=== PATIENT | male | born 1950 | race Caucasian/White ===

== ENCOUNTER 2021-05-30 09:09 | Outpatient (CLI) | payer MEDICARE, SELFPAY ==
--- NOTE | 2021-05-30 13:25 | WPDSIXMINUTE ---
Six Minute Walk Procedure Procedure Performed Pulmonary Stress Test (6 min walk) Six Minute Walk This is a 6 minute walk test. The test was performed and interpreted in accordance with the 2014 ERS/ATS task force guidelines. Findings: The patient's resting room air oxygen saturation measured by pulse oximetry was 96% and heart rate was 79 bpm. Patient ambulated for 396 meters and oxygen saturation remained 92 to 99%. Heart rate at the end of the study was 103 bpm. The patient did not qualify for supplemental oxygen at rest or with ambulation. There are no prior studies for comparison.
--- NOTE | 2021-05-30 13:26 | WPDPFTINT ---
PFT Procedure Performed PFT Procedure Performed Spirometry with Pre/Post Bronchodilator Plethysmography (Lung Vol) Diffusing Cap (DLCO) Flow Vol Loop PFT Interpretation This is a pulmonary function test with pre and post-bronchodilator spirometry, plethysmography and diffusing capacity. The test was performed and results interpreted in accordance with the 2019 and 2005 ATS/ERS Task Force guidelines respectively using the Global Lung Function Initiative-2012 reference equations. Patient demonstrated good effort and cooperation. Reproducibility criteria were met. The quality of the pre bronchodilator spirometry maneuver was Grade A and post bronchodilator spirometry maneuver was Grade A. Findings: Spirometry: There is decreased maximal expiratory airflow at low lung volumes with a concave expiratory flow tracing. The pre bronchodilator FVC is 4.04 L, 86% predicted. The pre bronchodilator FEV1 is 2.68 L, 76% predicted. The FEV1: FVC ratio 66%. The post bronchodilator FVC is 3.98 L, representing a 2% decrease. The post bronchodilator FEV1 is 2.65 L, representing 1% decrease. The post bronchodilator FEV1: FVC ratio 67%. Plethysmography: The total lung capacity is 7.69 L, 101% predicted. The functional residual capacity is 4.10 L, 101% predicted. The residual volume is 3.65 L, 140% predicted. Diffusing capacity: The diffusing capacity unadjusted for hemoglobin is 20.5, 75% predicted. The diffusing capacity adjusted for alveolar volume is 3.42, 91% predicted. Impression: There is a mild obstructive abnormality with a normal FEV1 and without significant improvement after inhaling a single dose of albuterol. The increase in residual volume is consistent with air trapping from an obstructive abnormality. The diffusing capacity is normal. There are no prior studies for comparison
== END 2021-05-30 09:10 | disposition home or self-care (01) ==
PROVIDERS: PCP Internal Medicine; Visit Provider Nurse Practitioner
DX: J44.9 Chronic obstructive pulmonary disease, unspecified (principal)
CPT/HCPCS: 94060; 94618; 94726; 94729

== ENCOUNTER → 2022-01-28 15:45 | Outpatient (CLI) | payer MEDICARE, SELFPAY ==
--- NOTE | ~2022-01-28 | CT_ITS ---
EXAMINATION: CT sinus wo con DATE: 01/28/2022 15:58 INDICATION: Chronic sinusitis TECHNIQUE: Computed tomography (CT) of the paranasal sinuses was performed without intravenous contra st. The dose-length product was 258.77 mGy-cm. Automated exposure control and iterative reconstructio n technique were employed. COMPARISON: None FINDINGS: There is mild mucosal thickening of the maxillary and ethmoid sinuses. No air-fluid levels. No mucoperiosteal reaction. Rightward nasal septal deviation. Ostiomeatal units are patent. Mastoids are pneumatized. IMPRESSION: 1. Mild sinus disease. Reviewed, dictated and finalized at location A. IMPRESSION: 1. Mild sinus disease.
== END ==
PROVIDERS: PCP Internal Medicine; Visit Provider Otolaryngology
DX: J32.9 Chronic sinusitis, unspecified (principal)
CPT/HCPCS: 70486

== ENCOUNTER 2024-06-10 16:23 | Outpatient (CLI) | payer MEDICARE, SELFPAY ==
--- OUTSIDE RECORDS SUMMARY | 2024-06-10 16:34 | XMS_ITS | Referral Summary ---
Author Organization [facility] Address [address] [place] [address] Care Team Providers Care Electronic Equipment Installer Name Role Phone Efraín Burch MD Primary Care Provider Source Comments [facility]ates and Associated Physician Practices is amultiple site organization consisting of ambulatory clinics and hospital sitesin [place], [place], [place] and [place]. This disclosure is being madepursuant to the Care Everywhere program and may not contain all information available regarding this patient. Last updated 18.[facility] Social History Tobacco Use Types Packs/Day Years Used Date Smoking Tobacco: Never Assessed Sex and Gender Information Value Date Recorded Sex Assigned at Not on file Gender Identity Not on file Sexual Orientation Not on file Plan of Treatment Not on file Care Teams Electronic Equipment Installer Relationship Specialty Start Date End Date Efraín Burch MD [address] [facility] [address] [place] [id number] PCP - General Internal Medicine 11/19/19
--- OUTSIDE RECORDS SUMMARY | 2024-06-10 16:34 | XMS_ITS | Patient Health Record ---
Author Organization [facility] Address [address] [place] [address] Care Team Providers Care Ship Rigger Name Role Phone Enoch Mondragon Unavailable [phone] REASON FOR REFERRAL No Information MEDICATIONS Medication SIG (Take, Route, Frequency, Duration) Notes Start Date End Date Status amLODIPine Besylate 10 MG 1 tablet Orall y Once a day for 90 08/08/2023 Active Carvedilol 25 MG 1 tablet with food Orally Twice a day for 90 days 10/29/2023 Active Calcitriol 0.25 MCG 1 capsule Orally Onc e a day for 90 day(s) 08/08/2023 12/19/2024 Active Ergocalciferol 1.25 MG (61709 UT) 1 capsule Orally Once a week for 90 day(s) 08/08/2023 02/01/2025 Active PROBLEMS Problem Type ICD Code Onset Dates Problem Status W/U Status Risk SNOMED Code Notes Problem Type 2 diabetes mellitus without complications (E11.9) Active confirmed Type II diabete s mellitus without complication (073072372) Problem Secondary hyperparathyroid ism, not elsewhere classified (E21.1) Active confirmed Secondary hyperparathyroidism (96028010) Problem Vitamin D deficiency, unspecified (E55.9) Active confirmed Vitamin D defic iency (02556310) Problem Anxiety disorder, unspecified (F41.9) Active confirmed Anxiety disorde r (210375008) Problem Chronic kidney disease, stage 2 (mild) (N18.2) Active confirmed Chronic kidne y disease stage 2 (073366522) Problem Renal osteodystrophy (N25.0) Active confirmed Renal osteodyst rophy (61186150) Problem Chronic fatigue, unspecified (R53.82) Active confirmed Chronic fatigue syndrome (disorder) (53557668) Problem Other proteinuria (R80.8) Active confirmed Proteinuria (67256674) Problem Essential hypertension (I10) Active confirmed Essential hypertension (39682031) Problem Chronic kidney disease, stage 3 unspecified (N18.30) Active confirmed Chronic kidney disease stage 3 (disorder) (894792393) Encounters Encounter Location Date Provider Diagnosis [facility] [address] [address] 07/25/2023 Enoch Mondragon Chronic kidney disea se, stage 3 unspecified N18.30 ; Anxiety disorder, unspecified F41.9 ; Chronic fatigue, unspecified R53.82 ; Other proteinuria R80.8 ; Renal osteodystrophy N25.0 and Secondary hyperparathyroidism, not elsewhere classified E21.1 [facility] [address] [address] 08/08/2023 Enoch Mondragon Chronic kidney disea se, stage 3 unspecified N18.30 ; Anxiety disorder, unspecified F41.9 ; Chronic fatigue, unspecified R53.82 ; Other proteinuria R80.8 ; Renal osteodystrophy N25.0 and Secondary hyperparathyroidism, not elsewhere classified E21.1 [facility] [address] [address] 09/12/2023 Enoch Mondragon Chronic kidney disea se, stage 3 unspecified N18.30 ; Anxiety disorder, unspecified F41.9 ; Chronic fatigue, unspecified R53.82 ; Other proteinuria R80.8 ; Renal osteodystrophy N25.0 and Secondary hyperparathyroidism, not elsewhere classified E21.1 [facility] [address] [address] 12/12/2023 Enoch Mondragon Chronic kidney disea se, stage 3 unspecified N18.30 ; Essential hypertension I10 ; Type 2 diabetes mellitus without complications E11.9 ; Anxiety disorder, unspecified F41.9 ; Chronic fatigue, unspecified R53.82 ; Other proteinuria R80.8 ; Renal osteodystrophy N25.0 and Secondary hyperparathyroidism, not elsewhere classified E21.1 [facility] [address] [address] 02/27/2024 Enoch Mondragon [facility] [address] [address] 03/24/2024 Enoch Mondragon Anxiety disorder, unspecified F41.9 ; Chronic kidney disease, stage 2 (mild) N18.2 ; Chronic fatigue, unspecified R53.82 ; Other proteinuria R80.8 ; Renal osteodystrophy N25.0 ; Secondary hyperparathyroidism, not elsewhere classified E21.1 ; Essential hypertension I10 ; Type 2 diabetes mellitus without complications E11.9 and Chronic kidney disease, stage 3 unspecified N18.30 [facility] [address] [address] 05/26/2024 Enoch Mondragon Chronic kidney disea se, stage 2 (mild) N18.2 ; Essential hypertension I10 ; Renal osteodystrophy N25.0 ; Vitamin D deficiency, unspecified E55.9 ; Abnormal results of thyroid function studies R94.6 and Glycosuria R81 [facility] [address] [place] [address] 03/24/2024 Enoch Mondragon [facility] [address] [address] 08/08/2023 Enoch Mondragon [facility] [address] [address] 09/12/2023 Enoch Mondragon [facility] [address] [address] 10/29/2023 Enoch Mondragon [facility] [address] [address] 05/07/2024 Enoch Mondragon ASSESSMENTS Encounter Date Diagnosis Assessment Notes Treatment Notes Treatment Clinical Notes Section Notes 07/25/2023 Chronic kidney disease, stage 3 unspecified (ICD-10 - N18.30) 08/08/2023 Chronic kidney disease, stage 3 unspecified (ICD-10 - N18.30) 09/12/2023 Chronic kidney disease, stage 3 unspecified (ICD-10 - N18.30) 12/12/2023 Essential hypertension (ICD-10 - I10) 12/12/2023 Chronic kidney disease, stage 3 unspecified (ICD-10 - N18.30) 03/24/2024 Anxiety disorder, unspecified (ICD-10 - F41.9) 03/24/2024 Chronic kidney disease, stage 2 (mild) (ICD-10 - N18.2) 05/26/2024 Chronic kidney disease, stage 2 (mild) (ICD-10 - N18.2) 05/26/2024 Essential hypertension (ICD-10 - I10) 05/26/2024 Renal osteodystrophy (ICD-10 - N25.0) 03/24/2024 Chronic fatigue, unspecified (ICD-10 - R53.82) 12/12/2023 Type 2 diabetes mellitus without complications (ICD-10 - E11.9) 09/12/2023 Anxiety disorder, unspecified (ICD-10 - F41.9) 08/08/2023 Anxiety disorder, unspecified (ICD-10 - F41.9) 07/25/2023 Anxiety disorder, unspecified (ICD-10 - F41.9) 07/25/2023 Chronic fatigue, unspecified (ICD-10 - R53.82) 09/12/2023 Chronic fatigue, unspecified (ICD-10 - R53.82) 08/08/2023 Chronic fatigue, unspecified (ICD-10 - R53.82) 12/12/2023 Anxiety disorder, unspecified (ICD-10 - F41.9) 03/24/2024 Other proteinuria (ICD-10 - R80.8) 05/26/2024 Vitamin D deficiency, unspecified (ICD-10 - E55.9) 05/26/2024 Abnormal results of thyroid function studies (ICD-10 - R94.6) 03/24/2024 Renal osteodystrophy (ICD-10 - N25.0) 12/12/2023 Chronic fatigue, unspecified (ICD-10 - R53.82) 08/08/2023 Other proteinuria (ICD-10 - R80.8) 09/12/2023 Other proteinuria (ICD-10 - R80.8) 07/25/2023 Other proteinuria (ICD-10 - R80.8) 07/25/2023 Renal osteodystrophy (ICD-10 - N25.0) 08/08/2023 Renal osteodystrophy (ICD-10 - N25.0) 09/12/2023 Renal osteodystrophy (ICD-10 - N25.0) 12/12/2023 Other proteinuria (ICD-10 - R80.8) 03/24/2024 Secondary hyperparathyroidism , not elsewhere classified (ICD-10 - E21.1) 05/26/2024 Glycosuria (ICD-10 - R81) 07/25/2023 Secondary hyperparathyroidism , not elsewhere classified (ICD-10 - E21.1) 03/24/2024 Essential hypertension (ICD-10 - I10) 12/12/2023 Renal osteodystrophy (ICD-10 - N25.0) 09/12/2023 Secondary hyperparathyroidism , not elsewhere classified (ICD-10 - E21.1) 08/08/2023 Secondary hyperparathyroidism , not elsewhere classified (ICD-10 - E21.1) 12/12/2023 Secondary hyperparathyroidism , not elsewhere classified (ICD-10 - E21.1) 03/24/2024 Type 2 diabetes mellitus without complications (ICD-10 - E11.9) 03/24/2024 Chronic kidney disease, stage 3 unspecified (ICD-10 - N18.30) PLAN OF TREATMENT Next Appt Details Provider Name:Enoch Mondragon , 07/14/2024 04:00:00 PM, [address] [facility], [facility] [address], [place], [address],
--- OUTSIDE RECORDS SUMMARY | 2024-06-10 16:34 | XMS_ITS | Clinical Summary ---
Author Organization [facility] Address [address] [place] [address] Care Team Providers Care Paper Cutter Operator Name Role Phone Efraín Burch MD Primary Care Provider Source Comments [facility],non-owned Affiliates and Associated Physician Practices is amultiple site organization consisting of ambulatory clinics and hospital sitesin [place], [place]. This disclosure is being madepursuant to the Care Everywhere program and may not contain all information available regarding this patient. Last updated 18.[facility] Social [employer] Social History Tobacco Use Types Packs/Day Years Used Date Smoking Tobacco: Never Assessed Sex and Gender Information Value Date Recorded Sex Assigned at Not on file Gender Identity Not on file Sexual Orientation Not on file Plan of Treatment Health Maintenance Due Date Last Done Comments COLOGUARD (AGES 45-75) - COL ON CA SCREENING 1950 COLON MONITORING 1950 COLONOSCOPY - COLON CA SCREENING 1950 CT COLONOGRAPHY - COLON CA SCREENING 1950 Colorectal Cancer Screening 1950 FIT - COLON CA SCREENING 1950 FLEX SIG - COLON CA SCREENING 1950 LIPID TESTING 1950 HEPATITIS C SCREENING 08/11/1968 DTAP/TDAP/TD VACCINES (1 - Tdap) 1969 PNEUMOCOCCAL VACCINE 50+ (1 of 1 - PCV) 2000 ZOSTER VACCINE (1 of 2) 2000 COVID-19 VACCINE ( - 2023-2 5 season) 2024 INFLUENZA VACCINE (#1) 2024 9, 03/25/2018, 03/17/2017 DEPRESSION SCREENING 05/12/2024 Respiratory Syncytial Virus (RSV) Vaccine Pt: or over 60 yrs (1 - 1-dose 75+ series) 2025 HEPATITIS B VACCINE Aged Out No longe r eligible based on patient's age to complete this topic HIB VACCINE Aged Out No longer eligi ble based on patient's age to complete this topic HPV VACCINE Aged Out No longer eligi ble based on patient's age to complete this topic MENINGOCOCCAL (Group B) VACCINE Aged Out No longer eligible b ased on patient's age to complete this topic MENINGOCOCCAL VACCINE Aged Out No freedom yordy eligible based on patient's age to complete this topic Care Teams Paper Cutter Operator Relationship Specialty Start Date End Date Efraín Burch MD [address] [address] PCP - General Internal Medicine 11/19/19
--- OUTSIDE RECORDS SUMMARY | 2024-06-10 16:35 | XMS_ITS ---
Author Organization [facility] Address [address] [facility] [address] [facility] [address] [place] [address] Care Team Providers Care Conservation Worker Name Role Phone Giancarlo Enoch Unavailable [phone] MEDICATIONS Medication SIG (Take, Route, Frequency, Duration) Notes Start Date End Date Status Ergocalciferol 1.25 MG (31607 UT) 1 capsule Orally Once a week for 90 day(s) 08/08/2023 02/01/2025 Active Encounters Encounter Location Date Provider Diagnosis [facility] [address] [facility] [address] [place] [address] 05/07/2024 Enoch Mondragon PLAN OF TREATMENT Medication Medication Name Sig Start Date Stop Date Notes Ergocalciferol 1.25 MG (5000 0 UT) 1 capsule Orally Once a week for 90 day(s) 08/08/2023 02/01/2025 Next Appt Details Provider Name:Enoch Mondragon , 07/14/2024 04:00:00 PM, [address] [facility], [facility], [place], [address], Progress Notes * OTONIEL HARVEYDOB:1950 (73 yo M)Acc No.[id number]:05/07/2024 Patient:??OTONIEL HARVEY :1950?Age:73 Y?Sex:Shiv lee Address:[address] [place] [address] * Refills?? Refill Ergocalciferol Capsule, 1.25 MG (13557 UT), Orally, 13, 1 capsule, Once a week, 90 day(s), Refills=2 * true * Date:??
--- OUTSIDE RECORDS SUMMARY | 2024-06-10 16:35 | XMS_ITS | Clinical Summary ---
Author Organization [facility] Address [address] [place] [address] Care Team Providers Care Personal Trainer Name Role Phone Martin Brooks MD Unavailable Gonzalez Alvarado Primary Care Provider [phone] Allergies No known active allergies Medications Eliquis 5 mg tablet Take 5 mg by mouth 2 (two) times a day 1 Active atorvastatin (LIPITOR) 20 mg tablet Take 20 mg by mouth nightly 1 Active hydrALAZINE (APRESOLINE) 50 mg tablet Take 50 mg by mouth 2 (two) times a day 1 Active isosorbide mononitrate ER (IMDUR) 30 mg 24 hr tablet Take 30 mg by mouth daily 1 Active losartan (COZAAR) 100 mg tablet Take 100 mg by mouth nightly 1 Active Myrbetriq 50 mg tablet extended release 24 hr Take 50 mg by mouth daily 1 Active rOPINIRole (REQUIP) 1 mg tablet Take 1 mg by mouth nightly 1 Active sotaloL (BETAPACE) 120 mg tablet Take 180 mg by mouth 2 (two) times a day 1 Active terazosin (HYTRIN) 5 mg capsule Take 5 mg by mouth nightly 1 Active testosterone 20.25 mg/1.25 gram (1.62 %) gel in metered-dose pump Apply 3 Pump topically nightly 1 Active budesonide-formo teroL (SYMBICORT) 80-4.5 mcg/actuation inhaler Inhale 2 puffs 2 (two) times a day Rinse mouth with water after use. Do not swallow. Active umeclidinium (INCRUSE ELLIPTA) 62.5 mcg/actuation blister with device Inhale 1 puff nightly Active coenzyme Q10 200 mg capsule Take 200 mg by mouth nightly Active magnesium oxide (MAG-OX) 250 mg (150.8 mg elemental) tabletIndication s:hypomagnesemia Take 250 mg by mouth nightly Active albuterol HFA (PROVENTIL HFA,VENTOLIN HFA,PROAIR HFA) 90 mcg/actuation inhaler Inhale 2 puffs every 6 (six) hours as needed 6 Active a lipoic hqhz-hxxwzb-fbjl erine 125 mg-95 mcg- 250 mg capsule Take 1 capsule by mouth daily Just the Berberine Active aspirin 81 mg enteric coated tabletIndication s:cardiovascular disease Take 1 tablet (81 mg total) by mouth daily 30 tablet 11 1 Active carvediloL (COREG) 12.5 mg tabletIndication s:cardiovascular disease Take 1 tablet (12.5 mg total) by mouth 2 (two) times a day 60 tablet 11 1 Active ticagrelor (BRILINTA) 90 mg tabletIndication s:cardiovascular disease Take 1 tablet (90 mg total) by mouth 2 (two) times a day 60 tablet 11 1 Active Active Problems Problem Noted Date Diagnosed Date Chest pain at rest 03/05/2021 CAD (coronary artery disease) 02/28/2021 Overview (02/28/2021): Added automatically from request for surgery [id number] SOB (shortness of breath) 02/28/2021 Overview (02/28/2021): Added automatically from request for surgery [id number] Surgical History Surgery Date Site/Laterality Comments CARDIAC PACEMAKER PLACEMENT Dual Chamber [employer] CARDIAC CATHETERIZATION CARDIAC ELECTROPHYSIOLOGY STUDY AND ABLATION CARDIOVERSION UMBILICAL HERNIA REPAIR TOTAL KNEE ARTHROPLASTY 05/12/2020 - 05/11/2021 Left TONSILLECTOMY BRONCHOSCOPY histoplasmosis Medical History Medical History Date Comments Arrhythmia A Fib post ablat ion SSS (sick sinus syndrome) (CMS/HCC) (HCC) post Dual Chamber Pacemaker Hypertension Sleep apnea CPAP HLD (hyperlipidemia) CAD (coronary artery disease) Asthma allergies Lung disease borderline COPD BPH (benign prostatic hyperplasia) Restless leg Depression history 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 FREQUENCY CHECKER Gender Identity Not on file Sexual Orientation Not on file Obstetrics History Last Filed Vital Signs Vital Sign Reading Time Taken Comments Blood Pressure 138/89 03/06/2021 12:13 PM CDT Pulse 79 03/06/2021 12:13 PM CDT Temperature 36.9 ??C (98.5 ??F) 03/06/2021 12:13 PM C DT Respiratory Rate 18 03/06/2021 12:13 PM CDT Oxygen Saturation 96% 03/06/2021 12:13 PM CDT Inhaled Oxygen Concentration - - Weight 131.5 kg (290 lb) 03/05/2021 10:10 AM CDT Height 185.4 cm (6' 1 ) 03/05/2021 10:10 AM CDT Body Mass Index 38.26 03/05/2021 10:10 AM CDT Plan of Treatment Not on file Medical Devices Implanted Type Area Gauge Machine Operator Device Identifier Shelf Expiration Date Model / Serial / Lot [employer] X [id number] Resolute Josr 3mm 2.1-2.7fr 8mm 140cm Rapid Exchange Radiopaque 1 - [id number] Implanted:Qty: 1 on 03/05/2021 by Shine Zuñiga MD at [facility] [employer] 04/12/2022 [id number] / / Insurance AETNA MEDICARE AETNA MEDICARE Advance Directives For more information, please contact: [phone] * Full Code (Latest Code Status on File) Date Activated Date Inactivated Comments 03/05/2021 6:31 PM 03/06/2021 5:58 PM * Full Code Date Activated Date Inactivated Comments 03/05/2021 2:41 PM 03/05/2021 6:31 PM Care Teams Personal Trainer Relationship Specialty Start Date End Date Gonzalez Alvarado [address] [address] PCP - General 03/19/21 Martin Brooks MD Consulting Physician Cardiology 03/06/21
--- OUTSIDE RECORDS SUMMARY | 2024-06-10 16:35 | XMS_ITS | Continuity of Care Document ---
Author Organization [facility] Address [address] [place] [address] Phone Care Team Providers Care Mechanical Systems Control Engineer Name Role Phone Galvan OD, Francisco Unavailable Unavailable Procedures Procedure Date Office/outpatient Visit, Est Refraction Advance Directives Directive Yes / No Effective Date File Name No Information Encounters Encounter Description Practice Location Reason(s) For Visit Diagnoses Date Provider Providers Copied on Encounter [facility] [address], [place], [place], [id number], [place] tel:[phone] [facility] No Information [phone] Galvan OD Francisco. [address] , [address], [place], [address], [place]. tel:[phone] Family History Family Member Type Diagnosis Age At Onset No Information Payers Payer name Insurance type Covered constitution party ID Authoriza tion(s) No Information Social History Type Description Quantity Date Captured Comments Sex Male Smoking Status No Information Chief Complaint And Reason For Visit No Information Reason For Referral Reason For Referral No Information History Of Present Illness Encounter Date Complaint History Of Prese nt Illness No Information Functional Status Date Functional Assessmen t No Information Instructions Date Instruction Additional Infor mation No Information Assessments Type Assessment Date No Information Patient Care Teams Name Effective Dates (start - stop) Status Members No Information
--- OUTSIDE RECORDS SUMMARY | 2024-06-10 16:35 | XMS_ITS | Data Portability ---
Author Organization [place] - [facility], Main Office Address [address] [place] [address] Care Team Providers [employer] Underwriter Name Role Phone JOSE BURCH Primary Care Provider JOSE BURCH Referring Provider MARTIN BROOKS Skin Specialist ABEL BAEZA Commercial Leasing Agent NAYAN AGUILAR Administration Internship JERALD HEBERT Cost Estimating Clerk Assessment Encounter Date Assessment Date Assessment LastModified by Organization Details LastModified Time 11/10/2023 11/10/2023 08/21/2022: A1C 5.9 Gluc 103, AST 47 LDL 88 01/01/2023: A1C 5.8 Hep panel: Neg GGT: Neg Bili T 1.40 Urine micro alb 76.5 PLT 147 07/01/2023: PSA 1.18 A1C 5.8 TSH 4.930H, FT4 0.80 Urine micro alb 32.1 BUN 22, Gluc 104, glob 2.4L, TP WNL 11/06/2023: A1C 5.7 Urine micro alb 39.2H BUN 22, Gluc 106, Bili T 1.40H, Alb 4.5H, Glob 2.1 Not available 11/09/2023 20:09:50 12/16/2023 12/16/2023 Assessment: Nicotine smoke: 1 ppd [id number] = 46 pack years Mild COPD 3 mm LLL nodule Very severe OSAHS, AHI = 73 Iron deficiency PLMD Plan: The following were reviewed and explained to the patient: [facility] sleep study 02/13/05 AHI = 73, ResMed large Ultra Mirage full face mask with no optimal pressure, PLMI = 15 Lab data 05/16/21 allergic to cat dander PFT 03/14/05 FEV1 3.62 L (97%) PFT 05/30/21 FEV1 2.68 L (76%) PFT 09/08/23 FEV1 2.54 L (72%) 6MW 05/16/21 96% -> 92% Chest CT 05/16/[address] 05/16/[address] 07/03/23 3 mm LLL nodule Ferritin 07/31/23 36 ng/mL Ferritin 11/06/23 83 ng/mL Differential diagnoses for pulmonary nodule: 1. malignant tumor 2. benign tumor 3. inflammatory processes 4. infectious process (viral, atypical bacterial, fungal, atypical mycobacterial) The Fleischner Society pulmonary nodule recommendations below pertain to the follow-up and management of indeterminate pulmonary nodules detected incidentally on CT and are published by the Fleischner Society. The guideline does not apply to lung cancer screening, patients younger than 35 years, or patients with a history of primary cancer or immunosuppression. These recommendations reflect the 2017 revision 4, which supersedes prior versions published in 2005 and 2013. Single solid nodule <6 mm (<100 mm3) *low-risk patients: no routine follow-up required *high-risk patients: optional CT at 12 months (particularly with suspicious nodule morphology and/or upper lobe location) Single solid nodule 6-8 mm (100-250 mm3) *low-risk patients: CT at 6-12 months, then consider CT at 18-24 months *high-risk patients: CT at 6-12 months, then CT at 18-24 months Single solid nodule >8 mm (>250 mm3) *low-risk and high-risk patients: consider CT at 3 months, PET/CT, or tissue sampling Advised to continue not to smoke. Continue Albuterol HFA as needed. Continue Breyna 160/4.5 mcg 2 puffs BID. Gargle after use Continue Incruse Ellipta 1 inhalation daily. The patient does not know how to accurately administer the inhalers. Today, the patient was shown how to take these medications. The proper technique for delivering these medications was instructed. The patient expressed a clear understanding and demonstrated back how to use these medications. Without the proper technique, the patient will not reap the benefits of these medications as the contents will not reach the lower airways as intended to be. Adherence to therapy is advocated. Nonadherence may lead to treatment failure, further progression of the condition, and other complications. Hospitals admissions are often the result of individuals not taking prescription medications accurately. Alternatively, greater adherence to medication regimens have shown to lower rates of hospitalization and decrease total medical costs in patients with chronic medical conditions. Elevation in periodic limb movement index may be contributed by sertraline. Non-pharmacologic therapy options for periodic limb movement disorder include avoidance of aggravating drugs and substances, mental alerting activities, short daily hemodialysis for patients in renal failure, exercise, leg massage, stretching calf muscles, use of a weighted blanket and applied heat. Patient will cut down on alcohol consumption and caffeine intake. Continue ropinirole but decrease from 1 mg to 0.5 mg nightly after supper as long as the patient is not driving thereafter. BUN, Creatinine, Vitamin E, Vitamin B12, RBC folate, Iron, TIBC, Ferritin, ESR, Magnesium, Hgb and Hct levels are within normal limits. Patient will continue FeSO4 325 mg + Vit C 500 mg daily to keep the ferritin > 75 ng/ml. Check ferritin one week before return. PAP compliance downloaded and interpreted x 20 minutes. Data reviewed and explained to the patient. Average apnea/hypopnea index (AHI) is 7.0 due to leakage. Patient used PAP > 4 hours 100% of the time. PAP is set at 19 cmH2O. PAP will be reset at 15-20 cmH2O. Keep EPR +3 director multimedia. Ramp start at 10 cmH2O. Ramp duration at 15 minutes Keep humidifier at automatic mode. Keep tube temperature at 80 F. Oxygen supplementation: none Patient is benefiting from PAP therapy. Encouraged patient to maintain PAP use more than 70% of the time. Statement of PAP use and benefits will be sent to the home care store. Patient is going to [facility] for resizing. He will also shave the barrera to minimize leakage. Educated the patient on problems and solutions associated with positive airway pressure (PAP) use. Difficulty tolerating pressure, mask leaks, intolerance of interface, nasal congestion, claustrophobic response, dry mouth, and unintentional mask removal during sleep were covered. Patient's mask leaks air. We will ensure the mask is situated properly. Patient can wear protective eye covering during sleep, and the mask can be resized. Patient has intolerance to interface. Patient will loosen mask slightly, ensure mask is situated properly, inspect and replace interface if worn out, use barrier such as moleskin or bandage for irritation at bridge of nose, have a temporary holiday from PAP, resize mask or obtain an oral interface. Dry mouth is a normal occurrence for people who just start out on PA therapy because they are not used to air blowing in to the throat to hold open. Dry mouth is exacerbated for people who wear nasal PAP mask and whose jaw drops open during sleep. Not only does this create a much less efficient therapy because of leakage, it also causes dry mouth. There are a couple solutions to help prevent this type of problem. A simple solution would be to wear a chinstrap which essentially holds the jaw in place. A second solution would be a switch to a full face mask which covers both the nose and mouth. Although this is another easy solution, using a full face mask for some could seem claustrophobic or confining. There is no silver bullet solution as no single mask is right for everybody. Sometimes it takes a bit of experimentation to find a PAP mask which best meets the patient's needs as well as fits comfortably. Another tactic is to use a humidifier on your PAP machine. Most new PAP machines have integrated humidifiers. Humidification is borges when dealing with symptoms of dry mouth because the humidifier can supply both warm and room temperate air. Even a small amount of humidity in the airflow will help nasal passages to stay hydrated. If a person is using both a full face mask and a PAP machine with a heated humidifier and is still experiencing dry mouth, an ill-fitted PAP mask might be causing the problem. Leakage can be caused by a mask that is to large or small, the wrong style mask, the cushion is degraded or simply because the mask's straps aren't adjusted correctly. If leakage occurs, dry air from the room can leak in while humidification escapes. The result is reduced humidification within the circuit and resulting in dry throat and mouth. Finally, beyond factors involving the PAP machine and mask, dry mouth can also be caused or worsened by dehydration. The general recommendation to during eight 8 oz. glasses of water a day might be too little for many people. When people drink large amounts of coffee or other caffeine beverages, or sweat a lot during the day, making sure to rehydrate is an important part of PAP therapy. Provided the patient with a list of local home care stores where positive airway pressure (PAP) units, accoutrement, and services are available. Home care store selection is based on patient's insurance carrier. Patient will setup an appointment with [facility] for supplies and pressure adjustments. A major predictor of success with use of PAP is follow-up with both the respiratory supplier and the treating physician. The download results can show the treating physician information about adherence to treatment, residual AHI while on treatment and presence of large mask leakage. This information is especially helpful if the patient has residual sleepiness despite treatment. General information on sleep disordered breathing, evaluation of sleep disordered breathing, treatment with PAP therapy, and living with PAP therapy were covered. We discussed with the patient the impact of weight on: Sleep disordered breathing Hyperlipidemia Hypertension CHF DM LISA Fatty liver Urge urinary incontinence Thoracic DDD/spondylosis Right knee OA We discussed with the patient the benefit of PAP therapy on: Sleep disordered breathing Depression/Anxiety Rhinosinusitis Atrial fibrillation Hypertension CHF DM LISA Urge urinary incontinence Educated the patient on sleep hygiene measures. Relaxing rituals to rest easy, understanding foods with positive and negative impact on sleep, creating a peaceful sleep environment, timing of exercise, using herbal sleep aids, and practicing sleep-friendly meditation were covered. To determine how much sleep is needed, the patient will assess where he falls on the spectrum, examine what lifestyle factor such as stress is affecting the quality and quantity of sleep. In general, adults need 7-9 hours of sleep. Educated the patient regarding foods that promote sleep. These include but are not limited to cherries, bananas, toast, oatmeal, and warm milk. Educated the patient regarding foods and drinks to avoid before bedtime. These include but are not limited to aged cheese, chocolate, spicy foods, tomato-based sauces, soy, ginseng tea and processed meat. Advocated influenza vaccination annually and pneumonia vaccination KOMAL. Advocated weight loss through diet and exercise. Patient's ideal body weight according to height and gender is up to 200 lbs. Encouraged patient to adjust caloric intake to maintain/achieve ideal body weight, emphasizing on fruits, vegetables, whole grains, and fat-free or low-fat products. These include lean meats, poultry, fish, beans, eggs, and nuts and foods that are low in saturated fats, trans-fats, cholesterol, salt (sodium), and glycemic index. Stressed the importance of regular exercise up to the patient's capacity limits. In this case, we recommend 20 min daily walking, 2 days a week of resistance training. Patient to monitor BP daily and bring records to PCP for further management. Follow-up: 3 months, March 2024 Not available 12/16/2023 11:26:55 02/02/2024 02/02/2024 08/21/2022: A1C 5.9 Gluc 103, AST 47 LDL 88 01/01/2023: A1C 5.8 Hep panel: Neg GGT: Neg Bili T 1.40 Urine micro alb 76.5 PLT 147 07/01/2023: PSA 1.18 A1C 5.8 TSH 4.930H, FT4 0.80 Urine micro alb 32.1 BUN 22, Gluc 104, glob 2.4L, TP WNL 11/06/2023: A1C 5.7 Urine micro alb 39.2H BUN 22, Gluc 106, Bili T 1.40H, Alb 4.5H, Glob 2.1 Not available 02/02/2024 11:08:03 03/18/2024 03/18/2024 Assessment: Nicotine smoke: 1 ppd [id number] = 46 pack years Mild COPD 3 mm LLL nodule Very severe OSAHS, AHI = 73 Iron deficiency PLMD Plan: The following were reviewed and explained to the patient: [facility] sleep study 02/13/05 AHI = 73, ResMed large Ultra [place] full face mask with no optimal pressure, PLMI = 15 Lab data 05/16/21 allergic to cat dander PFT 03/14/05 FEV1 3.62 L (97%) PFT 05/30/21 FEV1 2.68 L (76%) PFT 09/08/23 FEV1 2.54 L (72%) 6MW 05/16/21 96% -> 92% Chest CT 05/16/[address] 05/16/[address] 07/03/23 3 mm LLL nodule Ferritin 07/31/23 36 ng/mL Ferritin 11/06/23 83 ng/mL Ferritin 03/11/24 67 ng/mL Differential diagnoses for pulmonary nodule: 1. malignant tumor 2. benign tumor 3. inflammatory processes 4. infectious process (viral, atypical bacterial, fungal, atypical mycobacterial) The Fleischner Society pulmonary nodule recommendations below pertain to the follow-up and management of indeterminate pulmonary nodules detected incidentally on CT and are published by the Fleischner Society. The guideline does not apply to lung cancer screening, patients younger than 35 years, or patients with a history of primary cancer or immunosuppression. These recommendations reflect the 2017 revision 4, which supersedes prior versions published in 2005 and 2013. Single solid nodule <6 mm (<100 mm3) *low-risk patients: no routine follow-up required *high-risk patients: optional CT at 12 months (particularly with suspicious nodule morphology and/or upper lobe location) Single solid nodule 6-8 mm (100-250 mm3) *low-risk patients: CT at 6-12 months, then consider CT at 18-24 months *high-risk patients: CT at 6-12 months, then CT at 18-24 months Single solid nodule >8 mm (>250 mm3) *low-risk and high-risk patients: consider CT at 3 months, PET/CT, or tissue sampling Advised to continue not to smoke. Continue Albuterol HFA as needed. Continue Breyna 160/4.5 mcg 2 puffs BID. Gargle after use Continue Incruse Ellipta 1 inhalation daily. The patient does not know how to accurately administer the inhalers. Today, the patient was shown how to take these medications. The proper technique for delivering these medications was instructed. The patient expressed a clear understanding and demonstrated back how to use these medications. Without the proper technique, the patient will not reap the benefits of these medications as the contents will not reach the lower airways as intended to be. Adherence to therapy is advocated. Nonadherence may lead to treatment failure, further progression of the condition, and other complications. Hospitals admissions are often the result of individuals not taking prescription medications accurately. Alternatively, greater adherence to medication regimens have shown to lower rates of hospitalization and decrease total medical costs in patients with chronic medical conditions. Elevation in periodic limb movement index may be contributed by sertraline. Non-pharmacologic therapy options for periodic limb movement disorder include avoidance of aggravating drugs and substances, mental alerting activities, short daily hemodialysis for patients in renal failure, exercise, leg massage, stretching calf muscles, use of a weighted blanket and applied heat. Patient will cut down on alcohol consumption and caffeine intake. Continue ropinirole but decrease from 0.5 mg to 0.25 mg nightly after supper as long as the patient is not driving thereafter. BUN, Creatinine, Vitamin E, Vitamin B12, RBC folate, Iron, TIBC, Ferritin, ESR, Magnesium, Hgb and Hct levels are within normal limits. Patient will continue FeSO4 325 mg + Vit C 500 mg but increase from daily to twice daily to keep the ferritin > 75 ng/ml. Check ferritin one week before return. PAP compliance downloaded and interpreted x 20 minutes. Data reviewed and explained to the patient. Average apnea/hypopnea index (AHI) is 3.3. Patient used PAP > 4 hours 100% of the time. PAP is set at 15-20 cmH2O. PAP will be reset at 15-18 cmH2O. Keep EPR +3 director multimedia. Keep ramp start at 4 cmH2O. Keep ramp duration at 15 minutes Keep humidifier at automatic mode. Keep tube temperature at 80 F. Oxygen supplementation: none Patient is benefiting from PAP therapy. Encouraged patient to maintain PAP use more than 70% of the time. Statement of PAP use and benefits will be sent to the home care store. Educated the patient on problems and solutions associated with positive airway pressure (PAP) use. Difficulty tolerating pressure, mask leaks, intolerance of interface, nasal congestion, claustrophobic response, dry mouth, and unintentional mask removal during sleep were covered. Patient's mask leaks air. We will ensure the mask is situated properly. Patient can wear protective eye covering during sleep, and the mask can be resized. Patient has intolerance to interface. Patient will loosen mask slightly, ensure mask is situated properly, inspect and replace interface if worn out, use barrier such as moleskin or bandage for irritation at bridge of nose, have a temporary holiday from PAP, resize mask or obtain an oral interface. Dry mouth is a normal occurrence for people who just start out on PA therapy because they are not used to air blowing in to the throat to hold open. Dry mouth is exacerbated for people who wear nasal PAP mask and whose jaw drops open during sleep. Not only does this create a much less efficient therapy because of leakage, it also causes dry mouth. There are a couple solutions to help prevent this type of problem. A simple solution would be to wear a chinstrap which essentially holds the jaw in place. A second solution would be a switch to a full face mask which covers both the nose and mouth. Although this is another easy solution, using a full face mask for some could seem claustrophobic or confining. There is no silver bullet solution as no single mask is right for everybody. Sometimes it takes a bit of experimentation to find a PAP mask which best meets the patient's needs as well as fits comfortably. Another tactic is to use a humidifier on your PAP machine. Most new PAP machines have integrated humidifiers. Humidification is borges when dealing with symptoms of dry mouth because the humidifier can supply both warm and room temperate air. Even a small amount of humidity in the airflow will help nasal passages to stay hydrated. If a person is using both a full face mask and a PAP machine with a heated humidifier and is still experiencing dry mouth, an ill-fitted PAP mask might be causing the problem. Leakage can be caused by a mask that is to large or small, the wrong style mask, the cushion is degraded or simply because the mask's straps aren't adjusted correctly. If leakage occurs, dry air from the room can leak in while humidification escapes. The result is reduced humidification within the circuit and resulting in dry throat and mouth. Finally, beyond factors involving the PAP machine and mask, dry mouth can also be caused or worsened by dehydration. The general recommendation to during eight 8 oz. glasses of water a day might be too little for many people. When people drink large amounts of coffee or other caffeine beverages, or sweat a lot during the day, making sure to rehydrate is an important part of PAP therapy. Provided the patient with a list of local home care stores where positive airway pressure (PAP) units, accoutrement, and services are available. Home care store selection is based on patient's insurance carrier. Patient will setup an appointment with [facility] for supplies and pressure adjustments. A major predictor of success with use of PAP is follow-up with both the respiratory supplier and the treating physician. The download results can show the treating physician information about adherence to treatment, residual AHI while on treatment and presence of large mask leakage. This information is especially helpful if the patient has residual sleepiness despite treatment. General information on sleep disordered breathing, evaluation of sleep disordered breathing, treatment with PAP therapy, and living with PAP therapy were covered. We discussed with the patient the impact of weight on: Sleep disordered breathing Hyperlipidemia Hypertension CHF DM LISA Fatty liver Urge urinary incontinence Thoracic DDD/spondylosis Right knee OA We discussed with the patient the benefit of PAP therapy on: Sleep disordered breathing Depression/Anxiety Rhinosinusitis Atrial fibrillation Hypertension CHF DM LISA Urge urinary incontinence Educated the patient on sleep hygiene measures. Relaxing rituals to rest easy, understanding foods with positive and negative impact on sleep, creating a peaceful sleep environment, timing of exercise, using herbal sleep aids, and practicing sleep-friendly meditation were covered. To determine how much sleep is needed, the patient will assess where he falls on the spectrum, examine what lifestyle factor such as stress is affecting the quality and quantity of sleep. In general, adults need 7-9 hours of sleep. Educated the patient regarding foods that promote sleep. These include but are not limited to cherries, bananas, toast, oatmeal, and warm milk. Educated the patient regarding foods and drinks to avoid before bedtime. These include but are not limited to aged cheese, chocolate, spicy foods, tomato-based sauces, soy, ginseng tea and processed meat. Advocated influenza vaccination annually and pneumonia vaccination KOMAL. Advocated weight loss through diet and exercise. Patient's ideal body weight according to height and gender is up to 200 lbs. Encouraged patient to adjust caloric intake to maintain/achieve ideal body weight, emphasizing on fruits, vegetables, whole grains, and fat-free or low-fat products. These include lean meats, poultry, fish, beans, eggs, and nuts and foods that are low in saturated fats, trans-fats, cholesterol, salt (sodium), and glycemic index. Stressed the importance of regular exercise up to the patient's capacity limits. In this case, we recommend 20 min daily walking, 2 days a week of resistance training. Patient to monitor BP daily and bring records to PCP for further management. Follow-up: 3 months, Fdebruary 2024 Not available 03/18/2024 10:52:43 03/22/2024 03/22/2024 08/21/2022: A1C 5.9 Gluc 103, AST 47 LDL 88 01/01/2023: A1C 5.8 Hep panel: Neg GGT: Neg Bili T 1.40 Urine micro alb 76.5 PLT 147 07/01/2023: PSA 1.18 A1C 5.8 TSH 4.930H, FT4 0.80 Urine micro alb 32.1 BUN 22, Gluc 104, glob 2.4L, TP WNL 11/06/2023: A1C 5.7 Urine micro alb 39.2H BUN 22, Gluc 106, Bili T 1.40H, Alb 4.5H, Glob 2.1 03/11/2024: A1C 6.1 TSH 5.110H, FT4 0.89 BUN 21, gluc 109, TP 6.2, Glob 2.2 LDL 112 PLT 148 45 minutes spent with patient, labs reviewed, exam for ENT done, referrals provided, chart updated [email or web address] Not available 03/22/2024 10:39:35 Plan of Treatment Reminders Order Date Submit Date Provider Last Modified By Organization Details Last Modified Time Details Appointments Any 15 2024 09:45A Dinah Hebert MD Not available Not available Not available Any 15 2024 10:30A Dinah smith MD Not available Not available Not available Lab glycohemo globin, total, blood 2023 024 [email or web address] Not available 05/13/2024 09:02:41 microalbu min, urine 2023 024 [email or web address] Not available 05/13/2024 09:02:41 TSH, serum or plasma 2023 024 [email or web address] Not available 11/27/2023 10:17:46 T4, free, serum 2023 024 [email or web address] Not available 06/07/2024 10:00:25 lipid panel, serum 2023 024 [email or web address] Not available 05/13/2024 09:02:40 CMP, serum or plasma 2023 024 [email or web address] Not available 05/13/2024 09:02:40 CBC w/ auto diff 2023 024 [email or web address] Not available 05/13/2024 09:02:40 TSH + free T4, serum 2023 024 [email or web address] Not available 05/13/2024 09:02:41 ferritin, serum or plasma 2023 024 MARTIN Not available 03/11/2024 19:35:29 lipid panel, serum 2023 024 MARTIN Not available 03/11/2024 18:41:42 CMP, serum or plasma 2023 024 MARTIN Not available 03/11/2024 18:41:48 CBC w/ auto diff 2023 024 MARTIN Not available 03/11/2024 13:32:07 TSH + free T4, serum 2023 024 [email or web address] Not available 02/02/2024 12:20:59 glycohemo globin, total, blood 2023 024 MARTIN Not available 03/11/2024 13:56:51 microalbu min, urine 2023 024 [email or web address] Not available 02/02/2024 12:21:00 TSH, serum or plasma 2023 024 MARTIN Not available 03/11/2024 19:02:43 T4, free, serum 2023 024 MARTIN Not available 03/11/2024 18:43:58 ferritin, serum or plasma 2023 025 MARTIN Not available 05/18/2024 03:02:08 lipid panel, serum 2023 024 Not available 03/22/2024 10:48:50 CMP, serum or plasma 2023 024 [email or web address] Not available 03/22/2024 10:48:50 CBC w/ auto diff 2023 024 [email or web address] Not available 03/22/2024 10:48:51 TSH + free T4, serum 2023 024 [email or web address] Not available 03/22/2024 10:48:51 glycohemo globin, total, blood 2023 024 Not available 03/22/2024 10:48:51 microalbu min, urine 2023 024 [email or web address] Not available 03/22/2024 10:48:51 TSH, serum or plasma 2023 024 [email or web address] Not available 03/22/2024 10:48:52 T4, free, serum 2023 024 [email or web address] Not available 03/22/2024 10:48:52 Referral podiatris t referral 2023 024 [email or web address] Israel Mckenzie DPM, [address], [address], [place], [address], 05/13/2024 09:02:51 urologist referral 2023 024 [email or web address] Jean Mir MD, [address], [address], [place], [address], 05/13/2024 09:02:52 cardiolog ist referral 2023 024 [email or web address] Martin Brooks, [address], [place], [address], 05/13/2024 09:02:51 urologist referral 2023 024 Jean Mir MD, [address], [address], [place], [address], 02/05/2024 15:38:22 podiatris t referral 2023 024 MARTIN Mckenzie DPM, [address], [address], [place], [address], 02/11/2024 11:44:20 cardiolog ist referral 2023 024 [email or web address] Martin Brooks, [address], [place], [address], 02/02/2024 12:21:02 urologist referral 2023 024 [email or web address] Jean Mir MD, [address], [address], [place], [address], 03/22/2024 14:08:18 podiatris t referral 2023 024 [email or web address] Israel Mckenzie DPM, [address] [facility], [address], [place], [address], 03/22/2024 14:07:18 hematolog ist referral 2023 024 CATOLOR Mg, [address], [place], [address], 03/22/2024 14:56:30 cardiolog ist referral 2023 024 [email or web address] Martin Brooks, [address], [place], [address], 03/22/2024 14:06:20 Procedures None recorded. Surgeries None recorded. Imaging US, thyroid 2023 024 [email or web address] 2 Not available 05/13/2024 12:32:22 Medication Orders ferrous sulfate 325 mg (65 mg iron) tablet 2023 024 [facility] #3259, [address] [place], [address], 12/16/2023 11:18:09 Vitamin C 500 mg tablet 2023 024 [facility] #3259, [address] [place], [address], 12/16/2023 11:18:09 ropinirol e 0.5 mg tablet [email or web address] [facility], [facility], [place], [address], 03/18/2024 10:51:31 albuterol sulfate HFA 90 mcg/actua tion aerosol inhaler 2023 [facility], [address] [place], [address], 12/16/2023 11:18:10 Incruse Ellipta 62.5 mcg/actua tion powder for inhalatio n 2023 [facility], [facility], [place], [address], 12/16/2023 11:18:06 Breyna 160 mcg-4.5 mcg/actua tion HFA aerosol inhaler 2023 [facility], [facility], [place], [address], 12/16/2023 11:18:08 ferrous sulfate 325 mg (65 mg iron) tablet 2023 [facility], [address] [place] [address], [address], 03/18/2024 10:51:23 Vitamin C 500 mg tablet 2023 [facility], [address] [place], [address], 03/18/2024 10:51:24 ropinirol e 0.25 mg tablet 2023 [facility], [place], [address], 03/18/2024 10:51:18 albuterol sulfate HFA 90 mcg/actua tion aerosol inhaler 2023 024 [facility], [address] [place], [address], 03/18/2024 10:51:23 Incruse Ellipta 62.5 mcg/actua tion powder for inhalatio n 2023 [facility], [place], [address], 03/18/2024 10:51:22 Breyna 160 mcg-4.5 mcg/actua tion HFA aerosol inhaler 2023 [facility], [place], [address], 03/18/2024 10:51:21 amoxicill in 875 mg-potass ium clavulana te 125 mg tablet 2023 [email or web address] [address] [place] [address], [address], 05/23/2024 14:19:39 Unithroid 25 mcg tablet 2023 [facility], [facility], [place], [address], 03/22/2024 10:38:58 Patient TargetsNo targets recorded. Patient Instructions Encounter Date Encounter Id Patient Instructions Last Modified By Organization Details Last Modified Time 02/02/2024 [id number] dementia rating scale-2* taia 2 Not available 02/02/2024 11:58:02 alcohol misuse* [email or web address] 2 Not available 02/02/2024 11:58:02 depression screening* taia 2 Not available 02/02/2024 11:58:02 Timed Up and Go test (TUG)* taia 2 Not available 02/02/2024 11:58:02 multi-dimensiona l health assessment questionnaire* taia 2 Not available 02/02/2024 11:58:02 Personalized Hea lth Plan and Screening Recommendations Advance Directives - Do you have one? You have indicated that you are capable of preparing your advance care directive Advance Directives - Do we have your advance directive on file in your health record? Primary Prevention/Interven tion (prevents or decreases the chance of common diseases from occurring) Smoking Risk: Non Smoker Alcohol Misuse Screening: Negative Weight: Appropriate Overwei ght continue your current weight loss efforts try to lose 5% of your body weight try to lose 10% of your body weight Physical activity: minimum of 10-20 minutes of activity that causes mild breathlessness/day minimum of 20-30 minutes activity that causes mild breathlessness/day Nutrition: Good Average Refer to attached handout Heart-Healthy Diet: After Your Visit Fall Risk (screened today): Low Intermediate Refer to attached handout Preventing Falls: After your Visit Vaccines Pneumococcal: Ordered Recommended today Recommended today, but you have declined No further needed Influenza: Chronic Disease Risks Stroke: Low Risk Intermediate Risk Heart Attack: Low risk Intermediate Risk Clogging of the Arteries: Low risk Intermediate Risk Diabetes: Low Risk I have no recommendations Secondary Prevention/Interven tion (detects treatable diseases before they may cause symptoms, disability, or ) Prostate Cancer Screening: Colon Cancer Screening: Colonoscopy Date Screening Last Performed: 2019 Eye Disease Screening: Ordered Recommended today Dementia Risk: Low I have no recommendations Depression Screening: Negative [email or web address] Not available 02/02/2024 11:38:56 03/22/2024 [id number] diabetic eye exam* [email or web address] Not avail able 03/22/2024 10:48:52 Reason for Referral Skin Specialist Referral for At rial fibrillation Referring Physician: Jose Burch Internal [facility], Encounter Date: 11/10/2023 Prototype Model Maker Referral for Hype rglycemia Referring Physician: Jose Burch [facility], Encounter Date: 11/10/2023 Urologist Referral for Benig n prostatic 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 Referring Physician: Jose Burch [facility], Encounter Date: 11/10/2023 Skin Specialist Referral for At rial fibrillation Referring Physician: Jose Burch [facility], Encounter Date: 02/02/2024 Prototype Model Maker Referral for Hype rglycemia Referring Physician: Jose Burch [facility], Encounter Date: 02/02/2024 Urologist Referral for Benig n prostatic 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 Referring Physician: Jose Burch Internal [facility], Encounter Date: 02/02/2024 Skin Specialist Referral for At rial fibrillation Referring Physician: Jose Burch [facility], Encounter Date: 03/22/2024 Prototype Model Maker Referral for Hype rglycemia Referring Physician: Jose Burch, Internal Medicine, Encounter Date: 03/22/2024 Urologist Referral for Benig n prostatic 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 Referring Physician: Jose Burch [facility], Encounter Date: 03/22/2024 Referring Physician: Jose Burch [facility], Encounter Date: 03/22/2024 Results Created Date Observation Date Name Description Value Unit Range Abnormal Flag Note LastModifiedBy Organization Detail LastModifiedTime 11/06/19 24 11/06/2023 CBC/C OMPLE TE BLD COUNT W/DIF F white blood cells 5.0 x10'3 /uL 4.2-10 .8 Not Available [facility] (Lab) [address] [place], [address], 11/06/2023 13:52:41 11/06/19 24 11/06/2023 CBC/C OMPLE TE BLD COUNT W/DIF F red blood cells 4.57 x10'6 /uL 4.10-5 .80 Not Available [facility] (Lab) [address] [place], [address], 11/06/2023 13:52:41 11/06/19 24 11/06/2023 CBC/C OMPLE TE BLD COUNT W/DIF F hemoglobin 13.9 g/dL 13.2-1 7.0 Not Available [facility] (Lab) [address] [place], [address], 11/06/2023 13:52:41 11/06/19 24 11/06/2023 CBC/C OMPLE TE BLD COUNT W/DIF F hematocrit 41.6 % 39.3-5 0.0 Not Available [facility] (Lab) [address] [place], [address], 11/06/2023 13:52:41 11/06/19 24 11/06/2023 CBC/C OMPLE TE BLD COUNT W/DIF F mean red cell volume 91.0 fL 80.0-9 7.0 Not Available [facility] (Lab) [address] [place], [address], 11/06/2023 13:52:41 11/06/19 24 11/06/2023 CBC/C OMPLE TE BLD COUNT W/DIF F mean red cell hemoglobin 30.4 pg 27.0-3 3.0 Not Available [facility] (Lab) [address] [place], [address], 11/06/2023 13:52:41 11/06/19 24 11/06/2023 CBC/C OMPLE TE BLD COUNT W/DIF F mean RBC HGB concentratio n 33.4 g/dL 31.0-3 6.0 Not Available [facility] (Lab) [address] [place], [address], 11/06/2023 13:52:41 11/06/19 24 11/06/2023 CBC/C OMPLE TE BLD COUNT W/DIF F red cell distribution width 14.5 % 11.8-1 5.5 Not Available [facility] (Lab) [address] [place], [address], 11/06/2023 13:52:41 11/06/19 24 11/06/2023 CBC/C OMPLE TE BLD COUNT W/DIF F platelets 157 x10'3 /uL 150-40 0 Not Available [facility] (Lab) [address] [place], [address], 11/06/2023 13:52:41 11/06/19 24 11/06/2023 CBC/C OMPLE TE BLD COUNT W/DIF F mean platelet volume 10.8 fL 9.0-12 .4 Not Available [facility] (Lab) [address] [place], [address], 11/06/2023 13:52:41 11/06/19 24 11/06/2023 CBC/C OMPLE TE BLD COUNT W/DIF F neutrophils 62.7 % 39.0-7 2.0 Not Available [facility] (Lab) [address] [place], [address], 11/06/2023 13:52:41 11/06/19 24 11/06/2023 CBC/C OMPLE TE BLD COUNT W/DIF F lymphocytes 23.5 % 16.0-4 7.0 Not Available [facility] (Lab) [address] [place], [address], 11/06/2023 13:52:41 11/06/19 24 11/06/2023 CBC/C OMPLE TE BLD COUNT W/DIF F monocytes 10.6 % 5.0-12 .0 Not Available [facility] (Lab) [address] [place], [address], 11/06/2023 13:52:41 11/06/19 24 11/06/2023 CBC/C OMPLE TE BLD COUNT W/DIF F eosinophils 2.0 % 1.0-7. 0 Not Available [facility] (Lab) [address] [place], [address], 11/06/2023 13:52:41 11/06/19 24 11/06/2023 CBC/C OMPLE TE BLD COUNT W/DIF F basophils 0.6 % 0.0-2. 0 Not Available [facility] (Lab) [address] [place], [address], 11/06/2023 13:52:41 11/06/19 24 11/06/2023 CBC/C OMPLE TE BLD COUNT W/DIF F immature granulocytes 0.6 % 0.00-0 .50 high Not Available [facility] (Lab) [address] [place], [address], 11/06/2023 13:52:41 11/06/19 24 11/06/2023 CBC/C OMPLE TE BLD COUNT W/DIF F neutrophils, absolute count 3.15 x10'3 /uL 1.5-8. 0 Not Available [facility] (Lab) [address] [place], [address], 11/06/2023 13:52:41 11/06/19 24 11/06/2023 CBC/C OMPLE TE BLD COUNT W/DIF F lymphocytes, absolute count 1.18 x10'3 /uL 1.07-3 .43 Not Available [facility] (Lab) [address] [place], [address], 11/06/2023 13:52:41 11/06/19 24 11/06/2023 CBC/C OMPLE TE BLD COUNT W/DIF F monocytes, absolute count 0.53 x10'3 /uL 0.29-0 .99 Not Available [facility] (Lab) [address] [place], [address], 11/06/2023 13:52:41 11/06/19 24 11/06/2023 CBC/C OMPLE TE BLD COUNT W/DIF F eosinophils, absolute count 0.10 x10'3 /uL 0.02-0 .53 Not Available [facility] (Lab) [address] [place], [address], 11/06/2023 13:52:41 11/06/19 24 11/06/2023 CBC/C OMPLE TE BLD COUNT W/DIF F basophils, absolute count 0.03 x10'3 /uL 0.01-0 .08 Not Available [facility] (Lab) [address] [place], [address], 11/06/2023 13:52:41 11/06/19 24 11/06/2023 CBC/C OMPLE TE BLD COUNT W/DIF F immature granulocytes ,absolute 0.03 x10'3 /uL 0.00-0 .05 Not Available [facility] (Lab) [address] [place], [address], 11/06/2023 13:52:41 11/06/19 24 11/06/2023 CBC/C OMPLE TE BLD COUNT W/DIF F nucleated red blood cells 0.0 % -0 Not Available [facility] (Lab) [address] [place], [address], 11/06/2023 13:52:41 11/06/19 24 11/06/2023 CBC/C OMPLE TE BLD COUNT W/DIF F NRBC# 0.00 x10'3 /uL Not Available [facility] (Lab) [address] [place], [address], 11/06/2023 13:52:41 11/06/19 24 11/06/2023 LIPID PANEL cholesterol 161 mg/dL 140-19 9 [facility] JOSE RAMON NSUS RECOM MENDA TION FOR CLAUDIA STERO L: ADULT CHILD LOW RISK: <200 <170 BORDE RLINE : <200- 239 ----- HIGH RISK: >240 >200 Not Available [facility] (Lab) [address] [place], [address], 11/06/2023 14:04:51 11/06/1911/06/2023 LIPID PANEL triglyceride s 76 mg/dL 0-150 NIH JOSE RAMON NSUS REPOR T RECOM MENDA TION FOR TRIGL YCERI MADHAV: ADULT CHILD LOW RISK: <150 ----- BODER LINE: 150-1 99 ----- HIGH RISK: >200 ----- Not Available [facility] (Lab) [address] [place], [address], 11/06/2023 14:04:51 11/06/19 24 11/06/2023 LIPID PANEL HDL cholesterol 53 mg/dL 40- Not Available [facility] (Lab) [address] [facility] [place], [address], 11/06/2023 14:04:51 11/06/19 24 11/06/2023 LIPID PANEL LDL cholesterol, calculated 93 mg/dL 0-130 NIH JOSE RAMON NSUS REPOR T RECOM MENDA TIONS FOR LDL: ADULT CHILD LOW RISK <130 <110 (OPTI MAL LDL) <100 ----- BORDE RLINE : 130-1 59 ----- HIGH RISK: >160 >130 A TRIGL YCERI DE RESUL T >400 INVAL IDATE S THE CALCU LATIO N FOR LDL FRACT IONAT ION - THE LDL RESUL T WILL NOT BE REPOR SOCORRO. Not Available [facility] (Lab) [address] [place], [address], 11/06/2023 14:04:51 11/06/19 24 11/06/2023 COMPR EHENS SHERLEY METAB OLIC PANEL sodium 139 mmol/ L 137-14 5 Not Available [facility] (Lab) [address] [place], [address], 11/06/2023 14:07:49 11/06/19 24 11/06/2023 COMPR EHENS SHERLEY METAB OLIC PANEL potassium 4.1 mmol/ L 3.5-5. 1 Not Available [facility] (Lab) [address] [place], [address], 11/06/2023 14:07:49 11/06/19 24 11/06/2023 COMPR EHENS SHERLEY METAB OLIC PANEL chloride 103 mmol/ L 98-107 Not Available [facility] (Lab) [address] [place], [address], 11/06/2023 14:07:49 11/06/19 24 11/06/2023 COMPR EHENS SHERLEY METAB OLIC PANEL carbon dioxide 30 mmol/ L 22-30 Not Available [facility] (Lab) [address] [place], [address], 11/06/2023 14:07:49 11/06/19 24 11/06/2023 COMPR EHENS SHERLEY METAB OLIC PANEL anion gap 10.1 mmol/ L 14-22 low Not Available [facility] (Lab) [address] [place], [address], 11/06/2023 14:07:49 11/06/19 24 11/06/2023 COMPR EHENS SHERLEY METAB OLIC PANEL glucose 106 mg/dL 70-99 high Not Available [facility] (Lab) [address] [place], [address], 11/06/2023 14:07:49 11/06/19 24 11/06/2023 COMPR EHENS SHERLEY METAB OLIC PANEL BUN 22 mg/dL 8-19 high Not Available [facility] (Lab) [address] [place], [address], 11/06/2023 14:07:49 11/06/19 24 11/06/2023 COMPR EHENS SHERLEY METAB OLIC PANEL creatinine 0.90 mg/dL 0.66-1 .25 Not Available [facility] (Lab) [address] [place], [address], 11/06/2023 14:07:49 11/06/19 24 11/06/2023 COMPR EHENS SHERLEY METAB OLIC PANEL GFR >60 Refer ence Range : [place] ge GFR Healt hy Adult : >60 mL/mi n/1.7 3 m2 Chron ic Kidne y Disea se: 15-60 mL/mi n/1.7 3 m2 Kidne y Failu re: <15/m L/min /1.73 m2 www.n iddk. nih.g ov The MDRD study equat ion has not been valid ated in child kerri <18 years of age; pregn ant women ; the elder ly >85 years of age; or in some racia l or ethni c subgr oups, such as Hispa nics. Outsi de the valid ated mel eters , estim ated GFR is less accur ate, requi ring clini michaela judgm ent on a case- by-ca se basis . Clini michaela inter preta tion for other races and ages must be made by the clini yinka. The MDRD study equat ion has not been valid ated for the evalu ation of serum creat inine relat ed to nutri jose l statu s or medic ation usage . For perso ns <18 years of age, a pedia tric GFR calcu lator is avail able on the [facility] websi te: https ://diandra pierce.chelsea mckoy.o sundeep/pr ofess ional s/kdo qi/gf r_cal culat or Not Available [facility] (Lab) [address] [place], [address], 11/06/2023 14:07:49 11/06/19 24 11/06/2023 COMPR EHENS SHERLEY METAB OLIC PANEL alkaline phosphatase 65 U/L 38-126 Not Available [facility] (Lab) [address] [place], [address], 11/06/2023 14:07:49 11/06/19 24 11/06/2023 COMPR EHENS SHERLEY METAB OLIC PANEL alanine aminotransfe rase 35 U/L 0-50 Not Available [facility] (Lab) [address] [place], [address], 11/06/2023 14:07:49 11/06/19 24 11/06/2023 COMPR EHENS SHERLEY METAB OLIC PANEL aspartate aminotransfe rase 35 U/L 15-46 Not Available [facility] (Lab) [address] [place], [address], 11/06/2023 14:07:49 11/06/19 24 11/06/2023 COMPR EHENS SHERLEY METAB OLIC PANEL bilirubin, total 1.40 mg/dL 0.20-1 .30 high Not Available [facility] (Lab) [address] [place], [address], 11/06/2023 14:07:49 11/06/19 24 11/06/2023 COMPR EHENS SHERLEY METAB OLIC PANEL calcium 9.1 mg/dL 8.4-10 .2 Not Available [facility] (Lab) [address] [place], [address], 11/06/2023 14:07:49 11/06/19 24 11/06/2023 COMPR EHENS SHERLEY METAB OLIC PANEL total protein 6.6 g/dL 6.3-8. 2 Not Available [facility] (Lab) [address] [place], [address], 11/06/2023 14:07:49 11/06/19 24 11/06/2023 COMPR EHENS SHERLEY METAB OLIC PANEL albumin 4.5 g/dL 3.0-4. 4 high Not Available [facility] (Lab) [address] [place], [address], 11/06/2023 14:07:49 11/06/19 24 11/06/2023 COMPR EHENS SHERLEY METAB OLIC PANEL globulin 2.1 g/dL 2.6-4. 2 low Not Available [facility] (Lab) [address] [place], [address], 11/06/2023 14:07:49 11/06/19 24 11/06/2023 COMPR EHENS SHERLEY METAB OLIC PANEL A/G ratio 2.1 ratio 1.0-2. 0 high Not Available [facility] (Lab) [address] [place], [address], 11/06/2023 14:07:49 11/06/19 24 11/06/2023 T4 FREE free T4 0.99 NG/dL 0.78-2 .19 Not Available [facility] (Lab) [address] [place], [address], 11/06/2023 14:29:29 11/06/19 24 11/06/2023 TSH thyroid-stim ulating hormone 3.960 uIU/m L 0.465- 4.680 Not Available [facility] (Lab) [address] [place], [address], 11/06/2023 14:34:33 11/06/19 24 11/06/2023 HEMOG LOBIN A1C HA1C 5.7 % 4.0-6. 0 Diabe derik Scree sindy Crite geovanni: <5.7% Consi stent with absen ce of diabe derik 5.7-6 .4% Consi stent with incre ased risk for diabe derik (pred iabet es) >OR=6 .5% Consi stent with diabe derik REFER ENCE: Diabe derik Care 2016, 39(Connell ppl.1 ):s13 -s22 Not Available [facility] (Lab) [address] [place], [address], 11/06/2023 14:57:11 11/06/19 24 11/07/2023 MICRO ALBUM IN RANDO M URINE microalbumin , urine 39.2 mg/L 0.0-16 .6 high Not Available [facility] (Lab) [address] [place], [address], 11/07/2023 02:35:28 04/12/20 24 04/07/2024 imagi ng/di agnos tic resul t No observ ation record ed. [facility] [address] [facility], [place], [address], 04/12/2024 17:05:42 04/12/20 24 04/07/2024 imagi ng/di agnos tic resul t No observ ation record ed. [facility] [address], [place], [address], 04/12/2024 17:12:38 05/14/19 25 05/14/2024 US, head + neck, soft tissu e [facility] [address] [facility] [address], [place] [address] [phone] Patimary t Name: SWETHA PARDO Access ion #: [id number] Sex: M : 1950 2 Locati on: RAD Attend ing Physic gavin: EL CAO Orderi ng Physic gavin: EL CAO Exam Date: 05/14/19 12:17 PM Exam Name: US NECK HEAD SOFT TISSUE Admitt ing Diagno sis(es ): RADIOL OGY REPORT - FINAL EXAM: US NECK HEAD SOFT TISSUE HISTOR Y: hypoth yroid 73-yea r-old male with hypoth yroidi sm. COMPAR JELANI: Thyroi d ultras ound examin ation dated 2023. TECHNI QUE: Ultras ound examin ation of the thyroi d was perfor med. FINDIN GS: The right lobe of the thyroi d measur es 5.1 x 1.6 x 1.5 cm. The left lobe of the thyroi d measur es 3.9 x 1.4 x 1.5 cm. The thyroi d isthmu s measur es 2.4 mm AP. The thyroi d parenc hyma is homoge neous bilate rally withou t solid nodule s or cystic lesion s. No suspic ious calcif icatio ns or abnorm al color Dopple r blood flow. Page 1 of 2 [facility] Patimary t Name: SWETHA PARDO Access ion #: [id number] Sex: M : 1950 2 Exam Date: 05/14/19 12:17 PM Exam Name: US NECK HEAD SOFT TISSUE Admitt ing Diagno sis(es ): IMPRES LANRE: The size of the right lobe of the thyroi d is slight ly larger than that seen in the left lobe. No solid or cystic nodule s are identi fied in either lobe of the thyroi d. Create d and electr onical ly signed by: Bhupinder muhammad MD Signed Date: 05/14/19 2:53 PM (CT) Dictat ed by: Bhupinder muhammad MD (CT) (CT) Page 2 of 2 [facility] (Imaging) [address] [place], [address], 05/14/2024 15:55:15 05/14/1905/14/2024 US, head + neck No observ ation record ed. [email or web address] [place] [address] [address] [place], [address], 05/19/2024 09:17:03 05/14/1905/14/2024 US, thyro id No observ ation record ed. [facility] [address] [place], [address], 05/14/2024 16:33:56 Result Notes None recorded. Problems Name Problem SNOMED Code Status Onset Date Resolution Date Notes Provider Name and Address Organization Details Recorded Time Anxiety disorder 618182262 Active 2017 Not Available [facility] 01:16:03 Closed fracture proximal phalanx, toe 630444060 Active 2017 Not Available [facility] 3 01:16:03 Hypertensi ve disorder 05062972 Active 2017 Not Available [facility] 3 01:16:04 Hypothyroi dism 16086903 Active Not Available [facility] 3 01:16:04 Hypogonadi sm 80894965 Active Not Available [facility] 3 01:16:04 Atrial fibrillati on 37569712 Active Not Available [facility] 3 01:16:04 Hyperlipid emia 62646808 Active Not Available [facility] 3 01:16:05 Rhinitis 56298979 Active Not Available [facility] 3 01:16:05 Benign prostatic hyperplasi a without outflow obstructio n 433597269 Active 2022 Jose booth MD [address], [place], [address] , [facility] [employer] [facility] 3 17:35:28 Obesity 430494119 Active 2022 Jose booth MD [address], [place], [address] , [facility] [employer] [facility] [employer] [facility] 3 17:35:37 Moderate recurrent major depression 39009480 Active 2023 Jose booth MD [address], [place], [address] , [facility] [employer] [facility] 4 11:52:09 Osteoarthr itis of right knee joint 1430537089471 00 Active 2023 [place] Russell [facility], [facility] [employer] [facility] 4 09:54:19 Periodic limb movement disorder 805534141 Active 2023 Jerald Hebert MD [address], [place], [address] , [facility] [employer] [facility] 4 12:49:05 Obstructiv e sleep apnea syndrome 98071047 Active 2023 Jerald Hebert MD [address], [place], [address] , [facility] [employer] [facility] 4 12:56:18 Mild chronic obstructiv e pulmonary disease 783385640 Active 2023 Jerald Hebert MD [address], [place], [address] , [facility] [employer] [facility] 4 13:18:35 Iron deficiency 37094402 Active 2023 Jerald Hebert MD [address], [place], [address] , [facility] [employer] [facility] 4 10:15:10 Chronic obstructiv e pulmonary disease 89881822 Active 2023 Jose booth MD [address] [facility], [place] [address], [place], [address] , [employer] [facility] 4 20:05:17 Hyperbilir ubinemia 48110887 Active 2023 Jose booth MD [address] [facility], [place] [address], [place], [address] , [employer] [facility] 4 20:05:17 Thrombocyt openic disorder 411259174 Active 2023 Jose botoh MD [address] [facility], [place] [address], [place], [address] , [employer] 4 20:05:17 Notes:Ferritin 05/14/24 47 n g/mL CPAP compliance 03/18/24 CPAP set up 07/01/[address] and PFT in 08/2024 Medical History: Depression/Anxiety Right nasoseptal deviation Rhinitis to cat dander Maxillary/Ethmoid sinusitis IgE 13 IU/mL Eosinophils 120/uL AAT PiMM 113 mg% Mild COPD Histoplasmosis Granulomatous disease (chest, liver, spleen) 4.4 cm ascending thoracic aortic ectasia Atrial fibrillation on Eliquis Obesity with very severe OSAHS, AHI = 73, 02/13/05, on CPAP c/o AHP Hypothyroidism Hyperlipidemia Hypertension CAD CHF T2DM with microalbuminuria LISA Fatty liver Right renal cyst BPH Urge urinary incontinence Hypogonadism Iron deficiency PLMD Thoracic DDD/spondylosis Right knee OA Procedure History: Pacemaker placement 2013, 2019 Left knee replacement 2015 Coronary artery stent placement 2018 Right leg/Lower abdomen neurofibroma excision 2022 Bilateral cataract extraction with IOL 2023 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 Procedures Surgical History Date Name Laterality Status Provider Name and Address Organization Details Recorded Time 02/05/20 24 extraction of cataract completed Willy Barlow LPN [employer] [facility] [employer] [facility] 03/22/2024 10:05:09 02/02/20 24 Medicare Wellness CPT Code, subsequent completed Willy Barlow LPN [facility] 02/02/2024 08:35:16 02/02/20 24 Advanced Care Planning completed Willy Barlow LPN [facility] 02/02/2024 11:34:49 01/22/20 24 extraction of cataract completed Willy Barlow LPN [facility] 03/22/2024 10:04:51 02/12/20 23 Excision Cyst Multilayer completed Sal Ramos MD [address] [facility], [facility] [address], [place], [address], [place] [facility] 02/11/2023 12:10:00 01/07/20 23 Medicare Wellness CPT Code, subsequent completed Gretchen Plascencia RN [facility] 01/06/2023 11:11:04 05/24/19 21 Knee Replacement completed Not Available [facility] 07/10/2022 01:01:31 destruction of lesion of heart completed Not Available [facility] 07/10/2022 01:01:31 Pacemaker completed Not Available [facility] 0 07/10/2022 01:01:31 excision of skin tag completed ABIODUN Vinson [facility] 05/26/2023 11:57:11 Imaging Results Imaging Date Name Status LastModified by Organiz [facility] Details LastModified Time 04/07/2024 imaging/diagn ostic result active [facility] [address] [facility] [address], [place], [address], 04/12/2024 17:05:42 04/07/2024 imaging/diagn ostic result active [facility] [address], [place], [address], 04/12/2024 17:12:38 05/14/2024 US, head + neck, soft tissue active [facility] (Imaging) [address] [place], [address], 05/14/2024 15:55:15 05/14/2024 US, head + neck active [email or web address] [place] [address] [address] [place], [address], 05/19/2024 09:17:03 05/14/2024 US, thyroid active [facility] [address] [place], [address], 05/14/2024 16:33:56 Procedure Notes None recorded. Medical Equipment None Reported. Allergies No known drug allergies Medications Name Sig Start Date Stop Date Status Note LastModified by Organization Details LastModified Time celecoxib 200 mg capsule TAKE 1 CAPSULE BY MOUTH EVERY DAY active Not Available Not Available No t Available amoxicill in 500 mg capsule TAKE 4 CAPSULES BY MOUTH 1 HOUR PRIOR TO APPOINTM ENT 09/07 completed Not Available Not Available Not Available furosemid e 40 mg tablet active Not Available Not Available Not Available terazosin 5 mg capsule TAKE 1 CAPSULE BY MOUTH EVERYDAY AT BEDTIME active Not Available Not Available No t Available carvedilo l 25 mg tablet Take 1 tablet twice a day by oral route. active Not Available Not Available No t Available nystatin 100,000 unit/mL oral suspensio n TAKE 5 ML 4 TIMES A DAY BY ORAL ROUTE DIRECTED FOR 10 DAYS. 01/06 completed Not Available Not Available Not Available prednison e 10 mg tablet take [id number], [id number], [id number] active Not Available Not Available No t Available atorvasta tin 20 mg tablet qd active Not Available Not Available Not Available carvedilo l 12.5 mg tablet TAKE 1 TABLET BY MOUTH 2 TIMES A DAY. 09/14 completed Not Available Not Available Not Available ropinirol e 1 mg tablet TAKE 1 TABLET DAILY 2 HOURS BEFORE BEDTIME active Not Available Not Available No t Available Vitamin C 500 mg tablet Take 1 tablet twice a day by oral route. 2023 active Not Available Not Available Not Avai lable azithromy gayle 250 mg tablet TAKE 2 TABLETS BY MOUTH TODAY, THEN TAKE 1 TABLET DAILY FOR 4 DAYS DIRECTED 03/18 completed Not Available Not Available Not Available ofloxacin 0.3 % eye drops USE 1 DROP 3 TIMES PER DAY STARTING 2 DAYS PRIOR TO SURGERY, CONTINUI NG FOR 1 WEEK AFTER SURGERY. 03/18 completed Not Available Not Available Not Available metoprolo l tartrate 100 mg tablet TAKE ONE TAB BY MOUTH AT 8AM THE MORNING OF THE CTA active Not Available Not Available No t Available amiodaron e 200 mg tablet active Not Available Not Available Not Available sulfameth oxazole 400 mg-trimet hoprim 80 mg tablet TAKE 1 TABLET BY MOUTH TWICE A DAY FOR 5 DAYS 08/15 completed Not Available Not Available Not Available Claritin 10 mg tablet Take 1 tablet every day by oral route as needed for 30 days. active Not Available Not Available No t Available meloxicam 15 mg tablet 03/25 completed Not Available Not Available Not Available prednison e 20 mg tablet TAKE 2 TABLETS ORAL ROUTE ONCE DAILY FOR 5 DAYS 03/18 completed Not Available Not Available Not Available isosorbid e mononitra te ER 30 mg tablet,ex tended release 24 hr TAKE 1 TABLET BY MOUTH TWICE A DAY active Not Available Not Available No t Available hydralazi ne 25 mg tablet TAKE 2 TABLET BY MOUTH EVERY MORNING , 1 TAB IN THE AFTERNOO N, AND 2 TABS IN THE EVENING 09/14 completed Not Available Not Available Not Available Klor-Con 20 mEq oral packet active Not Available Not Available Not Available clopidogr el 75 mg tablet TAKE 1 TABLET ONCE DAILY active Not Available Not Available No t Available levofloxa gayle 250 mg tablet active Not Available Not Available No t Available amlodipin e 5 mg tablet active Not Available Not Available Not Available aspirin 81 mg tablet,de layed release 03/19 completed Not Available Not Available Not Available sotalol 120 mg tablet TAKE 1 AND 1/2 TABLETS TWICE DAILY active Not Available Not Available No t Available sildenafi l 100 mg tablet 09/18 completed Not Available Not Available Not Available ketorolac 0.5 % eye drops USE 1 DROP 4 TIMES PER DAY STARTING 2 DAYS PRIOR TO SURGERY, CONTINUI NG FOR 2 WEEKS AFTER SURGERY. 03/18 completed Not Available Not Available Not Available oxycodone -acetamin ophen 5 mg-325 mg tablet 08/15 completed Not Available Not Available Not Available amoxicill in 875 mg tablet TAKE 1 TABLET BY MOUTH TWICE A DAY UNTIL GONE 02/01 completed Not Available Not Available Not Available prednisol one acetate 1 % eye drops,margaret pension INSTILL 1 DROP 3 TIMES A DAY X 3 WEEKS -START AFTER SURGERY 03/18 completed Not Available Not Available Not Available magnesium oxide 400 mg (241.3 mg magnesium ) tablet TAKE 1 TABLET BY MOUTH DAILY 02/16 completed Not Available Not Available Not Available lorazepam 0.5 mg tablet qd active Not Available Not Available Not Available hydrocort isone-christophe tic acid 1 %-2 % ear drops INSTILL 3 DROPS INTO AFFECTED EAR(S) BY OTIC ROUTE 2 TIMES PER DAY active Not Available Not Available No t Available ropinirol e 0.25 mg tablet TAKE 1 TABLET DAILY active Not Available Not Available No t Available Kenalog 10 mg/mL suspensio n for injection in office 07/24 completed [facility]: [phone] 08-29 Not Available Not Available Not Available amlodipin e 10 mg tablet TAKE 1 TABLET ONCE DAILY active Not Available Not Available No t Available benzonata te 100 mg capsule TAKE 1 CAPSULE BY MOUTH THREE TIMES A DAY FOR 7 DAYS 02/27 completed Not Available Not Available Not Available cephalexi n 500 mg capsule TAKE 1 CAPSULE BY MOUTH EVERY 6 HOURS active Not Available Not Available No t Available hydralazi ne 100 mg tablet Take 1 tablet twice a day by oral route. 12/09 completed Not Available Not Available Not Available simvastat in 20 mg tablet qod 09/15 completed Not Available Not Available Not Available ferrous sulfate 325 mg (65 mg iron) tablet TAKE 1 TABLET BY MOUTH TWICE A DAY active Not Available Not Available No t Available ropinirol e 0.5 mg tablet TAKE 1 TABLET BY MOUTH AT DINNER 03/18 completed Not Available Not Available Not Available Gentle Laxative (bisacody l) 5 mg tablet,de layed release TAKE ALL 6 TABLETS BY MOUTH AT 8 AM ON 03-26 completed Not Available Not Available Not Available warfarin 5 mg tablet active Not Available Not Available Not Available valsartan 320 mg tablet qd 03/25 completed Not Available Not Available Not Available Advair Diskus 250 mcg-50 mcg/dose powder for inhalatio n Inhale 1 puff every 12 hours by inhalati on route as directed for 30 days. 03/02 completed Not Available Not Available Not Available sertralin e 25 mg tablet TAKE 1 TABLET BY MOUTH EVERY DAY FOR 30 DAYS 07/19 completed Not Available Not Available Not Available doxazosin 4 mg tablet 1 po qd 12/10 completed Not Available Not Available Not Available cephalexi n 500 mg tablet 08/15 completed Not Available Not Available Not Available monteluka st 10 mg tablet TAKE 1 TABLET BY MOUTH EVERY DAY 07/30 completed Not Available Not Available Not Available Unithroid 25 mcg tablet TAKE 1 TABLET DAILY active Not Available Not Available No t Available ergocalci ferol (vitamin D2) 1,250 mcg (50,000 unit) capsule TAKE 1 CAPSULE BY MOUTH ONE TIME PER WEEK FOR 90 DAYS active Not Available Not Available No t Available lorazepam 1 mg tablet TAKE 1 TABLET BY MOUTH 2 TIMES A DAY NEEDED 09/15 completed Not Available Not Available Not Available levofloxa gayle 500 mg tablet active Not Available Not Available No t Available methylpre dnisolone 4 mg tablets in a dose pack Take 1 dose pk by oral route. 04/25 completed Not Available Not Available Not Available albuterol sulfate HFA 90 mcg/actua tion aerosol inhaler Inhale 1 puff every 4 hours by inhalati on route as needed for 90 days. active Not Available Not Available No t Available losartan 100 mg tablet TAKE 1 TABLET DAILY active Not Available Not Available No t Available fluticaso ne propionat e 50 mcg/actua tion nasal spray,margaret pension SPRAY 1 SPRAY INTO EACH NOSTRIL EVERY DAY active Not Available Not Available No t Available sertralin e 50 mg tablet TAKE 1 TABLET BY MOUTH EVERY DAY active Not Available Not Available No t Available calcitrio l 0.25 mcg capsule TAKE 1 CAPSULE ONCE DAILY active Not Available Not Available No t Available ipratropi um bromide 21 mcg (0.03 %) nasal spray USE 2 SPRAYS IN EACH NOSTRIL IN THE MORNING FOR 90 DAYS active Not Available Not Available No t Available spironola ctone 50 mg tablet 03/19 completed Not Available Not Available Not Available amoxicill in 875 mg-potass ium clavulana te 125 mg tablet TAKE 1 TABLET BY MOUTH TWICE A DAY DIRECTED FOR 7 DAYS 05/23 completed Not Available Not Available Not Available oxycodone 5 mg tablet Take 1 tablet every 4 hours by oral route. active Not Available Not Available No t Available escitalop nilam 10 mg tablet TAKE 1.5 TABLETS ONCE A DAY FOR 30 DAY(S) 06/10 completed Not Available Not Available Not Available escitalop nilam 20 mg tablet TAKE 1 TABLET BY MOUTH EVERY DAY 03/25 completed Stopped by Jose Feliciano Not Available Not Available Not Available Senna Plus 8.6 mg-50 mg tablet TAKE 2 TABLET BY MOUTH TWICE A DAY TO PREVENT CONSTIPA TION HOLD FOR LOOSE STOOLS active Not Available Not Available No t Available Ciprodex 0.3 %-0.1 % ear drops,margaret pension INSTILL 4 DROPS INTO BOTH EARS 2 TIMES A DAY active Not Available Not Available No t Available Klor-Con M20 mEq tablet,ex tended release active Not Available Not Available Not Available Sotalol AF 80 mg tablet active Not Available Not Available Not Available magnesium 1 TABLET DAILY 07/19 completed Not Available Not Available Not Available albuterol 07/31 completed Not Available Not Available Not Available Decongest ant 1 TABLET 2 TIMES DAILY 03/02 completed Not Available Not Available Not Available lorazepam 0.25mg 12/09 completed Not Available Not Available Not Available Aspir-81 03/22 completed Not Available Not Available Not Available hydralazi ne 03/22 completed Not Available Not Available Not Available Aldactone 03/19 completed 50mg daily [facility] Velasquez 02/06/20 21 Not Available Not Available Not Available sotalol 120 mg one and half tablet twice a day 02/23 completed Not Available Not Available Not Available multivita min DAILY 07/19 completed Not Available Not Available Not Available berberine -herbal comb no.18 1 CAP DAILY 09/18 completed Not Available Not Available Not Available lidocaine (PF) 10 mg/mL (1 %) injection solution In office injectio n administ ered by the provider 11/22 completed [facility]: [phone] Not Available Not Available Not Available budesonid e-formote rol HFA 80 mcg-4.5 mcg/actua tion aerosol inhaler 05/26 completed Not Available Not Available Not Available CoQ-10 1 CAP DAILY 03/02 completed Not Available Not Available Not Available Bystolic 5 mg tablet active Not Available Not Available Not Available GaviLyte- N 420 gram oral solution USE DIRECTED , TAKE 1/2 AT 5 PM ON 03-26 THEN 1/2 AT 5 AM ON 03-27 completed Not Available Not Available Not Available Louann Allergy 180 mg tablet Take 1 tablet every day by oral route. 03/02 completed Not Available Not Available Not Available testoster one 20.25 mg/1.25 gram per pump act.(1.62 %) transderm al gel 3 (THREE) PUMP PUMP ON SKIN DAILY active Not Available Not Available No t Available Brilinta 90 mg tablet Take 1 tablet twice a day by oral route for 90 days. 10/09 completed Not Available Not Available Not Available ropivacai ne (PF) 5 mg/mL (0.5 %) injection solution in office 07/24 completed [facility] [id number]- Not Available Not Available Not Available Myrbetriq 50 mg tablet,ex tended release TK 1T PO QD 09/14 completed Not Available Not Available Not Available AndroGel 1.62 % (20.25 mg/1.25 gram) transderm al gel packet Apply 1 packet every day by transder mal route. 11/22 completed Not Available Not Available Not Available Eliquis 5 mg tablet TAKE 1 TABLET TWICE A DAY active Not Available Not Available No t Available Eliquis 2.5 mg tablet Take 1 tablet twice a day by oral route. 07/03 completed Not Available Not Available Not Available Jardiance 10 mg tablet TAKE 1 TABLET DAILY active Not Available Not Available No t Available [employer] Ellipta 62.5 mcg/actua tion powder for inhalatio n USE 1 INHALATI ON ORALLY DAILY DIRECTED active Not Available Not Available No t Available Spiriva Respimat 1.25 mcg/actua tion solution for inhalatio n 2 puffs by mouth QD active Not Available Not Available No t Available Fluzone High-Dose (PF) 180 mcg/0.5 mL intramusc ular syringe TO BE ADMINIST ERED BY PHARMACI ST FOR IMMUNIZA TION 01/03 completed Not Available Not Available Not Available Shingrix (PF) 50 mcg/0.5 mL intramusc ular suspensio n, kit PHARMACY ADMINIST ERED 07/17 completed Not Available Not Available Not Available Fluzone High-Dose 2019-20 (PF) 180 mcg/0.5 mL intramusc ular syringe TO BE ADMINIST ERED BY ParsoI ST FOR IMMUNIZA TION 06/02 completed Not Available Not Available Not Available Fluzone High-Dose Quad 2019- (PF) 240 mcg/0.7 mL IM syringe PHARMACY ADMINIST ERED 07/17 completed Not Available Not Available Not Available Flowflex COVID-19 Antigen Home Test kit USE DIRECTED 08/26 completed Not Available Not Available Not Available Breyna 160 mcg-4.5 mcg/actua tion HFA aerosol inhaler Inhale 2 puffs twice a day by inhalati on route. active Not Available Not Available No t Available Vitals Date Recorded Body height Body mass index (BMI) Body weight Body temperature Heart rate Systolic blood pressure Diastolic blood pressure Provider Name and Address Organization Details Last Updated DateTime 4 185.42 cm 36.5 kg/m2 330524. 09 g 97.4 [degF] 78 /min 128 mm[Hg] 76 mm[Hg] ABIODUN Vinson [employer] 10:54:16 Date Recorded Body height Body mass index (BMI) Body weight Body temperature Heart rate Oxygen saturation Oxygen saturation in Arterial blood by Pulse oximetry Systolic blood pressure Diastolic blood pressure Provider Name and Address Organization Details Last Updated DateTime 4 185.42 cm 37 kg/m2 188222. 74 g 98 [degF] 78 /min 95 % 95 % 128 mm[Hg] 64 mm[Hg] Aliyah Palacios MA [employer] 4 11:00:11 Date Recorded Heart rate Respiratory rate Provider N denae and Address Organization Details Last Updated DateTime 12/16/2023 78 /min 15 /min Jerald Hebert MD [address] [place] [address], [address], [address], [employer] 12/16/2023 11:25:16 Date Recorded Body height Body mass index (BMI) Body weight Body temperature Heart rate Respiratory rate Oxygen saturation Oxygen saturation in Arterial blood by Pulse oximetry Systolic blood pressure Diastolic blood pressure Provider Name and Address Organization Details Last Updated DateTime 4 185.42 cm 37.2 kg/m2 591027. 05 g 98 [degF] 76 /min 18 /min 96 % 96 % 134 mm[Hg] 76 mm[Hg] Willy Barlow LPN [facility] [employer] [facility] 4 10:43:39 Date Recorded Body height Body mass index (BMI) Body weight Body temperature Heart rate Oxygen saturation Oxygen saturation in Arterial blood by Pulse oximetry Systolic blood pressure Diastolic blood pressure Provider Name and Address Organization Details Last Updated DateTime 4 185.42 cm 37.5 kg/m2 909923. 23 g 98.1 [degF] 70 /min 95 % 95 % 112 mm[Hg] 74 mm[Hg] Erin Smart MA [facility] [employer] [facility] 4 10:27:56 Date Recorded Heart rate Respiratory rate Provider N denae and Address Organization Details Last Updated DateTime 03/18/2024 70 /min 17 /min Jerald Hebert MD [address] [facility], [address] [place] [address], [place], [address], [facility] [employer] [facility] 03/18/2024 10:58:22 Date Recorded Body height Body mass index (BMI) Body weight Body temperature Heart rate Respiratory rate Oxygen saturation Oxygen saturation in Arterial blood by Pulse oximetry Systolic blood pressure Diastolic blood pressure Provider Name and Address Organization Details Last Updated DateTime 4 185.42 cm 37.7 kg/m2 642694. 42 g 97.7 [degF] 78 /min 18 /min 96 % 96 % 126 mm[Hg] 70 mm[Hg] Willy Barlow LPN [facility] [employer] [facility] 4 10:00:44 Social History Question Answer Notes LastModified by Organization Details LastModified Time Tobacco Smoking Status Former Smoker quit 1-5yrs ago Antony cowan [facility] [employer] [facility] 05/26/2023 11:49:36 Do You Have An Advance Directive? No Given Today Information not available 02/02/2024 What Is Your Level Of Alcohol Consumption? Occasional Couple Times A Year [id number] Information not available 07/10/2022 How Many Years Have You Consumed Alcohol? 50 [email or web address] Information not available 02/02/2024 Do You Wear A Helmet When Biking? No Does Not Bike. Information not available 02/02/2024 Are You Blind Or Do You Have Difficulty Seeing? No [email or web address] Information not available 05/26/2023 What Is Your Level Of Caffeine Consumption? Occasional [id number] Information not available 07/10/2022 How Much Tobacco Do You Chew? None [id number] Information not available 07/10/2022 In The 14 Days Before Symptom Onset, Have You Had Close Contact With A Laboratory-conf irmed COVID-19 While That Case Was Ill? No [email or web address] Information not available 05/26/2023 In The 14 Days Before Symptom Onset, Have You Had Close Contact With A Person Who Is Under Investigation For COVID-19 While That Person Was Ill? No [email or web address] Information not available 05/26/2023 Are You Currently Employed? No [email or web address] Information not available 12/16/2023 Are You Deaf Or Do You Have Serious Difficulty Hearing? No [email or web address] Information not available 05/26/2023 What Type Of Diet Are You Following? REGULAR [id number] Information not available 07/10/2022 Which Illicit Or Recreational Drugs Have You Used? Recreational Marijuana [email or web address] Information not available 05/26/2023 Do You Or Have You Ever Used E-cigarettes Or Vape? Former User Of Electronic Cigarettes [email or web address] Information not available 05/26/2023 What Is The Highest Grade Or Level Of School You Have Completed Or The Highest Degree You Have Received? [id number] [email or web address] Information not available 02/02/2024 Do You Have An Electrostatic Air Filter? No [email or web address] Information not available 05/26/2023 What Is Your Occupation? Retired [email or web address] Information not available 05/26/2023 How Many Days Of Moderate To Strenuous Exercise, Like A Brisk Walk, Did You Do In The Last 7 Days? 0 [email or web address] Information not available 02/02/2024 Have There Been Any Changes To Your Family Or Social Situation? Yes Patient's In 2023 [email or web address] Information not available 02/02/2024 What Is The Fluoride Status Of Your Home? Unknown [email or web address] Information not available 05/26/2023 When Did You Quit Smoking? 1-5yearssincelastc igarette [email or web address] Information not available 05/26/2023 Are There Any Guns Present In Your Home? No [email or web address] Information not available 05/26/2023 Do You Have A Humidifier? No [email or web address] Information not available 05/26/2023 How Many Years Have You Used Illicit Or Recreational Drugs? 5 [email or web address] Information not available 02/02/2024 Do You Use Insect Repellent Routinely? No [email or web address] Information not available 05/26/2023 Where Do You Live? SingleLevelHouse W/ Basement [email or web address] Information not available 05/26/2023 Presence Of Domestic Violence No Information not available 01/06/2023 Guns Present In The Home? No Information not available 01/06/2023 Are You Able To Care For Yourself? Yes Information not available 01/06/2023 Are You Blind Or Do Yo Have Difficulty Seeing? Yes Cataracts [email or web address] Information not available 02/02/2024 Are You Deaf Or Do You Have Serious Difficulty Hearing? No Information not available 01/06/2023 General Stress Level? Moderate Information not available 01/06/2023 Live Alone Of With Others? Alone [email or web address] Information not available 02/02/2024 Do You Have A Medical Power Of Group Sales Representative? No Information not available 05/26/2023 Do You Have Moisture Problems In Your Home? No [email or web address] Information not available 05/26/2023 What Was The Date Of Your Most Recent Tobacco Screening? 03/18/2024 [email or web address] Information not available 03/18/2024 How Many Children Do You Have? 0 Information not available 02/02/2024 Have You Ever Been Counseled For Unhealthy Alcohol Use? No [email or web address] Information not available 02/02/2024 Do You Have Any Pets? Yes Dog [email or web address] Information not available 02/02/2024 What Is Your Relationship Status? [email or web address] Information not available 02/02/2024 Do You Use Your Seat Belt Or Car Seat Routinely? Yes [email or web address] Information not available 05/26/2023 Are You Sexually Active? No [email or web address] Information not available 02/02/2024 Do You Have Smoke And Carbon Monoxide Detectors In Your Home? Yes Information not available 05/26/2023 At What Age Did You Start Smoking Tobacco? 16 [email or web address] Information not available 05/26/2023 Are You Passively Exposed To Smoke? No [email or web address] Information not available 05/26/2023 Do You Or Have You Ever Used Smokeless Tobacco? Never Used Smokeless Tobacco [id number] Information not available 07/10/2022 Are There Any Smokers In Your House? No [email or web address] Information not available 05/26/2023 What Types Of Sporting Activities Do You Participate In? None [email or web address] Information not available 02/02/2024 Do You Feel Stressed (tense, Restless, Nervous, Or Anxious, Or Unable To Sleep At Night)? [id number] [email or web address] Information not available 05/26/2023 Do You Use Any Illicit Or Recreational Drugs? Yes [email or web address] Information not available 05/26/2023 Do You Use Sunscreen Routinely? No [email or web address] Information not available 05/26/2023 Has Tobacco Cessation Counseling Been Provided? No [email or web address] Information not available 05/26/2023 Have You Recently Traveled Abroad? No [email or web address] Information not available 05/26/2023 Have You Used IV Drugs? No [email or web address] Information not available 05/26/2023 Do You Have Any Dietary Restrictions? No [email or web address] Information not available 05/26/2023 Do You Or Have You Ever Used Any Other Forms Of Tobacco Or Nicotine? Yes Information not available 05/26/2023 How Many Days In The Past Year Have You Consumed 5 Or More Drinks? 0 [email or web address] Information not available 02/02/2024 How Many Years Have You Used E-cigarettes Or Vape? 5 [email or web address] Information not available 05/26/2023 Sex: Male Functional Status Question Answer Note LastModified by Organizat ion Details LastModified Time Do you have difficulty walking or climbing stairs? No [email or web address] Information not available 05/26/2023 Do you have transportation difficulties? No [email or web address] Information not available 05/26/2023 Are you able to walk? YESASSIST uses cane as needed [email or web address] Information not available 02/02/2024 Do you have difficulty doing errands alone? No Information not available 05/26/2023 Are you able to care for yourself? Yes [email or web address] Information n ot available 05/26/2023 Do you have difficulty dressing or bathing? No [email or web address] Information not available 05/26/2023 What is your exercise level? None [id number] Information not available 07/10/2022 Mental Status Question Answer Note LastModified by Organization D etails LastModified Time Do you have difficulty concentrating, remembering or making decisions? No [email or web address] Information no t available 05/26/2023 Family History Relationship Description Onset Age of this Age Resolved Age Notes LastModified by Organization Details LastModified Time Father Heart disease [id number] [id number] Not available 07/10/2022 01:01:42 Mother Heart disease [id number] Not available 07/10/2022 01:01:42 Mother Hypertensive disorder [id number] Not available 07/10/2022 01:01:42 Brother Diabetes mellitus [id number] Not available 07/10/2022 01:01:42 Medical History Condition Response ARTHRITIS Y CARDIAC ARRHYTHMIA Y USE OF BLOOD THINNERS Y COPD Y HYPERTENSION Y Immunizations Vaccine Type Date Status Note Provider Nam e and Address Organization Details Recorded Time RSV, recombinant, protein subunit RSVpreF, adjuvant reconstituted, 0.5 mL, PF 3 completed ABIODUN Vinson, [facility] 07/07/2023 10:26:29 COVID-19, mRNA, LNP-S, PF, padmini-sucrose, 30 mcg/0.3 mL 3 completed Amrita Aquino RMSal cowan, [facility] 07/07/2023 10:26:44 Influenza, adjuvanted, quadrivalent, PF 3 completed Amrita Aquino RMSal cowan, [facility] 07/07/2023 10:27:12 COVID-19, mRNA, LNP-S, bivalent, PF, 50 mcg/0.5 mL or 25mcg/0.25 mL dose 2 completed Not Available [facility] 07/10/2022 01:33:38 Influenza, high-dose, quadrivalent, PF 2 completed Not Available [facility] 07/10/2022 01:33:38 COVID-19, mRNA, LNP-S, PF, 100 mcg/0.5mL dose or 50 mcg/0.25mL dose 2 completed Not Available [facility] 07/10/2022 01:33:39 SARS-COV-2 (COVID-19) vaccine, UNSPECIFIED 1 completed Not Available [facility] 07/10/2022 01:33:39 Influenza, high-dose, trivalent, PF 9 completed Not Available [facility] 07/10/2022 01:33:39 COVID-19, mRNA, LNP-S, PF, 100 mcg/0.5mL dose or 50 mcg/0.25mL dose 2 completed Not Available [facility] 07/10/2022 01:33:39 Influenza, high-dose, trivalent, PF 0 completed Not Available [facility] 07/10/2022 01:33:39 pneumococcal polysaccharide PPV23 5 completed Not Available [facility] 07/10/2022 01:33:39 Influenza, high-dose, quadrivalent, PF 1 completed Not Available [facility] 07/10/2022 01:33:40 Pneumococcal conjugate PCV 13 0 completed Not Available [facility] 07/10/2022 01:33:40 Influenza, high-dose, trivalent, PF 8 completed Not Available [facility] 07/10/2022 01:33:40 Influenza, high-dose, trivalent, PF 7 completed Not Available [facility] 07/10/2022 01:33:40 Tdap 7 completed Not Available [facility] 07/10/2022 01:33:40 Influenza, high-dose, trivalent, PF 4 completed Jose Burch MD [address] [place] [address], [facility] [address], [place], [address], [facility] 03/22/2024 14:03:02 Past Encounters Encounter ID Performer Location Encounter Start Date Encounter Closed Date Diagnosis/Indication Diagnosis SNOMED-CT Code Diagnosis ICD10 Code Diagnosis Note [id number] [facility] [place] [address] [place] [address] 07/17/2020 00:00:00 07/18/2020 18:28:11 [id number] [facility] [place] [address] [place] [address] 07/26/2020 00:00:00 07/26/2020 13:58:52 [id number] [facility] [place] [address] [facility] [address] [place] [address] 07/31/2020 00:00:00 07/31/2020 16:33:20 [id number] [facility] [place] [address] [place] [address] 09/18/2020 00:00:00 09/18/2020 15:49:30 [id number] [facility] [place] [address] [place] [address] 11/15/2020 00:00:00 11/15/2020 15:10:34 [id number] [facility] [place] [address] [place] [address] 11/22/2020 00:00:00 11/22/2020 15:05:52 [id number] [facility] [place] [address] [place] [address] 01/16/2021 00:00:00 01/16/2021 12:55:51 [id number] [facility] [place] [address] [place] [address] 03/19/2021 00:00:00 03/19/2021 17:32:37 [id number] [facility] [place] [address] [place] [address] 05/08/2021 00:00:00 05/08/2021 11:57:22 [id number] [facility] [place] [address] [place] [address] 07/09/2021 00:00:00 07/09/2021 13:04:37 [id number] [facility] [place] [address] [facility] [address] 08/15/2021 00:00:00 08/15/2021 12:00:30 [id number] [facility] [place] [address] [place] [address] 10/09/2021 00:00:00 10/09/2021 10:51:13 [id number] [facility] [place] [address] [place] [address] [place] [address] 12/24/2021 00:00:00 12/24/2021 12:15:54 [id number] [facility] [place] [address] [place] [address] 04/10/2022 00:00:00 04/10/2022 13:54:20 [id number] [facility] [place] [address] [place] [address] 04/29/2022 00:00:00 04/29/2022 12:03:37 [id number] Jose booth MD [facility] [place] [address] [place] [address] [place] [address] 08/26/2022 10:25:27 08/26/2022 11:04:49 Screening - NAD 160569920 Z13.9 C-scope: Dr Bray 03/27/18, follow up in 7 years Get yearly flu shotUTD tdap 03/17/17Ca n do Pneumovax #13 02/28/2020 Can do shingles vaccineS/p COVID 19 JJ vaccine as per his history RTC in 4 monthswith labsER if any symptoms worsen,he did verbalize his understand ing of the above Hyperlipidemia 77287609 E78.5 On atorvastat in 20mg daily, get labs Hyperglycemia 26851218 R 73.9 Get A1C level On jardiance 10mg daily, discussed also with Dr Mendoza diet and exercise is needed Atrial fibrillation 4943 6004 I48.91 S/p d/c from hospitalS/ p stent by Dr Zuñiga On ASAOff brilintaOn plavixOn coreg 12.5mg bidOn eliquisOn hydralazin e 25mg 5 times per dayOn isosorbide ER 30mg bidOn losartan 100mg dailyOn sotalolOn mag Keep apt with HV Dr Brooks Chronic ob structive pulmonary disease 93684281 J44.9 On incruseOff symbicortO n singulairO n requipOn proventil PRNOn CPAP Christina Durham [employer] 04/10/2022 next 09/02/2022 LDCT 05/16/2022 Obstructiv e sleep apnea syndrome 26268248 G47.33 Sees Christina Durham [employer] 09/02/2022 Benign pro static 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 894385866 N40.[address] Mir last OV 04/02/2022 On myrbetriqO n testostero ne given by Dr Mir On terazosin 5mg daily Obesity 187715907 E66.9 Diet and exercise Thrombocyt openic disorder 251325247 D69.6 PLT WNL 08/21/2022 Hyperbilirubinemia 21719 006 E80.6 US liver 12/28/2021 : Neg Liver enzy mes level above reference range 187185607 R74.01 Get hepatitis panel/GGT [id number] Christina Durham, CONTRACT ADMINISTRATOR-BC [facility] [place] [address] [place] [address] 09/02/2022 10:57:36 09/02/2022 11:30:32 Candidiasis of mouth 47554517 B37.0 New aerochambe r providedRi ne and spit after useNystati n Asthma-chr onic obstructive pulmonary disease overlap syndrome 4009600134 0821824 J44.9 CAT 16PFT 05/30/2021 Ratio 66%FEV1 76%TLC 101%, RV 140%DLCO 91% adjusted for alveolar volume.Aph a 1 MM normalIGGs normalCont inue ICS/LABA/L AMA - stable on Incruse and symbicort 160New aerochambe r provided todayAware of reportable signs and symptoms.R TC in 6 months, PRN for concerns Obstructiv e sleep apnea syndrome 77975776 G47.33 New PAP set up 07/01/22Do wnload today on PAP 19 cmH2O with 100% total useAHI 0.8ESS 4Good use and clinical benefitOSA is well correctedE ncouraged 100% compliance with all sleepFollo w with PCM for labsAdvise d good sleep habits and patterns:- Set a goal for at least 7 to 8 hours of sleep time per day.-Use the bed mainly for sleep and to go to bed only when tired. If unable to fall asleep after 30 minutes, patient should get out of bed but should not engage in any activity that requires sustained mental alertness. -Maintain a regular bedtime and wake-up time even on weekends or days off of work.-Avoi d excessive naps during the daytime. If a nap is necessary, limit it to no more than 30 minutes.-M inimize environmen norberto noise, bright lights, and extremes in bedroom temperatur e.-Avoid alcohol, caffeinate d beverages, and nicotine products for at least 6 hours prior to bedtime.-A void strenuous exercise and large meals for at least 4 hours prior to bedtime.Do wnload at next OV Dyspnea on exertion 6084 5006 R06.09 Multifacto ralWeight lossIncrea se exerciseQu antiferon GOLD normal.Oth er labs as detailed above.Six minute walk completed 05/30/21, he did not require oxygen at rest or with activity.S aturations 96% today on RA at rest Periodic l imb movement disorder 095266220 G47.61 Remains on Ropinirole 1 mg po 2-3 hours prior to bedGood clinical benefitDen ies restless sleep Ex-smoker 5823945 Z87.89 1 Quit 2017CT chest 05/2022 with no nodule or massRepeat due 05/2023 [id number] Jose booth MD [facility] [place] [address] [facility] [place] [address] 01/06/2023 10:52:22 01/06/2023 11:31:23 Screening - NAD 018137769 Z13.9 C-scope: Dr Bray 03/27/18, follow up in 7 years Get yearly flu shotUTD tdap 03/17/17Ca n do Pneumovax #13 02/28/2020 , #23 05/12/2019 Can do shingles vaccineS/p COVID 19 JJ vaccine as per his history RTC in 4 monthswith labsER if any symptoms worsen,he did verbalize his understand ing of the above Hyperlipidemia 44472476 E78.5 On atorvastat in 20mg daily, get labs Hyperglycemia 12163864 R 73.9 Get A1C level On jardiance 10mg daily, discussed also with Dr Mendoza diet and exercise is needed Atrial fibrillation 4943 6004 I48.91 S/p d/c from hospitalS/ p stent by Dr Zuñiga On ASAOff brilintaOn plavixOn coreg 12.5mg bidOn eliquisOn hydralazin e 25mg 5 times per dayOn isosorbide ER 30mg bidOn losartan 100mg dailyOn sotalolOn mag Keep apt with HV Dr Brooks, last 09/18/2022 Chronic ob structive pulmonary disease 66793946 J44.9 On incruseOff symbicortO n singulairO n requipOn proventil PRNOn CPAP Christina Durham [employer] next 03/03/2023 LDCT 05/16/2022 Obstructiv e sleep apnea syndrome 97164859 G47.33 Sees Christina Durham [employer] 09/02/2022 , next apt 03/03/2023 Benign pro static 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 362297103 N40.[address] Mir last OV 04/02/2022 On myrbetriqO n testostero ne given by Dr Mir On terazosin 5mg daily Obesity 566433804 E66.9 Diet and exercise Thrombocyt openic disorder 895468421 D69.6 Repeat the CBC, mildly lowMay need to see hematology Hyperbilirubinemia 88553 006 E80.6 US liver 12/28/2021 : Neg Liver enzy mes level above reference range 465548966 R74.01 Hepatitis panel/GGT: Neg Proteinuria 59507577 R80 .[address] Giancarlo SANCHEZ Screening for malignant neoplasm of prostate 568927825 Z12.5 Adult heal th examination 021555870 Z00.00 Screening for disorder 675018185 Z13.9 Multiple skin tags 87601 7009 L91.8 Small located on the R cheek and another on the mid pubic area, refer to Dr Barker [id number] Sal toro MD [facility] General Surgery [address] [place] [address] 01/30/2023 11:19:38 01/30/2023 11:49:57 Skin lesion 68240752 L98.9 Face, abdominal, knee [id number] Sal toro MD [facility] General Surgery [address] [address] 02/11/2023 11:42:03 02/11/2023 14:29:33 Skin lesion 75610623 L98.9 Face, abdominal, knee [id number] Sal toro MD [facility] General Surgery [address] [place] [address] 02/18/2023 11:42:49 02/18/2023 17:01:22 Skin lesion 90527610 L98.9 Face, abdominal, knee Removal of sutures done 6843948784 19999 Z48.02 [id number] Christina Durham, CONTRACT ADMINISTRATOR-BC [facility] [place] [address] [place] [address] 03/03/2023 09:25:02 03/03/2023 12:20:43 Asthma-chronic obstructive pulmonary disease overlap syndrome 5191609217 7102410 J44.9 PFT 05/30/2021 Ratio 66%FEV1 76%TLC 101%, RV 140%DLCO 91% adjusted for alveolar volume.Rep eat suggested next yearApha 1 MM normalIGGs normalCont inue ICS/LABA/L AMA - stable on Incruse and symbicort 160Aware of reportable signs and symptoms.A dvised vaccines Asthma 405953053 J45.90 9 Montelukas t Obstructiv e sleep apnea syndrome 22339505 G47.33 New PAP set up 07/01/22Go od use and clinical benefitOSA is well correctedE ncouraged 100% compliance with all sleepFollo w with PCM for labsAdvise d good sleep habits and patterns:- Set a goal for at least 7 to 8 hours of sleep time per day.-Use the bed mainly for sleep and to go to bed only when tired. If unable to fall asleep after 30 minutes, patient should get out of bed but should not engage in any activity that requires sustained mental alertness. -Maintain a regular bedtime and wake-up time even on weekends or days off of work.-Avoi d excessive naps during the daytime. If a nap is necessary, limit it to no more than 30 minutes.-M inimize environmen norberto noise, bright lights, and extremes in bedroom temperatur e.-Avoid alcohol, caffeinate d beverages, and nicotine products for at least 6 hours prior to bedtime.-A void strenuous exercise and large meals for at least 4 hours prior to bedtime.Do wnload at next OV Ex-smoker 8940029 Z87.89 1 Quit 2017CT chest 05/2022 with no nodule or massRepeat due 05/2023 - ordered by PCM [id number] ERICA Dillard [facility] [place] [address] [place] [address] 04/25/2023 11:06:06 04/25/2023 12:20:12 History of left total knee replacement 5966479410 688231 Z96.194 [id number] Jose booth MD [facility] [place] [address] [facility] [place] [address] 05/26/2023 11:47:44 05/26/2023 12:15:20 Screening - NAD 017132503 Z13.9 C-scope: Dr Bray 03/27/18, follow up in 7 years Get yearly flu shotUTD tdap 03/17/17Ca n do Pneumovax #13 02/28/2020 , #23 05/12/2019 Can do shingles vaccineS/p COVID 19 JJ vaccine as per his historyCan do RSV vaccine RTC in 4 monthswith labsER if any symptoms worsen,he did verbalize his understand ing of the above Hyperlipidemia 67342419 E78.5 On atorvastat in 20mg daily, get labs Hyperglycemia 34507754 R 73.9 Get A1C level On jardiance 10mg daily, discussed also with Dr Mendoza diet and exercise is needed Atrial fibrillation 4943 6004 I48.91 S/p d/c from hospitalS/ p stent by Dr Zuñiga On ASAOff brilintaOn plavixOn coreg 12.5mg bidOn eliquisOn hydralazin e 25mg 5 times per dayOn isosorbide ER 30mg bidOn losartan 100mg dailyOn sotalolOn mag Keep apt with [facility] Dr Brooks, last 09/18/2022 Chronic ob structive pulmonary disease 53583820 J44.9 On incruseOff symbicortO n singulairO n requipOn proventil PRNOn CPAP Christina Durham [employer] next 03/03/2023 LDCT 05/16/[address] Hebert 05/26/2023 Obstructiv e sleep apnea syndrome 22718449 G47.33 Seen Christina Durham [employer] 09/02/2022 Benign pro static 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 299852774 N40.[address] Mir last OV 04/02/2022 On myrbetriqO n testostero ne given by Dr Mir On terazosin 5mg daily Obesity 037216704 E66.9 Diet and exercise Thrombocyt openic disorder 888965743 D69.6 Repeat the CBC, mildly lowMay need to see hematology Hyperbilirubinemia 04731 006 E80.6 US liver 12/28/2021 : Neg Liver enzy mes level above reference range 661107080 R74.01 Hepatitis panel/GGT: Neg Proteinuria 05680336 R80 .[address] Aguilar IJ Screening for malignant neoplasm of prostate 884712990 Z12.5 Multiple skin tags 34491 7009 L91.8 Small located on the R cheek and another on the mid pubic area, refer to Dr Mj Barker 02/18/2023 History of left total knee replacement 6976586341 913302 Z96.652 Sumit MALDONADO 04/25/2023 , next Dr Casas 07/25/2023 Moderate r ecurrent major depression 82223667 F33.1 is on hospice and he is feeling more depressed, not suicidal or homicidal, would like to try zoloft, all side effects explained to himDecline s psychiatry referralSt art on zoloft 25mg daily [id number] Jose booth MD [facility] [place] [address] [facility] [place] [address] 07/07/2023 10:19:25 07/07/2023 10:55:39 Screening - NAD 001487390 Z13.9 C-scope: Dr Bray 03/27/18, follow up in 7 years Get yearly flu shotUTD tdap 03/17/17Ca n do Pneumovax #13 02/28/2020 , #23 05/12/2019 Can do shingles vaccineS/p COVID 19 JJ vaccine as per his historyCan do RSV vaccine RTC in 4 monthswith labsER if any symptoms worsen,he did verbalize his understand ing of the above Hyperlipidemia 67764272 E78.5 On atorvastat in 20mg daily, get labs Hyperglycemia 96667256 R 73.9 Get A1C level On jardiance 10mg daily, discussed also with Dr Mendoza diet and exercise is needed Atrial fibrillation 4943 6004 I48.91 S/p d/c from hospitalS/ p stent by Dr Zuñiga On ASAOff brilintaOn plavixOn coreg 12.5mg bidOn eliquisOn hydralazin e 25mg 5 tabs (2,1,2) per dayOn isosorbide ER 30mg bidOn losartan 100mg dailyOn sotalolOn mag Keep apt with HV Dr Brooks, last 09/18/2022 Chronic ob structive pulmonary disease 30837715 J44.9 On incruseOff symbicortO n singulairO n requipOn proventil PRNOn CPAP Christina Durham [employer] next 03/03/2023 LDCT 05/16/2022 LDCT 07/03/2023 : 3mm noduleDr Hebert next apt 07/31/2023 Obstructiv e sleep apnea syndrome 02893500 G47.33 Seen Christina Durham [employer] 09/02/2022 Dr Hebert 07/31/2023 Benign pro static 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 344730778 N40.[address] Mir last OV 04/02/2022 On myrbetriqO n testostero ne given by Dr Mir On terazosin 5mg daily Obesity 847311987 E66.9 Diet and exercise Thrombocyt openic disorder 651381466 D69.6 Repeat the CBC, mildly lowMay need to see hematology Hyperbilirubinemia 29952 006 E80.6 US liver 12/28/2021 : Neg Liver enzy mes level above reference range 435172524 R74.01 Hepatitis panel/GGT: Neg Proteinuria 80381192 R80 .[address] Aguilar IJ Multiple skin tags 79900 7009 L91.8 Small located on the R cheek and another on the mid pubic area, refer to Dr Mj Barker 02/18/2023 History of left total knee replacement 4016677345 207985 Z96.652 Sumit MALDONADO 04/25/2023 , next Dr Casas 07/25/2023 Moderate r ecurrent major depression 81271301 F33.1 was on hospice and has since and he is feeling more depressed, not suicidal or homicidal all side effects explained to himDecline s psychiatry referralOn zoloft 25mg daily, will increase to 50mg daily Hypothyroidism 60672594 E03.9 Get repeat TSH/FT4 and US thyroid done [id number] ERICA Dillard [facility] [place] [address] [place] [address] 07/25/2023 09:50:25 07/25/2023 10:49:31 Osteoarthritis of right knee joint 5712631781 57428 M17.11 [id number] Jerald Hebert MD [facility] [address] [place] [address] 07/31/2023 11:24:46 08/01/2023 08:58:08 Periodic limb movement disorder 070957717 G47.61 D50.8 E83.42 Obstructiv e sleep apnea syndrome 97427508 G47.33 Mild chron ic obstructive pulmonary disease 897899147 J44.9 [id number] Jerald Hebert MD [facility] [address] [address] 09/15/2023 09:45:14 09/16/2023 08:24:15 Periodic limb movement disorder 340387311 G47.61 D50.8 E83.42 Obstructiv e sleep apnea syndrome 15360761 G47.33 Mild chron ic obstructive pulmonary disease 900111001 J44.9 Iron deficiency 30352611 E61.1 [id number] Jose booth MD [facility] [place] [address] [place] [address] [place] [address] 11/10/2023 10:44:00 11/10/2023 11:24:47 Screening - NAD 811064663 Z13.9 C-scope: Dr Bray 03/27/18, follow up in 7 years Get yearly flu shotUTD tdap 03/17/17Ca n do Pneumovax #13 02/28/2020 , #23 05/12/2019 Can do shingles vaccineS/p COVID 19 JJ vaccine as per his historyCan do RSV vaccine RTC in 4 monthswith labsER if any symptoms worsen,he did verbalize his understand ing of the above Hyperlipidemia 29524874 E78.5 On atorvastat in 20mg daily, get labs Hyperglycemia 83426231 R 73.9 Get A1C level On jardiance 10mg daily, discussed also with Dr Mendoza diet and exercise is needed Atrial fibrillation 4943 6004 I48.91 S/p d/c from hospitalS/ p stent by Dr Zuñiga On ASAOff brilintaOn plavixOn coreg 25mg bidOn eliquisOn hydralazin e 25mg 5 tabs (2,1,2) per day, told to stop Dr Giancarlo SANCHEZ 08/12/2023 as per noteOn isosorbide ER 30mg bidOn losartan 100mg dailyOn sotalolOn mag Keep apt with [facility] Dr Brooks, last 10/09/2023 Chronic ob structive pulmonary disease 78020980 J44.9 On incruseOff symbicortO n singulairO n requipOn proventil PRNOn CPAP Christina Durham [employer] next 03/03/2023 LDCT 05/16/2022 LDCT 07/03/2023 : 3mm noduleDr Hebert next apt 12/16/2023 Obstructiv e sleep apnea syndrome 08971943 G47.33 Seen Christina Durham [employer] 09/02/2022 Dr Hebert Benign pro static 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 861175419 N40.[address] Mir last OV 04/02/2022 On myrbetriqO n testostero ne given by Dr Mir On terazosin 5mg daily Obesity 091870350 E66.9 Diet and exercise Thrombocyt openic disorder 947083811 D69.6 Repeat the CBC, mildly lowMay need to see hematology Hyperbilirubinemia 75128 006 E80.6 US liver 12/28/2021 : Neg Liver enzy mes level above reference range 598170155 R74.01 Hepatitis panel/GGT: Neg Proteinuria [id number] R80 .9 Dr Aguilar IJ 08/12/2023 Multiple skin tags 82318 7009 L91.8 Small located on the R cheek and another on the mid pubic area, refer to Dr Mj Barker 02/18/2023 History of left total knee replacement [id number] 786299 Z96.652 Sumit Loya PA 04/25/2023 , Dr Casas/René MALDONADO 07/25/2023 Moderate r ecurrent major depression 74377588 F33.1 was on hospice and has since passed awayNot suicidal or homicidal all side effects explained to himDecline s psychiatry referralOn zoloft 50mg daily Hypothyroidism 01834692 E03.9 Get repeat TSH/FT4 and US thyroid done Pain of ear 698989553 H9 2.09 Dr Hamilton Ryan ENT 03/20/2023 [id number] Jerald Hebert MD [facility] Pulmon[facility] [place] [address] 0 12/16/2023 10:49:20 12/17/2023 08:26:27 Periodic limb movement disorder 512138140 G47.61 Obstructiv e sleep apnea syndrome 32734658 G47.33 Mild chron ic obstructive pulmonary disease 713968613 J44.9 Iron deficiency 28969755 E61.1 [id number] Jose booth MD [facility] Internal Med Nguyen martinez [address] [facility] [place] [address] 02/02/2024 10:29:27 02/02/2024 11:54:27 Screening - NAD [id number] Z13.9 C-scope: Dr Bray 03/27/18, follow up in 7 years Get yearly flu shotUTD tdap 03/17/17Ca n do Pneumovax #13 02/28/2020 , #23 05/12/2019 Can do shingles vaccineS/p COVID 19 JJ vaccine as per his historyCan do RSV vaccine RTC in 4 monthswith labsER if any symptoms worsenhe did verbalize his understand ing of the above Hyperlipidemia 26173556 E78.5 On atorvastat in 20mg daily, get labs Hyperglycemia 99650309 R 73.9 Get A1C level On jardiance 10mg daily, discussed also with Dr Mendoza diet and exercise is needed Atrial fibrillation 4943 6004 I48.91 S/p d/c from hospitalS/ p stent by Dr Zuñiga On ASAOn amlodipine 10mg dailyOff brilintaOn plavixOn coreg 25mg bidOn eliquisOn hydralazin e 25mg 5 tabs (2,1,2) per day, told to stop Dr Giancarlo SANCHEZ 08/12/2023 as per noteOn isosorbide ER 30mg bidNot on losartan 100mg dailyOn sotalolOn mag Keep apt with HV Dr Brooks Chronic ob structive pulmonary disease 35944802 J44.9 On incruseOff symbicortO n singulairO n requipOn proventil PRNOn CPAP Christina Durham [employer] [facility] next 03/03/2023 LDCT 05/16/2022 LDCT 07/03/2023 : 3mm noduleDr Hebert next apt 03/17/2024 Obstructiv e sleep apnea syndrome 85176743 G47.33 Seen Christina Durham [facility] 09/02/2022 Dr Hebert 03/17/2024 next apt Benign pro static 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 273513633 N40.[address] Mir last OV 04/02/2022 On myrbetriqO n testostero ne given by Dr Mir On terazosin 5mg daily Obesity 611624913 E66.9 Diet and exercise Thrombocyt openic disorder 801665007 D69.6 Repeat the CBC, mildly lowMay need to see hematology Hyperbilirubinemia 87445 006 E80.6 US liver 12/28/2021 : Neg Liver enzy mes level above reference range 343782050 R74.01 Hepatitis panel/GGT: Neg Proteinuria 11595950 R80 .9 Dr Aguilar IJ 08/12/2023 Multiple skin tags 04618 7009 L91.8 Small located on the R cheek and another on the mid pubic area, refer to Dr Mj Barker 02/18/2023 History of left total knee replacement [id number] 498966 Z96.652 Sumit Loya PA 04/25/2023 , Dr Casas/René MALDONADO 07/25/2023 Moderate r ecurrent major depression 49850647 F33.1 was on hospice and has since passed awayNot suicidal or homicidal all side effects explained to himDecline s psychiatry referralOn zoloft 50mg daily Hypothyroidism 74972490 E03.9 Get repeat TSH/FT4US thyroid 07/09/2023 Pain of ear 344816208 H9 2.09 Dr Hamilton Ryan ENT 03/20/2023 Adult heal th examination 205035850 Z00.00 Screening for disorder 476867054 Z13.9 Acute otitis media 05517 03 H66.92 OV 02/02/2024 :On steroid and z-pack, given by the , getting better, will finish the antibiotic , notify if not better [id number] Jerald Hebert MD [facility] Pulmonolo gy [address] [address] 03/18/2024 10:09:15 05/10/2024 09:28:36 Periodic limb movement disorder 427772052 G47.61 Obstructiv e sleep apnea syndrome 93079565 G47.33 Mild chron ic obstructive pulmonary disease 450032564 J44.9 Iron deficiency 13333503 E61.1 [id number] Jose booth MD [facility] Mindy martinez [address] [facility] [address] [place] [address] 03/22/2024 09:52:37 03/22/2024 10:49:12 Screening - NAD 470719670 Z13.9 C-scope: Dr Bray 03/27/18, follow up in 7 years Get yearly flu shotUTD tdap 03/17/17Ca n do Pneumovax #13 02/28/2020 , #23 05/12/2019 Can do shingles vaccineS/p COVID 19 JJ vaccine as per his historyCan do RSV vaccine RTC in 3 monthswith labsER if any symptoms worsenhe did verbalize his understand ing of the above Hyperlipidemia 55653044 E78.5 On atorvastat in 20mg daily, get labs Hyperglycemia 21539866 R 73.9 Get A1C level On jardiance 10mg dailyMore diet and exercise is needed Atrial fibrillation 4943 6004 I48.91 S/p d/c from hospitalS/ p stent by Dr Zuñiga On ASAOn amlodipine 10mg dailyOff brilintaOn plavixOn coreg 25mg bidOn eliquisNot on hydralazin Tiana isosorbide ER 30mg bidOn losartan 100mg dailyOn sotalolOn mag Keep apt with [facility] Dr Brooks Chronic ob structive pulmonary disease 38031829 J44.9 On incruseOff symbicortO n singulairO n requipOn proventil PRNOn CPAP Christina Durham [employer] [facility] next 03/03/2023 LDCT 05/16/2022 LDCT 07/03/2023 : 3mm noduleDr Hebert next apt 06/17/2023 Obstructiv e sleep apnea syndrome 84372970 G47.33 Seen Christina Durham [employer] 09/02/2022 Dr Hebert Benign pro static 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 027151213 N40.[address] Mir last OV 04/02/2022 On myrbetriqO n testostero ne given by Dr Mir On terazosin 5mg daily Obesity 432994269 E66.9 Diet and exercise Thrombocyt openic disorder 367389654 D69.6 Repeat the CBC, mildly lowMay need to see hematology Hyperbilirubinemia 91552 006 E80.6 US liver 12/28/2021 : Neg Liver enzy mes level above reference range 809543780 R74.01 Hepatitis panel/GGT: Neg Proteinuria 24326254 R80 .9 Dr Giancarlo SANCHEZ 08/12/2023 Multiple skin tags 25404 7009 L91.8 Small located on the R cheek and another on the mid pubic area, refer to Dr Mj Barker 02/18/2023 History of left total knee replacement [id number] 410311 Z96.652 Sumit MALDONADO 04/25/2023 , Dr Casas/René MALDONADO 07/25/2023 Moderate r ecurrent major depression 70371481 F33.1 was on hospice and has since passed awayNot suicidal or homicidal all side effects explained to himDecline s psychiatry referralOn zoloft 50mg daily Hypothyroidism 55403622 E03.9 Get repeat TSH/FT4US thyroid 07/09/2023 Can start on unithroid low dose, does have a.fib, will also discuss with cardiology Acute sinusitis 09775216 J01.90 Right sided facial tenderness Also has R upper gum tenderness Is seeing ENT and dentistWil l start on augmentinN otify if not better, ER if worse Administra tion of influenza vaccine 81853874 Z23 Health Concerns Section Related Observation LastModified by Organization Detai ls LastModified Time None Recorded Concern Status LastModified by Organization Details LastModified Time None Recorded Advance Directives Directive N: Given today Payers Encounter Date Sequence Insurance Name Policy Number Policy Adler Covered Member ID Adler Member ID Guarantor Name 11/10/2023 1 [employer] (MEDICARE REPLACEMENT PPO) [id number] 1 Julian Booth Celina [id number] Julian Booth Celina 12/16/2023 1 [employer] (MEDICARE REPLACEMENT PPO) [id number] Julian Booth Celina [id number] Julian Booth Celina 02/02/2024 1 [employer] (MEDICARE REPLACEMENT PPO) [id number] Julian Booth Celina [id number] Julian Booth Celina 03/18/2024 1 [employer] (MEDICARE REPLACEMENT PPO) [id number] Julian Booth Celina [id number] Julian Booth Celina 03/22/2024 1 [employer] (MEDICARE REPLACEMENT PPO) [id number] Julian Booth Celina [id number] Julian Patrick Notes Date Note Type Note Provider Name and Address Organization Details Recorded Time 11/10/2023 text/html Here to fritz arredondo Last PMD Dr Armendariz Hx:COPDHTNHLDOSABPHHyp ogonadism Reviewed social family and surgical history Here to establish care, discuss above and get some labsHe has an apt with the urologist and is to get his testosterone level and PSAHe also to see his server systems administrator Dr Brooks OV 09/15/17:Here for his 6 month appointment He is also here for his MWVHe states that he is doing very wellLast labs were in 06/19/17 though he does state that he did do the labs last week with Dr Brooks OV 03/25/18:Here for his 6 month apt He is doing very wellHe did do the labs on 03/23/18He does want his flu shot today OV 09/2018:Here for his 6 months He does well, and he did do the labsHe has ish but R>L knee pain, and R toe pain, since 'months'He has seen Dr Mckenzie OV 03/22/19:Here for his routine apt He did do the labsHe does have a sore throat and 'stuffed up head'C/o cough and a 'rough throat'Phlegm is now greenish, no bloodFeels that he does have a low grade fever with chills No n/V or diarrheaNo chest pain, no SOBSome wheezing OV 06/02/2019:ACV: URI sx for about a week to 10 days Sore throat, with some fevers and chills, no fever nowFeels a little fatigueNo N/V or diarrheaNo chest painNo wheezingNo diarrhea OV 02/28/2020;Here for his routine apt He feels wellHis last labs were on 11/08/2019 and his A1C was on 11/17/2019 He does feel that his knee pain especially on the L now is more, he states that he is unable to climb down his basement d/t pain, now is ready to get the knee replaced, he has seen Dr Casas for this in the past OV 07/17/2020:Here for his routine aptHe feels wellHe did do the labs on 07/11/2020 OV 03/19/2021:Here for his routine aptHe feels wellS/p d/c from hospital for CAD s/p stent insertionHe did do the labs on 02/12/2021 OV 08/15/2021:Here for his routine aptHe is doing wellDoes c/o some runny nose and congestion, unable to take the flonase d/t nasal bleedsHe did do the labs OV 12/24/2021:Here for his routine apt and MWVHe is doing well todayHe did do the labs on 12/12/2021 OV 04/29/2022:Here for his f/u apt, he feels well today, labs done on 04/24/2022 OV 08/26/2022:Here for his f/u apt, he is doing well, he did do the labs OV 01/06/2023: Here for his f/u apt, he is doing well today, he did do the labs, here also for his MWV OV 05/26/2023: Here for visit to discuss depression, c/o depression d/t his now being on hospice, would like to try zoloft, not suicidal or homicidal OV 07/07/2023: Here for his f/u apt, he is doing well today OV 11/10/2023: Here for his routine apt, he is doing well today, states that his depression is well controlled now, he did do the labs Jose Burch MD [address] [facility], [place], [address], [place] - [facility] [employer] 11/16/2023 16:15:08 12/16/2023 text/html Primary care/Ref erring provider: Jose Burch MD Patient is here to go over his COPD management. Initial development of shortness of breath: 2016Duration of shortness of breath: 8 yearsCondition of shortness of breath: stableTiming of shortness of breath: noneFrequency: up to 3 times a dayLimits activities: yesAggravating factors: walking, climbing stairsAlleviating factors: rest Modified Medical Research [place] (mMRC) Dyspnea Scale - Grade 2Grade 0 ? I only get breathless with strenuous exercise? .Grade 1 ? I get short of breath when hurrying on the level or walking up a slight hill? .Grade 2 ? I walk slower than people of the same age on the level because of breathlessness or have to stop for breath when walking at my own pace on the level? .Grade 3 ? I stop for breath after walking about 100 yards or after a few minutes on the level? .Grade 4 ? I am too breathless to leave the house? or ? I am breathless when dressing? . Treatment history: Albuterol HFA as needed since 2015. uses up to 3 x a weekSymbicort 80/4.5 mcg 2 puffs BID reyna 160/4.5 mcg 2 puffs BID since 2020Incruse Ellipta 1 inhalation daily since 2020 Montelukast 10 mg daily Other symptoms:Drooling: noDysarthria: noNeck pain: noOdynophagia: noDysphagia: noWeak mastication: noFacial weakness: noNasal speech: noProtruding tongue: noProductive cough: grayishWheezing: noChest tightness: yesOrthopnea: noFrequent throat clearing or swallowing: noPalpitations: noHeartburn: noEdema: no Environmental exposures:Nicotine smoke: 1 ppd 9771-1786 = 46 pack yearsPaint: noDye: noDust mites: yesMold: noDamp basement: noWood burning stove: noAnimal dander: dogCockroaches: noPollen: yesArsenic: noAsbestos: noBeryllium: noCadmium: noChromium: noCoal smoke: noDiesel fumes: noNickel: noSilica: noSoot: no During the [facility] sleep study on 02/13/05 AHI = 73, PLMI = 15. At home since 09/15/23, the patient uses a ResMed AirSense 11 autoset unit with heated humidification. The patient does not need the ramp to start low and go up slowly on the pressure anymore. There is some xerostomia in a.m. There is no hose/mask condensation with water.The patient switched from a ResMed AirFit F20 full face mask to a [employer] large Vitera full face mask without chin strap. There is no claustrophobia, no nostril/nose bridge irritation, no facial rash, no facial numbness, no nosebleeding. The patient feels more refreshed upon waking and daytime alertness is improved. Energy levels are sustained until early afternoon, around 2 pm. At home, the patient sleeps from 12 am to 7 am and wakes up without an alarm. Snoring: heavy, since .Snorting: yesChoking: noCoughing: noGasping: noGagging: noSighing: noWitnessed apnea: yesTwitching or jerking of leg(s), arm(s), body, head: yesTeeth grinding: noTeeth clenching: noSleeptalking: noSleepwalking: noSleep crying: noBedwetting: noTongue/lip/gum/cheek biting: noSleeping with open mouth: yesSleep paralysis: yesHypnagogic hallucinations: noHypnopompic hallucinations: noVivid dreams: noDifficulty with sleep onset: noDifficulty with sleep maintenance: yesSleep interruptions: for no known reasonsPatient wakes up with: fatigue, xerostomiaDaytime cataplexy: noMorning hypersomnolence: noAfternoon hypersomnolence: yesCaffeine sources in diet: coffee 2.5 cups per day, tea 1 cup per day, chocolate 1 candy bar per week Associated medical and psychiatric conditions:Congestive heart failure: noCoronary artery disease: yesMyocardial infarction: noHypertension: yesArrhythmias: yesStroke: noBronchial asthma: noChronic obstructive pulmonary disease: noDepression: yesBipolar disorder: noAnxiety: yesPanic disorder: noPosttraumatic stress disorder: noAttention deficit and hyperactivity disorder: noObsessive Compulsive disorder: noSchizophrenia: noSchizoaffective disorder: noPersonality disorder: noChronic analgesic use: noChronic sedative/hypnotic use: no EPWORTH SLEEPINESS SCALE (ESS) CHANCE OF DOZING SCORE0 = would never doze1 = slight chance of dozing2 = moderate chance of dozing3 = high chance of dozing SITUATION AND CHANCE OF DOZINGSitting and reading - 0Watching television - 0Sitting inactive in a public place (e.g. a theater or meeting) - 0As a passenger in a car for an hour without a break - 0Lying down to rest in the afternoon when circumstances permit - 0Sitting and talking to someone - 0Sitting quietly after lunch without alcohol - 0In a car, while stopped for a few minutes in the traffic - 0TOTAL SCORE 0Subjectively, patient has no chance of dozing. Jerald Hebert MD [address] [place] [address], [facility] [address], [place], [address], [place] - [facility] 12/16/2023 11:27:52 02/02/2024 text/html Here to fritz Smith PMD Dr Armendariz Hx:COPDHTNHLDOSABPHHyp ogonadismReviewed social family and surgical historyHere to establish care, discuss above and get some labsHe has an apt with the urologist and is to get his testosterone level and PSAHe also to see his server systems administrator Dr Brooks OV 09/15/17:Here for his 6 month appointmentHe is also here for his MWVHe states that he is doing very wellLast labs were in 06/19/17 though he does state that he did do the labs last week with Dr Brooks OV 03/25/18:Here for his 6 month aptHe is doing very wellHe did do the labs on 03/23/18He does want his flu shot today OV 09/2018:Here for his 6 monthsHe does well, and he did do the labsHe has ish but R>L knee pain, and R toe pain, since 'months'He has seen Dr Mckenzie OV 03/22/19:Here for his routine aptHe did do the labsHe does have a sore throat and 'stuffed up head'C/o cough and a 'rough throat'Phlegm is now greenish, no bloodFeels that he does have a low grade fever with chillsNo n/V or diarrheaNo chest pain, no SOBSome wheezing OV 06/02/2019:ACV:URI sx for about a week to 10 daysSore throat, with some fevers and chills, no fever nowFeels a little fatigueNo N/V or diarrheaNo chest painNo wheezingNo diarrhea OV 02/28/2020;Here for his routine aptHe feels wellHis last labs were on 11/08/2019 and his A1C was on 11/17/2019He does feel that his knee pain especially on the L now is more, he states that he is unable to climb down his basement d/t pain, now is ready to get the knee replaced, he has seen Dr Casas for this in the past OV 07/17/2020:Here for his routine aptHe feels wellHe did do the labs on 07/11/2020 OV 03/19/2021:Here for his routine aptHe feels wellS/p d/c from hospital for CAD s/p stent insertionHe did do the labs on 02/12/2021 OV 08/15/2021:Here for his routine aptHe is doing wellDoes c/o some runny nose and congestion, unable to take the flonase d/t nasal bleedsHe did do the labs OV 12/24/2021:Here for his routine apt and MWVHe is doing well todayHe did do the labs on 12/12/2021 OV 04/29/2022:Here for his f/u apt, he feels well today, labs done on 04/24/2022 OV 08/26/2022:Here for his f/u apt, he is doing well, he did do the labs OV 01/06/2023: Here for his f/u apt, he is doing well today, he did do the labs, here also for his MWV OV 05/26/2023: Here for visit to discuss depression, c/o depression d/t his now being on hospice, would like to try zoloft, not suicidal or homicidal OV 07/07/2023: Here for his f/u apt, he is doing well today OV 11/10/2023: Here for his routine apt, he is doing well today, states that his depression is well controlled now, he did do the labs OV 02/02/2024: Here for his routine apt, he does well Jose Burch MD [address], [facility] [address], [place], [address], [place] - [facility] 02/02/2024 18:37:57 03/18/2024 text/html Primary care/Ref erring provider: Jose Burch MD Patient is here to go over his COPD management. Initial development of shortness of breath: 2016Duration of shortness of breath: 8 yearsCondition of shortness of breath: stableTiming of shortness of breath: noneFrequency: up to 3 times a dayLimits activities: yesAggravating factors: walking, climbing stairsAlleviating factors: rest Modified Medical Research [place] (mMRC) Dyspnea Scale - Grade 2Grade 0 ? I only get breathless with strenuous exercise? .Grade 1 ? I get short of breath when hurrying on the level or walking up a slight hill? .Grade 2 ? I walk slower than people of the same age on the level because of breathlessness or have to stop for breath when walking at my own pace on the level? .Grade 3 ? I stop for breath after walking about 100 yards or after a few minutes on the level? .Grade 4 ? I am too breathless to leave the house? or ? I am breathless when dressing? . Treatment history: Albuterol HFA as needed since 2015. uses up to 3 x a weekSymbicort 80/4.5 mcg 2 puffs BID reyna 160/4.5 mcg 2 puffs BID since 2020Incruse Ellipta 1 inhalation daily since 2020 Montelukast 10 mg daily Other symptoms:Drooling: noDysarthria: noNeck pain: noOdynophagia: noDysphagia: noWeak mastication: noFacial weakness: noNasal speech: noProtruding tongue: noProductive cough: grayishWheezing: noChest tightness: yesOrthopnea: noFrequent throat clearing or swallowing: noPalpitations: noHeartburn: noEdema: no Environmental exposures:Nicotine smoke: 1 ppd 6349-4431 = 46 pack yearsPaint: noDye: noDust mites: yesMold: noDamp basement: noWood burning stove: noAnimal dander: dogCockroaches: noPollen: yesArsenic: noAsbestos: noBeryllium: noCadmium: noChromium: noCoal smoke: noDiesel fumes: noNickel: noSilica: noSoot: no During the [facility] sleep study on 02/13/05 AHI = 73, PLMI = 15. At home since 09/15/23, the patient uses a ResMed AirSense 11 autoset unit with heated humidification. The patient does not need the ramp to start low and go up slowly on the pressure anymore. There is some xerostomia in a.m. There is no hose/mask condensation with water.The patient switched back to a [employer] large AirFit F20 full face mask [facility] large Vitera full face mask, without chin strap. There is no claustrophobia, no nostril/nose bridge irritation, no facial rash, no facial numbness, no nosebleeding. The patient feels more refreshed upon waking and daytime alertness is improved. Energy levels are sustained until early afternoon, around 2 pm. At home, the patient sleeps from 12 am to 7 am and wakes up without an alarm. Snoring: heavy, since .Snorting: yesChoking: noCoughing: noGasping: noGagging: noSighing: noWitnessed apnea: yesTwitching or jerking of leg(s), arm(s), body, head: yesTeeth grinding: noTeeth clenching: noSleeptalking: noSleepwalking: noSleep crying: noBedwetting: noTongue/lip/gum/cheek biting: noSleeping with open mouth: yesSleep paralysis: yesHypnagogic hallucinations: noHypnopompic hallucinations: noVivid dreams: noDifficulty with sleep onset: noDifficulty with sleep maintenance: yesSleep interruptions: for no known reasonsPatient wakes up with: fatigue, xerostomiaDaytime cataplexy: noMorning hypersomnolence: noAfternoon hypersomnolence: yesCaffeine sources in diet: coffee 2.5 cups per day, tea 1 cup per day, chocolate 1 candy bar per week Associated medical and psychiatric conditions:Congestive heart failure: noCoronary artery disease: yesMyocardial infarction: noHypertension: yesArrhythmias: yesStroke: noBronchial asthma: noChronic obstructive pulmonary disease: noDepression: yesBipolar disorder: noAnxiety: yesPanic disorder: noPosttraumatic stress disorder: noAttention deficit and hyperactivity disorder: noObsessive Compulsive disorder: noSchizophrenia: noSchizoaffective disorder: noPersonality disorder: noChronic analgesic use: noChronic sedative/hypnotic use: no EPWORTH SLEEPINESS SCALE (ESS) CHANCE OF DOZING SCORE0 = would never doze1 = slight chance of dozing2 = moderate chance of dozing3 = high chance of dozing SITUATION AND CHANCE OF DOZINGSitting and reading - 0Watching television - 0Sitting inactive in a public place (e.g. a theater or meeting) - 0As a passenger in a car for an hour without a break - 0Lying down to rest in the afternoon when circumstances permit - 0Sitting and talking to someone - 0Sitting quietly after lunch without alcohol - 0In a car, while stopped for a few minutes in the traffic - 0TOTAL SCORE 0Subjectively, patient has no chance of dozing. Jerald Hebert MD [address] [place] [address], [facility] [address], [place], [address], [facility] [employer] 03/18/2024 10:59:04 03/22/2024 text/html Here to fritz Smith PMSimon Armendariz Hx:COPDHTNHLDOSABPHHyp ogonadismReviewed social family and surgical historyHere to establish care, discuss above and get some labsHe has an apt with the urologist and is to get his testosterone level and PSAHe also to see his server systems administrator Dr Todd SARABIA 05/07/18:Here for his 6 month appointmentHe is also here for his MWVHe states that he is doing very wellLast labs were in 06/19/17 though he does state that he did do the labs last week with Dr Brooks OV 03/25/18:Here for his 6 month aptHe is doing very wellHe did do the labs on 03/23/18He does want his flu shot today OV 09/2018:Here for his 6 monthsHe does well, and he did do the labsHe has ish but R>L knee pain, and R toe pain, since 'months'He has seen Dr Mckenzie OV 03/22/19:Here for his routine aptHe did do the labsHe does have a sore throat and 'stuffed up head'C/o cough and a 'rough throat'Phlegm is now greenish, no bloodFeels that he does have a low grade fever with chillsNo n/V or diarrheaNo chest pain, no SOBSome wheezing OV 06/02/2019:ACV:URI sx for about a week to 10 daysSore throat, with some fevers and chills, no fever nowFeels a little fatigueNo N/V or diarrheaNo chest painNo wheezingNo diarrhea OV 02/28/2020;Here for his routine aptHe feels wellHis last labs were on 11/08/2019 and his A1C was on 11/17/2019He does feel that his knee pain especially on the L now is more, he states that he is unable to climb down his basement d/t pain, now is ready to get the knee replaced, he has seen Dr Casas for this in the past OV 07/17/2020:Here for his routine aptHe feels wellHe did do the labs on 07/11/2020 OV 03/19/2021:Here for his routine aptHe feels wellS/p d/c from hospital for CAD s/p stent insertionHe did do the labs on 02/12/2021 OV 08/15/2021:Here for his routine aptHe is doing wellDoes c/o some runny nose and congestion, unable to take the flonase d/t nasal bleedsHe did do the labs OV 12/24/2021:Here for his routine apt and MWVHe is doing well todayHe did do the labs on 12/12/2021 OV 04/29/2022:Here for his f/u apt, he feels well today, labs done on 04/24/2022 OV 08/26/2022:Here for his f/u apt, he is doing well, he did do the labs OV 01/06/2023: Here for his f/u apt, he is doing well today, he did do the labs, here also for his MWV OV 05/26/2023: Here for visit to discuss depression, c/o depression d/t his now being on hospice, would like to try zoloft, not suicidal or homicidal OV 07/07/2023: Here for his f/u apt, he is doing well today OV 11/10/2023: Here for his routine apt, he is doing well today, states that his depression is well controlled now, he did do the labs OV 02/02/2024: Here for his routine apt, he does well OV 03/22/2024: Here for his f/u apt, he is doing well, does have R ear ache that radiates to the R jaw area, he does see ENT Jose Burch MD [address], [place] [address], [place], [address], [place] - [facility] 03/22/2024 14:03:45
--- OUTSIDE RECORDS SUMMARY | 2024-06-10 16:35 | XMS_ITS | Patient Health Summary ---
Author Organization [facility] Address [address] [place] [address] Care Team Providers Care Registered Nurse Cardiac Name Role Phone Efraín Burch MD Primary Care Provider Note from [facility],non-owned Affiliates and Associated Physician Practices is amultiple site organization consisting of ambulatory clinics and hospital sitesin [place], [place], [place] and [place]. This disclosure is being madepursuant to the Care Everywhere program and may not contain all information available regarding this patient. Last updated 18.[facility] Social History Tobacco Use Types Packs/Day Years Used Date Smoking Tobacco: Never Assessed Sex and Gender Information Value Date Recorded Sex Assigned at Not on file Gender Identity Not on file Sexual Orientation Not on file Care Teams Registered Nurse Cardiac Relationship Specialty Start Date End Date Efraín Burch MD [address] [id number] PCP - General Internal Medicine 11/19/19
--- OUTSIDE RECORDS SUMMARY | 2024-06-10 16:35 | XMS_ITS | Referral Summary ---
Author Organization [facility] Address [address] [place] [id number] Care Team Providers Care Commercial Intelligence Manager Name Role Phone Martin Brooks MD Unavailable [phone] Gonzalez Alvarado Primary Care Provider [phone] Allergies No known active allergies Medications Eliquis [...] hours as needed 6 Active a lipoic ojyf-oehgyi-rykj erine 125 mg-95 mcg- 250 mg capsule [...] (02/28/2021): Added automatically from request for surgery [id number] SOB (shortness of breath) 02/28/2021 Overview (02/28/2021): Added automatically from request for surgery [id number] Social History Tobacco Use Types Packs/Day Years [...] on file 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 Gender Identity Not on file Sexual Orientation Not on file Last Filed Vital Signs Vital Sign Reading [...] on file Medical Devices Implanted Type Area Dry Dip Worker Device Identifier Shelf Expiration Date Model / Serial / Lot [employer] X [id number] Resolute Josr 3mm 2.1-2.7fr 8mm 140cm Rapid Exchange Radiopaque 1 - [id number] Implanted:Qty: 1 on 03/05/2021 by Shine Zuñiga MD at [facility] [employer] 04/12/2022 [id number] / / Insurance AETNA MEDICARE AETNA MEDICARE Advance Directives For more information, please contact: [phone] * Full Code (Latest Code Status on File) Date Activated Date Inactivated Comments 03/05/2021 6:31 PM 03/06/2021 5:58 PM * Full Code Date Activated Date Inactivated Comments 03/05/2021 2:41 PM 03/05/2021 6:31 PM Care Teams Commercial Intelligence Manager Relationship Specialty Start Date End Date Gonzalez Alvarado [address] [id number] PCP - General 03/19/21 Martin Brooks MD Consulting Physician Cardiology 03/06/21
--- OUTSIDE RECORDS SUMMARY | 2024-06-10 16:35 | XMS_ITS | CONTINUITY OF CARE DOCUMENT ---
Author Name estela, estela Address Unknown Organization [facility] Address [address] [place] [address] Phone [phone] Care Team Providers Care Veterinary Receptionist Name Role Phone Todd WILLIS, Martin Unavailable AVILA WILLIS, JOSE Unavailable AVILA WILLIS, JOSE Unavailable PROBLEMS Condition Status Date Provider Notes Dyspnea on exertion active Isiah Cedeno CARDIOMYOPATHY - EF improved 60% 12/2019 active Jose Simms Hypercholesterolemia active Jordana maxer CAD- 05/16 CATH NEG EF 45% completed - Martin Brooks MD Atrial fib S/P ablation 12/11 014 - in sinus rhythm active Martin Brooks MD Elevated TSH completed - Martin Brooks MD Restless Leg Syndrome (RLS) active Martin Brooks MD Chest pain active Jose Simms Swelling of left leg active Martin Brooks MD Preoperative cardiovascular examination active Martin Brooks MD Conjunctival bleed, right active Martin jeffers MD CAD - stent Mid Circ; RCA stenosis 60-70% active Martin Brooks MD Hyperglycemia active Martin Brooks MD Swelling of right leg active Jose Simms Swelling of right leg completed - Jose Simms DUAL CHAMB PCM - [employer] active - Martin Brooks MD S/P DUAL CHAMB PCM [place]/ G en Change DC PM [place] 07/26/21 ( NOT MRI SAFE/[place] Leads) active Aure Crouch PALPITATIONS completed - Martin Brooks MD Tobacco abuse active Adi Martinez MD HTN essential active Jose Simms CAD-06/16 STRESS NEG EF 40 completed - Martin Brooks MD Erectile dysfunction active Jose Simms BPH active Jose Simms STEPHANIE - On CPAP active Jose Simms SICK SINUS SYNDROME- 06/19 HO LTER NEG active - Martin Brooks MD HTN ESSENTIAL completed - Martin Brooks MD DIZZINESS-04/21 HOLTER SR-SB HR 42-116 completed - Martin Brooks MD ENCOUNTERS Date Type Provider Location Encounter Diag nosis - In-person encounter Office Visit Martin Brooks MD [facility] - In-person encounter Office Visit Martin Brooks MD [facility] - In-person encounter Office Visit Martin Brooks MD [facility] Swelling of left leg - In-person encounter Office Visit Martin Brooks MD [facility] Preoperative cardiovascular examination - In-person encounter Office Visit Martin Brooks MD [facility] - In-person encounter Office Visit Martin Brooks MD [facility] CAD - stent Mid Circ; RCA stenosis 60-70%Conjunctival bleed, right - In-person encounter Office Visit Martin Brooks MD [facility] - In-person encounter Office Visit Martin Brooks MD [facility] CAD - stent Mid Circ; RCA stenosis 60-70% - In-person encounter Office Visit Martin Brooks MD [facility] Hyperglycemia - In-person encounter Office Visit Justin Velasquez MD [facility] - In-person encounter Office Visit Martin Brooks MD [facility] - In-person encounter Office Visit Martin Brooks MD [facility] CARDIOMYOPATHY - EF improved 60% 12/2019Swelling of right legSwelling of right leg - In-person encounter Office Visit Martin Brooks MD [facility] - In-person encounter Office Visit Martin Brooks MD [facility] STEPHANIE - On CPAPBPHErectile dysfunctionHTN essentialChest pain - In-person encounter Office Visit Martin Brooks MD [facility] - In-person encounter Office Visit Martin Brooks MD [facility] S/P DUAL CHAMB PCM [place]/ Gen Change DC PM [place] 07/26/21 ( NOT MRI SAFE/[place] Leads) - In-person encounter Office Visit Martin Brooks MD [facility] - In-person encounter Office Visit Martin Brooks MD [facility] Chest pain - In-person encounter Office Visit Martin Brooks MD [facility] - In-person encounter Office Visit Martin Brooks MD [facility] Elevated TSH - In-person encounter Office Visit Martin Brooks MD [facility] CARDIOMYOPATHY - EF improved 60% 12/2019 - In-person encounter Office Visit Martin Brooks MD [facility] - In-person encounter Office Visit Martin Brooks MD [facility] Restless Leg Syndrome (RLS) - In-person encounter Office Visit Adi Martinez MD [facility] Tobacco abuse - In-person encounter Office Visit Martin Brooks MD [facility] CARDIOMYOPATHY - EF improved 60% 12/2019Atrial fib S/P ablation 12/2013 - in sinus rhythm - In-person encounter Office Visit Martin Brooks MD [facility] - In-person encounter Office Visit Adi Martinez MD [facility] - In-person encounter Office Visit Adi Martinez MD [facility] - In-person encounter Office Visit Adi Martinez MD [facility] Atrial fib S/P ablation 12/2013 - in sinus rhythm - In-person encounter Office Visit Adi Martinez MD [facility] - In-person encounter Office Visit Martin Brooks MD [facility] - In-person encounter Office Visit Martin Brooks MD [facility] DIZZINESS-04/21 HOLTER SR-SB HR 42-116HTN ESSENTIAL - In-person encounter Office Visit Martin Brooks MD [facility] - In-person encounter Office Visit Martin Brooks MD [facility] HypercholesterolemiaS/P DUAL CHAMB PCM [place]/ Gen Change DC PM [place] 07/26/21 ( NOT MRI SAFE/[place] Leads)DUAL CHAMB PCM - [employer] - In-person encounter Office Visit Martin Brooks MD [facility] Hypercholesterolemia - In-person encounter Office Visit Martin Brooks MD [facility] SICK SINUS SYNDROME- 06/19 HOLTER NEG - In-person encounter Office Visit Martin Brooks MD [facility] S/P DUAL CHAMB PCM [place]/ Gen Change DC PM [place] 07/26/21 ( NOT MRI SAFE/[place] Leads) - In-person encounter Office Visit Martin Brooks MD [facility] STEPHANIE - On CPAPCAD- 05/16 CATH NEG EF 45%PALPITATIONSS/P DUAL CHAMB PCM [place]/ Gen Change DC PM [place] 07/26/21 ( NOT MRI SAFE/[place] Leads) - In-person encounter Office Visit Jose Stewart MD [facility] - In-person encounter Office Visit Martin Brooks MD [facility] S/P DUAL CHAMB PCM [place]/ Gen Change DC PM [place] 07/26/21 ( NOT MRI SAFE/[place] Leads) - In-person encounter Office Visit Martin Brooks MD [facility] - In-person encounter Office Visit Martin Brooks MD [facility] - In-person encounter Office Visit Martin Brooks MD [facility] - In-person encounter Office Visit Martin Brooks MD [facility] - In-person encounter Office Visit Martin Brooks MD [facility] - In-person encounter Office Visit Martin Brooks MD [facility] - In-person encounter Office Visit Martin Brooks MD [facility] Tobacco abuse - In-person encounter Office Visit Martin Brooks MD [facility] CAD-06/16 STRESS NEG EF 40 - In-person encounter Office Visit Martin Brooks MD [facility] VITAL SIGNS Date Observation Value Provider Body Mass Index (Ratio) 37.04 kg/m2 Adelaide Brooks MD blood pressure, diastolic 75 mm[Hg] Carlos tee Montanez blood pressure, systolic 115 mm[Hg] Yolanda bernabe Montanez oxygen saturation, oximetry 94 % Ryanne Montanez pulse rate 90 /min [facility] blood pressure, cuff size regular Carlos randal Montanez weight E&M 280.8 [lb_av] Carloshelen [facility] height E&M 73 [in_i] [facility] Montanez Body Mass Index (Ratio) 36.94 kg/m2 Adelaide Brooks MD blood pressure, diastolic 74 mm[Hg] Li nkLogic blood pressure, systolic 121 mm[Hg] Maria Esther kLogic blood pressure, cuff size regular Ja rret blood pressure, diastolic 74 mm[Hg] Ja rret blood pressure, systolic 121 mm[Hg] Jar [facility] pulse rate 70 /min Horacio y oxygen saturation, oximetry 97 % respiratory rate E&M 14 /min Horacio weight E&M 280 [lb_av] Horacio er y height E&M 73 [in_i] Horacio erda y Body Mass Index (Ratio) 36.94 kg/m2 Adelaide Brooks MD weight E&M 280 [lb_av] Stacey Ruiz height E&M 73 [in_i] Stacey Ruiz Body Mass Index (Ratio) 37.86 kg/m2 Toshia Ortiz blood pressure, cuff size large Ke ximena Thibodeaux blood pressure, diastolic 70 mm[Hg] Christopher maldonadoi Joeuenesandoreld blood pressure, systolic 150 mm[Hg] Lisa Thibodeaux oxygen saturation, oximetry 95 % Jordana [facility] respiratory rate E&M 12 /min Jordana del toroeld pulse rate 97 /min Jordana Montemayor er weight E&M 287 [lb_av] Jordana Montemayor er height E&M 73 [in_i] Jordana Montemayor [facility] Body Mass Index (Ratio) 38.63 kg/m2 Adelaide Brooks MD blood pressure, diastolic 93 mm[Hg] Faina valenciaLogmaine blood pressure, systolic 169 mm[Hg] Maria Esther Henriquez blood pressure, diastolic 93 mm[Hg] St camilo Zacarias blood pressure, systolic 169 mm[Hg] Lu Zacarias pulse rate 72 /min Yesenia Zacarias oxygen saturation, oximetry 99 % Yesenia Zacarias respiratory rate E&M 16 /min Yesenia toledo weight E&M 292.8 [lb_av] Yesenia Zacarias height E&M 73 [in_i] Yesenia Zacarias Body Mass Index (Ratio) 39.05 kg/m2 Toshia Ortiz blood pressure, diastolic 90 mm[Hg] Ch astity Jose Maria blood pressure, systolic 156 mm[Hg] Jaky stity Jose Maria oxygen saturation, oximetry 98 % Chastity Jose Maria pulse rate 70 /min Chastity Jose Maria weight E&M 296 [lb_av] Chastity Jose Maria respiratory rate E&M 16 /min Chastit y Jose Maria height E&M 73 [in_i] Chastity Jose Maria Body Mass Index (Ratio) 38.78 kg/m2 Toshia Plummersydni blood pressure, cuff size large Gypsy yoo [place] blood pressure, diastolic 90 mm[Hg] Gypsy yoo [place] blood pressure, systolic 150 mm[Hg] Kyaw cai [place] oxygen saturation, oximetry 98 % Yuridia Gambino respiratory rate E&M 16 /min Rabia muhammad [place] pulse rate 86 /min Yuridia montes weight E&M 294 [lb_av] Yuridia montes height E&M 73 [in_i] Yuridia montes Body Mass Index (Ratio) 36.81 kg/m2 Adelaide Brooks MD blood pressure, diastolic 102 mm[Hg] Ch astity Jose Maria blood pressure, systolic 177 mm[Hg] Jaky stity Jose Maria oxygen saturation, oximetry 98 % Chastity Jose Maria pulse rate 80 /min Chastity Jose Maria respiratory rate E&M 16 /min Chastit y Jose Maria weight E&M 279 [lb_av] Chastity Jose Maria height E&M 73 [in_i] Chastity Jose Maria Body Mass Index (Ratio) 38.92 kg/m2 Toshia rodriguez Diana blood pressure, diastolic 80 mm[Hg] Li nkLogic blood pressure, systolic 160 mm[Hg] Maria Esther kLogic blood pressure, cuff size regular Cy erick Cleary blood pressure, diastolic 80 mm[Hg] Cy ntcynthia Cleary blood pressure, systolic 160 mm[Hg] Soraida mishel Cleary oxygen saturation, oximetry 96 % Meghan Cleary respiratory rate E&M 16 /min Meghanmishel Cleary pulse rate 80 /min Meghan Hensley l weight E&M 295 [lb_av] Meghan Hensley l height E&M 73 [in_i] Meghan Hensley l Body Mass Index (Ratio) 39.18 kg/m2 Adelaide Brooks MD blood pressure, cuff size large Ke rri Gruenenfelder blood pressure, diastolic 100 mm[Hg] Ke rri Gruenenfelder blood pressure, systolic 158 mm[Hg] Ker ri Gruenenfelder oxygen saturation, oximetry 97 % Jordana Gruenenfelder respiratory rate E&M 16 /min Jordana G ruenenfelder pulse rate 80 /min Jordana Gruenenfe lder weight E&M 297 [lb_av] Jordana Gruenenfe lder height E&M 73 [in_i] Jordana Gruenenfe lder Body Mass Index (Ratio) 38.65 kg/m2 Simeon n Kyte blood pressure, diastolic 92 mm[Hg] Fe yesica Carmichael blood pressure, systolic 158 mm[Hg] Fel icia Carmichael oxygen saturation, oximetry 97 % Jayleen Carmichael respiratory rate E&M 18 /min Jayleen Carmichael pulse rate 80 /min Jayleen Carmichael weight E&M 293 [lb_av] Jayleen Carmichael height E&M 73 [in_i] Jayleen Carmichael Body Mass Index (Ratio) 39.58 kg/m2 Adelaide Brooks MD pulse rate 80 /min Jessica Block blood pressure, diastolic 82 mm[Hg] Br ittany Block blood pressure, systolic 148 mm[Hg] Delia ttany Block oxygen saturation, oximetry 96 % Jessica Block weight E&M 300 [lb_av] Jessica Block respiratory rate E&M 16 /min Chuyita Wallace height E&M 73 [in_i] [facility] Body Mass Index (Ratio) 38.78 kg/m2 Simeon Simms blood pressure, resting Yes LaWa nda Olivier height E&M 73 [in_i] Onesimo Olivier blood pressure, cuff size large La Tran Olivier blood pressure, diastolic 98 mm[Hg] La Tran Olivier blood pressure, systolic 160 mm[Hg] LaW joaquim Olivier oxygen saturation, oximetry 97 % Onesimo Olivier respiratory rate E&M 20 /min Onesimo Olivier pulse rate 60 /min Onesimo Olivier weight E&M 294 [lb_av] Onesimo Olivier Body Mass Index (Ratio) 37.89 kg/m2 Adelaide Brooks MD blood pressure, diastolic 76 mm[Hg] Shiv García blood pressure, systolic 119 mm[Hg] Quyen García oxygen saturation, oximetry 96 % Bay García respiratory rate E&M 18 /min Margarita García pulse rate 81 /min Bay little weight E&M 287.2 [lb_av] Bay Dennis on height E&M 73 [in_i] Bay Octavio nson Body Mass Index (Ratio) 37.33 kg/m2 Marlon Pennington blood pressure, diastolic 86 mm[Hg] Da eduin Meghann blood pressure, systolic 136 mm[Hg] Dac ia Meghann oxygen saturation, oximetry 96 % Connie Meghann respiratory rate E&M 18 /min Connie V oss pulse rate 79 /min Connie Meghann weight E&M 283 [lb_av] Connie Meghann height E&M 73 [in_i] Connie Meghann Body Mass Index (Ratio) 35.75 kg/m2 Rebecca Pereze blood pressure, diastolic 86 mm[Hg] Da eduin Meghann blood pressure, systolic 142 mm[Hg] Dac ia Meghann oxygen saturation, oximetry 96 % Connie Meghann respiratory rate E&M 16 /min Connie V oss pulse rate 79 /min Connie Meghann weight E&M 271 [lb_av] Connie Meghann height E&M 73 [in_i] Connie Meghann Body Mass Index (Ratio) 37.60 kg/m2 Adelaide Brooks MD blood pressure, diastolic 95 mm[Hg] Shiv contrerasShailamil García blood pressure, systolic 156 mm[Hg] Quyen Olya García oxygen saturation, oximetry 96 % Bay García respiratory rate E&M 20 /min Margarita mary García pulse rate 79 /min Bay Cunningham usmandesiree weight E&M 285 [lb_av] Bay little height E&M 73 [in_i] Bay Cunningham usmandesiree Body Mass Index (Ratio) 37.07 kg/m2 Adelaide Brooks MD blood pressure, cuff size regular Ke rri Morelia blood pressure, diastolic 96 mm[Hg] Christopher rri Morelia blood pressure, systolic 162 mm[Hg] Lisa Thibodeaux oxygen saturation, oximetry 98 % Jordana Thibodeaux respiratory rate E&M 18 /min Jordana krueger pulse rate 80 /min Jordana clark weight E&M 281 [lb_av] Jordana Gruenenfe lder height E&M 73 [in_i] Jordana Gruenenfe lder Body Mass Index (Ratio) 36.28 kg/m2 Adelaide Brooks MD blood pressure, cuff size large Ke rri Gruenenfelder blood pressure, diastolic 100 mm[Hg] Ke rri Gruenenfelder blood pressure, systolic 168 mm[Hg] Ker ri Gruenenfelder oxygen saturation, oximetry 96 % Jordana Gruenenfelder respiratory rate E&M 18 /min Jordana G ruenenfelder pulse rate 105 /min Jordana Gruenenfe lder weight E&M 275 [lb_av] Jordana Gruenenfe lder height E&M 73 [in_i] Jordana Gruenenfe lder Body Mass Index (Ratio) 36.15 kg/m2 Adelaide Brooks MD blood pressure, cuff size large Ke rri Gruenenfelder blood pressure, diastolic 100 mm[Hg] Ke rri Gruenenfelder blood pressure, systolic 170 mm[Hg] Ker ri Gruenenfelder oxygen saturation, oximetry 96 % Jordana Gruenenfelder respiratory rate E&M 16 /min Jordana G ruenenfelder pulse rate 78 /min Jordana Gruenenfe lder weight E&M 274 [lb_av] Jordana Gruenenfe lder height E&M 73 [in_i] Jordana Gruenenfe lder Body Mass Index (Ratio) 34.77 kg/m2 Adelaide Brooks MD blood pressure, diastolic 97 mm[Hg] Shiv García blood pressure, systolic 147 mm[Hg] Quyen García oxygen saturation, oximetry 96 % Bay García respiratory rate E&M 18 /min Margarita García pulse rate 79 /min Bay little weight E&M 263.6 [lb_av] Bay bailey height E&M 73 [in_i] Bay little blood pressure, diastolic 100 mm[Hg] Shiv García blood pressure, systolic 156 mm[Hg] Quyen García pulse rate 87 /min Bay little oxygen saturation, oximetry 97 % Bay García respiratory rate E&M 18 /min Margarita García Body Mass Index (Ratio) 37.10 kg/m2 Mikayla García weight E&M 281.2 [lb_av] Bay bailey blood pressure, diastolic 96 mm[Hg] Me bill Samuel blood pressure, systolic 145 mm[Hg] Daiana Samuel pulse rate 80 /min Tatiana Samuel oxygen saturation, oximetry 97 % Tatiana Samuel respiratory rate E&M 18 /min Tatiana Samuel Body Mass Index (Ratio) 36.59 kg/m2 [facility] weight E&M 277.4 [lb_av] Tatiana Jimmie blood pressure, diastolic 101 mm[Hg] Nh bill Dc blood pressure, systolic 168 mm[Hg] Daiana boboa Dc pulse rate 80 /min Tatiana Dc oxygen saturation, oximetry 97 % Tatiana Dc respiratory rate E&M 15 /min Tatiana Dc Body Mass Index (Ratio) 38.39 kg/m2 [facility] weight E&M 291 [lb_av] Tatiana Dc Body Mass Index (Ratio) 38.12 kg/m2 [facility] blood pressure, diastolic 83 mm[Hg] Me khan Dc blood pressure, systolic 127 mm[Hg] Daiana aadme Dc pulse rate 80 /min Tatiana Dc oxygen saturation, oximetry 95 % Tatiana Dc respiratory rate E&M 15 /min Tatiana Dc weight E&M 289 [lb_av] Tatiana Dc Body Mass Index (Ratio) 37.60 kg/m2 Anea padmini Vishnu blood pressure, diastolic 89 mm[Hg] An eatris Vishnu blood pressure, systolic 141 mm[Hg] Ane atris Brown pulse rate 80 /min Aneatris Brown oxygen saturation, oximetry 96 % Aneatris Brown respiratory rate E&M 17 /min Aneatri s [facility] weight E&M 285 [lb_av] Aneatris [facility] Body Mass Index (Ratio) 36.67 kg/m2 Luiza watson Rach blood pressure, jewell tolic, second observation 80 mm[Hg] Charline Loyd blood pressure, syst olic, second observation 118 mm[Hg] Charline Loyd blood pressure, diastolic 80 mm[Hg] Na norbertovictoriano Loyd blood pressure, systolic 118 mm[Hg] Lilian flores Rach pulse rate 90 /min Charline Loyd oxygen saturation, oximetry 96 % Charline Loyd respiratory rate E&M 18 /min Charline Rangeloney weight E&M 278 [lb_av] Charline Loyd blood pressure, diastolic 87 mm[Hg] Me khan Dc blood pressure, systolic 127 mm[Hg] Daiana adame Dc Body Mass Index (Ratio) 37.33 kg/m2 Rebecca urrutia Dc pulse rate 70 /min Tatiana Dc oxygen saturation, oximetry 96 % Tatiana Dc respiratory rate E&M 14 /min Tatiana Dc weight E&M 283 [lb_av] Tatiana Dc Body Mass Index (Ratio) 37.08 kg/m2 David dumont O'Seun blood pressure, diastolic 82 mm[Hg] Shiv christianson [facility] blood pressure, systolic 130 mm[Hg] Quyen beckwith [facility] pulse rate 87 /min Vesna O'Seun oxygen saturation, oximetry 97 % Vesna O'Seun respiratory rate E&M 16 /min Vesna O'Seun weight E&M 280 [lb_av] Vesna O'Seun Body Mass Index (Ratio) 37.60 kg/m2 Anea padmini [facility] blood pressure, diastolic, left arm 80 mm [Hg] Aneatris Brown blood pressure, systolic, left arm 100 mm [Hg] Aneatris Brown blood pressure, diastolic, right arm 60 m m[Hg] Aneatris Brown blood pressure, systolic, right arm 104 m m[Hg] Aneatris Brown blood pressure, diastolic 80 mm[Hg] An eatris Brown blood pressure, systolic 100 mm[Hg] Ane atris Brown pulse rate 69 /min Aneatris Brown oxygen saturation, oximetry 97 % Aneatris Brown respiratory rate E&M 16 /min Aneatri s Brown weight E&M 284 [lb_av] Aneatris Brown Body Mass Index (Ratio) 36.81 kg/m2 Jose Juan Walker RN blood pressure, diastolic, left arm 92 mm [Hg] Tatiana Dc blood pressure, systolic, left arm 136 mm [Hg] Tatiana Dc blood pressure, diastolic, right arm 92 m m[Hg] Tatiana Dc blood pressure, systolic, right arm 136 m m[Hg] Tatiana Dc blood pressure, diastolic 92 mm[Hg] Me bill Dc blood pressure, systolic 136 mm[Hg] Daiana Dc pulse rate 70 /min Tatiana Dc oxygen saturation, oximetry 98 % Tatiana Dc respiratory rate E&M 12 /min Tatiana Dc weight E&M 278 [lb_av] Tatiana Dc Body Mass Index (Ratio) 37.08 kg/m2 Luiza watson Loyd blood pressure, diastolic 92 mm[Hg] Na lila Rach blood pressure, systolic 144 mm[Hg] Lilian flores Rach pulse rate 80 /min Charline Rach oxygen saturation, oximetry 97 % Charline Rach respiratory rate E&M 18 /min Charline Rach weight E&M 280 [lb_av] Charline Loyd blood pressure, diastolic 81 mm[Hg] Jeet Walker RN blood pressure, systolic 128 mm[Hg] Jose Juan Walker RN pulse rate 61 /min Jose Juan Walker RN oxygen saturation, oximetry 98 % Jose Juan Walker RN respiratory rate E&M 20 /min Jose Juan espinosa RN Body Mass Index (Ratio) 36.41 kg/m2 Jose Juan Walker RN weight E&M 275 [lb_av] Jose Juan Walker RN Body Mass Index (Ratio) 36.15 kg/m2 Rodriguez i Morelia blood pressure, diastolic 85 mm[Hg] Christopher maldonadoi Morelia blood pressure, systolic 173 mm[Hg] Lisa Thibodeaux pulse rate 60 /min Jordana clark oxygen saturation, oximetry 98 % Jordana Thibodeaux respiratory rate E&M 17 /min Jordana krueger weight E&M 273 [lb_av] Jordana Montemayor lder blood pressure, diastolic, left arm 90 mm [Hg] Carly Stueber blood pressure, systolic, left arm 134 mm [Hg] Carly Stueber blood pressure, diastolic, right arm 88 m m[Hg] Carly Stueber blood pressure, systolic, right arm 132 m m[Hg] Carly Stueber Body Mass Index (Ratio) 35.54 kg/m2 Ami a Stueber blood pressure, diastolic 90 mm[Hg] Ta kimberly Stueber blood pressure, systolic 134 mm[Hg] Miranda ana rosa Stueber pulse rate 59 /min Carly Stueber oxygen saturation, oximetry 96 % ber respiratory rate E&M 16 /min Carly robertseber weight E&M 268.4 [lb_av] Carly Stueber blood pressure, diastolic 81 mm[Hg] erese Mahoney blood pressure, systolic 142 mm[Hg] Colleen rese Mahoney pulse rate 62 /min Flora Mahoney oxygen saturation, oximetry 95 % Flora Mahoney respiratory rate E&M 16 /min Flora Mahoney weight E&M 270 [lb_av] Flora Mahoney blood pressure, diastolic, left arm 74 mm [Hg] Carly Stueber blood pressure, systolic, left arm 146 mm [Hg] Carly Stueber blood pressure, diastolic, right arm 74 m m[Hg] Carly Stueber blood pressure, systolic, right arm 152 m m[Hg] Carly Stueber Body Mass Index (Ratio) 36.44 kg/m2 Ami a Stueber blood pressure, diastolic 74 mm[Hg] Ta kimberly Stueber blood pressure, systolic 152 mm[Hg] Ruben oseguera Stueber pulse rate 42 /min Carly Stueber oxygen saturation, oximetry 97 % Carly Stue respiratory rate E&M 16 /min Carly schmitt weight E&M 275.2 [lb_av] Caryl Mora Body Mass Index (Ratio) 37.08 kg/m2 An[facility] blood pressure, diastolic 88 mm[Hg] De [facility], systolic 150 mm[Hg] Den teresa Morris pulse rate 47 /min [facility] oxygen saturation, oximetry 98 % [facility] respiratory rate E&M 16 /min [facility] weight E&M 280 [lb_av] [facility] Body Mass Index (Ratio) 36.28 kg/m2 [facility], diastolic, left arm 94 mm [Hg] [facility] blood pressure, systolic, left arm 143 mm [Hg] [facility] blood pressure, diastolic, right arm 93 m m[Hg] [facility] blood pressure, systolic, right arm 148 m m[Hg] [facility] blood pressure, diastolic 94 mm[Hg] De [facility] blood pressure, systolic 143 mm[Hg] Den [facility] pulse rate 74 /min [facility] oxygen saturation, oximetry 98 % [facility] respiratory rate E&M 16 /min [facility] weight E&M 274 [lb_av] [facility] Body Mass Index (Ratio) 36.28 kg/m2 Rodriguez i Morelia blood pressure, diastolic 96 mm[Hg] Ke rri Morelia blood pressure, systolic 175 mm[Hg] Ker ri Morelia pulse rate 58 /min Jordana Albina clark oxygen saturation, oximetry 98 % Jordana Thibodeaux respiratory rate E&M 17 /min Jordana krueger weight E&M 274 [lb_av] Jordana Montemayor lder height E&M 73 [in_i] Jordana Albina lder blood pressure, diastolic, left arm 98 mm [Hg] Tez Manacop blood pressure, systolic, left arm 152 mm [Hg] Tez Manacop blood pressure, diastolic, right arm 90 m m[Hg] Tez Manacop blood pressure, systolic, right arm 146 m m[Hg] Tez Man[place]op blood pressure, diastolic 90 mm[Hg] Mayelin seph [place] blood pressure, systolic 146 mm[Hg] Sathya eph [place] pulse rate 64 /min Tez [place] oxygen saturation, oximetry 95 % Tez Man[place] respiratory rate E&M 16 /min Tez [place] weight E&M 267 [lb_av] Tez Manacop blood pressure, diastolic, left arm 100 m m[Hg] Tez Manacop blood pressure, systolic, left arm 148 mm [Hg] Tez Manacop blood pressure, diastolic, right arm 90 m m[Hg] [facility] [place] blood pressure, systolic, right arm 136 m m[Hg] [facility] [place] blood pressure, diastolic 90 mm[Hg] Mayelin seph [place] blood pressure, systolic 138 mm[Hg] Sathya eph [place] pulse rate 60 /min [facility] [place] oxygen saturation, oximetry 96 % [facility] [place] respiratory rate E&M 20 /min [facility] [place] weight E&M 264 [lb_av] [place] blood pressure, diastolic, left arm 84 mm [Hg] [facility] [place] blood pressure, systolic, left arm 145 mm [Hg] [facility] [place] blood pressure, diastolic, right arm 89 m m[Hg] [facility] blood pressure, systolic, right arm 152 m m[Hg] [facility] blood pressure, diastolic 89 mm[Hg] Mayelin dayo [facility] blood pressure, systolic 152 mm[Hg] Sathya ciara [facility] pulse rate 67 /min [facility] oxygen saturation, oximetry 97 % [facility] respiratory rate E&M 20 /min [facility] weight E&M 259 [lb_av] [facility] blood pressure, diastolic, left arm 90 mm [Hg] Vi Pérez blood pressure, systolic, left arm 149 mm [Hg] Vi Pérez blood pressure, diastolic, right arm 85 m m[Hg] Vi Pérez blood pressure, systolic, right arm 139 m m[Hg] Vi Pérez blood pressure, diastolic 90 mm[Hg] Jarrod Pérez blood pressure, systolic 149 mm[Hg] Parvez Pérez pulse rate 96 /min Viclyde Pérez oxygen saturation, oximetry 96 % Vi Pérez respiratory rate E&M 16 /min Vi Pérez weight E&M 255 [lb_av] Vi Pérez blood pressure, diastolic 87 mm[Hg] Lizandro Horan blood pressure, systolic 139 mm[Hg] Rhys Horan pulse rate 51 /min Beckie Horan oxygen saturation, oximetry 96 % Beckie Horan respiratory rate E&M 16 /min Nnamdi Horan weight E&M 253 [lb_av] Beckie Horan blood pressure, diastolic, left arm 86 mm [Hg] [facility], [facility] arm 152 mm [Hg] [facility] blood pressure, diastolic, right arm 102 mm[Hg] [facility] blood pressure, systolic, right arm 164 m m[Hg] [facility] [place] blood pressure, diastolic 102 mm[Hg] Mayelin seph [place] blood pressure, systolic 164 mm[Hg] Sathya eph [place] pulse rate 56 /min [facility], [facility] 98 % [facility] rate E&M 16 /min [facility] weight E&M 254 [lb_av] [facility] [place] blood pressure, diastolic, left arm 92 mm [Hg] Jose Juan Walker RN blood pressure, systolic, left arm 161 mm [Hg] Jose Juan Walker RN blood pressure, diastolic, right arm 90 m m[Hg] Jose Juan Walker RN blood pressure, systolic, right arm 152 m m[Hg] Jose Juan Walker RN pulse rate 57 /min Jose Juan Walker RN oxygen saturation, oximetry 98 % Jose Juan Walker RN respiratory rate E&M 16 /min Jose Juan espinosa RN weight E&M 254 [lb_av] Jose Juan Walker RN blood pressure, diastolic 86 mm[Hg] Aly Valencia blood pressure, systolic 136 mm[Hg] Hernández pulse rate 60 /min Laura Valencia oxygen saturation, oximetry 99 % Laura Valencia respiratory rate E&M 20 /min Laura hernandez weight E&M 246 [lb_av] Laura Valencia ALLERGIES Allergy Name Onset Date Reaction Criticality Status DUST Low Criticality active CATS Low Criticality active POLLEN Low Criticality active MOLD Low Criticality active RESULTS Date Observation Value Provider Reference Range Interpretation Location Estimated Glomerular Filtration Rate (calc) 82 mL/min/{ 1.73_m2} [place] [address] aspartate aminotransferase (SGOT), serum 31 1/L [facility] Normal C, [place] [address] alanine aminotransferase (SGPT), serum 28 1/L [facility] 7-55 Normal C, [place] [address] Alkaline phosphatase 72 [facility] 40-130 Normal C, [place] [address] albumin, serum 4.3 g/dL [facility] 3.5-5.0 Normal C, [place] [address] protein, total, serum 6.5 g/dL [facility] 6.5-8.5 Normal C, [place] [address] bilirubin, serum, total 0.9 mg/dL [facility] 0.1-1.2 Normal C, [place] [address] calcium, serum 9.0 mg/dL [facility] 8.5-10.3 Normal C, [place] [address] blood glucose, random 114 mg/dL [facility] 70-199 Normal C, [place] [address] creatine, serum 0.99 mg/dL [facility] 0.80-1.30 Normal C, [place] [address] urea nitrogen, blood 16 mg/dL [facility] 8-25 Normal C, [place] [address] anion gap, serum 10 mmol/L [facility] 2-15 Normal C, [place] [address] carbon dioxide, venous blood 25 mmol/L [facility] 22-32 Normal C, [place] [address] chloride, serum 105 mmol/L [facility] 97-110 Normal C, [place] [address] potassium, serum 3.9 MMOL/L [facility] 3.3-4.9 Normal C, [place] [address] sodium, serum 140 mmol/L [facility] 135-145 Normal C, [place] [address] international normalized ratio (INR) 1.2 [facility] 0.9-1.2 Normal C, [place] [address] prothrombin time (patient) 12.8 s [facility] 9.5-13.6 Normal C, [place] [address] Absolute Basophils 0.0 K/CUMM [facility] 0.0-0.1 Normal C, [place] [address] Absolute Monocytes 0.4 K/CUMM [facility] 0.2-0.8 Normal , [place] [address] Absolute Lymphocytes 1.0 K/CUMM [facility] 0.8-3.3 Normal C, [place] [address] Absolute Neutrophils 3.4 K/CUMM [facility] 1.7-6.5 Normal C, [place] [address] nucleated red blood cells as percent of blood leukocytes 0.00 K/CUMM [facility] 0.00-0.01 Normal red blood cell distribution width, size density 45.7 fL [facility] 35.7-48.1 Normal mean corpuscular hemoglobin concentration, RBC 32.4 G/DL [facility] 32.3-35.7 Normal mean corpuscular hemoglobin, RBC 29.1 pg [facility] 27.1-33.3 Normal mean corpuscular volume, RBC 90.0 fL [facility] 81.3-96.4 Normal erythrocyte count, whole blood 4.70 M/CUMM [facility] 4.30-5.80 Normal mean platelet volume 12.1 fL [facility] 9.1-12.3 Normal platelet count 144 10*3/uL [facility] 150-400 Low hematocrit, blood 42.3 % [facility] 38.9-50.3 Normal hemoglobin, blood 13.7 g/dL [facility] 13.0-17.5 Normal LDL cholesterol, serum 75 mg/dL [facility] lipoprotein, beta, serum, point, quantitative, calculated 75 mg/dL [facility] 0-99 very low density lipoproteins 15 mg/dL [facility] 5-40 HDL cholesterol, serum 40 mg/dL [facility] >39 triglyceride, serum, random 76 mg/dL [facility] 0-149 cholesterol, serum 130 mg/dL [facility] 742-883 1408/07 /07 lipoprotein, beta, serum, point, quantitative, calculated 122 mg/dL [facility] 0-99 High very low density lipoproteins 35 mg/dL [facility] 5-40 HDL cholesterol, serum 46 mg/dL [facility] >39 triglyceride, serum, random 174 mg/dL [facility] 0-149 High cholesterol, serum 203 mg/dL [facility] 100-199 High urea nitrogen/creatinin e ratio, serum 17.0 [facility] - Estimated Glomerular Filtration Rate (calc) 79.5 (?) [facility] 59.0 - chloride, serum 101.5 mmol/L [facility] 98.0 - 107.0 potassium, serum 5.4 mmol/L [facility] 3.5 - 5.1 High sodium, serum 142.0 mmol/L [facility] 136.0 - 145.0 creatinine, serum 1.0 mg/dL [facility] 0.7 - 1.2 carbon dioxide, venous blood 30.0 mmol/L [facility] 23.0 - 31.0 calcium, serum 9.7 mg/dL [facility] 8.6 - 10.2 urea nitrogen, blood 17.0 mg/dL [facility] 8.0 - 23.0 blood glucose, random 109.0 mg/dL [facility] 74.0 - 99.0 High free thyroxine index 7.6 ??g/dL [facility] 4.4 - 11.4 triiodothyronine uptake 1.1 TBI [facility] 0.8 - 1.3 thyroxine, serum, total 8.4 ??G/DL [facility] 4.5 - 11.7 thyroid stimulating hormone, serum 2.460 ??IU/ML [facility] 0.270 - 4.200 prostate specific antigen 1.3 ng/mL [facility] 0.0 - 5.4 anion gap, serum 11.9 [facility] - albumin/globulin ratio, serum 3.2 g/dL [facility] 1.1 - 2.5 High globulin, serum 2.4 [facility] 2.3 - 3.8 urea nitrogen/creatinin e ratio, serum 23.6 [facility] - Estimated Glomerular Filtration Rate (calc) 71.4 (?) [facility] 59.0 - chloride, serum 104.1 mmol/L [facility] 98.0 - 107.0 potassium, serum 4.9 mmol/L [facility] 3.5 - 5.1 sodium, serum 142.0 mmol/L [facility] 136.0 - 145.0 creatinine, serum 1.1 mg/dL [facility] 0.7 - 1.2 carbon dioxide, venous blood 26.0 mmol/L [facility] 23.0 - 31.0 albumin, serum 4.8 g/dL [facility] 3.5 - 5.2 calcium, serum 9.5 mg/dL [facility] 8.6 - 10.2 aspartate aminotransferase (SGOT), serum 22.0 1/L [facility] 0.0 - 40.0 alkaline phosphatase, serum 77.0 1/L [facility] 40.0 - 130.0 alanine aminotransferase (SGPT), serum 23.0 1/L [facility] 0.0 - 41.0 protein, total, serum 7.2 g/dL [facility] 6.6 - 8.7 bilirubin, serum, total 0.8 mg/dL [facility] 0.0 - 1.2 urea nitrogen, blood 26.0 mg/dL [facility] 8.0 - 23.0 High blood glucose, random 90.0 mg/dL [facility] 74.0 - 99.0 very low density lipoproteins 23.6 mg/dL [facility] 5.0 - 40.0 LDL/HDL (low-density lipoprotein/high-d ensity lipoprotein) ratio 3.4 RATIO [facility] - lipoprotein, beta, serum, point, quantitative, calculated 144.4 (?) [facility] cholesterol, serum 43.0 mg/dL [facility] 35.0 - 55.0 cholesterol, serum 211.0 mg/dL [facility] 0.0 - 200.0 High triglyceride, serum, fasting 118.0 mg/dL [facility] 0.0 - 150.0 B-type natriuretic peptide 68.4 pg/mL [facility] creatinine, serum 1.02 mg/dL [facility] Wally potassium, serum 4.2 mmol/L [facility]ally sodium, serum 146 mmol/L [facility] international normalized ratio (INR) 1.8 Charline Loyd Normal prothrombin time (patient) 17.6 s Charline Loyd platelet count 170 10*3/mm3 [facility] hematocrit, blood 40.8 % [facility], serum 0.87 mg/dL [facility] W[facility] potassium, serum 3.9 mmol/L [facility] sodium, serum 139 mmol/L [facility] managed by Jose Juan Walker RN international normalized ratio (INR) 1.8 Jordana Thibodeaux Normal prothrombin time (patient) 17.6 s Jordana Montalvoer coagulation managed by Jose Juan Walker RN international normalized ratio (INR) 1.1 Jose Juan Walker RN Normal prothrombin time (patient) 11.3 s Jose Juan Walker RN creatinine, serum 0.87 mg/dL [facility] potassium, serum 4.2 mmol/L [facility] sodium, serum 142 mmol/L [facility] platelet count 192 10*3/mm3 [facility] Wally hematocrit, blood 40.6 % [facility] W[facility] creatinine, serum 1.44 mg/dL [facility] potassium, serum 4.2 mmol/L [facility] sodium, serum 141 mmol/L [facility] creatinine, serum 0.96 mg/dL [facility] potassium, serum 4.0 mmol/L [facility] sodium, serum 143 mmol/L [facility] W[facility] coagulation managed by Jose Juan Walker RN prothrombin time (patient) 9.5 s Jordana Montalvoer international normalized ratio (INR) 1.0 Jordana Blackmonchuy Normal platelet count 195 10*3/mm3 [facility] hematocrit, blood 42.1 % [facility] international normalized ratio (INR) 1.0 [facility] alanine aminotransferase (SGPT), serum 40 1/L [facility] aspartate aminotransferase (SGOT), serum 32 1/L [facility] creatinine, serum 0.82 mg/dL [facility] potassium, serum 4.2 mmol/L [facility] sodium, serum 141 mmol/L [facility] creatinine, serum 0.89 mg/dL [facility] potassium, serum 4.3 mmol/L [facility] sodium, serum 143 mmol/L [facility] platelet count 190 10*3/mm3 [facility] hematocrit, blood 42.0 % [facility] triglyceride, serum, fasting 65 mg/dL [facility] HDL cholesterol, serum 48 mg/dL [facility] lipoprotein, beta, serum, point, quantitative, calculated 122 mg/dL [facility] cholesterol, serum 183 mg/dL [facility] thyroid stimulating hormone, serum 4.030 u[IU]/mL [facility] alanine aminotransferase (SGPT), serum 47 1/L [facility] aspartate aminotransferase (SGOT), serum 33 1/L [facility] creatinine, serum 0.84 mg/dL [facility] potassium, serum 3.9 mmol/L [facility] sodium, serum 142 mmol/L [facility] globulins, serum, total 2.0 g/dL [facility] estimated glomerular filtration rate 65.9 mL/min [facility] albumin/globulin ratio, serum 2.3 [facility] protein, total, serum 6.6 g/dL [facility] albumin, serum 4.6 g/dL [facility] bilirubin, serum, total 0.9 mg/dL [facility] alkaline phosphatase, serum 62 1/L [facility] alanine aminotransferase (SGPT), serum 28 1/L [facility] aspartate aminotransferase (SGOT), serum 24 1/L [facility] calcium, serum 9.3 mg/dL [facility] blood glucose, fasting 100 mg/dL [facility] creatinine, serum 1.2 mg/dL [facility] urea nitrogen, blood 18 mg/dL [facility] carbon dioxide, serum, total 29 mmol/L [facility] Wally chloride, serum 108 mmol/L [facility] potassium, serum 4.2 mmol/L [facility] sodium, serum 142 mmol/L [facility] cholesterol/HDL ratio, serum 4.1 [facility] triglyceride, serum, fasting 140 mg/dL [facility] HDL cholesterol, serum 44 mg/dL [facility] LDL cholesterol, serum 107 mg/dL [facility] cholesterol, serum 179 mg/dL [facility] thyroid stimulating hormone, serum 3.458 u[IU]/mL [facility] prostate specific antigen 0.91 ng/mL [facility] platelet count 177 10*3/uL [facility] red blood cell distribution width 14.5 % [facility] mean corpuscular hemoglobin concentration, RBC 31.1 g/dL [facility] mean corpuscular hemoglobin, RBC 29.3 pg [facility] mean corpuscular volume, RBC 89 fL [facility] Wally hematocrit, blood 44.4 % [facility] hemoglobin, blood 14.7 g/dL [facility] erythrocyte (RBC) count 5.01 10*6/mm3 [facility] monocyte count, blood 0.5 10*3/mm3 [facility] lymphocyte count, blood 1.8 10*3/mm3 [facility] monocytes as percent of blood leukocytes 8 % [facility] lymphocytes as percent of blood leukocytes 29 % [facility] leukocyte count, blood 6.2 10*3/mm3 [facility] thyroid stimulating hormone, serum 3.681 u[IU]/mL [facility] prostate specific antigen 0.87 ng/mL [facility] cholesterol/HDL ratio, serum 3.7 [facility] triglyceride, serum, fasting 82 mg/dL [facility] HDL cholesterol, serum 49 mg/dL [facility] LDL cholesterol, serum 114 mg/dL [facility] cholesterol, serum 179 mg/dL [facility] globulins, serum, total 2.6 g/dL [facility] estimated glomerular filtration rate 105.5 mL/min [facility] albumin/globulin ratio, serum 1.6 [facility] protein, total, serum 7.8 g/dL [facility] albumin, serum 4.2 g/dL [facility] bilirubin, serum, total 0.9 mg/dL [facility] alkaline phosphatase, serum 61 1/L [facility] alanine aminotransferase (SGPT), serum 32 1/L [facility] aspartate aminotransferase (SGOT), serum 28 1/L [facility] calcium, serum 9.7 mg/dL [facility] blood glucose, fasting 91 mg/dL [facility] creatinine, serum 0.8 mg/dL [facility] urea nitrogen, blood 16 mg/dL [facility] carbon dioxide, serum, total 28 mmol/L [facility] chloride, serum 108 mmol/L [facility] potassium, serum 3.7 mmol/L [facility] sodium, serum 141 mmol/L [facility] platelet count 197 10*3/uL [facility] red blood cell distribution width 15.6 % [facility] mean corpuscular hemoglobin concentration, RBC 32.7 g/dL [facility] mean corpuscular hemoglobin, RBC 27.3 pg [facility] mean corpuscular volume, RBC 83.4 fL [facility] Wally hematocrit, blood 42.8 % [facility] hemoglobin, blood 14.0 g/dL [facility] erythrocyte (RBC) count 5.1 10*6/mm3 [facility] neutrophils, segmented as percent of blood leukocytes 2.9 % [facility] monocyte count, blood 0.3 10*3/mm3 [facility] lymphocyte count, blood 2.3 10*3/mm3 [facility] neutrophils as percent of blood leukocytes 52.5 % [facility] monocytes as percent of blood leukocytes 5.3 % [facility] lymphocytes as percent of blood leukocytes 42.2 % [facility] leukocyte count, blood 5.5 10*3/mm3 [facility] cholesterol/HDL ratio, serum 3.3 Mayelin Kapoor triglyceride, serum, fasting 135 mg/dL Mayelin Kapoor HDL cholesterol, serum 52 mg/dL Mayelin Kapoor LDL cholesterol, serum 95 mg/dL Mayelin Kapoor cholesterol, serum 174 mg/dL Mayelin Kapoor HISTORY OF MEDICATION USE Medication Status Instructions Dates Provider Indications Com ments atorvastatin 20 mg tablet active TAKE 1 TABLET DAILY [facility] Specialist Unithroid 25 mcg tablet active TAKE ONE TABLET BY MOUTH ONCE A DAY Ryanne Montanez ferrous sulfate 325 mg (65 mg iron) tablet active TAKE 1 TABLET BY MOUTH TWICE EVERY DAY Ryanne Montanez ergocalciferol (vitamin D2) 1,250 mcg (50,000 unit) capsule active TAKE 1 CAPSULE BY MOUTH ONE TIME PER WEEK FOR 90 DAYS Horacio amlodipine 10 mg tablet active TAKE 1 TABLET BY MOUTH ONCE EVERY DAY sertraline 50 mg tablet active Take 1 tablet by mouth once a day Horacio clopidogrel 75 mg tablet completed Take 1 tablet by mouth once a day - Martin Brooks MD losartan 100 mg tablet active Take 1 tablet by mouth once a day TAKE 1 TABLET DAILY Jen Alvarenga atorvastatin 20 mg tablet completed Take 1 tablet by mouth once a day - Christina Ledezma PA Specialist carvedilol 25 mg tablet active TAKE 1 TABLET TWICE A DAY [facility] clopidogrel 75 mg tablet completed TAKE 1 TABLET ONCE DAILY - Elaine Garcia RN amoxicillin 500 mg capsule completed Take 4 capsule by mouth single dose 6 hours prior to procedure and then two tablets for 3 days after - Bennett Ferrer NP Jardiance 10 mg tablet active TAKE 1 TABLET BY MOUTH ONCE DAILY Horacio carvedilol 12.5 mg tablet completed TAKE 1 TABLET BY MOUTH 2 TIMES A DAY. - [facility] isosorbide mononitrate 30 mg tablet extended release 24 hr active TAKE 1 TABLET BY MOUTH TWICE A DAY Martin Brooks MD hydralazine 25 mg tablet completed Take 2 tablet by mouth every morning , 1 tab in the afternoon, and 2 tabs in the evening - [facility] Plavix 75 mg tablet completed Take 1 tablet by mouth once a day - Jodie Neves Bactrim 400-80 mg tablet completed 1 tablet by mouth twice a day for 5 days - Bennett Ferrer NP Bactrim 400-80 mg tablet completed one tab twice daily for 5 days - Jose Juan Walker RN cephalexin 500 mg tablet completed Take 1 tablet by mouth three times a day - Martin Brooks MD Percocet 5-325 mg tablet completed 1 tablet by mouth every eight hours as needed for pain - Martin Brooks MD hydralazine 25 mg tablet completed Take 2 tablet by mouth every morning , 1 tab in the afternoon, and 1 tab in the evening - Martin Brooks MD budesonide-formo terol 160-4.5 mcg/actuation HFA aerosol inhaler active INHALE 2 PUFFS INTO THE LUNGS TWICE A DAY DIRECTED FOR 30 DAYS Martin Brooks MD Brilinta 90 mg tablet completed Take 1 tablet by mouth twice a day - Martin Brooks MD carvedilol 12.5 mg tablet completed Take 1 tablet by mouth twice a day - Alda Bocanegra Brilinta 90 mg tablet completed - Martin Brooks MD isosorbide mononitrate 30 mg tablet extended release 24 hr completed 1 tablet twice a day - Alda Bocanegra Eliquis 5 mg tablet active TAKE 1 TABLET TWICE A DAY Miladis Acosta sotalol 120 mg tablet active TAKE 1 AND 1/2 TABLETS TWICE DAILY [facility] atorvastatin 20 mg tablet completed TAKE 1 TABLET DAILY - Jordana Thibodeaux losartan 100 mg tablet completed TAKE 1 TABLET DAILY - Elaine Garcia RN Aldactone 50 mg tablet completed Take 1 by mouth once a day - Martin Brooks MD Spiriva Respimat 1.25 mcg/actuation mist completed - Jordana Thibodeaux Incruse Ellipta 62.5 mcg/actuation blister with device active Jordana Thibodeaux Myrbetriq 50 mg tablet extended release 24 hr completed - Horacio Watson budesonide-formo terol 80-4.5 mcg/actuation HFA aerosol inhaler active Jordana Thibodeaux METOPROLOL TARTRATE 100 MG ORAL TABLET completed Take one tab at 0800 the morning of the CTA - Mikayla Giordano RN Eliquis 5 mg tablet completed Take 1 tablet twice a day - Shun Myers atorvastatin 20 mg tablet completed Take 1 tablet once a day - Sumit Salter BERBERINE COMPLEX CAPSULE active once a day [place] [facility] coenzyme Q10-vit E-vit E mixed 100-20-15 mg capsule active capsule by mouth once a day [facility] MULTIVITAMINS CAPS active 1 tablet once a day [facility] LEXAPRO 10 MG ORAL TABLET completed 1.5 tablet once daily - Connie Meghann hydralazine 25 mg tablet completed Take 4 tablet by mouth once a day as directed TAKE 2 TABLETS EVERY MORNING, 1 TABLET EVERY AFTERNOON, AND 1 TABLET EVERY EVENING - Jose Juan Walker RN ASPIRIN ADULT LOW DOSE 81 MG ORAL TABLET DELAYED RELEASE completed One Tab By Mouth Daily - Conniealan Zavaleta ropinirole 1 mg tablet active once a day [place] [facility] Proventil HFA 90 mcg/actuation HFA aerosol inhaler active 1 puff every six hours as needed Adi Martinez MD FLONASE ALLERGY RELIEF 50 MCG/ACT NASAL SUSPENSION completed ud - Jordana Thibodeaux REQUIP 1 MG ORAL TABLET completed one at bedtime - Jordana Thibodeaux magnesium oxide 400 mg (241.3 mg magnesium) tablet active Take 1 once a day [place] García KLOR-CON 20 MEQ ORAL PACKET completed Take 1 packet po daily - Martin Brooks MD SOTALOL HCL 120 MG ORAL TABLET completed ONE TAB. TWICE DAILY - Tatiana haynes amiodarone sotalol 120 mg tablet completed Take 1.5 tablet twice a day - Shun Myers AMIODARONE HCL 200 MG ORAL TABLET completed ONE TAB. DAILY - Adi Martinez MD ELIQUIS 5 MG ORAL TABLET completed one tablet twice daily - Tatiana haynes coumadin KLOR-CON 20 MEQ ORAL PACKET completed 1 daily - Mikayla Menjivar RN MAG-200 200 MG ORAL TABLET completed 2 tab daily - Mikayla Menjivar RN FUROSEMIDE 40 MG ORAL TABLET completed 1 daily - Martin Brooks MD WARFARIN SODIUM 5 MG ORAL TABLET completed 1 1/2 tab next 3 days - Jose Juan Walker RN LEVOFLOXACIN 250 MG ORAL TABLET completed 500mg PO STAT, 250mg PO daily for 4 days - Tatiana Vanda SOTALOL HCL (AF) 80 MG ORAL TABLET completed 1 1/2 tab twice daily - Charline Loyd ELIQUIS 5 MG ORAL TABLET completed ONE TABLET TWICE DAILY - Charline Loyd BYSTOLIC 2.5 MG ORAL TABLET completed one tab per day - Charline Loyd FLONASE 50 MCG/ACT NASAL SUSPENSION completed 2 sprays each nostril daily - Jordana Thibodeaux AMLODIPINE BESYLATE 5 MG ORAL TABLET completed 1 tab po daily. - Brittani Brown ELIQUIS 5 MG ORAL TABLET completed 1 tab twice daily - Carly Banda losartan 100 mg tablet completed Take 1 tablet once a day - Sumit Salter NUVIGIL 150 MG ORAL TABLET completed 1/2 table by mouth daily - Jordana Thibodeaux EDARBI 80 MG ORAL TABLET completed One tab once daily - Jose Juan Walker RN OXYCODONE-ASPIRI N TABS completed as needed - Vi Pérez LORAZEPAM 0.5 MG ORAL TABLET completed 1/2 pill twice a day - [place] Garc[facility] DICLOFENAC SODIUM 75 MG ORAL TABLET DELAYED RELEASE completed as needed - Vi Pérez ANDROGEL PUMP 12.5 MG/ACT active 2 twice a day [place] [facility] VESICARE 5 MG ORAL TABLET completed - Vi Pérez VIAGRA 50 MG ORAL TABLET completed PRN - [place] ENALAPRIL MALEATE 20 MG TABS (ENALAPRIL MALEATE) completed ONE TAB. TWICE DAILY - Martin Brooks MD Advair Diskus 250-50 mcg/dose blister with device completed 1 puff twice a day - Adi Martinez MD terazosin 5 mg capsule active Take 1 once a day Jordana Thibodeaux COREG 3.125 MG ORAL TABLET completed ONE TAB. TWICE DAILY - Martin Brooks MD SIMVASTATIN 20 MG ORAL TABLET completed every other day - Martin Brooks MD SOCIAL HISTORY Date Observation Value Provider drug use no Martin Brooks MD alcohol use no Martin Brooks MD passive cigarette sm hollie exposure no Martin Brooks MD smoking/tobacco cess ation, patient education and counseling yes Martin Brooks MD chewing tobacco use Current Martin Brooks MD smoking, year quit 2016 Martin Brooks MD number of years as a smoker 48 a Martin Brooks MD smoking, date started 1968 Franchesca Brooks MD smoking history, tot al pack/year 53 Martin Brooks MD smoking history, tot al pack/day 0.5 Martin Brooks MD cigarette use yes Martin Brooks MD smoking status Former smoker Martin martinez MD drug use no Martin Brooks MD alcohol use no Martin Brooks MD passive cigarette sm hollie exposure no Martin Brooks MD smoking/tobacco cess ation, patient education and counseling yes Martin Brooks MD chewing tobacco use Current Martin Brooks MD smoking, year quit 2016 Martin Brooks MD number of years as a smoker 48 a Martin Brooks MD smoking, date started 1968 Franchesca Brooks MD smoking history, tot al pack/year 53 Martin Brooks MD smoking history, tot al pack/day 0.5 Martin Brooks MD cigarette use yes Martin Brooks MD smoking status Former smoker Martin martinez MD drug use no Bennett Bonareri 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 Bennett Bonareri 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 passive cigarette sm hollie exposure no Bennett Bonareri 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 smoking/tobacco cess ation, patient education and counseling yes Bennett Bonareri 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 chewing tobacco use Current Bennett duttaeri 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 smoking, year quit 2016 Bennett Gomez areri 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 number of years as a smoker 48 a Bennett Solisreri 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 smoking, date started 1968 Bennett Solisreri 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 smoking history, tot al pack/year 53 Bennett Solisreri 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 Martin Brooks MD social history reviewed E&M revi ewed - no changes required Martin Brooks MD physical exercise, frequency, days per week no Yesenia Zacarias caffeine use, averag e drinks per day 1+ Yesenia Zacarias passive cigarette sm hollie exposure no Yesenia Zacarias chewing tobacco use Current Yesenia Da vis smoking, year quit 2017 Yesenia Arden is number of years as a smoker 48 a Yesenia Zacarias smoking, date started 1969 Yesenia Zacarias smoking history, tot al pack/year 53 Yesenia Zacarias smoking history, tot al pack/day 0.5 Yesenia Zacarias cigarette use yes Yesenia Zacarias smoking status Former smoker Yesenia Zacarias physical exercise, frequency, days per week no Missy Moise caffeine use, averag e drinks per day 1+ Jakystchuck Moise passive cigarette sm hollie exposure no Jakystchuck Moise chewing tobacco use Current Missy Moise smoking, year quit 2016 Jakystchuck Moise number of years as a smoker 48 a Missy Moise smoking, date started 1969 Ebony piotr Jose Maria smoking history, tot al pack/year 53 Missy Moise smoking history, tot al pack/day 0.5 Missy Moise cigarette use yes Jakystity Jose Maria smoking status Former smoker Missy brantley smoking history, tot al pack/year 53 Aure Crouch social history reviewed E&M revi ewed - no changes required Martin Brooks MD social history E&M Marital Statu s: L katerina with family/friends E thnicity: Smoking History: Ricky ryder is a former smoker. Martin Brooks MD social history reviewed E&M revi ewed - no changes required Martin Brooks MD physical exercise, frequency, days per week no Yuridia Gambino caffeine use, averag e drinks per day 1+ Yuridia Gambino passive cigarette sm hollie exposure no Yuridia Gambino chewing tobacco use Current Yuridia Gambino smoking, year quit 2016 Yuridia Gambino number of years as a smoker 48 a Yuridia Gambino smoking, date started 1968 Salbador Miller smoking history, tot al pack/year 51 Yuriida Gambino smoking history, tot al pack/day 0.5 Yuridia Gambino cigarette use yes Yuridia Blake nd smoking status Former smoker Yuridia bustillos social history E&M Marital Statu s: L katerina with family/friends E thnicity: Smoking History: P atient is a former smoker. Martin Brooks MD social history reviewed E&M revi ewed - no changes required Martin Brooks MD physical exercise, frequency, days per week no Missy Moise caffeine use, averag e drinks per day 1+ Missy Moise passive cigarette sm hollie exposure no Missy Moise chewing tobacco use [facility] 2017 Missy Moise number of years as a smoker 48 a Missy Moise smoking, date started 1968 Ebony Moise smoking history, tot al pack/year 51 Missy Moise smoking history, tot al pack/day 0.5 Jakychuck Moise cigarette use yes Jakychuck Moise smoking status Former smoker Missy brantley social history E&M Marital Statu s: L katerina with family/friends E thnicity: Smoking History: P atporfirio is a former smoker. Justin Velasquez MD social history reviewed E&M i ewed - no changes required Justin Velasquez MD physical exercise, frequency, days per week no Meghan Cleary caffeine use, averag e drinks per day 1+ Meghan Cleary passive cigarette sm hollie exposure no Meghan Cleary chewing tobacco use Current Meghan Cleary smoking, year quit 2017 Meghan roy number of years as a smoker 48 a Meghan Cleary smoking, date started 1968 Ajit Cleary smoking history, tot al pack/year 51 Meghan Cleary smoking history, tot al pack/day 0.5 Meghan Cleary cigarette use yes Meghan Cannon elis smoking status Former smoker Meghan fraser smoking/tobacco cess ation, patient education and counseling yes Martin Brooks MD smoking status Former smoker Martin martinez MD social history reviewed E&M revi ewed - no changes required Martin Brooks MD physical exercise, frequency, days per week no Jordana Thibodeaux caffeine use, averag e drinks per day 1+ Jordana Thibodeaux passive cigarette sm hollie exposure no Jordana Thibodeaux chewing tobacco use Current Jordana Diaz antolin smoking, year quit 2017 Jordana Carter jaquez number of years as a smoker 48 a Jordana Thibodeaux smoking, date started 1968 Jordana Thibodeaux smoking history, tot al pack/year 51 Jordana Morelia smoking history, tot al pack/day 0.5 Jordana Thibodeaux cigarette use yes Jordana vera social history E&M Marital Statu s: L katerina with family/friends E thnicity: Smoking History: Ricky ryder is a former smoker. Martin Brooks MD social history reviewed E&M revi ewed - no changes required Martin Brooks MD physical exercise, frequency, days per week no Jayleen Carmichael caffeine use, averag e drinks per day 1+ Jayleen Carmichael passive cigarette sm hollie exposure no Jayleen Carmichael chewing tobacco use Current Jayleen Carmichael smoking, year quit 2017 Jayleen F ox number of years as a smoker 48 a Jayleen Carmichael smoking, date started 1968 Felici a Carmichael smoking history, tot al pack/year 51 Jayleen Carmichael smoking history, tot al pack/day 0.5 Jayleen Carmichael cigarette use yes Jayleen Carmichael smoking status Former smoker Jayleen Carmichael smoking history, tot al pack/year 51 Mikayla Giordano RN social history E&M Marital Statu s: L katerina with family/friends E thnicity: Smoking History: P atient is a former smoker. Martin Brooks MD social history reviewed E&M revi ewed - no changes required Martin Brooks MD physical exercise, frequency, days per week no Jessica Block caffeine use, averag e drinks per day 1+ Jessica Block passive cigarette sm hollie exposure no Jessica Block chewing tobacco use Current Jessica Block smoking, year quit 2017 Jessica Block number of years as a smoker 48 a Jessica Block smoking, date started 1968 [facility] Block smoking history, tot al pack/year 47 Jessica Block smoking history, tot al pack/day 0.5 Jessica Block cigarette use yes Jessica Block smoking status [facility] E&[facility] Marital Statu s: L katerina with family/friends E thnicity: Smoking History: P atient is a former smoker. Martin Brooks MD social history reviewed E&M revi ewed - no changes required Martin Brooks MD physical exercise, frequency, days per week no Onesimo Olivier caffeine use, averag e drinks per day 1+ Onesimo Olivier passive cigarette sm hollie exposure no Onesimo Olivier chewing tobacco use Current Onesimo Olivier smoking, year quit 2017 Onesimo T ella number of years as a smoker 48 a Onesimo Olivier smoking, date started 1968 LaWdesi a Olivier smoking history, tot al pack/year 47 Onesimo Olivier smoking history, tot al pack/day 0.5 Onesimo Olivier cigarette use yes Onesimo Tolive r smoking status Former smoker Onesimo Toli sal social history E&M Marital Statu s: L katerina with family/friends E thnicity: Smoking History: Ricky ryder is a former smoker. Martin Brooks MD social history reviewed E&M revi ewed - no changes required Martin Brooks MD physical exercise, frequency, days per week no Bay García caffeine use, averag e drinks per day 1+ Bay García passive cigarette sm hollie exposure no Bay García chewing tobacco use Current Joaquin García smoking, year quit 2016 Bay García number of years as a smoker 48 a Bay García smoking, date started 1968 Shauna García smoking history, tot al pack/year 47 Bay García smoking history, tot al pack/day 0.5 Bay García cigarette use yes Bay bailey smoking status Former smoker Bay Schmidt number of years as a smoker 48 a Hi [place] social history reviewed E&M revi ewed - no changes required Martin Brooks MD social history E&M Marital Statu s: L katerina with family/friends E thnicity: Smoking History: Ricky ryder is a former smoker. Martin Brooks MD physical exercise, frequency, days per week no Connie Meghann alcohol use, average drinks per day social basis only Connie Meghann alcohol use no Connie Meghann caffeine use, averag e drinks per day 1+ Hi [place] drug use no Connie Meghann passive cigarette sm hollie exposure no Connie Meghann chewing tobacco use Current Connie Vo smoking, year quit 2016 Connie Shelley s smoking, date started 1968 Connie Meghann smoking history, tot al pack/day 0.5 Connie Meghann cigarette use yes Connie Meghann smoking status Former smoker [facility] social history E&M Marital Statu s: L katerina with family/friends E thnicity: Smoking History: Ricky ryder is a former smoker. Martin Brooks MD social history reviewed E&M lorenzo hernandez - no changes required Martin Brooks MD physical exercise, frequency, days per week no Connie [place] alcohol use, average drinks per day social basis only [facility] alcohol use no [facility] caffeine use, averag e drinks per day yes [facility] drug use no [facility] passive cigarette sm hollie exposure no [facility] chewing tobacco use Current [facility] smoking, year quit 2016 Connie Shelley s smoking, date started 1968 [facility] smoking history, tot al pack/year 47 Connie [place] smoking history, tot al pack/day 0.5 Connie [place] cigarette use yes [facility] smoking status Former smoker [facility] social history reviewed E&M revi ewed - no changes required Martin Brooks MD physical exercise, frequency, days per week no Bay García alcohol use, average drinks per day social basis only Bay García alcohol use no Bay maryon caffeine use, averag e drinks per day yes Bay García drug use no Bay Cunningham nson passive cigarette sm hollie exposure no Bay García chewing tobacco use Current Joaquin García smoking, year quit 2016 Bay García smoking, date started 1968 Shauna García smoking history, tot al pack/year 47 Bay García smoking history, tot al pack/day 0.5 Bay García cigarette use yes Bay bailey smoking status Former smoker Bay Schmidt social history reviewed E&M revi ewed - no changes required Martin Brooks MD physical exercise, frequency, days per week no Jordana Thibodeaux alcohol use, average drinks per day social basis only Jordana Thibodeaux alcohol use no Jordana maxer caffeine use, averag e drinks per day yes Jordana Thibodeaux drug use no Jordana maxer passive cigarette sm hollie exposure no Jordana Thibodeaux chewing tobacco use Current Jordana dangelo smoking, year quit 2016 Jordana jaquez smoking, date started 1968 Jordana Thibodeaux smoking history, tot al pack/year 47 Jordana Thibodeaux smoking history, tot al pack/day 0.5 Jordana Thibodeaux cigarette use yes Jordana vera smoking status Former smoker Jordana pattenchuy social history reviewed E&M revi ewed - no changes required Martin Brooks MD physical exercise, frequency, days per week no Jordana Thibodeaux alcohol use, average drinks per day social basis only Jordana Blackmonantonellajoanne alcohol use no Jordana Montemayor eduardo caffeine use, averag e drinks per day yes Jordana Thibodeaux drug use no Jordana Montemayor eduardo passive cigarette sm hollie exposure no Jordana Blackmonchuy chewing tobacco use Current Jordana caballerochuy smoking, year quit 2016 Jordana Diazebony jaquez smoking, date started 1968 Jordana Morelia smoking history, tot al pack/year 47 Jordana Blackmonchuy smoking history, tot al pack/day 0.5 Jordana Blackmonchuy cigarette use yes Jordana Molinaburt vera smoking status Former smoker Jordana Snell chao social history reviewed E&M revi ewed - no changes required Martin Brooks MD physical exercise, frequency, days per week no Jordana Diazantolin alcohol use, average drinks per day social basis only Jordana Blackmonchuy alcohol use no Jordana Montemayor eduardo caffeine use, averag e drinks per day yes Jordana Blackmonchuy drug use no Jordana Montemayor eduardo passive cigarette sm hollie exposure no Jordana Montalvojoanne chewing tobacco use Current Jordana caballerochuy smoking, year quit 2016 Jordana Carter jaquez smoking, date started 1968 Jordana Gruearlin smoking history, tot al pack/year 47 Jordana Blackmonantonellajoanne smoking history, tot al pack/day 0.5 Jordana Diazcapojoanne cigarette use yes Jordana Blackmon chuy smoking status Former smoker Jordana pattenchuy social history E&M Marital Statu s: L katerina with family/friends E thnicity: Smoking History: P aleksey currently smokes every day. P aleksey has been counseled to quit. Martin Brooks MD social history reviewed E&M revi ewed - no changes required Martin Brooks MD physical exercise, frequency, days per week no Bay García alcohol use, average drinks per day social basis only Bay García alcohol use no Bay little caffeine use, averag e drinks per day yes Bay García drug use no Bay Cunningham usmanon smoking/tobacco cess ation, patient education and counseling yes Bay Collinsenson passive cigarette sm hollie exposure no BayValerie Collinsenson chewing tobacco use Current MikaylaShaila Collinsenson smoking, year quit 2013 Bay García smoking, date started 1968 Shauna aroldo García smoking history, tot al pack/year 47 Bay Collinsenson smoking history, tot al pack/day 0.5 Bay Collinsenson cigarette use yes Bay Dennis lynn smoking status Current every da y smoker Bay García smoking history, tot al pack/year 47 Jordana Thibodeaux social history reviewed E&M revi ewed - no changes required Martin Brooks MD number of grandchildren Martin Brooks MD physical exercise, frequency, days per week no Bay García alcohol use, average drinks per day social basis only Bay García alcohol use no Bay little caffeine use, averag e drinks per day yes Bay García drug use no Bay little smoking/tobacco cess ation, patient education and counseling yes Bay García passive cigarette sm hollie exposure no Bay García chewing tobacco use Current Joaquin García smoking, year quit 2013 Bay García smoking, date started 1968 Shauna García smoking history, tot al pack/year 45 Bay García smoking history, tot al pack/day 0.5 Bay García cigarette use yes Bay bailey smoking status Current every da y smoker Bay García social history E&M Marital Statu s: Alicia borges with family/friends E thnicity: Smoking History: P atporfirio currently smokes every day. P atporfirio has been counseled to quit. Adi Martienz MD smoking/tobacco cess ation, patient education and counseling yes Adi Martinez MD social history reviewed E&M revi jessicaed - no changes required Adi Martinez MD physical exercise, frequency, days per week no Tatiana aSmuel alcohol use, average drinks per day social basis only Tatiana Samuel alcohol use no Tatiana Jimmie caffeine use, averag e drinks per day yes Tatiana Jimmie drug use no Tatiana Jimmie passive cigarette sm hollie exposure no Tatiana Jimmie chewing tobacco use Current Tatiana Jimmie smoking, year quit 2013 Tatiana tyler smoking, date started 1968 Carson Samuel smoking history, tot al pack/year 45 Tatiana Samuel smoking history, tot al pack/day 0.5 Tatiana Jimmie cigarette use yes Tatiana Samuel smoking status Current every da y smoker Adi Martinez MD smoking history, tot al pack/year 45 Martin Brooks MD social history E&M Marital Statu s: L katerina with family/friends E thnicity: Smoking History: P aleksey is a former smoker. Martin Brooks MD social history reviewed E&M revi ewed - no changes required Martin Brooks MD physical exercise, frequency, days per week no Tatiana Dc alcohol use, average drinks per day social basis only Tatiana Dc alcohol use no Tatiana Dc caffeine use, averag e drinks per day yes Tatiana Dc drug use no Tatiana Dc passive cigarette sm hollie exposure no Tatiana Dc chewing tobacco use Current Tatiana Dc smoking, year quit 2013 Tatiana Nix Aida smoking, date started 1968 Meljeramie booth Dc smoking history, tot al pack/year 45 Tatiana Dc smoking history, tot al pack/day 0.5 Tatiana Dc cigarette use yes Tatiana Dc smoking status Former smoker Tatiana Barger janel social history E&M Marital Statu s: L katerina with family/friends E thnicity: Smoking History: P aleksey is a former smoker. Martin Brooks MD social history reviewed E&M revi ewed - no changes required Martin Brooks MD physical exercise, frequency, days per week no Tatiana Dc alcohol use, average drinks per day social basis only Tatiana Dc caffeine use, averag e drinks per day yes Tatiana Dc drug use no Tatiana Dc passive cigarette sm hollie exposure no Tatiana Dc smoking/tobacco cess ation, patient education and counseling No Martin Brooks MD chewing tobacco use Current Tatiana Valverdeann smoking, year quit 2013 Tatiana Nix Aida smoking, date started 1968 Carson booth Dc smoking history, tot al pack/year 45 Tatiana Dc smoking history, tot al pack/day 0.5 Tatiana Dc cigarette use yes Tatiana Valverdeann smoking status Former smoker Tatiana Barger janel social history reviewed E&M i ewed - no changes required Adi Martinez MD social history reviewed E&M lorenzo ewed - no changes required Adi Martinez MD physical exercise, frequency, days per week no Charline Rach alcohol use, average drinks per day social basis only Charline Rach caffeine use, averag e drinks per day yes Charline Rach drug use no Charline Rach passive cigarette sm hollie exposure no Charline Loyd smoking/tobacco cess ation, patient education and counseling yes Charline Rach chewing tobacco use Current Charline Rach smoking, year quit 2013 Charline Nix daksha smoking, date started 1968 Julianna muhammad Rach smoking history, tot al pack/year 45 Charline Lyod smoking history, tot al pack/day 0.5 Charline Rach cigarette use yes Charline Rach smoking status Former smoker Charline Sheth mari chewing tobacco use Current Luz V entimiglia [employer] smoking, year quit 2013 Tatiana Nix Aida physical exercise, frequency, days per week no Tatiana Vanda alcohol use, average drinks per day social basis only Tatiana Dc caffeine use, averag e drinks per day yes Tatiana Vanda drug use no Tatiana Dc passive cigarette sm hollie exposure no Tatiana Dc smoking/tobacco cess ation, patient education and counseling yes Tatiana Dc smoking, date started 1969 Carson Dc smoking history, tot al pack/year 45 Tatiana Dc smoking history, tot al pack/day 0.5 Tatiana Dc cigarette use yes Tatiana Dc smoking status Former smoker Tatiana Barger nn drug use none Adi clemons MD social history reviewed E&M reviewed Adi Martinez MD smoking history, tot al pack/year 45 Vesna Fay social history reviewed E&M reviewed Martin Brooks MD smoking history, tot al pack/year 45 Brittani Mares social history reviewed E&M reviewed Jose Juan Walker RN smoking history, tot al pack/year 45 Tatiana Dc social history reviewed E&M reviewed Martin Brooks MD smoking history, tot al pack/year 45 Charline Rach smoking/tobacco cess ation, patient education and counseling yes Martin Brooks MD social history reviewed E&M reviewed Jose Juan Walker RN smoking history, tot al pack/year 44 Jose Juan Walker RN social history reviewed E&M reviewed Jose Juan Walker RN smoking history, tot al pack/day 0.5 Jordana Thibodeaux smoking history, tot al pack/year 44 Jordana Thibodeaux smoking history, tot al pack/day 1/8 Jose Juan Walker RN social history reviewed E&M reviewed Jose Juan Walker RN smoking history, tot al pack/year 44 Carly Banda social history reviewed E&M reviewed Martin Brooks MD smoking history, tot al pack/year 44 Flora Mahoney smoking history, tot al pack/day 1 Jose Juan Walker RN cigarette use yes Jose Juan Walker RN smoking history, tot al pack/year 44 Jose Juan Walker RN smoking, date started 1969 Jose Juan lee RN social history reviewed E&M reviewed Jose Juan Walker RN cigarette use 20 Jose Montes smoking status current every da y smoker Jose Stewart MD social history reviewed E&M reviewed Jose Stewart MD social history reviewed E&M reviewed Martin Brooks MD drug use no Denyean Arturo passive cigarette sm hollie exposure no Jaysonyeteresa Arturo smoking status never smoker Yamini moore social history reviewed E&M reviewed Martin rBooks MD smoking status smoker - current status unknown Martin Brooks MD social history reviewed E&M reviewed Jose Juan Walker RN social history reviewed E&M reviewed Jose Juan Walker RN social history reviewed E&M reviewed Jose Juan Walker RN smoking/tobacco cess ation, patient education and counseling yes Martin Brooks MD social history reviewed E&M reviewed Martin Brooks MD drug use none Martin Brooks MD social history reviewed E&M reviewed Martin Brooks MD smoking/tobacco cess ation, patient education and counseling yes Jose Juan Walker RN social history reviewed E&M reviewed Jose Juan Walker RN social history reviewed E&M reviewed Jose Juan Walker RN social history E&M Marital Statu s: L katerina with family/friends E thnicity: Jose Juan Walker RN social history reviewed E&M reviewed Jose Juan Walker RN physical exercise, frequency, days per week no [employer] caffeine use, averag e drinks per day yes [employer] alcohol use, average drinks per day social basis only [employer] smoking status Smoker [employer] FUNCTIONAL STATUS Date Observation Value Provider HRA, CV Assess/Plan, Angina (inactive) Management Plan continue current therapy Martin Brooks MD HRA, CV Assess/Plan, Angina (inactive) Management Plan continue current therapy Martin Brooks MD HRA, CV Assess/Plan, Angina (inactive) Management Plan continue current therapy Bennett Ferrer NP HRA, CV Assess/Plan, Angina (inactive) Management Plan continue current therapy Martin Brooks MD HRA, CV Assess/Plan, Angina (inactive) Management Plan continue current therapy Martin Brooks MD HRA, CV Assess/Plan, Angina (inactive) Management Plan continue current therapy Jessica Ortiz HRA, CV Assess/Plan, Angina (inactive) Management Plan continue current therapy Martin Brooks MD MENTAL STATUS Date Observation Value Provider assessment of judgme nt and insight E&M Alert and oriented to time, place and person. Mood and affect are normal. Adi Martinez MD assessment of judgme nt and insight E&M Alert and oriented to time, place and person. Mood and affect are normal. Martin Brooks MD assessment of judgme nt and insight E&M Alert and oriented to time, place and person. Mood and affect are normal. Jose Juan Walker RN assessment of judgme nt and insight E&M Alert and oriented to time, place and person. Mood and affect are normal. Martin Brooks MD assessment of judgme nt and insight E&M Alert and oriented to time, place and person. Mood and affect are normal. Jose Juan Walker RN assessment of judgme nt and insight E&M Alert and oriented to time, place and person. Mood and affect are normal. Jose Juan Walker RN assessment of judgme nt and insight E&M Alert and oriented to time, place and person. Mood and affect are normal. Jose Juan Walker RN assessment of judgme nt and insight E&M Alert and oriented to time, place and person. Mood and affect are normal. Martin Brooks MD assessment of judgme nt and insight E&M Alert and oriented to time, place and person. Mood and affect are normal. Jose Juan Walker RN assessment of judgme nt and insight E&M Alert and oriented to time, place and person. Mood and affect are normal. Jose Stewart MD assessment of judgme nt and insight E&M Alert and oriented to time, place and person. Mood and affect are normal. Martin Brooks MD assessment of judgme nt and insight E&M Alert and oriented to time, place and person. Mood and affect are normal. Martin Brooks MD assessment of judgme nt and insight E&M Alert and oriented to time, place and person. Mood and affect are normal. Jose Juan Walker RN assessment of judgme nt and insight E&M Alert and oriented to time, place and person. Mood and affect are normal. Jose Juan Walker RN assessment of judgme nt and insight E&M Alert and oriented to time, place and person. Mood and affect are normal. Jose Juan Walker RN assessment of judgme nt and insight E&M Alert and oriented to time, place and person. Mood and affect are normal. Martin Brooks MD assessment of judgme nt and insight E&M Alert and oriented to time, place and person. Mood and affect are normal. Martin Brooks MD assessment of judgme nt and insight E&M Alert and oriented to time, place and person. Mood and affect are normal. Jose Juan Walker RN assessment of judgme nt and insight E&M Alert and oriented to time, place and person. Mood and affect are normal. Jose Juan Walker RN assessment of judgme nt and insight E&M Alert and oriented to time, place and person. Mood and affect are normal. Jose Juan Walker RN FAMILY HISTORY Family Member Condition Mother Family History of Hy pertension: Mother Family History of Co ronary Artery Disease: Father Family History of Co ronary Artery Disease: INSURANCE PROVIDERS Payer name Policy type / Coverage type [place] [employer] MEDICARE ESA PPO Medicare [id number] ADVANCE DIRECTIVES Name Date DISCUSSED - NO DECISION MADE TREATMENT PLAN Date Name Performer [id number],C, P t is planned for periodontal cleaning. Will prescribed him amoxicillin 2 grams 6 hours prior to his procedure, and then 500 mg BID for three days after the procedure.HOLD Eliquis 3 days prior to your dental procedure. Resume when it is safe to do so. CONTINUE Plavix unless the dentist wants the Plavix to be held. Martin Brooks MD [id number],C, S nuhaly advised to stop smoking. Martin Brooks MD [id number],C, T he patient is using CPAP on a regular basis. The patient has been benefiting from therapy and should continue use. Martin Brooks MD [id number],C,B P elevated today at 150/70. Advised reduced sodium intake and routine monitoring of the blood pressure. We aim for less than 130/80. Martin Brooks MD [id number],S, C ontinues on atorvastatin. We aim for an LDL <70. Martin Brooks MD [id number],C, H as some SOB with stairs, recovers quickly. Martin Brooks MD [id number],C, C hest pain free. Martin Brooks MD [id number],S, C linically stable. Martin Brooks MD [id number],S, Q TC 425 msecs R emains in sinus rhythm. Continues on sotalol. On Eliquis for OAC. Martin Brooks MD [id number],C, R emains in sinus rhythm. Continues on sotalol. On Eliquis for OAC. Martin Brooks MD [id number],C, B P elevated today at 169/93. Advised reduced sodium intake and routine monitoring of the blood pressure. We aim for less than 130/80. Martin Brooks MD [id number],S, Martin martinez MD [id number],C, C linically stable. Martin Brooks MD [id number],C, C ontinues on atorvastatin. We aim for an LDL <70. Martin Brooks MD [id number],C, T he patient is using CPAP on a regular basis. The patient has been benefiting from therapy and should continue use. Martin Brooks MD [id number],S, T he patient is using CPAP on a regular basis. The patient has been benefiting from therapy and should continue use. Jessica Ortiz [id number],S, C ontinues on atorvastatin. We aim for an LDL <70. Jessica Ortiz [id number],C, B P 150/90, continues to be labile. Will continue to monitor Martin Brooks MD [id number],S, S shahnaz advised to stop smoking. Martin Brooks MD [id number],S, C linically stable. Mratin Brooks MD [id number],C, R emains in sinus rhythm. Continues on sotalol. On Eliquis for OAC. Martin Brooks MD [id number],S, N o chest pain. Martin Brooks MD [id number],C, S ignificant eye bleed, was told it was a conjunctival bleed. Most likely due to combination of Brilinta and Eliquis Martin Brooks MD [id number],C, N o chest pain. Jessica Ortiz [id number],C, S tates he feels more SOB than before his stent placement. PFTs and low dose CT were unremarkable. Had his medications adjusted by supervisor capacitor processing, felt slightly better. Likely multifactorial. Will increase his isosorbide ER to 30 mg twice a day Jessica Diana [id number],S, S trongly advised to stop smoking. Martin Brooks MD [id number],C, T he patient is using CPAP on a regular basis. The patient has been benefiting from therapy and should continue use. Martin Brooks MD [id number],S, C ontinues on atorvastatin. We aim for an LDL <70. Martin Brooks MD [id number],C, B P 150/90, continues to be labile. Will continue to monitor Martin Brooks MD [id number],S, C linically stable. Martin Brooks MD [id number],S, R emains in sinus rhythm. Continues on sotalol. On Eliquis for OAC. Martin Brooks MD [id number],C,S tates he feels more SOB than before his stent placement. PFTs and low dose CT were unremarkable. Had his medications adjusted by supervisor capacitor processing, felt slightly better. Will increase his isosorbide ER to 30 mg twice a day Martin Brooks MD [id number],S, S trongly advised to stop smoking. Jessica Ortiz [id number],S, C ontinues on atorvastatin. We aim for an LDL <70. Jessica Ortiz [id number],S, T he patient is using CPAP on a regular basis. The patient has been benefiting from therapy and should continue use. Jessica Ortiz [id number],S, C linically stable. Jessica Ortiz [id number],S, Jessica junior [id number],S, R emains in sinus rhythm. Continues on sotalol. On Eliquis for OAC. Jessica Ortiz [id number],C,B P 150/90, continues to be labile. Pt reportedly anxious about his bp. Will continue to monitor Jessica Ortiz [id number],B, B P elevated in the office today, but his home readings show satisfactory BP control. He continues on imdur. Martin Brooks MD [id number],S, R ecent coronary CTA with a calcium score of 194 with no significant coronary artery stenosis. Sanjay muhammad continues to have chest discomfort, SOB, fatigue, and unsteady gait at time. He did have a stress test that was normal. As he remains sypmtomatic, we will arrange for him to have a left and right heart cardiac cath as his BP has been labile. We will also do a renal angiogram. The risks and benefits of the procedure, including but not limited the risk of heart attack, , stroke, bleeding, kidney failure, and loss of limb as well as the alternative of continued medical therapy, stress testing or bypass surgery were discussed with the patient and any present family members and the patient wishes to proceed with cardiac cath and stenting. The patient and family had opportunity to discuss this with us. Written material including informed consent was given out. Martin Brooks MD [id number],S, T he patient is using CPAP on a regular basis. The patient has been benefiting from therapy and should continue use. Martin Brooks MD [id number],S, C ontinues on atorvastatin. We aim for an LDL <70. Martin Brooks MD [id number],S, S trongly advised to stop smoking. Martin Brooks MD [id number],S, C linically stable. Martin Brooks MD [id number],S, R emains in sinus rhythm. Continues on sotalol. On Eliquis for OAC. Martin Brooks MD [id number],S, T he patient is using CPAP on a regular basis. The patient has been benefiting from therapy and should continue use. Jessica Ortiz [id number],SFantasma advised to stop smoking. Jessica Ortiz [id number],SEnues on atorvastatin. We aim for an LDL <70. Jessica Ortiz [id number],Jessica Fortune [id number],S, R emains in sinus rhythm. Continues on sotalol. On Eliquis for OAC. His updated medication list for this problem includes: Sotalol 120 Mg Tablet (Sotalol) ..... Take 1.5 tablet twice a day Jessica Ortiz [id number],S C gurpreet stable. Jessica Ortiz [id number],C, B P today: 160/80 P rior BP: 158/100 (12/20/2020) Labs Reviewed: C reat: 1.0 (09/25/2016) C hol: 130 (09/06/2017) HDL: 40 (09/06/2017) His updated medication list for this problem includes: Aldactone 50 Mg Tablet (Spironolactone) ..... Take 1 by mouth once a day Hydralazine 25 Mg Tablet (Hydralazine) ..... Take 4 tablet by mouth once a day as directed take 2 tablets every morning, 1 tablet every afternoon, and 1 tablet every evening Losartan 100 Mg Tablet (Losartan) ..... Take 1 tablet once a day Sotalol 120 Mg Tablet (Sotalol) ..... Take 1.5 tablet twice a day Terazosin 5 Mg Capsule (Terazosin) ..... Take 1 once a day Jessica Ortiz [id number],C,Clinically st able. Martin Brooks MD [id number],C,S atisfactory device function on interrogation today. 4 months from explant. Patient has been notified of this. Martin Brooks MD [id number],C,B P elevated today: 158/100. Patient is to routinely monitor the BP at home and reduce his dietary sodium intake. If the BP is consistently above 130/70, will make changes to his antihypertensives. Martin Brooks MD Cardiology:well controlled. cont inue goodrx. Martin Brooks MD Cardiology: C ontinue statin for primary prevention of cardiovascular disease. H is updated medication list for this problem includes: Atorvastatin 20 Mg Tablet (Atorvastatin) ..... Take 1 tablet by mouth once a day Martin Brooks MD Cardiology: C AC score 194 n o chest pain Martin Brooks MD Cardiology: O n sotalol and coreg for rhythm and rate control. No atrial burden observed on device checks. will stop plavix remains on eliquis The following medications were removed from the medication list: Clopidogrel 75 Mg Tablet (Clopidogrel) ..... Take 1 tablet by mouth once a day His updated medication list for this problem includes: Sotalol 120 Mg Tablet (Sotalol) ..... Take 1 and 1/2 tablets twice daily Carvedilol 25 Mg Tablet (Carvedilol) ..... Take 1 tablet twice a day Martin Brooks MD Cardiology: N o angina. Will continue current medications. Martin Brooks MD Cardiology:Clinicall y stable H is updated medication list for this problem includes: Carvedilol 25 Mg Tablet (Carvedilol) ..... Take 1 tablet twice a day Amlodipine 10 Mg Tablet (Amlodipine) ..... Take 1 tablet by mouth once every day Losartan 100 Mg Tablet (Losartan) ..... Take 1 tablet by mouth once a day take 1 tablet daily Sotalol 120 Mg Tablet (Sotalol) ..... Take 1 and 1/2 tablets twice daily Clopidogrel 75 Mg Tablet (Clopidogrel) ..... Take 1 tablet by mouth once a day Isosorbide Mononitrate 30 Mg Tablet Extended Release 24 Hr (Isosorbide mononitrate) ..... Take 1 tablet by mouth twice a day Martin Brooks MD Cardiology:Continue statin for primary prevention of cardiovascular disease. H is updated medication list for this problem includes: Atorvastatin 20 Mg Tablet (Atorvastatin) ..... Take 1 tablet by mouth once a day Martin Brooks MD Cardiology:CAC score 194 n o chest pain Martin Brooks MD Cardiology:On sotalo l and coreg for rhythm and rate control. No atrial burden observed on device checks His updated medication list for this problem includes: Sotalol 120 Mg Tablet (Sotalol) ..... Take 1 and 1/2 tablets twice daily Carvedilol 12.5 Mg Tablet (Carvedilol) ..... Take 1 tablet twice a day Clopidogrel 75 Mg Tablet (Clopidogrel) ..... Take 1 tablet once daily Martin Brooks MD Cardiology: N o angina. Will continue current medications. Martin Brooks MD Cardiology: S welling started after he took a fall. The left leg is worse than the right. Will obtain venous dopplers. Bennett Ferrer NP Cardiology: T he patient is using CPAP on a regular basis. The patient has been benefiting from therapy and should continue use. Bennett Ferrer NP Cardiology: H is updated medication list for this problem includes: Atorvastatin 20 Mg Tablet (Atorvastatin) ..... Take 1 tablet daily Bennett Ferrer NP Cardiology: C linically stable H is updated medication list for this problem includes: Sotalol 120 Mg Tablet (Sotalol) ..... Take 1 and 1/2 tablets twice daily Carvedilol 12.5 Mg Tablet (Carvedilol) ..... Take 1 tablet twice a day Losartan 100 Mg Tablet (Losartan) ..... Take 1 tablet daily Clopidogrel 75 Mg Tablet (Clopidogrel) ..... Take 1 tablet once daily Isosorbide Mononitrate 30 Mg Tablet Extended Release 24 Hr (Isosorbide mononitrate) ..... Take 1 tablet by mouth twice a day Salevan Solissesar [place] Cardiology: Ricky rior BP: 150/70 (09/18/2022) His updated medication list for this problem includes: Sotalol 120 Mg Tablet (Sotalol) ..... Take 1 and 1/2 tablets twice daily Carvedilol 12.5 Mg Tablet (Carvedilol) ..... Take 1 tablet twice a day Losartan 100 Mg Tablet (Losartan) ..... Take 1 tablet daily Hydralazine 25 Mg Tablet (Hydralazine) ..... Take 2 tablet by mouth every morning , 1 tab in the afternoon, and 2 tabs in the evening Terazosin 5 Mg Capsule (Terazosin) ..... Take 1 once a day Bennett Ferrer NP Cardiology: S R on EKG today. O n OAC with Eliquis. He developed a hematoma after a fall a few weeks ago and now has bruising on the mend. H is updated medication list for this problem includes: Sotalol 120 Mg Tablet (Sotalol) ..... Take 1 and 1/2 tablets twice daily Carvedilol 12.5 Mg Tablet (Carvedilol) ..... Take 1 tablet twice a day Clopidogrel 75 Mg Tablet (Clopidogrel) ..... Take 1 tablet once daily Bennett Ferrer NP Cardiology: N o angina. Will continue current medications. Bennett Ferrer NP Cardiology: Ricky fuentes is planned for periodontal cleaning. Will prescribed him amoxicillin 2 grams 6 hours prior to his procedure, and then 500 mg BID for three days after the procedure.HOLD Eliquis 3 days prior to your dental procedure. Resume when it is safe to do so. CONTINUE Plavix unless the dentist wants the Plavix to be held. Martin Brooks MD Cardiology: S shahnaz advised to stop smoking. Martin Brooks MD Cardiology: T he patient is using CPAP on a regular basis. The patient has been benefiting from therapy and should continue use. Martin Brooks MD Cardiology:BP elevat ed today at 150/70. Advised reduced sodium intake and routine monitoring of the blood pressure. We aim for less than 130/80. Martin Brooks MD Cardiology: C ontinues on atorvastatin. We aim for an LDL <70. Martin Brooks MD Cardiology: H as some SOB with stairs, recovers quickly. Martin Brooks MD Cardiology: C hest pain free. Martin Brooks MD Cardiology: C linically stable. Martin Brooks MD Cardiology: Q TC 425 msecs R emains in sinus rhythm. Continues on sotalol. On Eliquis for OAC. Martin Brooks MD Cardiology: R emains in sinus rhythm. Continues on sotalol. On Eliquis for OAC. Martin Brooks MD Cardiology: B P elevated today at 169/93. Advised reduced sodium intake and routine monitoring of the blood pressure. We aim for less than 130/80. Martin Brooks MD Cardiology Martin Montes Cardiology: C linically stable. Martin Brooks MD Cardiology: C ontinues on atorvastatin. We aim for an LDL <70. Martin Brooks MD Cardiology: T he patient is using CPAP on a regular basis. The patient has been benefiting from therapy and should continue use. Martin Brooks MD Cardiology: T he patient is using CPAP on a regular basis. The patient has been benefiting from therapy and should continue use. Jessica Ortiz Cardiology: C ontinues on atorvastatin. We aim for an LDL <70. Jessica Ortiz Cardiology: B P 150/90, continues to be labile. Will continue to monitor Martin Brooks MD Cardiology: Fantasma christie advised to stop smoking. Martin Brooks MD Cardiology: C linically stable. Martin Brooks MD Cardiology: R emains in sinus rhythm. Continues on sotalol. On Eliquis for OAC. Martin Brooks MD Cardiology: N o chest pain. Martin Brooks MD Cardiology: S ignificant eye bleed, was told it was a conjunctival bleed. Most likely due to combination of Brilinta and Eliquis Martin Brooks MD Cardiology: N o chest pain. Jessica Ortiz Cardiology: S renettaes he feels more SOB than before his stent placement. PFTs and low dose CT were unremarkable. Had his medications adjusted by supervisor capacitor processing, felt slightly better. Likely multifactorial. Will increase his isosorbide ER to 30 mg twice a day Jessica Ortiz Cardiology: Fantasma christie advised to stop smoking. Martin Brooks MD Cardiology: T he patient is using CPAP on a regular basis. The patient has been benefiting from therapy and should continue use. Martin Brooks MD Cardiology: C ontinues on atorvastatin. We aim for an LDL <70. Martin Brooks MD Cardiology: B P 150/90, continues to be labile. Will continue to monitor Martin Brooks MD Cardiology: C linically stable. Martin Brooks MD Cardiology: R emains in sinus rhythm. Continues on sotalol. On Eliquis for OAC. Martin Brooks MD Cardiology:States he feels more SOB than before his stent placement. PFTs and low dose CT were unremarkable. Had his medications adjusted by supervisor capacitor processing, felt slightly better. Will increase his isosorbide ER to 30 mg twice a day Martin Brooks MD Cardiology: S shahnaz advised to stop smoking. Jessica Ortiz Cardiology: C ontinues on atorvastatin. We aim for an LDL <70. Jessica Martinezsarthak Cardiology: T he patient is using CPAP on a regular basis. The patient has been benefiting from therapy and should continue use. Jessica Plummersydni Cardiology: C linically stable. Jessica Plummerinsarthak Cardiology Jessica Swain eyeheidi Cardiology: R emains in sinus rhythm. Continues on sotalol. On Eliquis for OAC. Jesisca Martinezsarthak Cardiology:BP 150/90 , continues to be labile. Pt reportedly anxious about his bp. Will continue to monitor Jessica Martinezsarthak Cardiology: B P elevated in the office today, but his home readings show satisfactory BP control. He continues on imdur. Martin Brooks MD Cardiology: R ecent coronary CTA with a calcium score of 194 with no significant coronary artery stenosis. Sanjay muhammad continues to have chest discomfort, SOB, fatigue, and unsteady gait at time. He did have a stress test that was normal. As he remains sypmtomatic, we will arrange for him to have a left and right heart cardiac cath as his BP has been labile. We will also do a renal angiogram. & #13;The risks and benefits of the procedure, including but not limited the risk of heart attack, , stroke, bleeding, kidney failure, and loss of limb as well as the alternative of continued medical therapy, stress testing or bypass surgery were discussed with the patient and any present family members and the patient wishes to proceed with cardiac cath and stenting. The patient and family had opportunity to discuss this with us. Written material including informed consent was given out. Martin Brooks MD Cardiology: T he patient is using CPAP on a regular basis. The patient has been benefiting from therapy and should continue use. Martin Brooks MD Cardiology: C ontinues on atorvastatin. We aim for an LDL <70. Martin Brooks MD Cardiology: Fantasma christie advised to stop smoking. Martin Brooks MD Cardiology: C linically stable. Martin Brooks MD Cardiology: R emains in sinus rhythm. Continues on sotalol. On Eliquis for OAC. Martin Brooks MD Cardiology followup : T he patient is using CPAP on a regular basis. The patient has been benefiting from therapy and should continue use. Jessica Ortiz Cardiology followup : Fantasma christie advised to stop smoking. Jessica Ortiz Cardiology followup : En craig on atorvastatin. We aim for an LDL <70. Jessica Ortiz Cardiology followup Jessica junior Cardiology followup : R emains in sinus rhythm. Continues on sotalol. On Eliquis for OAC. His updated medication list for this problem includes: Sotalol 120 Mg Tablet (Sotalol) ..... Take 1.5 tablet twice a day Jessica Ortiz Cardiology followup : C linically stable. Jessica Ortiz Cardiology followup : B P today: 160/80 P rior BP: 158/100 (12/20/2020) Labs Reviewed: C reat: 1.0 (09/25/2016) C hol: 130 (09/06/2017) HDL: 40 (09/06/2017) His updated medication list for this problem includes: Aldactone 50 Mg Tablet (Spironolactone) ..... Take 1 by mouth once a day Hydralazine 25 Mg Tablet (Hydralazine) ..... Take 4 tablet by mouth once a day as directed take 2 tablets every morning, 1 tablet every afternoon, and 1 tablet every evening Losartan 100 Mg Tablet (Losartan) ..... Take 1 tablet once a day Sotalol 120 Mg Tablet (Sotalol) ..... Take 1.5 tablet twice a day Terazosin 5 Mg Capsule (Terazosin) ..... Take 1 once a day Jessica Ortiz Cardiology Follow up :Clinically stable. Martin Brooks MD Cardiology Follow up :Satisfactory device function on interrogation today. 4 months from explant. Patient has been notified of this. Martin Brooks MD Cardiology Follow up :BP elevated today: 158/100. Patient is to routinely monitor the BP at home and reduce his dietary sodium intake. If the BP is consistently above 130/70, will make changes to his antihypertensives. Martin Brooks MD Cardiology:Continues on atorvastatin. We aim for an LDL <70. Cardiology:Blood pre ssure elevated today. Advised reduced sodium intake and routine monitoring of the blood pressure. We aim for blood pressure less than 130/80. Jose Cardiology:The patie nt is using CPAP on a regular basis. The patient has been benefiting from therapy and should continue use. Cardiology:Clinicall y stable. Echo today showed mild LV enlargement, moderate concentric LVH, and diastolic dyfunction with EF of 60%. Cardiology:Swelling and tenderness of the right leg with concern for DVT. He underwent a venous doppler today which showed no evidence of DVT, significant venous insufficiency bilaterally, and a small pocket of fluid in the area of the patient's pain. The patient has been reassured. Cardiology:Recent co ronary CTA with a calcium score of 194 with no significant coronary artery stenosis. The patient has been reassured. Not on aspirin due to anticoagulation with Eliquis. Cardiology:Remains i n sinus rhythm. Continues on sotalol. On Eliquis for OAC. Jose Cardiology:Satisfact ory device function on interrogation today. Jose Cardiology:Continues on sotalol. On Eliquis for OAC. Martin Brooks MD Cardiology:Continues on atorvast atin Martin Brooks MD Cardiology:BP control is satisfa ctory. Martin Brooks MD Cardiology:Likely re lated to deconditioning. Normal stress test 06/25/19. Martin Brooks MD Cardiology:Atypical chest pain persists. Nuclear stress test done on 06/25/19 was negative for ischemia. If he continues to remain symptomatic, with recurrent chest pain, he may benefit from a cardiac cath. Martin Brooks MD Cardiology:Clinicall y stable. Will check echocardiogram. Cardiology:Continues on Atorvastatin. Will request labs from your office. Jose Cardiology:Blood pre ssure elevated today. Adviseed to monitor his blood pressure daily. We aim for blood pressure < 130/80. Cardiology:Normal de vice function. Cardiology:A paced r hythm on EKG. No recurrence on recent device checks. Continues on Sotalol QTC 426. On Eliquis for alf anticoagulation. Cardiology:Chest lesly n, shortness of breath, and decreased effort tolerance in a patient with risk factors for CAD. Will arrange stress test and echocardiogram. Cardiology:Clinicall y stable. Will repeat echo at next appt. Martin Brooks MD Cardiology:The patie nt is using CPAP on a regular basis. The patient has been benefiting from therapy and should continue use. Martin Brooks MD Cardiology:Continues on Atorvast atin. Martin Brooks MD Cardiology:Likely du e to deconditioning secondary to severe arthritis of the knee. Mild COPD on previous PFTs. Continues on inhalers. Martin Brooks MD Cardiology:Blood pressure contro l is satisfactory. Martin Brooks MD Cardiology:Normal device functio n. Martin Brooks MD Cardiology:No recurr ence on recent device checks. Continues on Sotalol QTC 436. 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 Martin Brooks MD Cardiology follow up :Strongly advised to stop smoking. Martin Brooks MD Cardiology follow up:Blood press ure stable. Martin Brooks MD Cardiology follow up :The patient is using CPAP on a regular basis. The patient has been benefiting from therapy and should continue use. Martin Brooks MD Cardiology follow up :Recurrence of Afib. Started on anticoagulation. Today he is in regular rhythm. Martin Brooks MD Cardiology follow up :STRONGLY ENCOURAGED TO STOP SMOKING; SMOKING CESSATION TECHNIQUES DISCUSSED. Martin Brooks MD Cardiology follow up :The patient is using CPAP on a regular basis. The patient has been benefiting from therapy and should continue use. Martin Brooks MD Cardiology follow up :Most recent lipid panel 08/2017 showed an LDL of 75. Will await blood results from your office. Martin Brooks MD Cardiology follow up :Blood pressure stable. Continues on Losartan and Hydralazine. Martin Brooks MD Cardiology follow up :Has remained in sinus rhythm. On Sotalol. The QTC is 432msec. He is off anticoagulation. Martin Brooks MD Cardiology:Continues on ropinirole. Martin Brooks MD Cardiology:STRONGLY ENCOURAGED TO STOP SMOKING; SMOKING CESSATION TECHNIQUES DISCUSSED. Martin Brooks MD Cardiology:Clinicall y compensated. Continues on losartan and hydralazine. Hydralazine will be increased to two tablets in the morning, one tablet in the afternoon, and one tablet in the evening. Martin Brooks MD Cardiology:Blood pre ssure control has improved with increased dose of hydralazine. Continues on Diovan. Martin Brooks MD Cardiology:Episode o f chest discomfort which was severe enough to prompt a visit to [facility]. He was evaluated and sent home. He continues to have shortness of breath with diaphoresis when climbing a flight of stairs. If his symptoms persist, he will benefit from cardiac catheterization. I have discussed this with him and he will let us know his decision. Martin Brooks MD Cardiology:Sinus rhy thm. On sotalol. Martin Brooks MD Cardiology:Pacemaker function is satisfactory. 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 We have added CoQ10 200mg BID and berberine 500mg BID. Will check lipid panel in 8 weeks. Martin Brooks MD Cardiology Follow up :SInus rhyt hm. On sotalol. Martin Brooks MD Cardiology Follow up :BP control has improved. He continues to experience withdrawal symptoms, which has caused blood pressure to be elevated. Increased hydralazine to 50mg in the morning, and 25mg in the afternoon and in the evening for better control, and continues on terazosin. Encouraged home monitoring. Martin Brooks MD Cardiology Follow up :Clinically compensated. Continues on losartan and hydralazine. Hydralazine will be increased to two tablets in the morning, one tablet in the afternoon, and one tablet in the evening. Martin Brooks MD Cardiology Follow up :Pacemaker function is satisfactory. Martin Brooks MD Cardiology Follow up :Continues on terazosin. Martin Brooks MD Cardiology Follow up :The patient is using CPAP on a regular basis. The patient has been benefiting from therapy and should continue use. Martin Brooks MD Cardiology Follow up :Smoking ce ssation advised. Martin Brooks MD Cardiology Follow up :On simvast atin. Martin Brooks MD Cardiology Follow up :Clinically compensated. Continues on losartan and hydralazine. Martin Brooks MD Cardiology Follow up :Ablated and s/p PPM. Sinus rhythm today, continues on high-dose sotalol (QTc 438). Continues on ASA. Martin Brooks MD Cardiology Follow up :BP markedly elevated since lorazepam was discontinued. It seems that he is experiencing withdrawal symptoms, which has caused blood pressure to be elevated. Increased hydralazine to 25mg TID for better control, and continues on terazosin. Encouraged home monitoring. Martin Brooks MD Cardiology Follow up Martin angelo MD Cardiology Follow up:Continues o n ropinirole. Martin Brooks MD Cardiology Follow up:On Proair P RN and Advair BID. Martin Brooks MD Cardiology Follow up :Blood pressure is elevated today at 170/100. He will continue monitoring blood pressure at home. Continues on Diovan 320mg a day. Martin Brooks MD Cardiology Follow up :Continues on simvastatin 20mg every other day because of muscle pain. Lipid panel ordered. Martin Brooks MD Cardiology Follow up :One brief episode of 13 seconds of afib in July with no recurrence. He continues on sotalol 120mg, 1.5tabs twice daily. 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 Will continue to monitor the EF with echocardiogram. Martin Brooks MD Cardiology:Tobacco a buse - smoking cessation strongly advised Martin Brooks MD Cardiology:Compliant. Martin jeffers MD Cardiology:Clinically compensate d. Martin Brooks MD Cardiology:On Simvastatin. Teressa Brooks MD Cardiology:Blood pre ssure control is satisfactory. Martin Brooks MD Cardiology:Recent pa cemaker interrogation showed one NSVT episode. Continues on Sotalol. His QTc was 420 ms. Martin Brooks MD Cardiology:On Ventolin inhaler a s needed. Martin Brooks MD Cardiology:Compliant with CPAP. Follows pulmonary. Martin Brooks MD Cardiology:On simvastatin 20 mg daily. Martin Brooks MD Cardiology:Blood pre ssure is elevated today. No change has been made in his antihypertensive medications. He will continue to monitor his blood pressure. Martin Brooks MD Cardiology:Clinicall y compensated. Echo will be done at his next visit. Martin Brooks MD Cardiology:Remains i n A paced rhythm. There has been no recurrence of a fib. Continues on sotalol. Martin Brooks MD Cardiology faxed 09/18/15 Adi Martinez MD Cardiology faxed 09/18/15 Adi Martinez MD Cardiology faxed 09/17: H is updated medication list for this problem includes: Simvastatin 20 Mg Tabs (Simvastatin) ..... One tab. daily Adi Martinez MD Cardiology faxed 09/17: B P today: 145/96 P rior BP: 168/101 (02/08/2015) Adi Martinez MD Cardiology:The TSH i s marginally elevated. The free T4 is normal. It is unlikely that he has any thyroid problems but I will leave further management of this to you. Martin Brooks MD Cardiology:In sinus rhythm. Has been on sotalol since the ablation. The QTc is 440 ms. He has expressed the desire to come off anticoagulation. I will discuss it with EP and if he agrees, will discontinue it. Martin Brooks MD Cardiology:Recent charles fajardo interrogation in 12/2014 shows satisfactory function. Martin Brooks MD Cardiology:Blood pre ssure today is elevated. Repeat blood pressure was 145/99. He continues on Diovan 320 mg as before. Martin Brooks MD Cardiology:On Simvas tatin. Because of his leg pains, I have asked him to hold the simvastatin for a week and see whether his muscle pain improves. He is going to come and see me next week. Martin Brooks MD Cardiology:As he is in sinus rhythm, it is likely that his EF has improved. Will repeat an echo at his next visit. Martin Brooks MD Cardiology:Compliant with CPAP. Martin Brooks MD follow up Martin Montes follow up Martin Montes follow up: T he following medications were removed from the medication list: Sotalol Hcl 120 Mg Tabs (Sotalol hcl) ..... One tab. twice daily Furosemide 40 Mg Tabs (Furosemide) ..... 1 daily His updated medication list for this problem includes: Sotalol Hcl 120 Mg Tabs (Sotalol hcl) ..... One and one half tab. twice daily Doxazosin Mesylate 4 Mg Tabs (Doxazosin mesylate) ..... One tab. at bedtime Diovan 320 Mg Tabs (Valsartan) ..... One tablet daily Martin Brooks MD follow up: T he following medications were removed from the medication list: Sotalol Hcl 120 Mg Tabs (Sotalol hcl) ..... One tab. twice daily Furosemide 40 Mg Tabs (Furosemide) ..... 1 daily His updated medication list for this problem includes: Sotalol Hcl 120 Mg Tabs (Sotalol hcl) ..... One and one half tab. twice daily Martin Brooks MD follow up: T he following medications were removed from the medication list: Sotalol Hcl 120 Mg Tabs (Sotalol hcl) ..... One tab. twice daily Furosemide 40 Mg Tabs (Furosemide) ..... 1 daily His updated medication list for this problem includes: Sotalol Hcl 120 Mg Tabs (Sotalol hcl) ..... One and one half tab. twice daily Orders: Magdalena KG (CPT-[id number]) Martin Brooks MD EP FOLLOW UP faxed 1 1040: T he following medications were removed from the medication list: Amlodipine Besylate 5 Mg Tabs (Amlodipine besylate) ..... 1 tab po daily. Amiodarone Hcl 200 Mg Tabs (Amiodarone hcl) ..... One tab. daily His updated medication list for this problem includes: Sotalol Hcl 120 Mg Tabs (Sotalol hcl) ..... One tab. twice daily Sotalol Hcl 120 Mg Tabs (Sotalol hcl) ..... One tab. twice daily Furosemide 40 Mg Tabs (Furosemide) ..... 1 daily Diovan 320 Mg Tabs (Valsartan) ..... One tablet daily Adi Martinez MD EP FOLLOW UP faxed 1 1040:stop s tart T he following medications were removed from the medication list: Amiodarone Hcl 200 Mg Tabs (Amiodarone hcl) ..... One tab. daily His updated medication list for this problem includes: Sotalol Hcl 120 Mg Tabs (Sotalol hcl) ..... One tab. twice daily Sotalol Hcl 120 Mg Tabs (Sotalol hcl) ..... One tab. twice daily Furosemide 40 Mg Tabs (Furosemide) ..... 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 2 4 hour monitor in 4 weeks at [place] and fu 2 days later in [facility] Plan to go back to sotalol aftert visit. The following medications were removed from the medication list: Bystolic 2.5 Mg Tabs (Nebivolol hcl) ..... One tab per day Sotalol Hcl (af) 80 Mg Tabs (Sotalol hcl af) ..... 1 1/2 tab twice daily His updated medication list for this problem includes: Amiodarone Hcl 200 Mg Tabs (Amiodarone hcl) ..... One tab. daily Furosemide 40 Mg Tabs (Furosemide) ..... 1 daily Diovan 320 Mg Tabs (Valsartan) ..... One tablet daily Amlodipine Besylate 5 Mg Tabs (Amlodipine besylate) ..... 1 tab po daily. Adi Martinez MD EP follow up faxed [phone]: T he following medications were removed from the medication list: Bystolic 2.5 Mg Tabs (Nebivolol hcl) ..... One tab per day Sotalol Hcl (af) 80 Mg Tabs (Sotalol hcl af) ..... 1 1/2 tab twice daily His updated medication list for this problem includes: Furosemide 40 Mg Tabs (Furosemide) ..... 1 daily Doxazosin Mesylate 4 Mg Tabs (Doxazosin mesylate) ..... One tab. at bedtime Diovan 320 Mg Tabs (Valsartan) ..... One tablet daily Amlodipine Besylate 5 Mg Tabs (Amlodipine besylate) ..... 1 tab po daily. 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 2 4 hour monitor in 4 weeks at [place] and fu 2 days later in [facility] Plan to go back to [facility] aftert visit. The following medications were removed from the medication list: Bystolic 2.5 Mg Tabs (Nebivolol hcl) ..... One tab per day Sotalol Hcl (af) 80 Mg Tabs (Sotalol hcl af) ..... 1 1/2 tab twice daily His updated medication list for this problem includes: Amiodarone Hcl 200 Mg Tabs (Amiodarone hcl) ..... One tab. daily Furosemide 40 Mg Tabs (Furosemide) ..... 1 daily Orders: E KG ([id number]) S chedule Followup (*) H olter Monitor 24 Hr (CPT-[id number]) Adi Martinez MD follow up Jose Stewart MD follow up: H is updated medication list for this problem includes: Simvastatin 20 Mg Tabs (Simvastatin) ..... One tab. daily Bystolic 5 Mg Tabs (Nebivolol hcl) ..... One tab. daily Sotalol Hcl (af) 80 Mg Tabs (Sotalol hcl af) ..... 1 tab twice daily Amlodipine Besylate 5 Mg Tabs (Amlodipine besylate) ..... 1 tab po daily. Jose Stewart MD follow up: H is updated medication list for this problem includes: Lorazepam 1 Mg Tabs (Lorazepam) ..... 1 tablet by mouth three times daily Bystolic 5 Mg Tabs (Nebivolol hcl) ..... One tab. daily Sotalol Hcl (af) 80 Mg Tabs (Sotalol hcl af) ..... 1 tab twice daily Amlodipine Besylate 5 Mg Tabs (Amlodipine besylate) ..... 1 tab po daily. Jose Stewart MD follow up: H is updated medication list for this problem includes: Bystolic 5 Mg Tabs (Nebivolol hcl) ..... One tab. daily Sotalol Hcl (af) 80 Mg Tabs (Sotalol hcl af) ..... 1 tab twice daily s /p dccv Jose Stewart MD follow up: H is updated medication list for this problem includes: Coreg 3.125 Mg Tabs (Carvedilol) ..... One tab. twice daily Lorazepam 1 Mg Tabs (Lorazepam) ..... 1 tablet by mouth three times daily Martin Brooks MD f/u: H is updated medication list for this problem includes: Coreg 3.125 Mg Tabs (Carvedilol) ..... One tab. twice daily Lorazepam 1 Mg Tabs (Lorazepam) ..... 1 tablet by mouth three times daily Martin Brooks MD /u Martin Montes /u: H is updated medication list for this problem includes: Simvastatin 20 Mg Tabs (Simvastatin) ..... One tab. daily BP today: 139/87 Prior BP: 164/102 (04/05/2009) C HOL: 179 (06/22/2009) LDL: 114 (06/22/2009) HDL: 49 (06/22/2009) T (06/22/2009) Martin Brooks MD /u Martin Montes /u Martin Montes /u: H is updated medication list for this problem includes: Coreg 3.125 Mg Tabs (Carvedilol) ..... One tab. twice daily Doxazosin Mesylate 4 Mg Tabs (Doxazosin mesylate) ..... One tab. at bedtime BP today: 139/87 P rior BP: 164/102 (04/05/2009) Labs Reviewed: C reat: 0.8 (06/22/2009) C hol: 179 (06/22/2009) HDL: 49 (06/22/2009) LDL: 114 (06/22/2009) T (06/22/2009) Martin Brooks MD f/u: H is updated medication list for this problem includes: Simvastatin 20 Mg Tabs (Simvastatin) ..... One tab. daily Coreg 3.125 Mg Tabs (Carvedilol) ..... One tab. twice daily & #13;BP today: 139/87 Prior BP: 164/102 (04/05/2009) N uclear Stress Findings: 1. Regadenoson mediated myocardial perfusion study 2 . Normal left ventricular systolic function with a calculated ejection fraction of 63%. 3 . No obvious significant scintigraphic evidence of myocardial ischemia or scar. (09/27/2009) C ardiac Cath: EF - 40-45%. A ngiographically normal coronary arteries. M ildly reduced LV systolic function with global hypokinesis. A ngiographically normal right femoral artery. (05/31/2004) C HOL: 179 (06/22/2009) LDL: 114 (06/22/2009) HDL: 49 (06/22/2009) T (06/22/2009) H gb: 14.0 (06/22/2009) HCT: 42.8 (06/22/2009) RBC: 5.1 (06/22/2009) WBC: 5.5 (06/22/2009) B UN: 16 (06/22/2009) Creat: 0.8 (06/22/2009) Glucose: 91 (06/22/2009) N a+: 141 (06/22/2009) K+: 3.7 (06/22/2009) Cl: 108 (06/22/2009) TSH: 3.681 (06/22/2009) Martin Brooks MD fu tests: H is updated medication list for this problem includes: Coreg 3.125 Mg Tabs (Carvedilol) ..... One tab. twice daily Doxazosin Mesylate 4 Mg Tabs (Doxazosin mesylate) ..... One tab. at bedtime Enalapril Maleate 10 Mg Tabs (Enalapril maleate) ..... One tab. twice daily BP today: 136/86 Martin Brooks MD fu tests: H is updated medication list for this problem includes: Simvastatin 20 Mg Tabs (Simvastatin) ..... One tab. daily Coreg 3.125 Mg Tabs (Carvedilol) ..... One tab. twice daily Enalapril Maleate 10 Mg Tabs (Enalapril maleate) ..... One tab. twice daily BP today: 136/86 Prior BP: / () N uclear Stress Findings: EF - 40%. N o EKG changes diagnostic for ischemia. N Ormal myocardial perfusion scan. (06/16/2006) C ardiac Cath: EF - 40-45%. A ngiographically normal coronary arteries. M ildly reduced LV systolic function with global hypokinesis. A ngiographically normal right femoral artery. (05/31/2004) Martin Brooks MD Date Name Complete Echo Venous Doppler Bilat eral LE - Reflux EKG PARTIAL THROMBOPLAST IN TIME, ACTIVATED URINALYSIS, COMPLETE W/REFLEX TO CULTURE PROTHROMBIN TIME WIT H INR COMPREHENSIVE METABO LIC PANEL W/EGFR CBC (INCLUDES DIFF/P LT) Renal Angio - [facility] Cardiac Cath - L/R- [facility] HEMOGLOBIN A1c PROTHROMBIN TIME WIT H INR LIPID PANEL CBC (INCLUDES DIFF/P LT) BASIC METABOLIC PANE L W/EGFR Renal Artery Duplex Venous Doppler Bilat eral LE - Reflux Complete Echo CT Angio Coronaries Stress Regadenoson Complete Echo LIPID PANEL LIPID PANEL LIPID PANEL LIPID PANEL BASIC METABOLIC PANE L W/EGFR Complete Echo PSA, TOTAL TESTOSTERONE, TOTAL THYROID PANEL WITH T SH, 3RD GENERATION COMPREHENSIVE METABO LIC PANEL W/EGFR DLCO - 59153 FRC - 23435 FVC - [id number] STR - Adenosine LIPID PANEL LIPID PANEL DLCO Order - [id number] FRC Order - [id number] FVC Order - [id number] Holter Monitor 24 Hr Spirometry ABLATION w/ Anesthes ia MAGNESIUM BASIC METABOLIC PANE L W/EGFR ANDRZEJ - CNE Complete Echo Cardiac Cath - Left - CNE Pacemaker Dual Chamb er - CNE Cardiac Cath - L/R - GC Cardioversion - GC STR - Adenosine Complete Echo Mobile Cardiac Tele Holter Monitor 24 Hr Stress Test - Adenos ine HISTORY OF PROCEDURES Procedure Date Procedure Name Provider Procedure Notes S tatus Complex e/m visit ad d on Martin Brooks MD completed EKG Martin Brooks MD complet ed EKG Martin Brooks MD complet ed EKG Martin Brooks MD complet ed EKG Martin Brooks MD complet ed EKG Martin Brooks MD complet ed EKG Martin Brooks MD complet ed EKG Justin Velasquez MD completed EKG Martin Brooks MD complet ed EKG Martin Brooks MD complet ed Stress EKG Kamaljit Payne MD complete d Regadenoson, 4 units Martin Brooks MD completed Cardiolite, 2 units Martin Brooks MD completed SPECT Images Maritn Broosk MD compl eted EKG Martin Brooks MD complet ed EKG Martin Brooks MD complet ed ICM Interrogation, Remote (Prof) Martin Brooks MD INTERROGATION EVAL REMOTE </30 D CV MNTR SYS completed ICM Interrogation, Remote (Tech) Martin Brooks MD INTERROGATION EVAL REMOTE </30 D TECH REVIEW completed ICM Interrogation, Remote (Prof) Martin Brooks MD INTERROGATION EVAL REMOTE </30 D CV MNTR SYS completed ICM Interrogation, Remote (Tech) Martin Brooks MD INTERROGATION EVAL REMOTE </30 D TECH REVIEW completed ICM Interrogation, Remote (Prof) Martin Brooks MD INTERROGATION EVAL REMOTE </30 D CV MNTR SYS completed Pacemaker Interrogation, Remote (Tech) Martin Brooks MD INTERROGATION REMOTE </90 D LEATHER CRAFTSMAN REVIEW completed Pacemaker Interrogation, Remote (Prof) Martin Brooks MD INTERROGATION EVAL REMOTE </90 D 1/2/NOCTURNIST PHYSICIAN LEAD P completed ICM Interrogation, Remote (Prof) Martin Brooks MD INTERROGATION EVAL REMOTE </30 D CV MNTR SYS completed Pacemaker Interrogation, Remote (Tech) Martin Brooks MD INTERROGATION REMOTE </90 D LEATHER CRAFTSMAN REVIEW completed Pacemaker Interrogation, Remote (Prof) Martin Brooks MD INTERROGATION EVAL REMOTE </90 D 1/2/NOCTURNIST PHYSICIAN LEAD P completed EKG Martin Brooks MD complet ed ICM Interrogation, Remote (Prof) Martin Brooks MD INTERROGATION EVAL REMOTE </30 D CV MNTR SYS completed ICM Interrogation, Remote (Tech) Martin Brooks MD INTERROGATION EVAL REMOTE </30 D TECH REVIEW completed ICM Interrogation, Remote (Prof) Martin Brooks MD INTERROGATION EVAL REMOTE </30 D CV MNTR SYS completed ICM Interrogation, Remote (Tech) Martin Brooks MD INTERROGATION EVAL REMOTE </30 D TECH REVIEW completed ICM Interrogation, Remote (Prof) Martin Brooks MD INTERROGATION EVAL REMOTE </30 D CV MNTR SYS completed Pacemaker Interrogation, Remote (Tech) Martin Brooks MD INTERROGATION REMOTE </90 D LEATHER CRAFTSMAN REVIEW completed Pacemaker Interrogation, Remote (Prof) Martin Brooks MD INTERROGATION EVAL REMOTE </90 D 1/2/NOCTURNIST PHYSICIAN LEAD P completed ICM Interrogation, Remote (Prof) Martin Brooks MD INTERROGATION EVAL REMOTE </30 D CV MNTR SYS completed ICM Interrogation, Remote (Tech) Martin Brooks MD INTERROGATION EVAL REMOTE </30 D TECH REVIEW completed ICM Interrogation, Remote (Prof) Martin Brooks MD INTERROGATION EVAL REMOTE </30 D CV MNTR SYS completed ICM Interrogation, Remote (Tech) Martin Brooks MD INTERROGATION EVAL REMOTE </30 D TECH REVIEW completed ICM Interrogation, Remote (Prof) Martin Brooks MD INTERROGATION EVAL REMOTE </30 D CV MNTR SYS completed Pacemaker Interrogation, Remote (Tech) Martin Brooks MD INTERROGATION REMOTE </90 D LEATHER CRAFTSMAN REVIEW completed Pacemaker Interrogation, Remote (Prof) Martin Brooks MD INTERROGATION EVAL REMOTE </90 D 1/2/NOCTURNIST PHYSICIAN LEAD P completed EKG Martin Brooks MD complet ed ICM Interrogation, Remote (Prof) Martin Brooks MD INTERROGATION EVAL REMOTE </30 D CV MNTR SYS completed ICM Interrogation, Remote (Tech) Martin Brooks MD INTERROGATION EVAL REMOTE </30 D TECH REVIEW completed ICM Interrogation, Remote (Prof) Martin Brooks MD INTERROGATION EVAL REMOTE </30 D CV MNTR SYS completed ICM Interrogation, Remote (Tech) Martin Brooks MD INTERROGATION EVAL REMOTE </30 D TECH REVIEW completed ICM Interrogation, Remote (Prof) Martin Brooks MD INTERROGATION EVAL REMOTE </30 D CV MNTR SYS completed Pacemaker Interrogation, Remote (Tech) Martin Brooks MD INTERROGATION REMOTE </90 D LEATHER CRAFTSMAN REVIEW completed Pacemaker Interrogation, Remote (Prof) Martin Brooks MD INTERROGATION EVAL REMOTE </90 D 1/2/NOCTURNIST PHYSICIAN LEAD P completed ICM Interrogation, Remote (Prof) Martin Brooks MD INTERROGATION EVAL REMOTE </30 D CV MNTR SYS completed ICM Interrogation, Remote (Tech) Martin Brooks MD INTERROGATION EVAL REMOTE </30 D TECH REVIEW completed ICM Interrogation, Remote (Prof) Martin Brooks MD INTERROGATION EVAL REMOTE </30 D CV MNTR SYS completed ICM Interrogation, Remote (Tech) Martin Brooks MD INTERROGATION EVAL REMOTE </30 D TECH REVIEW completed EKG Martin Brooks MD complet ed ICM Interrogation, Remote (Prof) Martin Brooks MD INTERROGATION EVAL REMOTE </30 D CV MNTR SYS completed Pacemaker Interrogation, Remote (Tech) Martin Brooks MD INTERROGATION REMOTE </90 D LEATHER CRAFTSMAN REVIEW completed Pacemaker Interrogation, Remote (Prof) Martin Brooks MD INTERROGATION EVAL REMOTE </90 D 1/2/NOCTURNIST PHYSICIAN LEAD P completed EKG Martin Brooks MD complet ed SNOMED-CT: [id number] Current Medications Documented Martin Brooks MD completed ICM Interrogation, Remote (Prof) Martin Brooks MD INTERROGATION EVAL REMOTE </30 D CV MNTR SYS completed ICM Interrogation, Remote (Tech) Martin Brooks MD INTERROGATION EVAL REMOTE </30 D TECH REVIEW completed ICM Interrogation, Remote (Prof) Martin Brooks MD INTERROGATION EVAL REMOTE </30 D CV MNTR SYS completed ICM Interrogation, Remote (Tech) Martin Brooks MD INTERROGATION EVAL REMOTE </30 D TECH REVIEW completed EKG Martin Brooks MD complet ed SNOMED-CT: [id number] Current Medications Documented Martin Brooks MD completed ICM Interrogation, Remote (Prof) Martin Brooks MD INTERROGATION EVAL REMOTE </30 D CV MNTR SYS completed Pacemaker Interrogation, Remote (Tech) Martin Brooks MD INTERROGATION REMOTE </90 D LEATHER CRAFTSMAN REVIEW completed Pacemaker Interrogation, Remote (Prof) Martin Brooks MD INTERROGATION EVAL REMOTE </90 D 1/2/NOCTURNIST PHYSICIAN LEAD P completed ICM Interrogation, Remote (Prof) Martin Brooks MD INTERROGATION EVAL REMOTE </30 D CV MNTR SYS completed ICM Interrogation, Remote (Tech) Martin Brooks MD INTERROGATION EVAL REMOTE </30 D TECH REVIEW completed ICM Interrogation, Remote (Prof) Martin Brooks MD INTERROGATION EVAL REMOTE </30 D CV MNTR SYS completed ICM Interrogation, Remote (Tech) Martin Brooks MD INTERROGATION EVAL REMOTE </30 D TECH REVIEW completed ICM Interrogation, Remote (Prof) Martin Brooks MD INTERROGATION EVAL REMOTE </30 D CV MNTR SYS completed Pacemaker Interrogation, Remote (Tech) Martin Brooks MD INTERROGATION REMOTE </90 D LEATHER CRAFTSMAN REVIEW completed Pacemaker Interrogation, Remote (Prof) Martin Brooks MD INTERROGATION EVAL REMOTE </90 D 1/2/NOCTURNIST PHYSICIAN LEAD P completed EKG Martin Brooks MD complet ed SNOMED-CT: [id number] Current Medications Documented Martin Brooks MD completed ICM Interrogation, Remote (Prof) Martin Brooks MD INTERROGATION EVAL REMOTE </30 D CV MNTR SYS completed ICM Interrogation, Remote (Tech) Martin Brooks MD INTERROGATION EVAL REMOTE </30 D TECH REVIEW completed ICM Interrogation, Remote (Prof) Martin Brooks MD INTERROGATION EVAL REMOTE </30 D CV MNTR SYS completed ICM Interrogation, Remote (Tech) Martin Brooks MD INTERROGATION EVAL REMOTE </30 D TECH REVIEW completed ICM Interrogation, Remote (Prof) Martin Brooks MD INTERROGATION EVAL REMOTE </30 D CV MNTR SYS completed Pacemaker Interrogation, Remote (Tech) Martin Brooks MD INTERROGATION REMOTE </90 D LEATHER CRAFTSMAN REVIEW completed Pacemaker Interrogation, Remote (Prof) Martin Brooks MD INTERROGATION EVAL REMOTE </90 D 1/2/NOCTURNIST PHYSICIAN LEAD P completed ICM Interrogation, Remote (Prof) Martin Brooks MD INTERROGATION EVAL REMOTE </30 D CV MNTR SYS completed ICM Interrogation, Remote (Tech) Martin Brooks MD INTERROGATION EVAL REMOTE </30 D TECH REVIEW completed ICM Interrogation, Remote (Prof) Martin Brooks MD INTERROGATION EVAL REMOTE </30 D CV MNTR SYS completed ICM Interrogation, Remote (Tech) Martin Brooks MD INTERROGATION EVAL REMOTE </30 D TECH REVIEW completed SNOMED-CT: [id number] Physical Exam, Performed: Pulse Exam of Foot Martin Brooks MD completed EKG Martin Brooks MD complet ed SNOMED-CT: [id number] Current Medications Documented Martin Brooks MD completed ICM Interrogation, Remote (Prof) Martin Brooks MD INTERROGATION EVAL REMOTE </30 D CV MNTR SYS completed Pacemaker Interrogation, Remote (Tech) Martin Brooks MD INTERROGATION REMOTE </90 D LEATHER CRAFTSMAN REVIEW completed Pacemaker Interrogation, Remote (Prof) Martin Brooks MD INTERROGATION EVAL REMOTE </90 D 1/2/NOCTURNIST PHYSICIAN LEAD P completed ICM Interrogation, Remote (Prof) Martin Brooks MD INTERROGATION EVAL REMOTE </30 D CV MNTR SYS completed ICM Interrogation, Remote (Tech) Martin Brooks MD INTERROGATION EVAL REMOTE </30 D TECH REVIEW completed ICM Interrogation, Remote (Prof) Martin Brooks MD INTERROGATION EVAL REMOTE </30 D CV MNTR SYS completed ICM Interrogation, Remote (Tech) Martin Brooks MD INTERROGATION EVAL REMOTE </30 D TECH REVIEW completed ICM Interrogation, Remote (Prof) Martin Brooks MD INTERROGATION EVAL REMOTE </30 D CV MNTR SYS completed Pacemaker Interrogation, Remote (Tech) Martin Brooks MD INTERROGATION REMOTE </90 D LEATHER CRAFTSMAN REVIEW completed Pacemaker Interrogation, Remote (Prof) Martin Brooks MD INTERROGATION EVAL REMOTE </90 D 1/2/NOCTURNIST PHYSICIAN LEAD P completed ICM Interrogation, Remote (Prof) Martin Brooks MD INTERROGATION EVAL REMOTE </30 D CV MNTR SYS completed ICM Interrogation, Remote (Tech) Martin Brooks MD INTERROGATION EVAL REMOTE </30 D TECH REVIEW completed ICM Interrogation, Remote (Prof) Martin Brooks MD INTERROGATION EVAL REMOTE </30 D CV MNTR SYS completed ICM Interrogation, Remote (Tech) Martin Brooks MD INTERROGATION EVAL REMOTE </30 D TECH REVIEW [facility] [id number] Smoking Cessation Counseling Martin Brooks MD completed SNOMED-CT: 94652246 Physical Exam, Performed: Pulse Exam of Foot Martin Brooks MD completed EKG Martin Brooks MD complet ed SNOMED-CT: [id number] Current Medications Documented Martin Brooks MD completed Stress EKG Justin Velasquez MD completed Regadenoson, 4 units Martin Brooks MD completed Cardiolite, 2 units Martin Brooks MD completed SPECT Images Martin Brooks MD compl eted ICM Interrogation, Remote (Prof) Martin Brooks MD INTERROGATION EVAL REMOTE </30 D CV MNTR SYS completed Pacemaker Interrogation, Remote (Tech) Martin Brooks MD INTERROGATION REMOTE </90 D LEATHER CRAFTSMAN REVIEW completed Pacemaker Interrogation, Remote (Prof) Martin Brooks MD INTERROGATION EVAL REMOTE </90 D 1/2/NOCTURNIST PHYSICIAN LEAD P completed SNOMED-CT: [id number] Current Medications Documented Adi Martinez MD completed SNOMED-CT: 106097124 Smoking Cessation Counseling Adi Martinez MD completed SNOMED-CT: 67933366 Physical Exam, Performed: Pulse Exam of Foot Adi Martinez MD completed EKG Adi fortune MD completed SNOMED-CT: [id number] Current Medications Documented Adi Martinez MD completed ICM Interrogation, Remote (Prof) Martin Brooks MD INTERROGATION EVAL REMOTE </30 D CV MNTR SYS completed ICM Interrogation, Remote (Tech) Martin Brooks MD INTERROGATION EVAL REMOTE </30 D TECH REVIEW completed ICM Interrogation, Remote (Prof) Martin Brooks MD INTERROGATION EVAL REMOTE </30 D CV MNTR SYS completed ICM Interrogation, Remote (Tech) Martin Brooks MD INTERROGATION EVAL REMOTE </30 D TECH REVIEW completed ICM Interrogation, Remote (Prof) Martin Brooks MD INTERROGATION EVAL REMOTE </30 D CV MNTR SYS completed Pacemaker Interrogation, Remote (Tech) Martin Brooks MD INTERROGATION REMOTE </90 D LEATHER CRAFTSMAN REVIEW completed Pacemaker Interrogation, Remote (Prof) Martin Brooks MD INTERROGATION EVAL REMOTE </90 D 1/2/NOCTURNIST PHYSICIAN LEAD P completed ICM Interrogation, Remote (Prof) Martin Brooks MD INTERROGATION EVAL REMOTE </30 D CV MNTR SYS completed ICM Interrogation, Remote (Tech) Martin Brooks MD INTERROGATION EVAL REMOTE </30 D TECH REVIEW completed ICM Interrogation, Remote (Prof) Martin Brooks MD INTERROGATION EVAL REMOTE </30 D CV MNTR SYS completed ICM Interrogation, Remote (Tech) Martin Brooks MD INTERROGATION EVAL REMOTE </30 D TECH REVIEW completed ICM Interrogation, Remote (Prof) Martin Brooks MD INTERROGATION EVAL REMOTE </30 D CV MNTR SYS completed Pacemaker Interrogation, Remote (Tech) Martin Brooks MD INTERROGATION REMOTE </90 D LEATHER CRAFTSMAN REVIEW completed Pacemaker Interrogation, Remote (Prof) Martin Brooks MD INTERROGATION EVAL REMOTE </90 D 1/2/NOCTURNIST PHYSICIAN LEAD P completed SNOMED-CT: 860663415 Smoking Cessation Counseling Martin Brooks MD completed SNOMED-CT: 79739600 Physical Exam, Performed: Pulse Exam of Foot Martin Brooks MD completed SNOMED-CT: 940326434758786 Current Medications Documented Martin Brooks MD completed EKG Martin Brooks MD complet ed ICM Interrogation, Remote (Prof) Martin Brooks MD INTERROGATION EVAL REMOTE </30 D CV MNTR SYS completed ICM Interrogation, Remote (Tech) Martin Brooks MD INTERROGATION EVAL REMOTE </30 D TECH REVIEW completed ICM Interrogation, Remote (Prof) Martin Brooks MD INTERROGATION EVAL REMOTE </30 D CV MNTR SYS completed ICM Interrogation, Remote (Tech) Martin Brooks MD INTERROGATION EVAL REMOTE </30 D TECH REVIEW completed ICM Interrogation, Remote (Prof) Martin Brooks MD INTERROGATION EVAL REMOTE </30 D CV MNTR SYS completed Pacemaker Interrogation, Remote (Tech) Martin Brooks MD INTERROGATION REMOTE </90 D LEATHER CRAFTSMAN REVIEW completed Pacemaker Interrogation, Remote (Prof) Martin Brooks MD INTERROGATION EVAL REMOTE </90 D 1/2/NOCTURNIST PHYSICIAN LEAD P completed ICM Interrogation, Remote (Prof) Martin Brooks MD INTERROGATION EVAL REMOTE </30 D CV MNTR SYS completed ICM Interrogation, Remote (Tech) Martin Brooks MD INTERROGATION EVAL REMOTE </30 D TECH REVIEW completed ICM Interrogation, Remote (Prof) Martin Brooks MD INTERROGATION EVAL REMOTE </30 D CV MNTR SYS completed ICM Interrogation, Remote (Tech) Martin Brooks MD INTERROGATION EVAL REMOTE </30 D TECH REVIEW completed EKG Martin Brooks MD complet ed ICM Interrogation, Remote (Prof) Martin Boroks MD INTERROGATION EVAL REMOTE </30 D CV MNTR SYS completed Pacemaker Interrogation, Remote (Tech) Martin Brooks MD INTERROGATION REMOTE </90 D LEATHER CRAFTSMAN REVIEW completed Pacemaker Interrogation, Remote (Prof) Martin Brooks MD INTERROGATION EVAL REMOTE </90 D 1/2/NOCTURNIST PHYSICIAN LEAD P completed ICM Interrogation, Remote (Prof) Martin Brooks MD INTERROGATION EVAL REMOTE </30 D CV MNTR SYS completed Pacemaker Interrogation, Remote (Tech) Martin Brooks MD INTERROGATION REMOTE </90 D LEATHER CRAFTSMAN REVIEW completed Pacemaker Interrogation, Remote (Prof) Martin Brooks MD INTERROGATION EVAL REMOTE </90 D 1/2/NOCTURNIST PHYSICIAN LEAD P completed ICM Interrogation, Remote (Prof) Martin Brooks MD INTERROGATION EVAL REMOTE </30 D CV MNTR SYS completed ICM Interrogation, Remote (Tech) Martin Brooks MD INTERROGATION EVAL REMOTE </30 D TECH REVIEW completed ICM Interrogation, Remote (Prof) Martin Brooks MD INTERROGATION EVAL REMOTE </30 D CV MNTR SYS completed ICM Interrogation, Remote (Tech) Martin Brooks MD INTERROGATION EVAL REMOTE </30 D TECH REVIEW completed ICM Interrogation, Remote (Prof) Martin Brooks MD INTERROGATION EVAL REMOTE </30 D CV MNTR SYS completed Pacemaker Interrogation, Remote (Tech) Martin Brooks MD INTERROGATION REMOTE </90 D LEATHER CRAFTSMAN REVIEW completed Pacemaker Interrogation, Remote (Prof) Martin Brooks MD INTERROGATION EVAL REMOTE </90 D 1/2/NOCTURNIST PHYSICIAN LEAD P completed ICM Interrogation, Remote (Prof) Martin Brooks MD INTERROGATION EVAL REMOTE </30 D CV MNTR SYS completed ICM Interrogation, Remote (Tech) Martin Brooks MD INTERROGATION EVAL REMOTE </30 D TECH REVIEW completed Schedule Followup Adi ferro MD fu with Dr. Brooks only completed EKG Adi fortune MD completed BLOOD COUNT HEMOGLOBIN Adi dao MD completed Schedule Followup Adi ferro MD fu with dr. Martinez in 1 months completed EKG Adi fortune MD completed Pacemaker Interrogation, Remote (Tech) Martin Brooks MD INTERROGATION REMOTE </90 D LEATHER CRAFTSMAN REVIEW completed Pacemaker Interrogation, Remote (Prof) Martin Brooks MD INTERROGATION EVAL REMOTE </90 D 1/2/NOCTURNIST PHYSICIAN LEAD P completed EKG Adi fortune MD completed ICM Interrogation, Remote (Prof) Martin Brooks MD INTERROGATION EVAL REMOTE </30 D CV MNTR SYS completed Pacemaker Interrogation, Remote (Tech) Martin Brooks MD INTERROGATION REMOTE </90 D LEATHER CRAFTSMAN REVIEW completed Pacemaker Interrogation, Remote (Prof) Martin Brooks MD INTERROGATION EVAL REMOTE </90 D 1/2/NOCTURNIST PHYSICIAN LEAD P completed Schedule Followup Adi ferro MD with [facility] for fu completed EKG Adi fortune MD completed EKG Martin Brooks MD complet ed ICM Interrogation, Remote (Prof) Martin Brooks MD INTERROGATION EVAL REMOTE </30 D CV MNTR SYS completed ICM Interrogation, Remote (Tech) Martin Brooks MD INTERROGATION EVAL REMOTE </30 D TECH REVIEW completed EKG Martin Brooks MD complet ed ICM Interrogation, Remote (Prof) Martin Brooks MD INTERROGATION EVAL REMOTE </30 D CV MNTR SYS completed ICM Interrogation, Remote (Tech) Martin Brooks MD INTERROGATION EVAL REMOTE </30 D TECH REVIEW completed ICM Interrogation, Remote (Prof) Martin Brooks MD INTERROGATION EVAL REMOTE </30 D CV MNTR SYS completed ICM Interrogation, Remote (Tech) Martin Brooks MD INTERROGATION EVAL REMOTE </30 D TECH REVIEW completed ICM Interrogation, Remote (Prof) Martin Brooks MD INTERROGATION EVAL REMOTE </30 D CV MNTR SYS completed ICM Interrogation, Remote (Tech) Martin Brooks MD INTERROGATION EVAL REMOTE </30 D TECH REVIEW completed ePrescribe - Check t his box if eRx is used Martin Brooks MD completed ICM Interrogation, Remote (Prof) Martin Brooks MD INTERROGATION EVAL REMOTE </30 D CV MNTR SYS completed ICM Interrogation, Remote (Tech) Martin Brooks MD INTERROGATION EVAL REMOTE </30 D TECH REVIEW completed ICM Interrogation, Remote (Prof) Martin Brooks MD INTERROGATION EVAL REMOTE </30 D CV MNTR SYS completed Pacemaker Interrogation, Remote (Tech) Martin Brooks MD INTERROGATION REMOTE </90 D LEATHER CRAFTSMAN REVIEW completed Pacemaker Interrogation, Remote (Prof) Martin Brooks MD INTERROGATION EVAL REMOTE </90 D 1/2/NOCTURNIST PHYSICIAN LEAD P completed ICM Interrogation, Remote (Prof) Martin Brooks MD INTERROGATION EVAL REMOTE </30 D CV MNTR SYS completed ICM Interrogation, Remote (Tech) Martin Brooks MD INTERROGATION EVAL REMOTE </30 D TECH REVIEW completed ICM Interrogation, Remote (Prof) Martin Brooks MD INTERROGATION EVAL REMOTE </30 D CV MNTR SYS completed ICM Interrogation, Remote (Tech) Martin Brooks MD INTERROGATION EVAL REMOTE </30 D TECH REVIEW completed EKG Martin Brooks MD complet ed ePrescribe - Check t his box if eRx is used Martin Brooks MD completed EKG Martin Brooks MD complet ed EKG Martin Brooks MD complet ed EKG Martin Brooks MD complet ed
--- OUTSIDE RECORDS SUMMARY | 2024-06-10 16:35 | XMS_ITS ---
Author Organization [facility] Address [address] [address] [place] [address] Care Team Providers Care [employer] Assistant Name Role Phone Enoch Mondragon Unavailable [phone] MEDICATIONS Medication SIG (Take, Route, Frequency, Duration) Notes Start Date End Date Status amLODIPine Besylate 10 MG 1 tablet Orall y Once a day for 90 08/08/2023 Active Carvedilol 25 MG 1 tablet with food Orally Twice a day for 90 days 10/29/2023 Active Calcitriol 0.25 MCG 1 capsule Orally Onc e a day for 90 day(s) 08/08/2023 12/19/2024 Active Ergocalciferol 1.25 MG (56729 UT) 1 capsule Orally Once a week for 90 day(s) 08/08/2023 02/01/2025 Active PROBLEMS Problem Type ICD Code Onset Dates Problem Status W/U Status Risk SNOMED Code Notes Problem Vitamin D deficiency, unspecified (E55.9) Active confirmed Vitamin D deficiency (44104392) Encounters Encounter Location Date Provider Diagnosis [place] [facility] [address] [facility] [address] [place] [address] 05/26/2024 Enoch Mondragon Chronic kidney disea se, stage 2 (mild) N18.2 ; Essential hypertension I10 ; Renal osteodystrophy N25.0 ; Vitamin D deficiency, unspecified E55.9 ; Abnormal results of thyroid function studies R94.6 and Glycosuria R81 ASSESSMENTS Encounter Date Diagnosis Assessment Notes Treatment Notes Treatment Clinical Notes Section Notes 05/26/2024 Chronic kidney disease, stage 2 (mild) (ICD-10 - N18.2) 05/26/2024 Essential hypertension (ICD-10 - I10) 05/26/2024 Renal osteodystrophy (ICD-10 - N25.0) 05/26/2024 Vitamin D deficiency, unspecified (ICD-10 - E55.9) 05/26/2024 Abnormal results of thyroid function studies (ICD-10 - R94.6) 05/26/2024 Glycosuria (ICD-10 - R81) PLAN OF TREATMENT Next Appt Details Provider Name:Enoch Mondragon , 07/14/2024 04:00:00 PM, [address], [facility] [address], [place], [address], Progress Notes * OTONIEL HARVEYDOB:1950 (73 yo M)Acc No.[id number]:05/26/2024 Progress Notes Patient:??OTONIEL HARVEY Provider:??MD HARIS, F.A.C.P, F.A.S .N. :1950?Age:73 Y?Sex:Shiv le Date:05/26/2024 Address:[address] [place], [place] [id number] Subjective: * Chief Complaints: * ? * Medical History:?? * Medications:??Taking amLODIP ine Besylate 10 MG Tablet 1 tablet Orally Once a day , Taking Carvedilol 25 MG Tablet 1 tablet with food Orally Twice a day , Taking Calcitriol 0.25 MCG Capsule 1 capsule Orally Once a day , stop date 12/19/2024, Taking Ergocalciferol 1.25 MG (24182 UT) Capsule 1 capsule Orally Once a week , stop date 02/01/2025 Objective: Assessment: * Assessment: 1.??Chronic kidney disease, stage 2 (mild) - N18.2 (Primary)??2.??Essential hypertension - I10??3.??Renal osteodystrophy - N25.0??4.??Vitamin D deficiency, unspecified - E55.9??5.??Abnormal results of thyroid function studies - R94.6??6.??Glycosuria - R81?? Plan: * Treatment: * Billing Information: * Visit Code:?? 73435 Office Visit, Est Pt., Level 4. * Procedure Codes:?? * ING CHECKER Sign off status: Pending * Provider:??MD HARIS, F.A.C.P, F.A.S .N. Date:??05/26/2024
--- OUTSIDE RECORDS SUMMARY | 2024-06-10 16:35 | XMS_ITS | Clinical Summary ---
Author Organization [facility] Anna Morrismiguel Address [address] [place] [address] Care Team Providers Care Php Developer Name Role Phone Unavailable Primary Care Provider Unavailabl e Allergies No known active allergies Medications a lipoic hvcx-boyykb-rfl berine 125 mg-95 mcg- 250 mg Capsule Take 1 Capsule by mouth daily. Active albuterol sulfate HFA 90 mcg/actuation aerosol inhaler Take 2 Puffs by inhalation see administration instructions. 03/28/20 24 Active testosterone (AndroGeL) 20.25 mg/1.25 gram (1.62 %) Gel in Metered-dose Pump Apply 12.5 mg to affected area daily. Active multivitamin-mi v-mmvz-BF-vit K (Bariatric Multivitamins) 45 mg iron- 800 mcg-120 mcg Capsule daily. Active umeclidinium (Incruse Ellipta) 62.5 mcg/actuation Disk with Device 1 Puff by See Admin Instructions route daily. Active Incruse Ellipta 62.5 mcg/actuation Disk with Device USE 1 INHALATION ORALLY DAILY DIRECTED Active coenzyme Q10 100 mg Capsule Take by mouth. Active testosterone (ANDROGEL) 20.25 mg/1.25 gram (1.62 %) Gel in Metered-dose Pump 06/04/19 25 Active terazosin (HYTRIN) 5 mg capsule TAKE 1 CAPSULE AT BEDTIME 04/15/20 24 Active sotaloL (BETAPACE) 120 mg Tablet TAKE 1 AND 1/2 TABLETS TWICE DAILY 05/19/19 25 Active sertraline (ZOLOFT) 50 mg tablet Take 50 mg by mouth daily. Active rOPINIRole (REQUIP) 0.25 mg tablet Take 0.25 mg by mouth daily. Active ondansetron (ZOFRAN) 4 mg Tablet TAKE 1 TABLET BY MOUTH 1 HOUR PRIOR TO PROCEDURE 05/25/19 25 Active magnesium oxide (MAG-OX) 400 mg (241.3 mg magnesium) tablet magnesium oxide 400 mg (241.3 mg magnesium) tablet Active losartan (COZAAR) 100 mg tablet Take 100 mg by mouth daily. Active Unithroid 25 mcg tablet Take 25 mcg by mouth daily. Active isosorbide mononitrate (IMDUR) 30 mg Extended Release 24 hour tablet isosorbide mononitrate 30 mg tablet extended release 24 hr 12/28/19 22 Active HYDROcodone-chirstophe taminophen (NORCO) 7.5-325 mg Tablet TAKE 1 TABLET BY MOUTH 1 HOUR BEFORE PROCEDURE, THEN 1 TABLET EVERY 6 HOURS NEEDED FOR 7 DAYS 05/25/19 25 Active HYDROcodone-christophe taminophen (NORCO) 5-325 mg tablet 06/09/19 25 Active ferrous sulfate 325 mg (65 mg iron) tablet ferrous sulfate 325 mg (65 mg iron) tablet Active ergocalciferol (VITAMIN D2) 50,000 unit capsule 1 Capsule. 08/08/19 24 025 Active Jardiance 10 mg tablet Take 10 mg by mouth daily. Active diazePAM (VALIUM) 5 mg tablet TAKE 5 TABLETS BY MOUTH 1 HOUR BEFORE PROCEDURE, THEN EVERY 6 HOURS NEEDED 05/25/19 25 Active clopidogreL (PLAVIX) 75 mg Tablet take 1 tablet once daily 04/02/20 24 Active carvediloL (COREG) 25 mg tablet 2 times daily. 02/29/20 23 Active calcitRIOL (ROCALTROL) 0.25 mcg capsule 1 Capsule. 08/08/19 24 025 Active budesonide-form oteroL (SYMBICORT) 80-4.5 mcg/actuation HFA Aerosol Inhaler Take 2 Puffs by inhalation 2 times daily. Active Breyna 160-4.5 mcg/actuation HFA Aerosol Inhaler USE 2 INHALATIONS ORALLY TWICE DAILY Active budesonide-form oteroL (SYMBICORT) 80-4.5 mcg/actuation HFA Aerosol Inhaler budesonide-formote rol 80-4.5 mcg/actuation HFA aerosol inhaler Active atorvastatin (LIPITOR) 20 mg tablet atorvastatin 20 mg tablet 04/30/20 24 Active Eliquis 5 mg tablet Take 5 mg by mouth 2 times daily. 06/04/19 25 Active amLODIPine (NORVASC) 10 mg tablet 1 tablet Orally Once a day for 90 08/08/19 24 Active BERBERINE CHLORIDE ORAL BERBERINE COMPLEX CAPSULE Active Active Problems No known active problems Encounters Date Type Department Care Team Description 06/10/2024 3:00 PM SOLE STAINER Office Visit [facility] [address] [place] [address] David Mg MD Other secondary thrombocytopenia (Primary Dx); Chronic anemia from Last 3 Months Family History Medical History Relation Name Comments No Known Problems Brother 1 No Known Problems Brother 2 No Known Problems Brother 3 Diabetes Brother 4 Heart Disease Father Heart Disease Mother No Known Problems Sister 1 No Known Problems Sister 2 Relation Name Status Comments Brother 1 Alive Brother 2 Alive Brother 3 Alive Brother 4 Father Mother Sister 1 Alive Sister 2 Alive Social History Tobacco Use Types Packs/Day Years Used Date Smoking Tobacco: Never Smokeless Tobacco: Never Tobacco Cessation:Counseling Given: Not Answered Alcohol Use Standard Drinks/Week Comments Yes 0 (1 standard drink = 0.6 oz pur e alcohol) Occasionally Sex and Gender Information Value Date Recorded Sex Assigned at Not on file Legal Sex Male 10:28 AM SOLE STAINER Gender Identity Not on file Sexual Orientation Not on file Last Filed Vital Signs Vital Sign Reading Time Taken Comments Blood Pressure 119/76 06/10/2024 3:46 PM SOLE STAINER Pulse 70 06/10/2024 3:42 PM SOLE STAINER Temperature 36.3 ??C (97.4 ??F) 06/10/2024 3:42 PM CS T Respiratory Rate 16 06/10/2024 3:42 PM SOLE STAINER Oxygen Saturation 96% 06/10/2024 3:42 PM SOLE STAINER Inhaled Oxygen Concentration - - Weight 126.6 kg (279 lb) 06/10/2024 3:42 PM SOLE STAINER Height 185.4 cm (6' 1 ) 06/10/2024 3:42 PM SOLE STAINER Body Mass Index 36.81 06/10/2024 3:42 PM SOLE STAINER Plan of Treatment Upcoming Encounters Date Type Department Care Team (Late st Contact Info) Description 07/01/2024 4:30 PM SOLE STAINER Telephone Check Up [facility] [address] [place] [address] David Mg MD [address] [facility] [address] [place] [address] Health Maintenance Due Date Last Done Comments DTAP/TDAP/TD VACCINES (1 - Tdap) 1969 COLORECTAL SCREENING 08/17/1995 Colorectal Cancer Screening 08/17/1995 FIT-DNA Q 3 years 08/17/1995 FIT/FOBT Q 1 year 08/17/1995 Flex Sig/CT Colonography Q 5 years 08/17/1995 PNEUMOCOCCAL VACCINE 65+ YEARS (1 of 1 - PCV) 08/17/19 ZOSTER VACCINE (1 of 2) 2000 RSV VACCINE (60+ or ) (1 - Risk 60-74 years 1-dose series) 2010 INFLUENZA VACCINE (#1) 2023 Medicare [place]) Prev entative Visit/Annual Wellness Visit 05/12/2024 Insurance [employer]ET[employer] PPO [facility]
--- OUTSIDE RECORDS SUMMARY | 2024-06-10 16:35 | XMS_ITS | Encounter Summary ---
Author Organization [facility] [employer] [facility] Address [address] [place] [address] Care Team Providers Care Manager Of Pharmacy Name Role Phone Unavailable Primary Care Provider Unavailabl e Reason for Referral * Radiology Services (Routine) - Closed Specialty Diagnoses / Procedures Referred By Contac t Referred To Contact Diagnoses Other secondary thrombocytopenia Procedures US ABDOMEN COMPLETE David Mg MD [address] [facility] [address] [place] [address] Phone: tel: fax: [place] [phone] Referral ID Status Reason Start Date Expiration Date Visits Re quested Visits Authorized [id number] Closed 06/10/2024 07/11/2025 1 1 L [employer] Encounter Details Date Type Department Care Team (Late st Contact Info) Description 06/10/2024 3:00 PM [employer] Office Visit [facility] Oncology and Hematology [address] [facility] [address] [place] [address] David Mg MD [address] [employer] [address] [place] [phone] Other secondary thrombocytopenia (Primary Dx); Chronic anemia Social History Tobacco Use Types Packs/Day Years Used Date Smoking Tobacco: Never Smokeless Tobacco: Never Tobacco Cessation:Counseling Given: Not Answered Alcohol Use Standard Drinks/Week Comments Yes 0 (1 standard drink = 0.6 oz pur e alcohol) Occasionally Sex and Gender Information Value Date Recorded Sex Assigned at Not on file Legal Sex Male 10:28 AM [employer] Gender Identity Not on file Sexual Orientation Not on file documented as of this encounter Last Filed Vital Signs Vital Sign Reading Time Taken Comments Blood Pressure 119/76 06/10/2024 3:46 PM [employer] Pulse 70 06/10/2024 3:42 PM [employer] Temperature 36.3 ??C (97.4 ??F) 06/10/2024 3:42 PM CS T Respiratory Rate 16 06/10/2024 3:42 PM [employer] Oxygen Saturation 96% 06/10/2024 3:42 PM [employer] Inhaled Oxygen Concentration - - Weight 126.6 kg (279 lb) 06/10/2024 3:42 PM [employer] Height 185.4 cm (6' 1 ) 06/10/2024 3:42 PM [employer] Body Mass Index 36.81 06/10/2024 3:42 PM [employer] documented in this encounter Plan of Treatment Upcoming Encounters Date Type Department Care Team (Late st Contact Info) Description 07/01/2024 4:30 PM [employer] Telephone Check Up [facility] Oncology and Hematology - [place] [address] [facility] [address] [place] [address] David Mg MD [address] [facility] [address] [place] [address] Scheduled Orders Name Type Priority Associated Diagnoses Orde r Schedule CBC WITH DIFFERENTIAL Lab Stat Chronic anemia Expected: 06/10/2024, Expires: 06/10/2025 COMPREHENSIVE METABOLIC PANEL Lab Stat Chronic anemia Expected: 06/10/2024, Expires: 06/10/2025 FERRITIN Lab Routine Chronic anemia Expected: 06/10/2024, Expires: 06/10/2025 IRON, TIBC, AND PERCENT SATURATION Lab Routine Chronic anemia Expected: 06/10/2024, Expires: 06/10/2025 VITAMIN B12 AND FOLATE Lab Routine Chronic anemia Expected: 06/10/2024, Expires: 06/10/2025 METHYLMALONIC ACID Lab Routine Chronic anemia Expected: 06/10/2024, Expires: 06/10/2025 TRANSFERRIN RECEPTOR TFR SOLUBLE Lab Routine Chronic anemia Expected: 06/10/2024, Expires: 06/10/2025 US ABDOMEN COMPLETE Imaging Routine Other secondary thrombocytopenia 1 Occurrences starting 06/10/2024 until 06/10/2025 MISCELLANEOUS LAB TEST Lab Routine Other secondary thrombocytopenia Expected: 06/10/2024, Expires: 06/10/2025 documented as of this encounter Visit Diagnoses Diagnosis Other secondary thrombocytopenia- Primary Chronic anemia Anemia, unspecified documented in this encounter
--- OUTSIDE RECORDS SUMMARY | 2024-06-10 16:35 | XMS_ITS ---
Author Organization [facility] Address [address] [facility] [address] [facility] [address] [place] [address] Care Team Providers Care Flying Instructor Name Role Phone Giancarlo Enoch Unavailable [phone] MEDICATIONS Medication SIG (Take, Route, Fr equency, Duration) Notes Start Date End Date Status Calcitriol 0.25 MCG 1 capsule Orally Onc e a day for 90 day(s) 08/08/2023 12/19/2024 Active Encounters Encounter Location Date Provider Diagnosis [place] [facility] [address] [facility] [address] [place] [address] 03/24/2024 Enoch Mondragon PLAN OF TREATMENT Medication Medication Name Sig Start Date Stop Date Notes Calcitriol 0.25 MCG 1 capsule Orally Onc e a day for 90 day(s) 08/08/2023 12/19/2024 Next Appt Details Provider Name:Enoch Mondragon , 07/14/2024 04:00:00 PM, [address] [facility], [place], [address], Progress Notes * OTONIEL HARVEYDOB:1950 (73 yo M)Acc No.[id number]:03/24/2024 Patient:??OTONIEL HARVEY :1950?Age:73 Y?Sex:Shiv lee Address:[address] [place] [address] * Refills?? Refill Calcitriol Capsule, 0.25 MCG, Orally, 90 Capsule, 1 capsule, Once a day, 90 day(s), Refills=2 * * Date:??
[2024-06-10 17:09] LABS: Basophils Percent Auto 0.2 % (0.2-1.2); Eosinophils Absolute Auto 0.1 K/mm3 (0-0.3); Eosinophils Percent Auto 1.7 % (0-4.4); Hemoglobin 14.6 g/dL (14.0-18.0); Immature Granulocyte Absolute 0.02 K/mm3 (0.00-0.031); Immature Granulocyte Percent A 0.3 % (0-0.5); Lymphocytes Percent Auto 19.2 % (18.3-44.2); Mean Corpuscular HGB Conc 32.4 g/dl (32-36); Mean Corpuscular Hemoglobin 29.9 pg (26-34); Mean Corpuscular Volume 92.2 fl (80-100); Monocytes Absolute Auto 0.5 K/mm3 (0.1-0.6); Monocytes Percent Auto 9.1 % (2.6-8.5); Neutrophils Percent Auto 69.5 % (45.5-73.1); Platelet Count Result 148 k/mm3 (150-375); Red Blood Count 4.88 M/mm3 (4.6-6.20); Red Cell Distribution Width 14.2 % (11.5-14.5); White Blood Count 5.7 K/mm3 (4.5-10.0)
[2024-06-10 17:33] LABS: Alanine Aminotransferase 30 U/L (6-50); Albumin Level 4.3 g/dL (3.5-5.1); Alkaline Phosphatase 66 U/L (38-126); Anion Gap 9 mmol/L (4-12); Aspartate Amino Transferase 31 U/L (17-59); Bilirubin,Total 1.2 mg/dL (0.2-1.3); Blood Urea Nitrogen 23 mg/dL (9-20); Calcium 9.2 mg/dL (8.4-10.2); Carbon Dioxide 28 mmol/L (22-30); Chloride 103 mmol/L (98-107); Estimated Glomerular Filt Rate > 60; Glucose 88 mg/dL (65-110); Sodium 140 mmol/L (137-145)
[2024-06-10 17:47] LABS: Iron 70 ug/dL (49-181)
[2024-06-10 17:59] LABS: Percent Iron Saturation 22 % (20-50)
[2024-06-10 19:22] LABS: Folic Acid > 20.0 ng/mL (2.76->20)
== END 2024-06-10 16:24 | disposition home or self-care (01) ==
LOC: ANHLAB 16:30
PROVIDERS: PCP Internal Medicine; Visit Provider Internal Medicine Hematology & Oncology
DX: D64.9 Anemia, unspecified (principal)
CPT/HCPCS: 36415; 80053; 82607; 82728; 82746; 83540; 83550; 83921; 85025

== ENCOUNTER 2024-06-25 07:36 | Outpatient (CLI) | payer MEDICARE, SELFPAY ==
--- NOTE | ~2024-06-25 | US_ITS ---
EXAMINATION: US abdomen complete DATE: 06/25/2024 09:02 INDICATION: Other thrombocytopenia. TECHNIQUE: Multiple grayscale and Doppler ultrasound images of the abdomen were obtained. COMPARISON: None FINDINGS: Abdominal aorta is normal in caliber. Inferior vena cava is normal. The visualized portions of the head, body, and tail of the pancreas are normal. The liver is normal without focal lesion. Th ere is normal flow in main portal vein. The gallbladder is normal in size. No gallstones or gallbladd er wall thickening. There is no sonographic Salter's sign. The common duct is normal and measures 4 m m. The kidneys are normal in size. There are cysts in the kidneys measuring up to 5.0 cm on the right . The spleen is normal in size. IMPRESSION: 1. No significant abnormality. Reviewed, dictated and finalized at location A. KSMITH HAMMER OPERATOR
--- OUTSIDE RECORDS SUMMARY | 2024-06-25 07:40 | XMS_ITS ---
Author Organization [facility] Address [address] [facility] 61 [facility] [address] [place] [address] Care Team Providers Care Criminal Investigator Name Role Phone Giancarlo Enoch Unavailable [phone] MEDICATIONS Medication SIG (Take, Route, Fr equency, Duration) Notes Start Date End Date Status Calcitriol 0.25 MCG 1 capsule Orally Onc e a day for 90 day(s) 08/08/2023 12/19/2024 Active Encounters Encounter Location Date Provider Diagnosis [place] [facility] [address] [facility] [address] [place] [address] 03/24/2024 Enoch Mondragon PLAN OF TREATMENT Medication Medication Name Sig Start Date Stop Date Notes Calcitriol 0.25 MCG 1 capsule Orally Onc e a day for 90 day(s) 08/08/2023 12/19/2024 Next Appt Details Provider Name:Enoch Mondragon , 07/14/2024 04:00:00 PM, [address] [place] [address], [place], [address], Progress Notes * WES, RICHDOB:1950 (73 yo M)Acc No.[id number]:03/24/2024 Patient: OTONIEL HARVEY :1950 Age:73 Y Sex:Male Address:[address] [place] [address] * Refills Refill Calcitriol Capsule, 0.25 MCG, Orally, 90 Capsule, 1 capsule, Once a day, 90 day(s), Refills=2 * * Date:
--- OUTSIDE RECORDS SUMMARY | 2024-06-25 07:40 | XMS_ITS | Continuity of Care Document ---
Author Organization Located within [facility] Address [address] [place] [address] Phone Care Team Providers Care Diamond Setter Apprentice Name Role Phone Galvan OD, Francisco Unavailable Unavailable Procedures Procedure Date Office/outpatient Visit, Est Refraction Advance Directives Directive Yes / No Effective Date File Name No Information Encounters Encounter Description Practice Location Reason(s) For Visit Diagnoses Date Provider Providers Copied on Encounter [facility]pat [facility] [address], [place], [place], [id number], [place] tel:[phone] [facility] No Information [phone] Galvan OD Francisco. [address] , [address], [place], [address], [place]. tel:[phone] Family History Family Member Type Diagnosis Age At Onset No Information Payers Payer name Insurance type Covered libertarian ID Authoriza tion(s) No Information Social History [...]
--- OUTSIDE RECORDS SUMMARY | 2024-06-25 07:41 | XMS_ITS | Patient Health Record ---
Author Organization [facility] Address [address] [place] [address] Care Team Providers Care Cafe Worker Name Role Phone Enoch Mondragon Unavailable [phone] REASON FOR REFERRAL No Information MEDICATIONS Medication [...] day(s) 08/08/2023 12/19/2024 Active Ergocalciferol 1.25 MG (64208 UT) 1 capsule Orally Once a week for 90 day(s) 08/08/2023 02/01/2025 Active PROBLEMS Problem Type ICD Code Onset Dates Problem Status W/U Status Risk SNOMED Code Notes Problem Type 2 diabetes mellitus without complications (E11.9) Active confirmed Type II diabete s mellitus without complication (577034885) Problem Secondary hyperparathyroid ism, not elsewhere classified (E21.1) Active confirmed Secondary hyperparathyroidism (71161784) Problem Vitamin D deficiency, unspecified (E55.9) Active confirmed Vitamin D defic iency (15709855) Problem Anxiety disorder, unspecified (F41.9) Active confirmed Anxiety disorde r (823464031) Problem Chronic kidney disease, stage 2 (mild) (N18.2) Active confirmed Chronic kidne y disease stage 2 (299403166) Problem Renal osteodystrophy (N25.0) Active confirmed Renal osteodyst rophy (09354800) Problem Chronic fatigue, unspecified (R53.82) Active confirmed Chronic fatigue syndrome (disorder) (38411678) Problem Other proteinuria (R80.8) Active confirmed Proteinuria (84150146) Problem Essential hypertension (I10) Active confirmed Essential hypertension (52947448) Problem Chronic kidney disease, stage 3 unspecified (N18.30) Active confirmed Chronic kidney disease stage 3 (disorder) (712558964) Encounters Encounter Location Date Provider Diagnosis [place] [facility] [address] [address] 07/25/2023 Enoch Mondragon Chronic kidney disea se, stage 3 unspecified N18.30 ; Anxiety disorder, unspecified F41.9 ; Chronic fatigue, unspecified R53.82 ; Other proteinuria R80.8 ; Renal osteodystrophy N25.0 and Secondary hyperparathyroidism, not elsewhere classified E21.1 [facility] [address] [address] 08/08/2023 Enoch Mondragon Chronic kidney disea se, stage 3 unspecified N18.30 ; Anxiety disorder, unspecified F41.9 ; Chronic fatigue, unspecified R53.82 ; Other proteinuria R80.8 ; Renal osteodystrophy N25.0 and Secondary hyperparathyroidism, not elsewhere classified E21.1 [facility] [address] [address] 09/12/2023 Enoch Mondragon Chronic kidney disea se, stage 3 unspecified N18.30 ; Anxiety disorder, unspecified F41.9 ; Chronic fatigue, unspecified R53.82 ; Other proteinuria R80.8 ; Renal osteodystrophy N25.0 and Secondary hyperparathyroidism, not elsewhere classified E21.1 [facility] [address] [address] 12/12/2023 Enoch Mondragon Chronic kidney disea se, stage 3 unspecified N18.30 ; Essential hypertension I10 ; Type 2 diabetes mellitus without complications E11.9 ; Anxiety disorder, unspecified F41.9 ; Chronic fatigue, unspecified R53.82 ; Other proteinuria R80.8 ; Renal osteodystrophy N25.0 and Secondary hyperparathyroidism, not elsewhere classified E21.1 [facility] [address] [address] 02/27/2024 Enoch Mondragon [facility] [address] [address] 03/24/2024 Enoch Mondragon Anxiety disorder, unspecified F41.9 ; Chronic kidney disease, stage 2 (mild) N18.2 ; Chronic fatigue, unspecified R53.82 ; Other proteinuria R80.8 ; Renal osteodystrophy N25.0 ; Secondary hyperparathyroidism, not elsewhere classified E21.1 ; Essential hypertension I10 ; Type 2 diabetes mellitus without complications E11.9 and Chronic kidney disease, stage 3 unspecified N18.30 [facility] [address] [address] 05/26/2024 Enoch Mondragon Chronic kidney disea se, stage 2 (mild) N18.2 ; Essential hypertension I10 ; Renal osteodystrophy N25.0 ; Vitamin D deficiency, unspecified E55.9 ; Abnormal results of thyroid function studies R94.6 and Glycosuria R81 [facility] [address] [place] [address] 03/24/2024 Enoch Mondragon [facility] [address] [address] 08/08/2023 Enoch Mondragon [facility] [address] [address] 09/12/2023 Enoch Mondragon [facility] [address] [address] 10/29/2023 Enoch Mondragon [facility] [address] [address] 05/07/2024 Enoch Mondragon ASSESSMENTS Encounter Date Diagnosis [...] Name:Enoch Mondragon , 07/14/2024 04:00:00 PM, [address] [facility], [facility], [place], [address],
--- OUTSIDE RECORDS SUMMARY | 2024-06-25 07:41 | XMS_ITS ---
Author Organization [facility] Address [address] [place] [address] [place] [address] Care Team Providers Care Natural Sciences Professor Name Role Phone Enoch Mondragon Unavailable [phone] MEDICATIONS Medication SIG (Take, Route, Frequency, Duration) Notes Start Date End Date Status amLODIPine Besylate 10 MG 1 tablet Orall y Once a day for 90 08/08/2023 Active Carvedilol 25 MG 1 tablet with food Orally Twice a day for 90 days 10/29/2023 Active Calcitriol 0.25 MCG 1 capsule Orally Onc e a day for 90 day(s) 08/08/2023 12/19/2024 Active Ergocalciferol 1.25 MG (23110 UT) 1 capsule Orally Once a week for 90 day(s) 08/08/2023 02/01/2025 Active PROBLEMS Problem Type ICD Code Onset Dates Problem Status W/U Status Risk SNOMED Code Notes Problem Vitamin D deficiency, unspecified (E55.9) Active confirmed Vitamin D deficiency (04883570) Encounters Encounter Location Date Provider Diagnosis [place] [facility] [address] [facility] 15 [place] [address] 05/26/2024 Enoch Mondragon Chronic kidney disea se, [...] OF TREATMENT Next Appt Details Provider Name:Enoch Giancarlo , 07/14/2024 04:00:00 PM, [address] [facility], [facility] [address], [address], Progress Notes * OTONIEL HARVEYDOB:1950 (73 yo M)Acc No.[id number]:05/26/2024 Progress Notes Patient: OTONIEL HARVEY Provider: MD HARIS, F.Sal.C.P, F.A.S.N. :1950 Age:73 Y Sex:Male Date:05/26/2024 Address:[address] [place] [address] Subjective: * Chief Complaints: * * Medical History: * Medications: Taking amLODIPine Besylate 10 MG Tablet 1 tablet Orally Once a day , Taking Carvedilol 25 MG Tablet 1 tablet with food Orally Twice a day , Taking Calcitriol 0.25 MCG Capsule 1 capsule Orally Once a day , stop date 12/19/2024, Taking Ergocalciferol 1.25 MG (85150 UT) Capsule 1 capsule Orally Once a week , stop date 02/01/2025 Objective: Assessment: * Assessment: 1. Chronic kidney disease, stage 2 (mild) - N18.2 (Primary) 2. Essential hypertension - I10 3. Renal osteodystrophy - N25.0 4. Vitamin D deficiency, unspecified - E55.9 5. Abnormal results of thyroid function studies - R94.6 6. Glycosuria - R81 Plan: * Treatment: * Billing Information: * Visit Code: 53652 Office Visit, Est Pt., Level 4. * Procedure Codes: * ER PATROL OFFICER Sign off status: Pending * Provider: MD HARIS, Anya.Sal.C.P, F.A.S.N. Date: 05/26/2024
--- OUTSIDE RECORDS SUMMARY | 2024-06-25 07:42 | XMS_ITS | Referral Summary ---
Author Organization [facility] Address [address] [place] [address] Care Team Providers Care Dynamometer Tester Name Role Phone Efraín Burch MD Primary Care Provider Source Comments [facility],non-[facility] Affiliates and Associated Physician Practices is amultiple site organization consisting of ambulatory clinics and hospital sitesin [place], [place], [place] and [place]. This disclosure is being madepursuant to the Care Everywhere program and may not contain all information available regarding this patient. Last updated 18.[facility] Social History Tobacco Use Types Packs/Day Years Used Date Smoking Tobacco: Never Assessed Sex and Gender Information Value Date Recorded Sex Assigned at Not on file Gender Identity Not on file Sexual Orientation Not on file Plan of Treatment Not on file Care Teams Dynamometer Tester Relationship Specialty Start Date End Date Efraín Burch MD [address] [facility] 15 [place] [address] PCP - General Internal Medicine 11/19/19
--- OUTSIDE RECORDS SUMMARY | 2024-06-25 07:42 | XMS_ITS | Data Portability ---
Author Organization [place] [facility] [employer], Main Office Address [address] [place] [address] Care Team Providers Care Datastage Architect Name Role Phone JOSE BURCH Primary Care Provider JOSE BURCH Referring Provider MARTIN BROOKS Hospitality Director ABEL BAEZA Correction Officer Head NAYAN AGUILAR Oil Derrick Operator JERALD HEBERT Parimutuel Ticket Checker Assessment Encounter Date Assessment Date Assessment LastModified by Organization Details LastModified Time 02/02/2024 02/02/2024 08/21/2022: A1C 5.9 Gluc 103, [...] 03/18/2024 03/18/2024 Assessment: Nicotine smoke: 1 ppd 9281-2568 = 46 pack years Mild COPD 3 mm LLL nodule Very severe OSAHS, AHI = 73 Iron deficiency PLMD Plan: The following were reviewed and explained to the patient: [facility] sleep study 02/13/05 AHI = 73, [...] reset at 15-18 cmH2O. 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 Keep ramp start at 4 cmH2O. Keep [...] carrier. Patient will setup an appointment with [facility] for supplies and pressure adjustments. A major [...] PCP for further management. Follow-[facility]: [facility] Not available 03/18/2024 10:52:43 03/22/2024 03/22/2024 [...] for ENT done, referrals provided, chart updated henri Not available 03/22/2024 10:39:35 06/17/2024 06/17/2024 Assessment: Nicotine smoke: 1 ppd 5293-6493 = 46 pack years Mild COPD 3 mm LLL nodule Very severe OSAHS, AHI = 73 Iron deficiency PLMD Plan: The following were reviewed and explained to the patient: [facility] sleep study 02/13/05 AHI = 73, [...] 11/06/23 83 ng/mL Ferritin 03/11/24 67 ng/mL Ferritin 05/14/24 47 ng/mL Differential diagnoses for pulmonary nodule: 1. [...] down on alcohol consumption and caffeine intake. Discontinue ropinirole. BUN, Creatinine, Vitamin E, Vitamin B12, RBC folate, Iron, TIBC, Ferritin, ESR, Magnesium, Hgb and Hct levels are within normal limits. Patient will continue FeSO4 325 mg + Vit C 500 mg twice daily to keep the ferritin > 75 ng/ml. Check ferritin one week before return. PAP compliance downloaded and interpreted x 20 minutes. Data reviewed and explained to the patient. Average apnea/hypopnea index (AHI) is 3.1. Patient used PAP > 4 hours 100% of the time. PAP is set at 15-18 cmH2O. PAP will be reset at 15-17 cmH2O. 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 Keep ramp start at 4 cmH2O. Keep [...] carrier. Patient will setup an appointment with [facility] for supplies and pressure adjustments. A major [...] PCP for further management. Follow-up: 3 months, September 2024 Not available 06/17/2024 11:25:57 06/23/2024 06/23/2024 08/21/2022: A1C 5.9 Gluc 103, AST 47 [...] 6.2, Glob 2.2 LDL 112 PLT 148 06/10/2024: Dr Mg BUN 23 45 minutes spent with patient, labs reviewed, referrals provided, chart updated [email or web address] Not available 06/23/2024 11:47:58 Plan of Treatment Reminders Order Date Submit Date Provider Last Modified By Organization Details Last Modified Time Details Appointments Any 15 2024 11:00A M Jerald Hebert MD Not available Not available Not available Follow Up 15 2024 10:00A M Jose smith MD Not available Not available Not available Lab lipid panel, serum 2024 025 [facility] (Lab), [address] [place], [address], 06/23/2024 12:50:42 CMP, serum or plasma 2024 025 [facility] (Lab), [address] [place], [address], 06/23/2024 12:50:42 CBC w/ auto diff 2024 025 [facility] (Lab), [address] [place], [address], 06/23/2024 12:50:42 TSH + free T4, serum 2024 025 [facility] (Lab), [address] [place], [address], 06/23/2024 12:50:42 glycohemo globin, total, blood 2024 025 [facility] (Lab), [address] [place], [address], 06/23/2024 12:50:42 microalbu min, urine 2024 025 [facility] (Lab), [address] [place], [address], 06/23/2024 12:50:42 TSH, serum or plasma 2024 025 [facility] (Lab), [address] [place], [address], 06/23/2024 12:50:42 T4, free, serum 2024 025 [facility] (Lab), [address] [place], [address], 06/23/2024 12:50:42 ferritin, serum or plasma [address] (Lab), [address] [place], [address], 06/17/2024 11:07:24 lipid panel, serum 2023 024 [email or web address] Not available 03/22/2024 10:48:50 CMP, serum or plasma 2023 024 MARTIN Not available 06/11/2024 03:56:10 CBC w/ auto diff 2023 024 MARTIN Not available 06/11/2024 03:56:11 TSH + free T4, serum 2023 024 [email or web address] Not available 03/22/2024 10:48:51 glycohemo globin, total, blood 2023 024 [email or web address] Not available 03/22/2024 10:48:51 microalbu min, urine 2023 024 [email or web address] Not available 03/22/2024 10:48:51 TSH, serum or plasma 2023 024 [email or web address] Not available 03/22/2024 10:48:52 T4, free, serum 2023 024 [email or web address] Not available 03/22/2024 10:48:52 ferritin, serum or plasma 2023 025 MARTIN Not available 06/17/2024 09:02:27 lipid panel, serum 2023 024 MARTIN Not available 03/11/2024 18:41:42 CMP, serum or plasma 2023 024 MARTIN Not available 03/11/2024 18:41:48 CBC w/ auto diff 2023 024 MARTIN Not available 03/11/2024 13:32:07 TSH + free T4, serum 2023 024 [email or web address] Not available 02/02/2024 12:20:59 glycohemo globin, total, blood 2023 024 MARTIN Not available 03/11/2024 13:56:51 microalbu min, urine 2023 024 [email or web address] Not available 02/02/2024 12:21:00 TSH, serum or plasma 2023 024 MARTIN Not available 03/11/2024 19:02:43 T4, free, serum 2023 024 MARTIN Not available 03/11/2024 18:43:58 Referral urologist referral 2024 025 [email or web address] Jean Mir MD, [address] [facility], [facility], [place], [address], 06/23/2024 17:32:26 podiatris t referral - Please call patient to schedule an appointme nt. Thank you. 2024 025 MARTIN Mckenzie DPM, [address] [facility], [address], [place], [address], 06/23/2024 18:17:55 hematolog ist referral 2024 025 [email or web address] David Mg, [address], [place], [address], 06/23/2024 17:34:26 cardiolog ist referral 2024 025 [email or web address] Martin Brooks, [address], [place], [address], 06/23/2024 17:29:22 urologist referral 2023 024 Jean Mir MD, [address], [facility], [place], [address], 03/22/2024 14:08:18 podiatris t referral 2023 024 [email or web address] Israel Mckenzie DPM, [address] [facility], [address], [place], [address], 03/22/2024 14:07:18 hematolog ist referral 2023 024 [email or web address] David Mg, [address], [place], [address], 06/22/2024 16:33:30 cardiolog ist referral 2023 024 [email or web address] Martin Brooks, [address], [place], [address], 03/22/2024 14:06:20 urologist referral 2023 024 Jean Mir MD, [address], [address], [place], [address], 02/05/2024 15:38:22 podiatris t referral 2023 024 [email or web address] Israel Mckenzie DPM, [address] [facility], [facility], [place], [address], 02/11/2024 11:44:20 cardiolog ist referral 2023 024 [email or web address] Martin Brooks, [address] , [place], [address], 02/02/2024 12:21:02 Procedures None recorded. Surgeries None recorded. Imaging CT, chest, w/o contrast 2024 025 eric Not available 06/17/2024 12:59:50 Medication Orders clobetaso l 0.05 % topical cream 2024 025 [id number], [address] [facility], [place], [place], [id number], 06/23/2024 12:06:48 ferrous sulfate 325 mg (65 mg iron) tablet 2024 025 [facility] [address] [place], [address], 06/17/2024 11:07:31 Vitamin C 500 mg tablet [address]/Pharmacy #3259, [address] [place], [address], 06/17/2024 11:36:04 albuterol sulfate HFA 90 mcg/actua tion aerosol inhaler 2024 025 [facility]acy #3259, [address] [place], [address], 06/17/2024 11:07:32 Incruse Ellipta 62.5 mcg/actua tion powder for inhalatio n 2024 025 [facility], [facility], [place], [address], 06/17/2024 11:07:28 Breyna 160 mcg-4.5 mcg/actua tion HFA aerosol inhaler 2024 025 [facility], [facility], [place], [address], 06/17/2024 11:07:32 amoxicill in 875 mg-potass ium clavulana te 125 mg tablet 2023 [address]24 [address] [place], [address], 05/23/2024 14:19:39 Unithroid 25 mcg tablet 2023 024 [facility], [place], [address], 03/22/2024 10:38:58 ferrous sulfate 325 mg (65 mg iron) tablet 2023 024 [facility] [address] [place], [address], 03/18/2024 10:51:23 Vitamin C 500 mg tablet 2023 024 [facility], [address] [place] [address], [address], 03/18/2024 10:51:24 ropinirol e 0.25 mg tablet [address] [facility], [facility], [place], [address], 06/17/2024 11:28:16 albuterol sulfate HFA 90 mcg/actua tion aerosol inhaler 2023 024 [facility]acy #3259, [address] [place], [address], 03/18/2024 10:51:23 Incruse Ellipta 62.5 mcg/actua tion powder for inhalatio n 2023 [facility], [place], [address], 03/18/2024 10:51:22 Breyna 160 mcg-4.5 mcg/actua tion HFA aerosol inhaler 2023 [facility], [place], [address], 03/18/2024 10:51:21 Patient TargetsNo targets recorded. Patient Instructions Encounter Date Encounter Id Patient Instructions Last Modified By Organization Details Last Modified Time 02/02/2024 [id number] dementia rating scale-2* [email or web address] 2 Not available 02/02/2024 11:58:02 alcohol misuse* [email or web address] 2 Not available 02/02/2024 11:58:02 depression screening* mbahrainwala 2 Not available 02/02/2024 11:58:02 Timed Up and Go test (TUG)* mbahrainwala 2 Not available 02/02/2024 11:58:02 multi-dimensiona l health assessment questionnaire* conywala 2 Not available 02/02/2024 11:58:02 Personalized a lt Plan and Screening Recommendations Advance Directives - Do you have one? No You have indicated that you are capable [...] 10% of your body weight Physical activity: Need more exercise/physical activity minimum of 10-20 minutes of activity that causes mild breathlessness/day minimum of 20-30 minutes activity that causes mild breathlessness/day Nutrition: Good Average Refer to attached handout Heart-Healthy Diet: After Your Visit Fall Risk (screened today): Low Intermediate Refer to attached handout Preventing Falls: After your Visit Vaccines Pneumococcal: Ordered Recommended today Recommended today, but you have declined No further needed Influenza: Your next one in the fall of this year Chronic Disease Risks Stroke: Low Risk Intermediate Risk Heart Attack: Low risk Intermediate Risk Clogging of the Arteries: Low risk Intermediate Risk Diabetes: Low Risk I have no recommendations Secondary Prevention/Interven tion (detects treatable diseases before they may cause symptoms, disability, or ) Prostate Cancer Screening: No PSA screening necessary Colon Cancer Screening: Colonoscopy Date Screening Last Performed: 2019 Eye Disease Screening: Ordered Recommended today Dementia Risk: Low I have no recommendations Depression Screening: Negative Active diagnosis, Continue current treatment plan [email or web address] Not available 02/02/2024 11:38:56 03/22/2024 [id number] diabetic eye exam* [email or web address] Not avail able 03/22/2024 10:48:52 06/17/2024 [id number] complete PFT w/ post bronchodilator spirometry* Not available 06/17/2024 11:07:24 Reason for Referral Hospitality Director Referral for At rial fibrillation Referring Physician: Jose Burch Internal Medicine, Encounter Date: 02/02/2024 Web Press Operator Apprentice Referral for Hype rglycemia Referring Physician: Jose Burch Internal Medicine, Encounter Date: 02/02/2024 Urologist Referral for Benig n prostatic 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 Referring Physician: Jose Burch Internal Medicine, Encounter Date: 02/02/2024 Hospitality Director Referral for At rial fibrillation Referring Physician: Jose Burch Internal Medicine, Encounter Date: 03/22/2024 Web Press Operator Apprentice Referral for Hype rglycemia Referring Physician: Ofelia Loo Medicine, Encounter Date: 03/22/2024 Urologist Referral for Benig n prostatic 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 Referring Physician: Jose Burch Internal Medicine, Encounter Date: 03/22/2024 Referring Physician: Jose Burch Internal Medicine, Encounter Date: 03/22/2024 Hospitality Director Referral for At rial fibrillation Referring Physician: Jose Burch Internal Medicine, Encounter Date: 06/23/2024 Web Press Operator Apprentice Referral for Hype rglycemia Please call patient to schedule an appointment. Thank you. Referring Physician: Jose Burch Internal Medicine, Encounter Date: 06/23/2024 Urologist Referral for Benig n prostatic 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 Referring Physician: Jose Burch Internal Medicine, Encounter Date: 06/23/2024 Referring Physician: Jose Burch Internal Medicine, Encounter Date: 06/23/2024 Results Created Date Observation Date Name Description Value Unit Range Abnormal Flag Note LastModifiedBy Organization Detail LastModifiedTime 04/12/20 24 04/07/2024 imagi ng/di agnos tic resul t No observ ation record ed. [facility] [address] [facility], [place], [address], 04/12/2024 17:05:42 04/12/20 24 04/07/2024 imagi ng/di agnos tic resul t No observ ation record ed. [facility] [address], [place], [address], 04/12/2024 17:12:38 05/14/19 25 05/14/2024 US, head + neck, soft tissu e [facility] [address], [place] [address] [phone] Patien t Name: KOBY ANISHA SWETHA D A Access ion #: [id number] Sex: M : 1950 2 Locati on: RAD Attend ing Physic gavin: TRANG CAORonyVINH Booth Orderi ng Physic gavin: TRANG CAORonyVINH Booth Exam Date: 05/14/19 12:17 PM Exam Name: [...] r blood flow. Page 1 of 2 [facility] Pati t Name: SWETHA PARDO Access ion #: [id number] Sex: M : 1950 2 Exam Date: [...] MD (CT) (CT) Page 2 of [address] [facility] (Imaging) [address] [place] [address], [address], 05/14/2024 15:55:15 05/14/19 25 05/14/2024 US, head + neck No observ ation record ed. [email or web address] [place] [address] [address] [place], [address], 05/19/2024 09:17:03 05/14/19 25 05/14/2024 US, thyro id No observ ation record ed. [facility] [address] [place], [address], 05/14/2024 16:33:56 Result Notes None recorded. Problems Name Problem SNOMED Code Status Onset Date Resolution Date Notes Provider Name and Address Organization Details Recorded Time Anxiety disorder 665701983 Active 2017 Not Available [facility] 3 01:16:03 Closed fracture proximal phalanx, toe 430611433 Active 2017 Not Available [facility] 3 01:16:03 Hypertensi ve disorder 84246690 Active 2017 Not Available [facility] 3 01:16:04 Hypothyroi dism 06082662 Active Not Available [facility] 3 01:16:04 Hypogonadi sm 19586334 Active Not Available [facility] 3 01:16:04 Atrial fibrillati on 91333562 Active Not Available [facility] 3 01:16:04 Hyperlipid emia 91959107 Active Not Available [facility] 3 01:16:05 Rhinitis 14081119 Active Not Available [facility] 3 01:16:05 Benign prostatic hyperplasi a without outflow obstructio n 647442118 Active 2022 Jose booth MD [address] [address], [place], [address] , [place] [facility] [employer] [facility] 3 17:35:28 Obesity 248857610 Active 2022 Jose booth MD [address] [address], [place], [address] , [facility] 3 17:35:37 Moderate recurrent major depression 68951514 Active 2023 Jose booth MD [address], [place], [address] , [facility] 4 11:52:09 Osteoarthr itis of right knee joint 2660823129229 00 Active 2023 ABIODUN Lenz, [facility] 4 09:54:19 Periodic limb movement disorder 942524608 Active 2023 Jerald Hebert MD [address], [place], [address] , [facility] 4 12:49:05 Obstructiv e sleep apnea syndrome 07962060 Active 2023 Jerald Hebert MD [address], [place], [address] , [facility] 4 12:56:18 Mild chronic obstructiv e pulmonary disease 413242274 Active 2023 Jerald Hebert MD [address], [place], [address] , [facility] 4 13:18:35 Iron deficiency 34506284 Active 2023 Jerald Hebert MD [address], [place], [address] , [facility] 4 10:15:10 Chronic obstructiv e pulmonary disease 31918551 Active 2023 Jose booth MD [address], [place], [address] , [facility] 4 20:05:17 Hyperbilir ubinemia 59342428 Active 2023 Jose booth MD [address], [place], [address] , [facility] 4 20:05:17 Thrombocyt openic disorder 173928493 Active 2023 Jose booth MD [address], [place], [address] , [place] [facility] 4 20:05:17 Solitary nodule of lung 500442493 Active 2024 Jerald Hebert MD [address], [place], [address] , [facility] 5 11:06:45 Multiple skin tags 808614856 Active 2024 Jose booth MD [address], [address] , [facility] 5 09:48:36 Proteinuri a 69494814 Active 2024 Jose booth MD [address], [place], [address] , [facility] 5 09:48:36 Acute sinusitis 18917729 Active 2024 Jose booth MD [address], [address] , [facility] 5 09:48:36 Hyperglyce krystal 96190917 Active 2024 Jose booth MD [address], [place], [address] , [facility] 5 09:48:36 Liver enzymes level above reference range 327320073 Active 2024 Jose booth MD [address], [place], [address] , [facility] 5 09:48:36 Eruption 545506529 Active 2024 Jose booth MD [address], [place], [address] , [employer] 12:04:57 Notes:Medical History: Depre ssion/Anxiety Right nasoseptal deviation Rhinitis to cat dander [...] renal cyst BPH Urge urinary incontinence Hypogonadism Thrombocytopenia Iron deficiency PLMD Thoracic DDD/spondylosis Right knee OA Procedure History: Pacemaker placement 2013, 2018 Left knee replacement 2014 Coronary artery stent placement 2018 Right leg/Lower abdomen neurofibroma excision 2022 Bilateral cataract extraction with IOL 2023 Rhinoplasty 2024 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 Procedures Surgical History Date Name Laterality Status Provider Name and Address Organization Details Recorded Time 05/26/19 25 Reconstruction of nose completed ABIODUN Vinson [employer] 06/23/2024 11:33:13 02/05/20 24 extraction of cataract completed Willy Barlow LPN [employer] 03/22/2024 10:05:09 02/02/20 24 Medicare Wellness CPT Code, subsequent completed Willy Barlow LPN [employer] 02/02/2024 08:35:16 02/02/20 24 Advanced Care Planning completed Willy Barlow LPN [employer] 02/02/2024 11:34:49 01/22/20 24 extraction of cataract completed Willy Barlow LPN [employer] 03/22/2024 10:04:51 02/12/20 23 Excision Cyst Multilayer completed Sal jaeger MD [address] [facility], [address], [place], [address], [employer] 02/11/2023 12:10:00 01/07/20 23 Medicare Wellness CPT Code, subsequent completed Gretchen Plascencia RN [facility] [employer] 01/06/2023 11:11:04 05/24/19 21 Knee Replacement completed Not Available [facility] 07/10/2022 01:01:31 destruction of lesion of heart completed Not Available [facility] 07/10/2022 01:01:31 Pacemaker completed Not Available [facility] 07/10/2022 01:01:31 excision of skin tag completed ABIODUN Vinson [facility] [employer] 05/26/2023 11:57:11 Imaging Results Imaging Date Name Status [facility] by [facility] Details LastModified Time 04/07/2024 imaging/diagn ostic result active [facility] [address], [address], 04/12/2024 17:05:42 04/07/2024 imaging/diagn ostic result active [facility] [address], [place], [address], 04/12/2024 17:12:38 05/14/2024 US, head + neck, soft tissue active [facility] (Imaging) [address] [place], [address], 05/14/2024 15:55:15 05/14/2024 US, head + neck active [email or web address] [place], [address], 05/19/2024 09:17:03 05/14/2024 US, thyroid active [facility] [address] [place], [address], 05/14/2024 16:33:56 Procedure Notes None recorded. Medical [...] terazosin 5 mg capsule TAKE 1 CAPSULE AT BEDTIME active Not Available Not Available No t Available carvedilo l 25 mg tablet TAKE 1 TABLET 2 TIMES DAILYWIT H FOOD active Not Available Not Available No t Available nystatin 100,000 unit/mL oral suspensio n TAKE 5 ML 4 TIMES A DAY BY ORAL ROUTE DIRECTED FOR 10 DAYS. 01/06 completed Not Available Not Available Not Available prednison e 10 mg tablet take [id number], [id number], [id number] active Not Available Not Available No t Available atorvasta tin 20 mg tablet TAKE 1 TABLET DAILY active Not Available Not Available No t Available carvedilo l 12.5 mg tablet TAKE 1 TABLET BY MOUTH 2 TIMES A DAY. 09/14 completed Not Available Not Available Not Available ropinirol e 1 mg tablet TAKE 1 TABLET DAILY 2 HOURS BEFORE BEDTIME active Not Available Not Available No t Available Vitamin C 500 mg tablet Take 1 tablet twice a day by oral route. 2024 active Not Available Not Available Not Avai [...] completed Not Available Not Available Not Available hydrocodo ne 5 mg-acetam inophen 325 mg tablet TAKE 1 OR 2 TABLETS EVERY 6 HOURS NEEDED FOR PAIN 06/17 completed Not Available Not Available Not Available Claritin 10 mg tablet Take 1 tablet every day by oral route as needed for 30 days. active Not Available Not Available No t Available meloxicam 15 mg tablet 03/25 completed Not Available Not Available Not Available ondansetr on HCl 4 mg tablet TAKE 1 TABLET BY MOUTH 1 HOUR PRIOR TO PROCEDUR E 06/17 completed Not Available Not Available Not Available prednison e 20 mg tablet TAKE 2 TABLETS ORAL ROUTE ONCE DAILY FOR 5 DAYS 03/18 completed Not Available Not Available Not Available isosorbid e mononitra te ER 30 mg tablet,ex tended release 24 hr TAKE 1 TABLET BY MOUTH TWICE A DAY active Not Available Not Available No t Available clobetaso l 0.05 % topical cream APPLY A THIN LAYER TO THE AFFECTED AREA(S) BY TOPICAL ROUTE 2 TIMES PER DAY 2024 active Not Available Not Available Not Avai lable hydralazi ne 25 mg tablet TAKE 2 TABLET BY MOUTH EVERY MORNING , 1 TAB IN THE AFTERNOO N, AND 2 TABS IN THE EVENING 09/14 completed Not Available Not Available Not Available Klor-Con 20 mEq oral packet active Not Available Not Available Not Available clopidogr el 75 mg tablet TAKE 1 TABLET ONCE DAILY 06/17 completed Not Available Not Available Not Available levofloxa gayle 250 mg tablet active [...] tablet TAKE 1 TABLET BY MOUTH TWICE DAILY UNTIL ALL TABLETS ARE GONE 06/17 completed Not Available Not Available Not Available [...] n for injection in office 07/24 completed [facility]: [phone] Not Available Not Available Not Available amlodipin e 10 mg tablet TAKE 1 TABLET ONCE DAILY active Not Available Not Available No t Available benzonata te 100 mg capsule TAKE 1 CAPSULE BY MOUTH THREE TIMES A DAY FOR 7 DAYS 02/27 completed Not Available Not Available Not Available hydrocodo ne 7.5 mg-acetam inophen 325 mg tablet TAKE 1 TABLET BY MOUTH 1 HOUR BEFORE PROCEDUR E, THEN 1 TABLET EVERY 6 HOURS NEEDED FOR 7 DAYS 06/17 completed Not Available Not Available Not Available [...] sulfate 325 mg (65 mg iron) tablet Take 1 tablet twice a day by oral route. 2024 active Not Available Not Available Not Avai lable ropinirol e 0.5 mg tablet TAKE 1 [...] on route as needed for 90 days. 2024 active Not Available Not Available Not Avai lable losartan 100 mg tablet TAKE 1 TABLET [...] l 0.25 mcg capsule TAKE 1 CAPSULE BY MOUTH EVERY DAY FOR 90 DAYS active Not Available Not Available No t Available ipratropi um bromide 21 mcg (0.03 %) nasal spray USE 2 SPRAYS IN EACH NOSTRIL IN THE MORNING FOR 90 DAYS active Not Available Not Available No t Available spironola ctone 50 mg tablet 03/19 completed Not Available Not Available Not Available diazepam 5 mg tablet TAKE 5 TABLETS BY MOUTH 1 HOUR BEFORE PROCEDUR E, THEN EVERY 6 HOURS NEEDED 06/17 completed Not Available Not Available Not Available [...] administ ered by the provider 11/22 completed [facility]: [phone] Not Available Not Available Not Available budesonid [...] %) injection solution in office 07/24 completed [facility] [address]-89 4- Not Available Not Available Not Available Myrbetriq 50 mg tablet,ex tended release Take 1 tablet every day by oral route for 90 days. 2024 active Not Available Not Available Not Avai lable AndroGel 1.62 % (20.25 mg/1.25 gram) transderm [...] Not Available No t Available Fluzone High-Dose 6857-7494 (PF) 180 mcg/0.5 mL intramusc ular syringe TO BE ADMINIST ERED BY [facility] FOR IMMUNIZA TION 01/03 completed Not Available Not Available Not Available Shingrix (PF) 50 mcg/0.5 mL intramusc ular suspensio n, kit PHARMACY ADMINIST ERED 07/17 completed Not Available Not Available Not Available Fluzone High-Dose 2018- (PF) 180 mcg/0.5 mL intramusc ular syringe TO BE ADMINIST ERED BY [facility] FOR IMMUNIZA TION 06/02 completed Not Available Not Available Not Available Fluzone High-Dose Quad 2019- (PF) 240 mcg/0.7 mL IM syringe PHARMACY ADMINIST ERED 07/17 completed Not Available Not Available Not Available Flowflex COVID-19 Antigen Home Test kit USE DIRECTED 08/26 completed Not Available Not Available Not Available Breyna 160 mcg-4.5 mcg/actua tion HFA aerosol inhaler USE 2 INHALATI ONS ORALLY TWICE DAILY active Not Available Not Available No t Available Vitals Date Recorded Body height Body mass index (BMI) Body weight Body temperature Heart rate Respiratory rate Oxygen saturation Oxygen saturation in Arterial blood by Pulse oximetry Pain severity - 0-10 verbal numeric rating [Score] - Reported Systolic blood pressure Diastolic blood pressure Provider Name and Address Organization Details Last Updated DateTime 4 185.42 cm 37.2 kg/m2 126831. 05 g 98 [degF] 76 /min 18 /min 96 % 96 % 1 134 mm[Hg] 76 mm[Hg] Willy Barlow LPN [facility] [employer] 4 10:43:39 Date Recorded Body height Body mass index (BMI) Body weight Body temperature Heart rate Oxygen saturation Oxygen saturation in Arterial blood by Pulse oximetry Systolic blood pressure Diastolic blood pressure Provider Name and Address Organization Details Last Updated DateTime 4 185.42 cm 37.5 kg/m2 583367. 23 g 98.1 [degF] 70 /min 95 % 95 % 112 mm[Hg] 74 mm[Hg] Erin Smart MA [facility] [employer] [facility] 4 10:27:56 Date Recorded Heart rate Respiratory rate Provider N denae and Address Organization Details Last Updated DateTime 03/18/2024 70 /min 17 /min Jerald Hebert MD [address] [facility], [facility] [address], [address], [facility] [employer] [facility] 03/18/2024 10:58:22 Date Recorded Body height Body mass index (BMI) Body weight Body temperature Heart rate Respiratory rate Oxygen saturation Oxygen saturation in Arterial blood by Pulse oximetry Pain severity - 0-10 verbal numeric rating [Score] - Reported Systolic blood pressure Diastolic blood pressure Provider Name and Address Organization Details Last Updated DateTime 4 185.42 cm 37.7 kg/m2 814466. 42 g 97.7 [degF] 78 /min 18 /min 96 % 96 % 0 126 mm[Hg] 70 mm[Hg] Willy Barlow LPN [facility] [employer] 4 10:00:44 Date Recorded Body height Body mass index (BMI) Body weight Body temperature Heart rate Oxygen saturation Oxygen saturation in Arterial blood by Pulse oximetry Systolic blood pressure Diastolic blood pressure Provider Name and Address Organization Details Last Updated DateTime 5 185.42 cm 37.2 kg/m2 764575. 05 g 97.6 [degF] 78 /min 98 % 98 % 116 mm[Hg] 66 mm[Hg] Erin Smart MA [employer] [employer] [facility] [employer] 5 11:11:15 Date Recorded Heart rate Respiratory rate Provider Tamiko denae and Address Organization Details Last Updated DateTime 06/17/2024 78 /min 15 /min Jerald Hebert MD [address] [facility], [facility] [address], [address], [facility] [employer] [facility] 06/17/2024 11:41:41 Date Recorded Body height Body mass index (BMI) Body weight Body temperature Heart rate Systolic blood pressure Diastolic blood pressure Provider Name and Address Organization Details Last Updated DateTime 5 185.42 cm 36.9 kg/m2 532968. 86 g 97.6 [degF] 78 /min 120 mm[Hg] 80 mm[Hg] ABIODUN Vinson [place] [facility] [employer] [facility] 11:35:01 Social History Question Answer Notes LastModified by Organization Details LastModified Time Tobacco Smoking Status Former Smoker quit 1-5yrs ago Antony cowan [facility] [employer] [facility] 05/26/2023 11:49:36 Do You Have An Advance Directive? No Given Today [email or web address] Information not available 02/02/2024 What Is Your Level Of Alcohol Consumption? Occasional Couple Times A Year [id number] [id number] Information not available 07/10/2022 How Many Years Have You Consumed Alcohol? 50 [email or web address] Information not available 02/02/2024 Do You Wear A Helmet When Biking? No Does Not Bike. [email or web address] Information not available 02/02/2024 Are You Blind Or Do You Have Difficulty Seeing? No [email or web address] Information not available 05/26/2023 What Is Your Level Of Caffeine Consumption? Occasional [id number] [id number] Information not available 07/10/2022 How Much Tobacco Do You Chew? None MIGRATION.0301 [id number] Information not available 07/10/2022 In The 14 Days Before Symptom Onset, Have You Had Close Contact With A Laboratory-conf irmed COVID-19 While That Case Was Ill? No Information not available 05/26/2023 In The 14 Days Before Symptom Onset, Have You Had Close Contact With A Person Who Is Under Investigation For COVID-19 While That Person Was Ill? No Information not available 05/26/2023 Are You Currently Employed? No [email or web address] Information not available 12/16/2023 Are You Deaf Or Do You Have Serious Difficulty Hearing? No [email or web address] Information not available 05/26/2023 What Type Of Diet Are You Following? REGULAR MIGRATION.0301 [id number] Information not available 07/10/2022 Which Illicit Or Recreational Drugs Have You Used? Recreational Marijuana [email or web address] Information not available 05/26/2023 Do You Or Have You Ever Used E-cigarettes Or Vape? Former User Of Electronic Cigarettes Information not available 05/26/2023 What Is The Highest Grade Or Level Of School You Have Completed Or The Highest Degree You Have Received? [id number] Information not available 02/02/2024 Do You Have An Electrostatic Air Filter? No [email or web address] Information not available 05/26/2023 What Is Your Occupation? Retired [email or web address] Information not available 05/26/2023 How Many Days Of Moderate To Strenuous Exercise, Like A Brisk Walk, Did You Do In The Last 7 Days? 0 [email or web address] Information not available 02/02/2024 Have There Been Any Changes To Your Family Or Social Situation? Yes Patient's In 2023 [email or web address] Information not available 02/02/2024 What Is The Fluoride Status Of Your Home? Unknown [email or web address] Information not available 05/26/2023 When Did You Quit Smoking? 1-5yearssincelastc igarette [email or web address] Information not available 05/26/2023 Are There Any Guns Present In Your Home? No Information not available 05/26/2023 Do You Have A Humidifier? No [email or web address] Information not available 05/26/2023 How Many Years Have You Used Illicit Or Recreational Drugs? 5 [email or web address] Information not available 02/02/2024 Do You Use Insect Repellent Routinely? No [email or web address] Information not available 05/26/2023 Where Do You Live? SingleLevelHouse W/ Basement [email or web address] Information not available 05/26/2023 Presence Of Domestic Violence No Information not available 01/06/2023 Guns Present In The Home? No Information not available 01/06/2023 Are You Able To Care For Yourself? Yes Information not available 01/06/2023 Are You Blind Or Do Yo Have Difficulty Seeing? Yes Cataracts [email or web address] Information not available 02/02/2024 Are You Deaf Or Do You Have Serious Difficulty Hearing? No Information not available 01/06/2023 General Stress Level? Moderate Information not available 01/06/2023 Live Alone Of With Others? Alone Information not available 02/02/2024 Do You Have A Medical Power Of Salesperson Women'S Hats? No [email or web address] Information not available 05/26/2023 Do You Have Moisture Problems In Your Home? No [email or web address] Information not available 05/26/2023 What Was The Date Of Your Most Recent Tobacco Screening? 06/23/2024 [email or web address] Information not available 06/23/2024 How Many Children Do You Have? 0 [email or web address] Information not available 02/02/2024 Have You Ever Been Counseled For Unhealthy Alcohol Use? No [email or web address] Information not available 02/02/2024 Do You Have Any Pets? Yes Dog [email or web address] Information not available 02/02/2024 What Is Your Relationship Status? [email or web address] Information not available 02/02/2024 Do You Use Your Seat Belt Or Car Seat Routinely? Yes [email or web address] Information not available 05/26/2023 Are You Sexually Active? No Information not available 02/02/2024 Do You Have Smoke And Carbon Monoxide Detectors In Your Home? Yes Information not available 05/26/2023 At What Age Did You Start Smoking Tobacco? 16 Information not available 05/26/2023 Are You Passively Exposed To Smoke? No [email or web address] Information not available 05/26/2023 Do You Or Have You Ever Used Smokeless Tobacco? Never Used Smokeless Tobacco MIGRATION.0301 [id number] Information not available 07/10/2022 Are There Any Smokers In Your House? No [email or web address] Information not available 05/26/2023 What Types Of Sporting Activities Do You Participate In? None [email or web address] Information not available 02/02/2024 Do You Feel Stressed (tense, Restless, Nervous, Or Anxious, Or Unable To Sleep At Night)? [id number] Information not available 05/26/2023 Do You Use Any Illicit Or Recreational Drugs? Yes [email or web address] Information not available 05/26/2023 Do You Use Sunscreen Routinely? No Information not available 05/26/2023 Has Tobacco Cessation Counseling Been Provided? No [email or web address] Information not available 05/26/2023 Have You Recently Traveled Abroad? No [email or web address] Information not available 05/26/2023 Have You Used IV Drugs? No Information not available 05/26/2023 Do You Have Any Dietary Restrictions? No [email or web address] Information not available 05/26/2023 Do You Or Have You Ever Used Any Other Forms Of Tobacco Or Nicotine? Yes [email or web address] Information not available 05/26/2023 How Many Days In The Past Year Have You Consumed 5 Or More Drinks? 0 [email or web address] Information not available 02/02/2024 How Many Years Have You Used E-cigarettes Or Vape? 5 [email or web address] Information not available 05/26/2023 Sex: Male Functional Status Question Answer Note LastModified by Organizat ion Details LastModified Time Do you have difficulty walking or climbing stairs? No [email or web address] Information not available 05/26/2023 Do you have transportation difficulties? No [email or web address] Information not available 05/26/2023 Are you able to walk? YESASSIST uses cane as needed [email or web address] Information not available 02/02/2024 Do you have difficulty doing errands alone? No [email or web address] Information not available 05/26/2023 Are you able to care for yourself? Yes [email or web address] Information n ot available 05/26/2023 Do you have difficulty dressing or bathing? No Information not available 05/26/2023 What is your exercise level? None [id number] Information not available 07/10/2022 Mental Status Question Answer Note LastModified by Organization D etails LastModified Time Do you have difficulty concentrating, remembering or making decisions? No [email or web address] Information no t available 05/26/2023 Family History Relationship Description Onset Age of this Age Resolved Age Notes LastModified by Organization Details LastModified Time Father Heart disease [id number] [id number] Not available 07/10/2022 01:01:42 Mother Heart disease MIGRATION.792 [id number] Not available 07/10/2022 01:01:42 Mother Hypertensive disorder MIGRATION.765 [id number] Not available 07/10/2022 01:01:42 Brother Diabetes mellitus MIGRATION.799 [id number] Not available 07/10/2022 01:01:42 Brother Coronary artery bypass grafts x 2 [email or web address] Not available 06/23 11:32:20 Medical History Condition Response COPD Y ARTHRITIS Y USE OF BLOOD THINNERS Y HYPERTENSION Y CARDIAC ARRHYTHMIA Y Immunizations Vaccine Type Date Status Note Provider Nam e and Address Organization Details Recorded Time RSV, recombinant, protein subunit RSVpreF, adjuvant reconstituted, 0.5 mL, PF 3 completed ABIODUN Vinson null, [place] [facility] [place] [employer] [facility] 07/07/2023 10:26:29 COVID-19, mRNA, LNP-S, PF, padmini-sucrose, 30 mcg/0.3 mL 3 completed Amrita Aquino RMA null, [facility] 07/07/2023 10:26:44 Influenza, adjuvanted, quadrivalent, PF 3 completed [facility] 10:27:12 zoster recombinant 9 completed [facility]24 11:31:57 zoster recombinant 0 completed [facility] 11:31:57 Influenza, high-dose, quadrivalent, PF 2 completed [facility] 11:31:57 Influenza, high-dose, quadrivalent, PF 0 completed [facility] 11:31:57 COVID-19, mRNA, LNP-S, PF, 100 mcg/0.5mL dose or 50 mcg/0.25mL dose 1 completed [facility]IM [facility] 11:31:58 COVID-19 vaccine, vector-nr, rS-Ad26, PF, 0.5 mL 1 completed [facility] 11:31:58 COVID-19, mRNA, LNP-S, bivalent, PF, 50 mcg/0.5 mL or 25mcg/0.25 mL dose 2 completed [facility] 11:31:58 Influenza, high-dose, trivalent, PF 7 completed [facility] 11:31:58 COVID-19, mRNA, LNP-S, bivalent, PF, 50 mcg/0.5 mL or 25mcg/0.25 mL dose 2 completed Not Available [facility] 07/10/2022 01:33:38 Influenza, high-dose, quadrivalent, PF 2 completed Not Available [facility] 07/10/2022 01:33:38 COVID-19, mRNA, LNP-S, PF, 100 mcg/0.5mL dose or 50 mcg/0.25mL dose 2 completed Amrita Aquino RMA null, [facility] 06/23/2024 11:31:57 SARS-COV-2 (COVID-19) vaccine, UNSPECIFIED 1 completed Not Available [facility] 07/10/2022 01:33:39 Influenza, high-dose, trivalent, PF 9 completed Amrita Aquino RMA null, [facility] 06/23/2024 11:31:58 COVID-19, mRNA, LNP-S, PF, 100 mcg/0.5mL dose or 50 mcg/0.25mL dose 2 completed Amrita Aquino RMA null, [facility] 06/23/2024 11:31:58 Influenza, high-dose, trivalent, PF 0 completed Amrita Aquino RMA null, [facility] 06/23/2024 11:31:58 pneumococcal polysaccharide PPV23 5 completed Not Available [facility] 07/10/2022 01:33:39 Influenza, high-dose, quadrivalent, PF 1 completed Not Available [facility] 07/10/2022 01:33:40 Pneumococcal conjugate PCV 13 0 completed Amrita Aquino RMA null, [facility] 06/23/2024 11:31:58 Influenza, high-dose, trivalent, PF 8 completed Not Available [facility] 07/10/2022 01:33:40 Influenza, high-dose, trivalent, PF 7 completed Not Available [facility] 07/10/2022 01:33:40 Tdap 7 completed Not Available [facility] 07/10/2022 01:33:40 Influenza, high-dose, trivalent, PF 4 completed Jose Burch MD [address], [place], [address], [place] [facility] [employer] 03/22/2024 14:03:02 Past Encounters Encounter ID Performer Location Encounter Start Date Encounter Closed Date Diagnosis/Indication Diagnosis SNOMED-CT Code Diagnosis ICD10 Code Diagnosis Note [id number] [facility] [address], [place] [address] 07/17/2020 00:00:00 07/18/2020 18:28:11 [id number] [facility] [place] [address] [place] [address] 07/26/2020 00:00:00 07/26/2020 13:58:52 [id number] [facility] [place] [address] [place] [address] 07/31/2020 00:00:00 07/31/2020 16:33:20 [id number] [facility] [place] [address] [place] [address] 09/18/2020 00:00:00 09/18/2020 15:49:30 [id number] [facility] [place] [address] [place] [address] 11/15/2020 00:00:00 11/15/2020 15:10:34 [id number] [facility] [address], [place] [address] 11/22/2020 00:00:00 11/22/2020 15:05:52 [id number] [facility] [place] [address] [place] [address] 01/16/2021 00:00:00 01/16/2021 12:55:51 [id number] [facility] [place] [address] [place] [address] 03/19/2021 00:00:00 03/19/2021 17:32:37 [id number] [facility] [place] [address] [place] [address] 05/08/2021 00:00:00 05/08/2021 11:57:22 [id number] [facility] [place] [address] [place] [address] 07/09/2021 00:00:00 07/09/2021 13:04:37 [id number] [facility] [place] [address] [facility] [address] , [place] [address] 08/15/2021 00:00:00 08/15/2021 12:00:30 [id number] [facility] [place] [address] [place] [address] 10/09/2021 00:00:00 10/09/2021 10:51:13 [id number] [facility] [place] [address] [facility] [address] , [place] [address] 12/24/2021 00:00:00 12/24/2021 12:15:54 [id number] [facility] [place] [address] [place] [address] 04/10/2022 00:00:00 04/10/2022 13:54:20 [id number] [facility] [place] [address] [facility] [address] , [place] [address] 04/29/2022 00:00:00 04/29/2022 12:03:37 [id number] Jose booth MD [facility] [place] [address] [place] [address] 08/26/2022 10:25:27 08/26/2022 11:04:49 Screening - NAD [id number] Z13.9 C-scope: Dr Bray 03/27/18, follow up in 7 years Get yearly flu shotUTD tdap 03/17/17Ca n do Pneumovax #13 02/28/2020 Can do shingles vaccineS/p COVID 19 JJ vaccine as per his history RTC in 4 monthswith labsER if any symptoms worsen,he did verbalize his understand ing of the above Hyperlipidemia 10998721 E78.5 On atorvastat in 20mg daily, get labs Hyperglycemia 80840537 R 73.9 Get A1C level On jardiance 10mg daily, discussed also with Dr Mendoza diet and exercise is needed Atrial fibrillation 4943 6004 I48.91 S/p d/c from hospitalS/ p stent by Dr Zuñiga On ASAOff brilintaOn plavixOn coreg 12.5mg bidOn eliquisOn hydralazin e 25mg 5 times per dayOn isosorbide ER 30mg bidOn losartan 100mg dailyOn sotalolOn mag Keep apt with [facility] Dr Brooks Chronic ob structive pulmonary disease 44613449 J44.9 On incruseOff symbicortO n singulairO n requipOn proventil PRNOn CPAP Christina [place] [employer] 04/10/2022 next 09/02/2022 LDCT 05/16/2022 Obstructiv e sleep apnea syndrome 86594434 G47.33 Sees Christina [place] PRO[employer] MANAGEMENT CONSULTANT 09/02/2022 Benign pro static 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 760234537 N40.[address] Mir last OV 04/02/2022 On myrbetriqO n testostero ne given by Dr Mir On terazosin 5mg daily Obesity 788784349 E66.9 Diet and exercise Thrombocyt openic disorder 857388679 D69.6 PLT WNL 08/21/2022 Hyperbilirubinemia 37377 006 E80.6 US liver 12/28/2021 : Neg Liver enzy mes level above reference range 512701710 R74.01 Get hepatitis panel/GGT [id number] Christina Marva, [facility]- [facility] [place] [address] [place] [address] 09/02/2022 10:57:36 09/02/2022 11:30:32 Candidiasis of mouth 75385522 B37.0 New aerochambe r providedRi ne and spit after useNystati n Asthma-chr onic obstructive pulmonary disease overlap syndrome [id number] 9012885 J44.9 CAT 16PFT 05/30/2021 Ratio 66%FEV1 76%TLC 101%, RV 140%DLCO 91% adjusted for alveolar volume.Aph a 1 MM normalIGGs normalCont inue ICS/LABA/L AMA - stable on Incruse and symbicort 160New aerochambe r provided todayAware of reportable signs and symptoms.R TC in 6 months, PRN for concerns Obstructiv e sleep apnea syndrome 00774209 G47.33 New PAP set up 07/01/22Do wnload [...] at rest 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 Remains on Ropinirole 1 mg po 2-3 hours prior to bedGood clinical benefitDen ies restless sleep Ex-smoker 0482752 Z87.89 1 Quit 2017CT chest 05/2022 with no nodule or massRepeat due 05/2023 [id number] Jose booth MD [facility] [place] [address] [facility] [address] , [place] [address] 01/06/2023 10:52:22 01/06/2023 11:31:23 Screening - NAD 230330015 Z13.9 C-scope: Dr Bray 03/27/18, follow up in 7 years Get yearly flu shotUTD tdap 03/17/17Ca n do Pneumovax #13 02/28/2020 , #23 05/12/2019 Can do shingles vaccineS/p COVID 19 JJ vaccine as per his history RTC in 4 monthswith labsER if any symptoms worsen,he did verbalize his understand ing of the above Hyperlipidemia 31186449 E78.5 On atorvastat in 20mg daily, get labs Hyperglycemia 03360459 R 73.9 Get A1C level On jardiance [...] last 09/18/2022 Chronic ob structive pulmonary disease 06843302 J44.9 On incruseOff symbicortO n singulairO n requipOn proventil PRNOn CPAP Christina [place] PRO[employer]NAG[employer] CONS[employer]ANT next 03/03/2023 LDCT 05/16/2022 Obstructiv e sleep apnea syndrome 06202504 G47.33 Sees Christina [place] PRO[employer] MANAGEMENT CONSULTANT 09/02/2022 , next apt 03/03/2023 Benign pro static 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 048908634 N40.[address] Mir last OV 04/02/2022 On myrbetriqO n testostero ne given by Dr Mir On terazosin 5mg daily Obesity 368039270 E66.9 Diet and exercise Thrombocyt openic disorder 032184055 D69.6 Repeat the CBC, mildly lowMay need to see hematology Hyperbilirubinemia 78642 006 E80.6 US liver 12/28/2021 : Neg Liver enzy mes level above reference range 123144396 R74.01 Hepatitis panel/GGT: Neg Proteinuria 51072546 R80 .[address] Aguilar IJ Screening for malignant neoplasm of prostate 328886726 Z12.5 Adult heal th examination 606227778 Z00.00 Screening for disorder 309783892 Z13.9 Multiple skin tags 98519 7009 L91.8 Small located on the R cheek and another on the mid pubic area, refer to Dr Barker [id number] Sal toro MD [facility] General Surgery [address] [address] 01/30/2023 11:19:38 01/30/2023 11:49:57 Skin lesion 98323498 L98.9 Face, abdominal, knee [id number] Sal toro MD [facility] General Surgery [address] [address] 02/11/2023 11:42:03 02/11/2023 14:29:33 Skin lesion [id number] L98.9 Face, abdominal, knee [id number] Sal toro MD [facility] General Surgery [address] [address] 02/18/2023 11:42:49 02/18/2023 17:01:22 Skin lesion 54331860 L98.9 Face, abdominal, knee Removal of sutures done [id number] 32177 Z48.02 [id number] Christina Durham, CHOPPED STRAND OPERATOR-BC [facility] Pulmonolo [facility] [place] [address] [place] [address] 03/03/2023 09:25:02 03/03/2023 12:20:43 Asthma-chronic obstructive pulmonary disease overlap syndrome [id number] 9720600 J44.9 PFT 05/30/2021 Ratio 66%FEV1 76%TLC 101%, RV 140%DLCO 91% adjusted for alveolar volume.Rep eat suggested next yearApha 1 MM normalIGGs normalCont inue ICS/LABA/L AMA - stable on Incruse and symbicort 160Aware of reportable signs and symptoms.A dvised vaccines Asthma 110331136 J45.90 9 Montelukas t Obstructiv e sleep apnea syndrome 14310411 G47.33 New PAP set up 07/01/22Go od [...] to bedtime.Do wnload at next OV Ex-smoker 6483024 Z87.89 1 Quit 2017CT chest 05/2022 with no nodule or massRepeat due 05/2023 - ordered by PCM [id number] ERICA Dillard [facility] Orth[facility] [place] [address] [place] [address] 04/25/2023 11:06:06 04/25/2023 12:20:12 History of left total knee replacement [id number] 870026 Z96.249 [id number] Jose booth MD [facility] Internal Med [place] cra[place] [address] [place] [address] 05/26/2023 11:47:44 05/26/2023 12:15:20 Screening - NAD 867473743 Z13.9 C-scope: Dr Bray 03/27/18, follow up in 7 years Get yearly flu shotUTD tdap 03/17/17Ca n do Pneumovax #13 02/28/2020 , #23 05/12/2019 Can do shingles vaccineS/p COVID 19 JJ vaccine as per his historyCan do RSV vaccine RTC in 4 monthswith labsER if any symptoms worsen,he did verbalize his understand ing of the above Hyperlipidemia 84913403 E78.5 On atorvastat in 20mg daily, get labs Hyperglycemia 06196171 R 73.9 Get A1C level On jardiance [...] last 09/18/2022 Chronic ob structive pulmonary disease 43569171 J44.9 On incruseOff symbicortO n singulairO n requipOn proventil PRNOn CPAP Christina Durham PROJECT MANAGEMENT CONSULTANT next 03/03/2023 LDCT 05/16/[address] Hebert 05/26/2023 Obstructiv e sleep apnea syndrome 48708852 G47.33 Seen Christina Durham PROJECT MANAGEMENT CONSULTANT 09/02/2022 Benign pro static 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 279532029 N40.[address] Mir last OV 04/02/2022 On myrbetriqO n testostero ne given by Dr Mir On terazosin 5mg daily Obesity 482068623 E66.9 Diet and exercise Thrombocyt openic disorder 360096696 D69.6 Repeat the CBC, mildly lowMay need to see hematology Hyperbilirubinemia 87088 006 E80.6 US liver 12/28/2021 : Neg Liver enzy mes level above reference range 751248068 R74.01 Hepatitis panel/GGT: Neg Proteinuria 47229973 R80 .[address] Giancarlo SANCHEZ Screening for malignant neoplasm of prostate 091112888 Z12.5 Multiple skin tags 60108 7009 L91.8 Small located on the R cheek and another on the mid pubic area, refer to Dr Mj Barker 02/18/2023 History of left total knee replacement 8230356784 208368 Z96.652 Sumit MALDONADO 04/25/2023 , next Dr Casas 07/25/2023 Moderate r ecurrent major depression 99547241 F33.1 is on hospice and he is feeling more depressed, not suicidal or homicidal, would like to try zoloft, all side effects explained to himDecline s psychiatry referralSt art on zoloft 25mg daily [id number] Jose booth MD [facility] Internal Med [place] [address] , [facility] [place] [address] 07/07/2023 10:19:25 07/07/2023 10:55:39 Screening - NAD 424024005 Z13.9 C-scope: Dr Bray 03/27/18, follow up in 7 years Get yearly flu shotUTD tdap 03/17/17Ca n do Pneumovax #13 02/28/2020 , #23 05/12/2019 Can do shingles vaccineS/p COVID 19 JJ vaccine as per his historyCan do RSV vaccine RTC in 4 monthswith labsER if any symptoms worsen,he did verbalize his understand ing of the above Hyperlipidemia 42536384 E78.5 On atorvastat in 20mg daily, get labs Hyperglycemia 95116182 R 73.9 Get A1C level On jardiance [...] last 09/18/2022 Chronic ob structive pulmonary disease 56444258 J44.9 On incruseOff symbicortO n singulairO n requipOn proventil PRNOn CPAP Christina Durham PROJECT MANAGEMENT CONSULTANT next 03/03/2023 LDCT 05/16/2022 LDCT 07/03/2023 : 3mm noduleDr Emilee next apt 07/31/2023 Obstructiv e sleep apnea syndrome 73320263 G47.33 Seen Christina Durham PROJECT MANAGEMENT CONSULTANT 09/02/2022 Dr Hebert 07/31/2023 Benign pro static 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 308078254 N40.[address] Mir last OV 04/02/2022 On myrbetriqO n testostero ne given by Dr Mir On terazosin 5mg daily Obesity 111805431 E66.9 Diet and exercise Thrombocyt openic disorder 867574489 D69.6 Repeat the CBC, mildly lowMay need to see hematology Hyperbilirubinemia 66064 006 E80.6 US liver 12/28/2021 : Neg Liver enzy mes level above reference range 407119917 R74.01 Hepatitis panel/GGT: Neg Proteinuria 77295350 R80 .[address] Giacnarlo SANCHEZ Multiple skin tags 49071 7009 L91.8 Small located on the R cheek and another on the mid pubic area, refer to Dr Mj Barker 02/18/2023 History of left total knee replacement 7142876967 428367 Z96.652 Sumit MALDONADO 04/25/2023 , next Dr Casas 07/25/2023 Moderate r ecurrent major depression 05356872 F33.1 was on hospice and has since and he is feeling more depressed, not suicidal or homicidal all side effects explained to himDecline s psychiatry referralOn zoloft 25mg daily, will increase to 50mg daily Hypothyroidism 49591103 E03.9 Get repeat TSH/FT4 and US thyroid done [id number] ERICA Dillard [facility] [place] [address] [place] [address] 07/25/2023 09:50:25 07/25/2023 10:49:31 Osteoarthritis of right knee joint 0541927760 24108 M17.11 [id number] Jerald Hebert MD [facility] [address] 07/31/2023 11:24:46 08/01/2023 08:58:08 Periodic limb movement disorder 442196716 G47.61 D50.8 E83.42 Obstructiv e sleep apnea syndrome 64401851 G47.33 Mild chron ic obstructive pulmonary disease 594628831 J44.9 [id number] Jerald Hebert MD [facility] Pul[address] [address] 09/15/2023 09:45:14 09/16/2023 08:24:15 Periodic limb movement disorder 612305979 G47.61 D50.8 E83.42 Obstructiv e sleep apnea syndrome 10371255 G47.33 Mild chron ic obstructive pulmonary disease 034313081 J44.9 Iron deficiency 71421346 E61.1 [id number] Jose booth MD [facility] Internal Med [address] [place] [address] 11/10/2023 10:44:00 11/10/2023 11:24:47 Screening - NAD 781347518 Z13.9 C-scope: Dr Bray 03/27/18, follow up in 7 years Get yearly flu shotUTD tdap 03/17/17Ca n do Pneumovax #13 02/28/2020 , #23 05/12/2019 Can do shingles vaccineS/p COVID 19 JJ vaccine as per his historyCan do RSV vaccine RTC in 4 monthswith labsER if any symptoms worsen,he did verbalize his understand ing of the above Hyperlipidemia 38337810 E78.5 On atorvastat in 20mg daily, get labs Hyperglycemia 67595636 R 73.9 Get A1C level On jardiance [...] last 10/09/2023 Chronic ob structive pulmonary disease 27093028 J44.9 On incruseOff symbicortO n singulairO n requipOn proventil PRNOn CPAP Christina Durham PROJECT MANAGEMENT CONSULTANT next 03/03/2023 LDCT 05/16/2022 LDCT 07/03/2023 : 3mm noduleDr Hebert next apt 12/16/2023 Obstructiv e sleep apnea syndrome 74063063 G47.33 Seen Christina Durham PROJECT MANAGEMENT CONSULTANT 09/02/2022 Dr Hebert Benign pro static 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 385399449 N40.[address] Mir last OV 04/02/2022 On myrbetriqO n testostero ne given by Dr Mir On terazosin 5mg daily Obesity 447950171 E66.9 Diet and exercise Thrombocyt openic disorder 225740290 D69.6 Repeat the CBC, mildly lowMay need to see hematology Hyperbilirubinemia 80798 006 E80.6 US liver 12/28/2021 : Neg Liver enzy mes level above reference range 202145867 R74.01 Hepatitis panel/GGT: Neg Proteinuria 26843835 R80 .9 Dr Giancarlo SANCHEZ 08/12/2023 Multiple skin tags 20987 7009 L91.8 Small located on the R cheek and another on the mid pubic area, refer to Dr Mj Barker 02/18/2023 History of left total knee replacement 3121214615 247979 Z96.652 Sumit MALDONADO 04/25/2023 , Dr Casas/René MALDONADO 07/25/2023 Moderate r ecurrent major depression 21005431 F33.1 was on hospice and has since passed awayNot suicidal or homicidal all side effects explained to himDecline s psychiatry referralOn zoloft 50mg daily Hypothyroidism 24019810 E03.9 Get repeat TSH/FT4 and US thyroid done Pain of ear 052007198 H9 2.09 Dr Hamilton Ryan ENT 03/20/2023 [id number] Jerald Hebert MD [facility] Pulmonolo gy [place] [address] [place] [address], [facility] [address] [place] [address] 12/16/2023 10:49:20 12/17/2023 08:26:27 Periodic limb movement disorder 931026345 G47.61 Obstructiv e sleep apnea syndrome 26695683 G47.33 Mild chron ic obstructive pulmonary disease 887982669 J44.9 Iron deficiency 97843399 E61.1 [id number] Jose booth MD [facility] [address] [place] [address] 02/02/2024 10:29:27 02/02/2024 11:54:27 Screening - NAD 125356458 Z13.9 C-scope: Dr Bray 03/27/18, follow up in 7 years Get yearly flu shotUTD tdap 03/17/17Ca n do Pneumovax #13 02/28/2020 , #23 05/12/2019 Can do shingles vaccineS/p COVID 19 JJ vaccine as per his historyCan do RSV vaccine RTC in 4 monthswith labsER if any symptoms worsenhe did verbalize his understand ing of the above Hyperlipidemia 09869853 E78.5 On atorvastat in 20mg daily, get labs Hyperglycemia 39876267 R 73.9 Get A1C level On jardiance [...] Dr Brooks Chronic ob structive pulmonary disease 47374153 J44.9 On incruseOff symbicortO n singulairO n requipOn proventil PRNOn CPAP Christina Durham PROJECT MANAGEMENT CONSULTANT next 03/03/2023 LDCT 05/16/2022 LDCT 07/03/2023 : 3mm noduleDr Emilee next apt 03/17/2024 Obstructiv e sleep apnea syndrome 71866362 G47.33 Seen Christina Durham PROJECT MANAGEMENT CONSULTANT 09/02/2022 Dr Hebert 03/17/2024 next apt Benign pro static 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 453703957 N40.[address] Mir last OV 04/02/2022 On myrbetriqO n testostero ne given by Dr Mir On terazosin 5mg daily Obesity 748451983 E66.9 Diet and exercise Thrombocyt openic disorder 385306914 D69.6 Repeat the CBC, mildly lowMay need to see hematology Hyperbilirubinemia 59864 006 E80.6 US liver 12/28/2021 : Neg Liver enzy mes level above reference range 827193002 R74.01 Hepatitis panel/GGT: Neg Proteinuria 24345334 R80 .9 Dr Aguilar IJ 08/12/2023 Multiple skin tags 47292 7009 L91.8 Small located on the R cheek and another on the mid pubic area, refer to Dr Mj Barker 02/18/2023 History of left total knee replacement 5500319318 772026 Z96.652 Sumit MALDONADO 04/25/2023 , Dr Casas/René MALDONADO 07/25/2023 Moderate r ecurrent major depression 90934287 F33.1 was on hospice and has since passed awayNot suicidal or homicidal all side effects explained to himDecline s psychiatry referralOn zoloft 50mg daily Hypothyroidism 87723999 E03.9 Get repeat TSH/FT4US thyroid 07/09/2023 Pain of ear 456325511 H9 2.09 Dr Hamilton Ryan ENT 03/20/2023 Adult heal th examination 777834060 Z00.00 Screening for disorder 511094840 Z13.9 Acute otitis media 68406 03 H66.92 OV 02/02/2024 :On steroid and z-pack, given by the , getting better, will finish the antibiotic , notify if not better [id number] Jerald Hebert MD [facility] Pul[facility] [place] [address] [place] [address] 03/18/2024 10:09:15 05/10/2024 09:28:36 Periodic limb movement disorder 555312897 G47.61 Obstructiv e sleep apnea syndrome 86535348 G47.33 Mild chron ic obstructive pulmonary disease 266479009 J44.9 Iron deficiency 84950865 E61.1 [id number] Jose booth MD [facility] Primary Care [facility] [address] [facility] [address] [place] [address] 03/22/2024 09:52:37 03/22/2024 10:49:12 Screening - NAD 852325089 Z13.9 C-scope: Dr Bray 03/27/18, follow up in 7 years Get yearly flu shotUTD tdap 03/17/17Ca n do Pneumovax #13 02/28/2020 , #23 05/12/2019 Can do shingles vaccineS/p COVID 19 JJ vaccine as per his historyCan do RSV vaccine RTC in 3 monthswith labsER if any symptoms worsenhe did verbalize his understand ing of the above Hyperlipidemia 95685435 E78.5 On atorvastat in 20mg daily, get labs Hyperglycemia 79389947 R 73.9 Get A1C level On jardiance 10mg dailyMore diet and exercise is needed Atrial fibrillation 4943 6004 I48.91 S/p d/c from hospitalS/ p stent by Dr Zuñiga On ASAOn amlodipine 10mg dailyOff brilintaOn plavixOn coreg 25mg bidOn eliquisNot on hydralazin Tiana isosorbide ER 30mg bidOn losartan 100mg dailyOn sotalolOn mag Keep apt with HV Dr Brooks Chronic ob structive pulmonary disease 96925971 J44.9 On incruseOff symbicortO n singulairO n requipOn proventil PRNOn CPAP Christina Durham PROJECT MANAGEMENT CONSULTANT next 03/03/2023 LDCT 05/16/2022 LDCT 07/03/2023 : 3mm Rae Hebert next apt 06/17/2023 Obstructiv e sleep apnea syndrome 23095587 G47.33 Seen Christina Durham PROJECT MANAGEMENT CONSULTANT 09/02/2022 Dr Hebert Benign pro static 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 568643780 N40.[address] Mir last OV 04/02/2022 On myrbetriqO n testostero ne given by Dr Mir On terazosin 5mg daily Obesity 926157965 E66.9 Diet and exercise Thrombocyt openic disorder 697436256 D69.6 Repeat the CBC, mildly lowMay need to see hematology Hyperbilirubinemia 67869 006 E80.6 US liver 12/28/2021 : Neg Liver enzy mes level above reference range 345706308 R74.01 Hepatitis panel/GGT: Neg Proteinuria 98075890 R80 .9 Dr Aguilar IJ 08/12/2023 Multiple skin tags 06382 7009 L91.8 Small located on the R cheek and another on the mid pubic area, refer to Dr Mj Barker 02/18/2023 History of left total knee replacement 8563886139 728209 Z96.652 Sumit Loya PA 04/25/2023 , Dr Casas/René MALDONADO 07/25/2023 Moderate r ecurrent major depression 79648152 F33.1 was on hospice and has since passed awayNot suicidal or homicidal all side effects explained to himDecline s psychiatry referralOn zoloft 50mg daily Hypothyroidism 92729180 E03.9 Get repeat TSH/FT4US thyroid 07/09/2023 Can start on unithroid low dose, does have a.fib, will also discuss with cardiology Acute sinusitis 50329085 J01.90 Right sided facial tenderness Also has R upper gum tenderness Is seeing ENT and dentistWil l start on augmentinN otify if not better, ER if worse Administra tion of influenza vaccine 98451947 Z23 [id number] Jerald Hebert MD [facility] Pulmonolo gy [address] [address] 06/17/2024 10:46:01 06/17/2024 12:59:50 Periodic limb movement disorder 755597261 G47.61 Obstructiv e sleep apnea syndrome 25275334 G47.33 Mild chron ic obstructive pulmonary disease 671389490 J44.9 Iron deficiency 17400846 E61.1 Solitary n odule of lung 675549975 R91.1 Chronic ob structive pulmonary disease 87390206 J44.9 [id number] Jose booth MD [facility] Primary Care Mindy craig [address] [facility] [address] [place] [address] 06/23/2024 11:25:30 06/23/2024 12:04:46 Screening - NAD 071617978 Z13.9 C-scope: Dr Bray 03/27/18, follow up in 7 years Get yearly flu shotUTD tdap 03/17/17Ca n do Pneumovax #13 02/28/2020 , #23 05/12/2019 Can do shingles vaccineS/p COVID 19 JJ vaccine as per his historyCan do RSV vaccine RTC in 3 monthswith labsER if any symptoms worsenhe did verbalize his understand ing of the above Hyperlipidemia 29164636 E78.5 On atorvastat in 20mg daily, get labs Hyperglycemia 77587667 R 73.9 Get A1C level On jardiance 10mg dailyMore diet and exercise is needed Atrial fibrillation 4943 6004 I48.91 S/p d/c from hospitalS/ p stent by Dr Zuñiga On ASAOn amlodipine 10mg dailyOff brilintaOn plavixOn coreg 25mg bidOn eliquisNot on hydralazin Tiana isosorbide ER 30mg bidOn losartan 100mg dailyOn sotalolOn mag Keep apt with HV Dr Brooks Chronic ob structive pulmonary disease 80468944 J44.9 On incruseOff symbicortO n singulairO n requipOn proventil PRNOn CPAP Christina Durham PROJECT MANAGEMENT CONSULTANT next 03/03/2023 LDCT 05/16/2022 LDCT 07/03/2023 : 3mm noduleDr Hebert next apt 09/15/2024 Obstructiv e sleep apnea syndrome 09139030 G47.33 Seen Christina Durham PROJECT MANAGEMENT CONSULTANT 09/02/2022 Dr Hebert Benign pro static 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 239942604 N40.[address] Mir last OV 04/02/2022 On myrbetriqO n testostero ne given by Dr Mri On terazosin 5mg daily Obesity 302638033 E66.9 Diet and exercise Thrombocyt openic disorder 616235949 D69.6 Repeat the CBC, mildly lowMay need to see hematology Hyperbilirubinemia 51396 006 E80.6 US liver 12/28/2021 : Neg Liver enzy mes level above reference range 349711842 R74.01 Hepatitis panel/GGT: Neg Proteinuria 38106706 R80 .9 Dr Aguilar IJ 08/12/2023 Multiple skin tags 52073 7009 L91.8 Small located on the R cheek and another on the mid pubic area, refer to Dr Mj Barker 02/18/2023 History of left total knee replacement 8347507100 294793 Z96.652 Sumit MALDONADO 04/25/2023 , Dr Casas/René MALDONADO 07/25/2023 Moderate r ecurrent major depression 80619186 F33.1 was on hospice and has since passed awayNot suicidal or homicidal all side effects explained to himDecline s psychiatry referralOn zoloft 50mg daily Hypothyroidism 45336970 E03.9 Get repeat TSH/FT4US thyroid 07/09/2023 On unithroid low dose, does have a.fib, will also discuss with cardiology Eruption 346712998 R21 Rash itchy noted on the ish dorsal forearms and the upper back and upper chest, in the past states was treated with clobetasol , will renew, notify if not better, then will have to see dermatolog y Health Concerns Section Related Observation LastModified by Organization Detai ls LastModified Time None Recorded Concern Status LastModified by Organization Details LastModified Time None Recorded Advance Directives Directive N: Given today Payers Encounter Date Sequence Insurance Name Policy Number Policy Adler Covered Member ID Adler Member ID Guarantor Name 02/02/2024 1 [employer] (MEDICARE REPLACEMENT PPO) [id number] 1 Julian Booth Celina [id number] Julian Booth Celina 03/18/2024 1 [employer] (MEDICARE REPLACEMENT PPO) [id number] 1 Julian Booth Celina [id number] Julian Booth Celina 03/22/2024 1 [employer] (MEDICARE REPLACEMENT PPO) [id number] Julian Booth Celina [id number] Julian Booth Celina 06/17/2024 1 [employer] (MEDICARE REPLACEMENT PPO) [id number] Julian Booth Celina [id number] Julian Booth Celina 06/23/2024 1 [employer] (MEDICARE REPLACEMENT PPO) [id number] Julian Booth Celina [id number] Julian Mckayl Notes Date Note Type Note Provider Name and Address Organization Details Recorded Time 02/02/2024 text/html Here to fritz Smith PMD Dr De Los SantoshipPast Hx:COPDHTNHLDOSABPHHyp ogonadismReviewed social family and surgical historyHere to establish care, discuss above and get some labsHe has an apt with the urologist and is to get his testosterone level and PSAHe also to see his manager pool Dr Brooks OV 09/15/17:Here for his 6 [...] apt, he does well Jose Burch MD [address] [place] [address], [facility] [address], [place], [address], [facility] 02/02/2024 18:37:57 03/18/2024 text/html Primary care/Ref erring provider: Jose Burch MD Patient is here to go over his COPD management. Initial development of shortness of breath: 2016Duration of shortness of breath: 8 yearsCondition of shortness of breath: stableTiming of shortness of breath: noneFrequency: up to 3 times a dayLimits activities: yesAggravating factors: walking, climbing stairsAlleviating factors: rest Modified Medical Research [place] (mMRC) Dyspnea Scale - Grade 2Grade 0 I only get breathless with strenuous exercise .Grade 1 I get short of breath when hurrying on the level or walking up a slight hill .Grade 2 I walk slower than people of the same age on the level because of breathlessness or have to stop for breath when walking at my own pace on the level .Grade 3 I stop for breath after walking about 100 yards or after a few minutes on the level .Grade 4 I am too breathless to leave the house or I am breathless when dressing . Treatment history: Albuterol HFA as needed [...] noEdema: no Environmental exposures:Nicotine smoke: 1 ppd 6544-2367 = 46 pack yearsPaint: noDye: noDust mites: yesMold: noDamp basement: noWood burning stove: noAnimal dander: dogCockroaches: noPollen: yesArsenic: noAsbestos: noBeryllium: noCadmium: noChromium: noCoal smoke: noDiesel fumes: noNickel: noSilica: noSoot: no During the [facility] sleep study on 02/13/05 AHI = [...] F20 full face mask froma [employer] large Vitera full face mask, without chin [...] no chance of dozing. Jerald Hebert MD [address] [place] [address], [facility] [address], [place], [address], [place] [facility] [employer] [facility] [employer] 03/18/2024 10:59:04 03/22/2024 text/html Here to fritz Smith PMD Dr Armendariz Hx:COPDHTNHLDOSABPHHyp ogonadismReviewed social family and surgical historyHere to establish care, discuss above and get some labsHe has an apt with the urologist and is to get his testosterone level and PSAHe also to see his manager pool Dr Brooks OV 09/15/17:Here for his 6 [...] see ENT Jose Burch MD [address], [place], [address], [place] [facility] 03/22/2024 14:03:45 06/17/2024 text/html Primary care/Ref erring provider: Jose Burch MD Patient is here to go over his COPD management. Initial development of shortness of breath: 2016Duration of shortness of breath: 9 yearsCondition of shortness of breath: stableTiming of shortness of breath: noneFrequency: up to 3 times a dayLimits activities: yesAggravating factors: walking, climbing stairsAlleviating factors: rest Modified Medical Research [place] (mMRC) Dyspnea Scale - Grade 2Grade 0 I only get breathless with strenuous exercise .Grade 1 I get short of breath when hurrying on the level or walking up a slight hill .Grade 2 I walk slower than people of the same age on the level because of breathlessness or have to stop for breath when walking at my own pace on the level .Grade 3 I stop for breath after walking about 100 yards or after a few minutes on the level .Grade 4 I am too breathless to leave the house or I am breathless when dressing . Treatment history: Albuterol HFA as needed since 2015. uses up to 3 x a weekSymbicort 80/4.5 mcg 2 puffs BID reyna 160/4.5 mcg 2 puffs BID since 2020Incruse Ellipta 1 inhalation daily since 2020 Montelukast 10 mg daily 2773-4504 Other symptoms:Drooling: noDysarthria: noNeck pain: noOdynophagia: noDysphagia: noWeak mastication: noFacial weakness: noNasal speech: noProtruding tongue: noProductive cough: grayishWheezing: noChest tightness: yesOrthopnea: noFrequent throat clearing or swallowing: noPalpitations: noHeartburn: noEdema: no Environmental exposures:Nicotine smoke: 1 ppd 5825-2707 = 46 pack yearsPaint: noDye: noDust mites: yesMold: noDamp basement: noWood burning stove: noAnimal dander: dogCockroaches: noPollen: yesArsenic: noAsbestos: noBeryllium: noCadmium: noChromium: noCoal smoke: noDiesel fumes: noNickel: noSilica: noSoot: no During the [facility] sleep study on 02/13/05 AHI = 73, PLMI = 15. At home since 03/18/24, the patient uses a [employer] AirSense 11 autoset unit with heated humidification. The patient does not need the ramp to start low and go up slowly on the pressure anymore. There is some xerostomia in a.m. There is no hose/mask condensation with water.The patient wears a [employer] large AirFit F20 full face mask without chin strap. There [...] no chance of dozing. Jerald Hebert MD [address] [place] [address], [address], [facility] [employer] 06/17/2024 11:41:51 06/23/2024 text/html Here to fritz Smith PMD Dr Armendariz Hx:COPDHTNHLDOSABPHHyp ogonadismReviewed social family and surgical historyHere to establish care, discuss above and get some labsHe has an apt with the urologist and is to get his testosterone level and PSAHe also to see his manager pool Dr Todd SARABIA 09/15/17:Here for his 6 month appointmentHe is [...] R jaw area, he does see ENT OV 06/23/2024: Here for his f/u apt, he feels well today, he did do the labs on 06/10/2024 Jose Burch MD [address], [place], [address], [place] - [facility] 06/23/2024 17:01:15
--- OUTSIDE RECORDS SUMMARY | 2024-06-25 07:42 | XMS_ITS | Clinical Summary ---
Author Organization [facility] Address [address] [place] [address] Care Team Providers Care Catalyst Impregnator Name Role Phone Efraín Burch MD Primary Care Provider Source Comments [facility],non-owned Affiliates and Associated Physician Practices is amultiple site organization consisting of ambulatory clinics and hospital sitesin [place], [place], [place] and [place]. This disclosure is being madepursuant to the Care Everywhere program and may not contain all information available regarding this patient. Last updated 18.[facility] [employer] Social History Tobacco Use Types Packs/Day Years [...] age to complete this topic Care Teams Catalyst Impregnator Relationship Specialty Start Date End Date Efraín Burch MD [address] [address] PCP - General Internal Medicine 11/19/19
--- OUTSIDE RECORDS SUMMARY | 2024-06-25 07:42 | XMS_ITS | Patient Health Summary ---
Author Organization [facility] Address [address] [place] [address] Care Team Providers Care Patient Placement Coordinator Name Role Phone Efraín Burch MD Primary Care Provider Note from [facility],non-owned Affiliates and Associated Physician Practices is amultiple site organization consisting of ambulatory clinics and hospital sitesin [place], [place], [place] and [place]. This disclosure is being madepursuant to the Care Everywhere program and may not contain all information available regarding this patient. Last updated 18.[facility] Social History Tobacco Use Types Packs/Day Years Used Date Smoking Tobacco: Never Assessed Sex and Gender Information Value Date Recorded Sex Assigned at Not on file Gender Identity Not on file Sexual Orientation Not on file Care Teams Patient Placement Coordinator Relationship Specialty Start Date End Date Efraín Burch MD [address] [address] PCP - General Internal Medicine 11/19/19
--- OUTSIDE RECORDS SUMMARY | 2024-06-25 07:42 | XMS_ITS ---
Author Organization [facility] Address [address] [facility] [address] [facility] [address] [place] [address] Care Team Providers Care Explosives Mixer Operator Name Role Phone Mondragon Enoch Unavailable [phone] MEDICATIONS Medication SIG (Take, Route, Frequency, Duration) Notes Start Date End Date Status Ergocalciferol 1.25 MG (90402 UT) 1 capsule Orally Once a week for 90 day(s) 08/08/2023 02/01/2025 Active Encounters Encounter Location Date Provider Diagnosis [facility] Office [address] [facility] [address] [place] [address] 05/07/2024 Enoch Mondragon PLAN OF TREATMENT Medication Medication Name Sig Start Date Stop Date Notes Ergocalciferol 1.25 MG (5000 0 UT) 1 capsule Orally Once a week for 90 day(s) 08/08/2023 02/01/2025 Next Appt Details Provider Name:Enoch Mondragon , 07/14/2024 04:00:00 PM, [address] [facility] [address], [place], [address], Progress Notes * OTONIEL HARVEYDOB:1950 (73 yo M)Acc No.[id number]:05/07/2024 Patient: OTONIEL HARVEY :1950 Age:73 Y Sex:Male Address:[address] [place] [id number] * Refills Refill Ergocalciferol Capsule, 1.25 MG (48219 UT), Orally, 13, 1 capsule, Once a week, 90 day(s), Refills=2 * true * Date:
== END 2024-06-25 07:37 | disposition home or self-care (01) ==
PROVIDERS: PCP Internal Medicine; Visit Provider Internal Medicine Hematology & Oncology
DX: D69.59 Other secondary thrombocytopenia (principal)
CPT/HCPCS: 76700

== ENCOUNTER 2025-04-13 13:49 | Outpatient (CLI) | payer MEDICARE, SELFPAY ==
[2025-04-13 14:03] LABS: Hematocrit 44.2 % (42.0-52.0); Hemoglobin 14.4 g/dL (14.0-18.0); Immature Granulocyte Percent A 0.5 % (0-0.5); Lymphocytes Absolute Auto 1.39 K/mm3 (0.9-3.2); Mean Corpuscular HGB Conc 32.6 g/dl (32-36); Mean Corpuscular Hemoglobin 29.5 pg (26-34); Mean Corpuscular Volume 90.6 fl (80-100); Nucleated Red Blood Cells Absolute Auto 0.000 K/mm3 (0.0-0.012); Nucleated Red Blood Cells Perc 0.0 % (0.0-0.2); Platelet Count Result 125 k/mm3 (150-375); Red Blood Count 4.88 M/mm3 (4.6-6.20); White Blood Count 6.1 K/mm3 (4.5-10.0)
[2025-04-13 14:08] LABS: Blood Urea Nitrogen 18 mg/dL (8-26); Carbon Dioxide 25 mmol/L (22-30); Chloride 105 mmol/L (98-109); Estimated Glomerular Filt Rate > 60; Glucose 86 mg/dL (70-105); Ionized Calcium (POC) 1.15 mmol/L (1.11-1.31); Potassium 3.9 mmol/L (3.5-4.9); Sodium 142 mmol/L (138-146)
--- OUTSIDE RECORDS SUMMARY | 2025-04-13 14:15 | XMS_ITS | Encounter Summary ---
Author Organization [facility] Address [address] [place] [address] Care Team Providers Care Acid Cleaner Name Role Phone Unavailable Primary Care Provider Unavailabl e Reason for Visit * Reason Comments Follow Up Encounter Details Date Type Department Care Team (Late st Contact Info) Description 04/13/2025 2:15 PM GREEN ENERGY MARKETING ANALYST Office Visit [facility] Oncology and Hematology - Jon [address] [facility] [address] [place] [address] David Mg MD [address] [facility] [address] [place] [address] Other secondary thrombocytopenia (Primary Dx) Social History Tobacco Use Types Packs/Day Years Used Date Smoking Tobacco: Former Cigarettes 1 9.9 0 05/12/2015 - 05/12/1963 Smokeless Tobacco: Never Tobacco Cessation:Counseling Given: Not Answered Alcohol Use Standard Drinks/Week Comments Yes 0 (1 standard drink = 0.6 oz pur e alcohol) Occasionally Sex and Gender Information Value Date Recorded Sex Assigned at Not on file Legal Sex Male 10:28 AM GREEN ENERGY MARKETING ANALYST Gender Identity Not on file Sexual Orientation Not on file documented as of this encounter Last Filed Vital Signs Vital Sign Reading Time Taken Comments Blood Pressure 123/79 04/13/2025 2:07 PM GREEN ENERGY MARKETING ANALYST Pulse 70 04/13/2025 2:07 PM GREEN ENERGY MARKETING ANALYST Temperature 37.2 C (98.9 F) 04/13/2025 2:07 PM GREEN ENERGY MARKETING ANALYST Respiratory Rate 14 04/13/2025 2:07 PM GREEN ENERGY MARKETING ANALYST Oxygen Saturation 98% 04/13/2025 2:07 PM GREEN ENERGY MARKETING ANALYST Inhaled Oxygen Concentration - - Weight 130.7 kg (288 lb 3.2 oz) 04/13/2025 2:07 PM GREEN ENERGY MARKETING ANALYST Height - - Body Mass Index 38.02 06/10/2024 3:42 PM GREEN ENERGY MARKETING ANALYST documented in this encounter Progress Notes * David Mg MD - 04/13/2025 2:59 PM CST HEMATOLOGY / ONCOLOGY PROGRESS NOTE Patient Identification: Name: Julian Patrick Age: 74 y.o. Sex: male : 1950 DIAGNOSIS Thrombocytopenia CURRENT TREATMENT Expectant TREATMENT HISTORY SUBJECTIVE Patient came to the office for follow-up visit. He denies any bleeding and bruising. Denies any chest pain and shortness of breath. He has gained 9 pound weight. No other new complaints. Review of system Constitutional: Patient did not mention fevers, sweats, 9 pound weight gain without any tiredness and fatigue HEENT: Patient did not mention sinus congestion, hearing or vision problems Respiratory: Patient did not mention cough, dyspnea, wheeze Cardiovascular: Patient did not mention chest pain, exertional chest pressure/discomfort, nausea, syncope, shortness of breath GI: Patient did not mention constipation, diarrhea, dsyphagia, reflux symptoms, vomiting, melena : Patient did not mention dysuria, frequency, incontinence, urgency Integumentary system: no lymphadenopathy, sweats, flushing Musculoskeletal: Patient not mention: myalgia, arthralgia Neurological: Patient did not mention blurry or disturbed vision, numbness/weakness, dizziness Skin: No lumps, bumps or rashes. 12 point review of system was reviewed Objective: Vital signs in last 24 hours: As per nursing note Exam: HEENT: Atraumatic, external ears normal, nose normal, oropharynx moist, no pharyngeal exudates. no sinus tenderness Neck- normal range of motion, no tenderness, supple Respiratory: No respiratory distress, normal breath sounds, no rales, no wheezing Cardiovascular: Normal rate, normal rhythm, no murmurs, no gallops, no rubs GI: Soft, nondistended, normal bowel sounds, nontender, no splenomegaly, no hepatomegaly, no mass, no rebound, no guarding : No costovertebral angle tenderness Musculoskeletal: No edema, no tenderness, no deformities. Back- no tenderness Integument: Well hydrated, no rash, Digits and nails inspection normal Lymphatic: No lymphadenopathy noted Neurologic: Alert & oriented x 3, CN 2-12 normal, normal motor function, normal sensory function, no focal deficits noted Exam as above PATH LABS Labs from June 10 showed WBC 5.7 hemoglobin 14.6 platelet 148,000 creatinine 0.8 B12 740 iron 70saturation 22 ferritin 69 Labs from April 13 showed creatinine 0.9 WBC 6.1 hemoglobin 14.4 platelet 125,000 Assessment: Plan: There are no active problems to display for this patient. Thrombocytopenia. Abdominal ultrasound showed no evidence of hepatosplenomegaly and lymphadenopathy. Iron and B12 came back normal. Patient is asymptomatic. Labs showed slight decline in the platelet count. No need for bone marrow biopsy testing at this time. Will continue to observe and see him back in 6 months. Atrial fibrillation. Patient is on Eliquis and can continue Eliquis as long as platelets more than 50,000. Coronary artery disease status post stent placement. Stable off the Plavix. Hyperlipidemia. Stable on Lipitor. Follow-up in 6 months 04/13/2025 David Mg MD N ENERGY MARKETING ANALYST documented in this encounter Plan of Treatment Upcoming Encounters Date Type Department Care Team (Late st Contact Info) Description 10/12/2025 11:00 AM CDT Office Visit [facility] Oncology and Hematology - Jon [address] [facility] [address] [place] [address] David gM MD [address] [facility] [address] [place] [address] Scheduled Orders Name Type Priority Associated Diagnoses Orde r Schedule CBC WITH DIFFERENTIAL Lab Stat Other secondary thrombocytopenia Expected: 10/12/2025, Expires: 04/13/2026 COMPREHENSIVE METABOLIC PANEL Lab Stat Other secondary thrombocytopenia Expected: 10/12/2025, Expires: 04/13/2026 documented as of this encounter Visit Diagnoses Diagnosis Other secondary thrombocytopenia- Primary documented in this encounter
--- OUTSIDE RECORDS SUMMARY | 2025-04-13 15:04 | XMS_ITS | Data Portability ---
Author Organization [place] - [facility] [employer], Main Office Address [address] [place] [address] Care Team Providers Care Slab Installer Name Role Phone JOSE BURCH Primary Care Provider JOSE BURCH Referring Provider [phone] MARTIN BROOKS Long Chain Beamer ABEL BAEZA Infrastructure Project Manager NAYAN AGUILAR Gas Flow Regulator JERALD HEBERT Occupational Therapy Professor Assessment Encounter Date Assessment Date Assessment LastModified by Organization Details LastModified Time 06/23/2024 06/23/2024 08/21/2022: A1C 5.9 Gluc 103, [...] patient, labs reviewed, referrals provided, chart updated henri Not available 06/23/2024 11:47:58 09/15/2024 09/15/2024 Assessment: Nicotine smoke: 1 ppd [id number] = 46 pack years Mild COPD 3 mm LLL nodule Very severe OSAHS, AHI = 73 Iron deficiency PLMD Plan: The following were reviewed and explained to the patient: Jon split sleep study 02/13/05 AHI = 73, ResMed large Ultra Mirage full face mask with no optimal pressure, PLMI = 15 Lab data 05/16/21 allergic to cat dander PFT 03/14/05 FEV1 3.62 L (97%), BD 200 mL = 6% PFT 05/30/21 FEV1 2.68 L (76%), BD -30 mL = -1% PFT 09/08/23 FEV1 2.54 L (72%), BD -70 mL = -3% PFT 09/15/24 FEV1 2.58 L (71%), BD 260 mL = 11% 6MW 05/16/21 96% -> 92% Chest CT 05/16/[address] 05/16/[address] 07/03/23 3 mm LLL nodule Chest CT 08/26/24 granulomatous disease of chest, no nodules, no ff up necessary Ferritin 07/31/23 36 ng/mL Ferritin 11/06/23 83 ng/mL Ferritin 03/11/24 67 ng/mL Ferritin 05/14/24 47 ng/mL Ferritin 09/13/24 175 ng/mL Differential diagnoses for pulmonary nodule: 1. [...] down on alcohol consumption and caffeine intake. BUN, Creatinine, Vitamin E, Vitamin B12, RBC folate, Iron, TIBC, Ferritin, ESR, Magnesium, Hgb and Hct levels are within normal limits. Patient will continue FeSO4 325 mg + Vit C 500 mg but decrease from twice daily to daily to keep the ferritin > 75 ng/ml. Check ferritin one week before return. PAP compliance downloaded and interpreted x 20 minutes. Data reviewed and explained to the patient. Average apnea/hypopnea index (AHI) is 4.4. Patient used PAP > 4 hours 100% of the time. PAP is set at 15-17 cmH2O. PAP will be reset at 15-16 cmH2O. 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 Keep ramp start at 4 cmH2O. Keep [...] carrier. Patient will setup an appointment with [facility] for supplies and pressure adjustments. A major [...] records to PCP for further management. Follow-up: 1 year, September 2025 Not available 09/15/2024 13:03:04 09/22/2024 09/22/2024 08/21/2022: A1C 5.9 Gluc 103, AST 47 [...] PLT 148 06/10/2024: Dr Mg BUN 23 09/13/2024: A1C 5.9 PLT 141 Not available 09/22/2024 13:47:25 01/24/2025 01/24/2025 08/21/2022: A1C 5.9 Gluc 103, AST 47 [...] PLT 148 06/10/2024: Dr Mg BUN 23 09/13/2024: A1C 5.9 PLT 141 01/21/2025: A1C 5.7 Gluc 111, BUN 24, T bili 1.40H LDL 104 Not available 01/24/2025 09:09:31 Plan of Treatment Reminders Order Date Submit Date Provider Last Modified By Organization Details Last Modified Time Details Appointments Medicare Wellness 15 2025 09:00A M Jose smith MD Not available Not available Not available Any 30 2025 10:00A M Jerald Hebert MD Not available Not available Not available Lab lipid panel, serum 2024 025 [facility] (Lab), [address] [place], [address], 01/24/2025 15:15:03 CMP, serum or plasma 2024 025 [facility] (Lab), [address] [place], [address], 01/24/2025 15:15:03 CBC w/ auto diff 2024 025 [facility] (Lab), [address] [place], [address], 01/24/2025 15:15:03 TSH + free T4, serum 2024 025 [facility] (Lab), [address] [place], [address], 01/24/2025 15:15:02 rapid flu (A+B) [address] [facility], [address] [place], [address], 02/01/2025 15:53:31 rapid strep group A, throat [address] [facility], [address] [place], [address], 02/01/2025 15:53:31 SARS CoV 2 RNA (COVID-19 ), QL, plug paster-PCR, respirato ry specimen [address] [facility], [address] [place], [address], 02/01/2025 15:53:31 glycohemo globin, total, blood 2024 025 [facility] (Lab), [address] [place], [address], 01/24/2025 15:15:03 microalbu min, urine 2024 025 [facility] (Lab), [address] [place], [address], 01/24/2025 15:15:03 PSA, total, serum or plasma [address] (Lab), [address] [place], [address], 02/01/2025 15:53:55 TSH, serum or plasma 2024 025 [facility] (Lab), [address] [place], [address], 01/24/2025 15:15:03 lipid panel, serum 2024 025 [facility] (Lab), [address] [place], [address], 01/21/2025 14:27:51 CMP, serum or plasma 2024 025 [facility] (Lab), [address] [place], [address], 01/21/2025 14:28:01 CBC w/ auto diff 2024 025 [facility] (Lab), [address] [place], [address], 01/21/2025 13:05:42 TSH + free T4, serum 2024 025 [facility] (Lab), [address] [place], [address], 01/21/2025 11:34:43 glycohemo globin, total, blood 2024 025 [facility] (Lab), [address] [place], [address], 01/21/2025 14:15:26 microalbu min, urine 2024 025 [facility] (Lab), [address] [place], [address], 01/21/2025 14:10:52 TSH, serum or plasma 2024 025 [facility] (Lab), [address] [place], [address], 01/21/2025 15:00:35 T4, free, serum 2024 025 [facility] (Lab), [address] [place], [address], 01/21/2025 15:00:21 ferritin, serum or plasma [address] (Lab), [address] [place], [address], 09/15/2024 13:03:17 lipid panel, serum 2024 025 [facility] (Lab), [address] [place], [address], 09/14/2024 11:43:47 CMP, serum or plasma 2024 025 [facility] (Lab), [address] [place], [address], 09/14/2024 11:43:45 CBC w/ auto diff 2024 025 [facility] (Lab), [address] [place], [address], 09/14/2024 11:43:44 TSH + free T4, serum 2024 025 [facility] (Lab), [address] [place], [address], 09/14/2024 11:43:42 glycohemo globin, total, blood [email or web address] [place] [address] (Lab), [address] [place], [address], 04/06/2025 10:54:28 microalbu min, urine 2024 025 [facility] (Lab), [address] [place], [address], 09/14/2024 11:43:49 TSH, serum or plasma [address] (Lab), [address] [place], [address], 12/20/2024 12:08:08 T4, free, serum [address] (Lab), [address] [place], [address], 12/20/2024 12:08:08 Referral urologist referral - Please call patient to schedule an appointme nt. Thank you. 2024 025 SUSANNA Mir, [address], [place], [address], 01/24/2025 13:34:35 podiatris t referral - Please call patient to schedule an appointme nt. Thank you. 2024 025 MARTIN Mckenzie DPM, [address] [facility], [facility] [address], [place], [address], 01/24/2025 13:59:26 hematolog ist referral - Please call patient to schedule an appointme nt. Thank you. 2024 025 SUSANNA Mg MD, [address], [place], [address], 01/24/2025 13:50:48 cardiolog ist referral - Please call patient to schedule an appointme nt. Thank you. 2024 025 SUSANNA Brooks, [address], [place], [address], 01/24/2025 14:24:24 urologist referral - Please call patient to schedule an appointme nt. Thank you. 2024 025 Jean Mir, [address], [place], [address], 03/21/2025 18:29:40 podiatris t referral - Please call patient to schedule an appointme nt. Thank you. 2024 025 Israel Mckenzie DPM, [address], [address], [place], [address], 03/21/2025 18:30:52 hematolog ist referral - Please call patient to schedule an appointme nt. Thank you. 2024 025 [email or web address] David Mg MD, [address], [place], [address], 03/21/2025 18:29:40 cardiolog ist referral - Please call patient to schedule an appointme nt. Thank you. 2024 025 parth Brooks, [address], [place], [address], 12/21/2024 12:40:05 urologist referral 2024 025 [email or web address] Jean Mir MD, [address], [address], [place], [address], 06/23/2024 17:32:26 podiatris t referral - Please call patient to schedule an appointme nt. Thank you. 2024 025 [email or web address] Israel Mckenzie DPM, [address], [address], [place], [address], 09/22/2024 16:36:43 hematolog ist referral 2024 025 [email or web address] David Mg MD, [address], [place], [address], 06/23/2024 17:34:26 cardiolog ist referral 2024 025 [email or web address] Martin Brooks, [address], [place], [address], 06/23/2024 17:29:22 Procedures None recorded. Surgeries None recorded. Imaging None recorded. Medication Orders amoxicill in 875 mg-potass ium clavulana te 125 mg tablet 2024 025 [facility], [facility], [place], [address], 01/31/2025 05:02:19 clobetaso l 0.05 % topical cream 2024 025 [facility], [address] [place], [address], 09/22/2024 11:53:07 sertralin e 50 mg tablet 2024 025 [facility], [facility], [place], [address], 09/22/2024 11:53:07 ferrous sulfate 325 mg (65 mg iron) tablet 2024 025 [facility], [address] [place], [address], 09/15/2024 13:09:41 Vitamin C 500 mg tablet 2024 025 [facility], [address] [place], [address], 09/15/2024 13:03:24 albuterol sulfate HFA 90 mcg/actua tion aerosol inhaler 2024 025 [facility], [address] [place], [address], 09/15/2024 13:03:22 Incruse Ellipta 62.5 mcg/actua tion powder for inhalatio n 2024 025 [facility], [facility], [place], [address], 09/15/2024 13:03:20 Breyna 160 mcg-4.5 mcg/actua tion HFA aerosol inhaler 2024 025 [facility], [facility], [place], [address], 09/15/2024 13:03:22 clobetaso l 0.05 % topical cream [address]/[facility]acy #[id number], [address] [place], [address], 09/15/2024 12:32:00 Patient TargetsNo targets recorded. Patient Instructions Encounter Date Encounter Id Patient Instructions Last Modified By Organization Details Last Modified Time 09/15/2024 [id number] complete PFT w/ post bronchodilator spirometry* - Please call patient to schedule. NPAN [id number] per [facility]. [email or web address] Not available 11/16/2024 12:09:03 Reason for Referral Long Chain Beamer Referral for At rial fibrillation Referring Physician: Jose Burch, Internal Medicine, Encounter Date: 06/23/2024 Garbage Collector Supervisor Referral for Hype rglycemia Please call patient to schedule an appointment. Thank you. Referring Physician: Jose Burch, Internal Medicine, Encounter Date: 06/23/2024 Urologist Referral for Benig n prostatic 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 Referring Physician: Jose Burch Internal Medicine, Encounter Date: 06/23/2024 Referring Physician: Jose Burch Internal Medicine, Encounter Date: 06/23/2024 Long Chain Beamer Referral for At rial fibrillation Please call patient to schedule an appointment. Thank you. Referring Physician: Jose Burch Internal Medicine, Encounter Date: 09/22/2024 Garbage Collector Supervisor Referral for Hype rglycemia Please call patient to schedule an appointment. Thank you. Referring Physician: Jose Burch Internal Medicine, Encounter Date: 09/22/2024 Urologist Referral for Benig n prostatic 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 Please call patient to schedule an appointment. Thank you. Referring Physician: Jose Burch Internal Medicine, Encounter Date: 09/22/2024 Please call patient to sched ule an appointment. Thank you. Referring Physician: Jose Burch Internal Medicine, Encounter Date: 09/22/2024 Long Chain Beamer Referral for At rial fibrillation Please call patient to schedule an appointment. Thank you. Referring Physician: Jose Burch Internal Medicine, Encounter Date: 01/24/2025 Garbage Collector Supervisor Referral for Hype rglycemia Please call patient to schedule an appointment. Thank you. Referring Physician: Jose Burch Internal Medicine, Encounter Date: 01/24/2025 Urologist Referral for Benig n prostatic 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 Please call patient to schedule an appointment. Thank you. Referring Physician: Jose Burch Internal Medicine, Encounter Date: 01/24/2025 Surgical Services Assistant Referral for Th rombocytopenic disorder Please call patient to schedule an appointment. Thank you. Referring Physician: Jose Burch Internal Medicine, Encounter Date: 01/24/2025 Results Created Date Observation Date Name Description Value Unit Range Abnormal Flag Note LastModifiedBy Organization Detail LastModifiedTime 09/14/1909/14/2024 TSH+F REE T4 TSH 3.140 uIU/m L 0.450- 4.500 normal Not Available [facility] ([facility]) [address] [place], [address], 09/14/2024 11:43:42 09/14/1909/14/2024 TSH+F REE T4 T4,free(dire ct) 1.26 NG/dL 0.82-1 .77 normal Not Available [facility] ([facility]) [address] [facility] [place], [address], 09/14/2024 11:43:42 09/14/19 25 09/14/2024 CBC/D IFF AMBIG UOUS DEFAU LT WBC 4.9 x10e3 /uL 3.4-10 .8 normal Not Available [facility] ([facility]) [address] [facility], [place], [address], 09/14/2024 11:43:44 09/14/19 25 09/14/2024 CBC/D IFF AMBIG UOUS DEFAU LT RBC 4.61 x10e6 /uL 4.14-5 .80 normal Not Available [facility] ([facility]) [address] [facility], [place], [address], 09/14/2024 11:43:44 09/14/19 25 09/14/2024 CBC/D IFF AMBIG UOUS DEFAU LT hemoglobin 14.1 g/dL 13.0-1 7.7 normal Not Available [facility] ([facility]) [address] [facility], [place], [address], 09/14/2024 11:43:44 09/14/19 25 09/14/2024 CBC/D IFF AMBIG UOUS DEFAU LT hematocrit 43.0 % 37.5-5 1.0 normal Not Available [facility] ([facility]) [address] [facility], [place], [address], 09/14/2024 11:43:44 09/14/19 25 09/14/2024 CBC/D IFF AMBIG UOUS DEFAU LT MCV 93 fL 79-97 normal Not Available [facility] ([facility]) [address] [facility], [place], [address], 09/14/2024 11:43:44 09/14/19 25 09/14/2024 CBC/D IFF AMBIG UOUS DEFAU LT MCH 30.6 pg 26.6-3 3.0 normal Not Available [facility] ([facility]) [address] [facility], [place], [address], 09/14/2024 11:43:44 09/14/19 25 09/14/2024 CBC/D IFF AMBIG UOUS DEFAU LT MCHC 32.8 g/dL 31.5-3 5.7 normal Not Available [facility] ([facility]) [address] [facility], [place], [address], 09/14/2024 11:43:44 09/14/19 25 09/14/2024 CBC/D IFF AMBIG UOUS DEFAU LT RDW 14.1 % 11.6-1 5.4 Not Available [facility] ([facility]) [address] [facility], [place], [address], 09/14/2024 11:43:44 09/14/19 25 09/14/2024 CBC/D IFF AMBIG UOUS DEFAU LT platelets 141 x10e3 /uL 150-45 0 below low normal Not Available [facility] ([facility]) [address] [facility], [place], [address], 09/14/2024 11:43:44 09/14/19 25 09/14/2024 CBC/D IFF AMBIG UOUS DEFAU LT neutrophils 66 % not estab. normal Not Available [facility] ([facility]) [address] [place], [address], 09/14/2024 11:43:44 09/14/19 25 09/14/2024 CBC/D IFF AMBIG UOUS DEFAU LT lymphs 21 % not estab. normal Not Available [facility] ([facility]) [address] [place], [address], 09/14/2024 11:43:44 09/14/19 25 09/14/2024 CBC/D IFF AMBIG UOUS DEFAU LT monocytes 9 % not estab. normal Not Available [facility] ([facility]) [address] [place], [address], 09/14/2024 11:43:44 09/14/19 25 09/14/2024 CBC/D IFF AMBIG UOUS DEFAU LT eos 2 % not estab. normal Not Available [facility] ([facility]) [address] [facility], [place], [address], 09/14/2024 11:43:44 09/14/19 25 09/14/2024 CBC/D IFF AMBIG UOUS DEFAU LT basos 1 % not estab. normal Not Available [facility] ([facility]) [address] [facility], [place], [address], 09/14/2024 11:43:44 09/14/19 25 09/14/2024 CBC/D IFF AMBIG UOUS DEFAU LT immature cells MOTOR EQUIPMENT COMMANDING OFFICER Not Available [facility] ([facility]) [address] [place], [address], 09/14/2024 11:43:44 09/14/19 25 09/14/2024 CBC/D IFF AMBIG UOUS DEFAU LT neutrophils (absolute) 3.3 x10e3 /uL 1.4-7. 0 normal Not Available [facility] ([facility]) [address] [place], [address], 09/14/2024 11:43:44 09/14/19 25 09/14/2024 CBC/D IFF AMBIG UOUS DEFAU LT lymphs (absolute) 1.0 x10e3 /uL 0.7-3. 1 normal Not Available [facility] ([facility]) [address] [place], [address], 09/14/2024 11:43:44 09/14/19 25 09/14/2024 CBC/D IFF AMBIG UOUS DEFAU LT monocytes(ab solute) 0.4 x10e3 /uL 0.1-0. 9 normal Not Available [facility] ([facility]) [address] [place], [address], 09/14/2024 11:43:44 09/14/19 25 09/14/2024 CBC/D IFF AMBIG UOUS DEFAU LT eos (absolute) 0.1 x10e3 /uL 0.0-0. 4 normal Not Available [facility] ([facility]) [address] [facility], [place], [address], 09/14/2024 11:43:44 09/14/19 25 09/14/2024 CBC/D IFF AMBIG UOUS DEFAU LT baso (absolute) 0.0 x10e3 /uL 0.0-0. 2 normal Not Available [facility] ([facility]) [address] [facility], [place], [address], 09/14/2024 11:43:44 09/14/19 25 09/14/2024 CBC/D IFF AMBIG UOUS DEFAU LT immature granulocytes 1 % not estab. Not Available [facility] ([facility]) [address] [facility], [place], [address], 09/14/2024 11:43:44 09/14/19 25 09/14/2024 CBC/D IFF AMBIG UOUS DEFAU LT immature grans (abs) 0.0 x10e3 /uL 0.0-0. 1 Not Available [facility] ([facility]) [address] [place], [address], 09/14/2024 11:43:44 09/14/19 25 09/14/2024 CBC/D IFF AMBIG UOUS DEFAU LT NRBC MOTOR EQUIPMENT COMMANDING OFFICER Not Available [facility] ([facility]) [address] [place], [address], 09/14/2024 11:43:44 09/14/19 25 09/14/2024 CBC/D IFF AMBIG UOUS DEFAU LT hematology comments: MOTOR EQUIPMENT COMMANDING OFFICER A hand- writt en panel /prof ile was recei elaine from your offic e. In accor dance with the [facility] Erik uous Test Code Polic y dated November 2002, we have assig sofia CBC with Diffe yang al/Pl idonicio t, Test Code #[address] If this is not the testi ng you wishe d to recei ve on this speci men, pleas e conta ct the [facility] Clien t Inqui ry/ Techn ical Servi zaida Depar tment to corrine fy the test order . We appre ciate your busin ess. Not Available [facility] ([facility]) [address] [place], [address], 09/14/2024 11:43:44 09/14/19 25 09/14/2024 COMP. METAB OLIC PANEL (14) glucose 89 mg/dL 70-99 normal Not Available [facility] ([facility]) [address] [place], [address], 09/14/2024 11:43:45 09/14/19 25 09/14/2024 COMP. METAB OLIC PANEL (14) BUN 19 mg/dL 8-27 normal Not Available [facility] ([facility]) [address] [place], [address], 09/14/2024 11:43:45 09/14/19 25 09/14/2024 COMP. METAB OLIC PANEL (14) creatinine 0.90 mg/dL 0.76-1 .27 normal Not Available [facility] ([facility]) [address] [place], [address], 09/14/2024 11:43:45 09/14/19 25 09/14/2024 COMP. METAB OLIC PANEL (14) eGFR 90 mL/mi n/1.7 3 >59 normal Not Available [facility] ([facility]) [address] [place], [address], 09/14/2024 11:43:45 09/14/19 25 09/14/2024 COMP. METAB OLIC PANEL (14) BUN/creatini ne ratio 21 10-24 normal Not Available [facility] ([facility]) [address] [facility] [place], [address], 09/14/2024 11:43:45 09/14/19 25 09/14/2024 COMP. METAB OLIC PANEL (14) sodium 141 mmol/ L 134-14 4 normal Not Available [facility] ([facility]) [address] [facility] [place], [address], 09/14/2024 11:43:45 09/14/19 25 09/14/2024 COMP. METAB OLIC PANEL (14) potassium 4.1 mmol/ L 3.5-5. 2 normal Not Available [facility] ([facility]) [address] [facility] [place], [address], 09/14/2024 11:43:45 09/14/19 25 09/14/2024 COMP. METAB OLIC PANEL (14) chloride 102 mmol/ L 96-106 normal Not Available [facility] ([facility]) [address] [facility] [place], [address], 09/14/2024 11:43:45 09/14/19 25 09/14/2024 COMP. METAB OLIC PANEL (14) carbon dioxide, total 24 mmol/ L 20-29 normal Not Available [facility] ([facility]) [address] [facility] [place], [address], 09/14/2024 11:43:45 09/14/19 25 09/14/2024 COMP. METAB OLIC PANEL (14) calcium 9.4 mg/dL 8.6-10 .2 normal Not Available [facility] ([facility]) [address] [facility] [place], [address], 09/14/2024 11:43:45 09/14/19 25 09/14/2024 COMP. METAB OLIC PANEL (14) protein, total 6.3 g/dL 6.0-8. 5 normal Not Available [facility] ([facility]) [address] [place], [address], 09/14/2024 11:43:45 09/14/19 25 09/14/2024 COMP. METAB OLIC PANEL (14) albumin 4.4 g/dL 3.8-4. 8 normal Not Available [facility] ([facility]) [address] [place], [address], 09/14/2024 11:43:45 09/14/19 25 09/14/2024 COMP. METAB OLIC PANEL (14) globulin, total 1.9 g/dL 1.5-4. 5 Not Available [facility] ([facility]) [address] [facility] [place], [address], 09/14/2024 11:43:45 09/14/19 25 09/14/2024 COMP. METAB OLIC PANEL (14) bilirubin, total 1.0 mg/dL 0.0-1. 2 normal Not Available [facility] ([facility]) [address], [place], [address], 09/14/2024 11:43:45 09/14/19 25 09/14/2024 COMP. METAB OLIC PANEL (14) alkaline phosphatase 69 IU/L 44-121 normal Not Available [facility] ([facility]) [address] [facility] [place], [address], 09/14/2024 11:43:45 09/14/19 25 09/14/2024 COMP. METAB OLIC PANEL (14) AST (SGOT) 23 IU/L 0-40 normal Not Available [facility] ([facility]) [address] [facility] [place], [address], 09/14/2024 11:43:45 09/14/19 25 09/14/2024 COMP. METAB OLIC PANEL (14) ALT (SGPT) 24 IU/L 0-44 normal Not Available [facility] ([facility]) [address] [facility] [place], [address], 09/14/2024 11:43:45 09/14/19 25 09/14/2024 LIPID PANEL cholesterol, total 157 mg/dL 100-19 9 normal Not Available [facility] ([facility]) [address] [place], [address], 09/14/2024 11:43:47 09/14/19 25 09/14/2024 LIPID PANEL triglyceride s 114 mg/dL 0-149 normal Not Available [facility] ([facility]) [address] [place], [address], 09/14/2024 11:43:47 09/14/19 25 09/14/2024 LIPID PANEL HDL cholesterol 43 mg/dL >39 normal Not Available [facility] ([facility]) [address] [place], [address], 09/14/2024 11:43:47 09/14/19 25 09/14/2024 LIPID PANEL VLDL cholesterol michaela 21 mg/dL 5-40 Not Available [facility] ([facility]) [address] [place], [address], 09/14/2024 11:43:47 09/14/19 25 09/14/2024 LIPID PANEL LDL chol calc ([facility]) 93 mg/dL 0-99 Not Available [facility] ([facility]) [address] [place], [address], 09/14/2024 11:43:47 09/14/19 25 09/14/2024 LIPID PANEL LDL calc comment: MOTOR EQUIPMENT COMMANDING OFFICER Not Available [facility] ([facility]) [address] [place], [address], 09/14/2024 11:43:47 09/14/19 25 09/14/2024 HEMOG LOBIN A1C hemoglobin A1C 5.9 % 4.8-5. 6 above high normal Predi abete s: 5.7 - 6.4 Diabe derik: >6.4 Glyce quincy contr ol for adult s with diabe derik: <7.0 Not Available [facility] ([facility]) [address] [facility], [place], [address], 09/14/2024 11:43:48 09/14/19 25 09/14/2024 ALBUM IN, RANDO M URINE albumin, urine 25.7 ug/mL not estab. Not Available [facility] ([facility]) [address] [facility], [place], [address], 09/14/2024 11:43:48 09/14/19 25 09/13/2024 AMBIG ABBRE V CMP14 DEFAU LT ambig abbrev CMP14 default COMMEN T A hand- writt en panel /prof ile was recei elaine from your offic e. In accor dance with the [facility] Ambig uous Test Code Polic y dated November 2002, we have compl eted your order by using the close st curre ntly or forme rly recog nized AMA panel . We have assbryce black Compr ehens shavonne Metab olic Panel (14), Test Code #32[address]. If this is not the testi ng you wishe d to recei ve on this speci men, pleas e conta ct the [facility] Clien t Inqui ry/Te chnic al Servi zaida Depar tment to corrine fy the test order . We appre ciate your busin ess. Not Available [facility] ([facility]) [address] [facility], [place], [address], 09/14/2024 11:43:50 09/14/19 25 09/13/2024 AMBIG ABBRE V LP DEFAU LT ambig abbrev LP default COMMEN T A hand- writt en panel /prof ile was recei elaine from your offic e. In accor dance with the [facility] Ambig uous Test Code Polic y dated November 2002, we have compl eted your order by using the close st curre ntly or forme rly recog nized AMA panel . We have assig sofai Lipid Panel , Test Code #[address]. If this is not the testi ng you wishe d to recei ve on this speci men, petty e conta ct the [facility] Ashleigh t Inqui ry/Te chnic al Servi zaida Depar tment to corrine fy the test order . We appre ciate your busin ess. Not Available [facility] ([facility]) [address], [place], [address], 09/14/2024 11:43:51 06/25/19 25 06/25/2024 US, abdom en No observ ation record ed. [address], [place], [address], 08/23/2024 12:15:17 08/27/19 25 08/26/2024 CT, chest , w/o contr ast No observ ation record ed. [address] [place], [address], 08/27/2024 12:44:23 09/16/19 25 09/15/2024 compl ete PFT w/ post [facility] hodil ator clary metry * No observ ation record ed. [facility] ([facility]) [address] [place], [address], 09/15/2024 19:10:58 03/31/20 25 03/31/2025 US, abdom en, limit ed [facility] [address] [place] [address] [phone] RADIOL OGY REPORT _ Patimary t Name: KOBY ANISHA Booth Date Of : [birth year] 51 Date Of Study: 2024 10:11 Ref. Physic gavin: LYUDMILA RODRIGUEZ HENOKVIHN Sal WILLIS _ Examin ation: US ABDOME N [facility] AL INDICA TION: Hyperb ilirub inemia . COMPAR JELANI: None. TECHNI QUE: Using real-t tamera ultras onic imagin g the abdome n was examin ed. FINDIN GS: The liver is mildly enlarg ed in size and measur es 175 mm. It demons trates smooth border and normal echoge nicity , with no eviden ce of intrah epatic ductal dilata tion. Hepati c veins are patent . Main portal vein shows normal hepato petal flow. The gallbl adder shows normal morpho logy with no stones . The gallbl adder wall is not thicke sofia and measur es 2 mm. No sonogr aphic Salter `s sign was elicit ed. The common bile duct measur es 4.5 mm hoa carrier blower iorly, which is normal . The pancre as appear s to be normal . Right kidney demons trates normal morpho logy and cortic al echoge nicity , with no eviden ce of stones , masses or hydron ephros is. Right kidney measur es 142 mm x 50 mm x 55 mm. Few simple renal cortic al cysts are seen larges t cyst measur es 42 x 37 x 44 mm. IMPRES LANRE: 1. Few simple right renal cortic al cyst - benign . 2. Mild hepato megaly . 3. [facility] and liver functi on test correl ation. Electr onical ly Signed 2024 11:13 EMILI [facility] (Imaging) [address] [place], [address], 03/31/2025 12:14:01 03/31/20 25 03/31/2025 US, liver No observ ation record ed. [facility] [address] [facility], [place], [address], 03/31/2025 12:26:35 Result Notes None recorded. Problems Name Problem SNOMED Code Status Onset Date Resolution Date Notes Provider Name and Address Organization Details Recorded Time Hypothyroi dism 14396190 Active Not Available [facility] 3 01:16:04 Hypogonadi sm 82786371 Active Not Available [facility] 3 01:16:04 Atrial fibrillati on 71432642 Active Not Available [facility] 3 01:16:04 Hyperlipid emia 73201257 Active Not Available [facility] 3 01:16:05 Rhinitis 91736258 Active Not Available [facility] 3 01:16:05 Anxiety disorder 192002685 Active 2017 Not Available [facility] 3 01:16:03 Hypertensi ve disorder 46137388 Active 2017 Not Available [facility] 3 01:16:04 Closed fracture proximal phalanx, toe 047479365 Active 2017 Not Available [facility] 3 01:16:03 Benign prostatic hyperplasi a without outflow obstructio n 183755863 Active 2022 Jose booth MD [address] [facility], [address] [address], [place], [address] , [employer] 3 17:35:28 Obesity 498911941 Active 2022 Jose booth MD [address] [facility], [place], [address] , [employer] 3 17:35:37 Moderate recurrent major depression 66895056 Active 2023 Jose booth MD [address] [facility] [facility] [address], [place], [address] , [employer] 4 11:52:09 Osteoarthr itis of right knee joint 5782592075181 00 Active 2023 MAXIM LenzA null, [place] [facility] 4 09:54:19 Periodic limb movement disorder 418119484 Active 2023 Jerald Hebert MD [address], [place], [address] , [facility] 4 12:49:05 Obstructiv e sleep apnea syndrome 56217503 Active 2023 Jerald Hebert MD [address], [address], [place], [address] , [facility] 4 12:56:18 Iron deficiency 79459156 Active 2023 Jerald Hebert MD [address], [place], [address] , [facility] 4 10:15:10 Thrombocyt openic disorder 132449712 Active 2023 Jose booth MD [address], [place], [address] , [facility] 4 20:05:17 Multiple skin tags 548836553 Active 2024 Jose booth MD [address], [place], [address] , [facility] 5 09:48:36 Liver enzymes level above reference range 496281053 Active 2024 Jose booth MD [address], [place], [address] , [facility] 5 09:48:36 Solitary nodule of lung 107071587 Active 2024 Jerald Hebert MD [address], [place], [address] , [facility] 5 12:33:15 Mild chronic obstructiv e pulmonary disease 394458165 Active 2024 Jerald Hebert MD [address], [place], [address] , [facility] 5 12:33:15 Chronic obstructiv e pulmonary disease 37873905 Active 2024 Jerald Hebert MD [address] [facility], [address] [address], [place], [address] , [facility] 5 12:33:15 Eruption 080132601 Active 2024 Jose booth MD [address] [facility], [address], [address] , [facility] 5 11:52:54 Hyperglyce krystal 73107971 Active 2024 Jose booth MD [address] [facility], [address], [address] , [facility] 5 09:06:48 Hyperbilir ubinemia 92198022 Active 2024 ABIODUN Vinson, [facility] 5 14:56:30 Proteinuri a 62758058 Active 2024 Jose booth MD [address], [address] , [facility] 5 09:06:48 Respirator y tract infection 781512099 Active 2024 Jose booth MD [address], [address] , [facility] 5 10:57:40 Pain in throat 055425236 Active 2024 ABIODUN Vinson, [facility] 5 14:51:35 Cough 80405870 Active 2024 ABIODUN Vinson, [facility] 5 14:51:07 Notes:Medical History: Depre ssion/Anxiety Right nasoseptal deviation Rhinitis to cat dander Maxillary/Ethmoid sinusitis IgE 13 IU/mL Eosinophils 120/uL AAT PiMM 113 mg% Mild COPD Histoplasmosis Granulomatous disease (chest, liver, spleen) 4.4 cm ascending thoracic aortic ectasia 2.8 cm pericardial cyst Atrial fibrillation on Eliquis Obesity with very severe OSAHS, AHI = 73, 02/13/05, on CPAP c/o AHP Hypothyroidism Hyperlipidemia Hypertension CAD CHF T2DM with microalbuminuria LISA Fatty liver Right renal cyst BPH Urge urinary incontinence Hypogonadism Thrombocytopenia Iron deficiency PLMD Thoracic DDD/spondylosis Right knee OA Procedure History: Left pacemaker placements 2013, 2018 Left knee replacement 2015 Coronary artery stent placement 2018 Right leg/Lower abdomen neurofibroma excision 2022 Bilateral cataract extraction with IOL 2023 Rhinoplasty 2024 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 Procedures Surgical History Date Name Laterality Status Provider Name and Address Organization Details Recorded Time 06/12/19 25 repair of nose completed Erin Smart MA [employer] 09/15/2024 12:33:40 05/26/19 25 Reconstruction of nose completed ABIODUN Vinson [employer] [facility] 06/23/2024 11:33:13 02/05/20 24 extraction of cataract completed Willy Barlow LPN [employer] [facility] 03/22/2024 10:05:09 02/02/20 24 Medicare Wellness CPT Code, subsequent completed Willy Barlow LPN [employer] [facility] 02/02/2024 08:35:16 02/02/20 24 Advanced Care Planning completed Willy Barlow LPN [employer] [facility] 02/02/2024 11:34:49 01/22/20 24 extraction of cataract completed Willy Barlow LPN [employer] 03/22/2024 10:04:51 02/12/20 23 Excision Cyst Multilayer completed Sal jaeger MD [address] [place] [address], [address], [employer] [facility] 02/11/2023 12:10:00 01/07/20 23 Medicare Wellness CPT Code, subsequent completed Gretchen Plascencia RN [place] - [facility] 01/06/2023 11:11:04 05/24/19 21 Knee Replacement completed Not Available [facility] 07/10/2022 01:01:31 destruction of lesion of heart completed Not Available [facility] 07/10/2022 01:01:31 Pacemaker completed Not Available [facility] 07/10/2022 01:01:31 excision of skin tag completed ABIODUN Vinson [facility] [employer] [facility] 05/26/2023 11:57:11 Imaging Results None recorded. Procedure Notes None recorded. Medical Equipment None Reported. Allergies No known drug allergies Medications Name Sig Start Date Stop Date Status Note LastModified by Organization Details LastModified Time celecoxib 200 mg capsule TAKE 1 CAPSULE BY MOUTH EVERY DAY active Not Available Not Available No t Available amoxicill in 500 mg capsule TAKE 4 CAPSULES BY MOUTH 1 HOUR PRIOR TO APPOINTM ENT 09/15 completed Not Available Not Available Not [...] Available prednison e 10 mg tablet take [id number], 5k0hidd, 8m4wywj active Not Available Not Available No t [...] Not Available Not Available No t Available azithromy gayle 250 mg tablet TAKE 2 [...] mg tablet TAKE 1 OR 2 TABLETS BY MOUTH EVERY 6 HOURS NEEDED FOR PAIN 01/24 completed Not Available Not Available Not Available [...] clobetaso l 0.05 % topical cream APPLY THIN COAT TO AFFECTED AREA TWICE A DAY active Not Available Not [...] CONTINUI NG FOR 2 WEEKS AFTER SURGERY. 11/07 /2024 completed Not Available Not Available Not Available oxycodone -acetamin ophen 5 mg-325 mg tablet 08/15 completed Not Available Not Available Not Available amoxicill in 875 mg tablet TAKE 1 TABLET BY MOUTH TWICE A DAY UNTIL GONE 01/24 completed Not Available Not Available Not Available [...] active Not Available Not Available Not Available ascorbic acid (vitamin C) 500 mg tablet TAKE 1 TABLET BY MOUTH EVERY DAY active Not Available Not Available No t Available hydrocort isone-christophe tic acid 1 %-2 % ear drops INSTILL 3 DROPS INTO AFFECTED EAR(S) BY OTIC ROUTE 2 TIMES PER DAY active Not Available Not Available No t Available ropinirol e 0.25 mg tablet TAKE 1 TABLET DAILY 09/15 completed Not Available Not Available Not Available Kenalog 10 mg/mL suspensio n for injection in office 07/24 completed [facility]: [id number] 20 Not Available Not Available Not Available amlodipin [...] iron) tablet TAKE 1 TABLET BY MOUTH EVERY DAY active Not Available Not Available No t Available ropinirol e 0.5 mg tablet TAKE 1 TABLET BY MOUTH AT DINNER 09/22 completed Not Available Not Available Not Available [...] Available Not Available Unithroid 25 mcg tablet Take 1 tablet every day by oral route for 90 days. 2024 active Not Available Not Available Not Avai lable ergocalci ferol (vitamin D2) 1,250 mcg (50,000 unit) capsule TAKE 1 CAPSULE BY MOUTH ONE TIME PER WEEK active Not Available Not Available No t Available lorazepam 1 mg tablet TAKE 1 TABLET BY MOUTH 2 TIMES A DAY NEEDED 09/15 completed Not Available Not Available Not Available levofloxa gayle 500 mg tablet active Not Available Not Available No t Available methylpre dnisolone 4 mg tablets in a dose pack TAKE 6 TABLETS ON DAY 1 DIRECTED ON PACKAGE AND DECREASE BY 1 TAB EACH DAY FOR A TOTAL OF 6 DAYS active Not Available Not Available No t Available albuterol sulfate HFA 90 mcg/actua tion aerosol inhaler INHALE 1 PUFF EVERY 4 HOURS BY INHALATI ON ROUTE NEEDED FOR 90 DAYS. active Not Available Not Available No t Available losartan 100 mg tablet TAKE 1 TABLET DAILY active Not Available Not Available No t Available fluticaso ne propionat e 50 mcg/actua tion nasal spray,margaret pension SPRAY 1 SPRAY INTO EACH NOSTRIL EVERY DAY active Not Available Not Available No t Available sertralin e 50 mg tablet TAKE 1 TABLET DAILY. NO ALCOHOL, DRIVING, OR WITH SEDATING MEDICATI ONS NOTIFY IF ANY CHANGE IN MOOD OR BEHAVIOR active Not Available Not Available No t Available calcitrio l 0.25 mcg capsule TAKE 2 CAPSULES ONCE DAILY active Not Available Not Available [...] mg-potass ium clavulana te 125 mg tablet Take 1 tablet twice a day by oral route as directed for 7 days. 01/31 completed Not Available Not Available Not Available [...] administ ered by the provider 11/22 completed [facility]: 0409-427 6 Not Available Not Available Not Available budesonid [...] per pump act.(1.62 %) transderm al gel USE 3 PUMPS ON SKIN DAILY active Not Available Not Available No t Available Brilinta 90 mg tablet Take 1 tablet twice a day by oral route for 90 days. 10/09 completed Not Available Not Available Not Available ropivacai ne (PF) 5 mg/mL (0.5 %) injection solution in office 07/24 completed [facility] 55862-76 4- Not Available Not Available Not Available Myrbetriq 50 mg tablet,ex tended release TAKE 1 TABLET DAILY. active Not Available Not Available No t Available AndroGel 1.62 % (20.25 mg/1.25 gram) [...] Not Available No t Available Fluzone High-Dose 3766-7528 (PF) 180 mcg/0.5 mL intramusc ular syringe TO BE ADMINIST ERED BY [employer] FOR IMMUNIZA TION 01/03 completed Not Available Not Available Not Available Shingrix (PF) 50 mcg/0.5 mL intramusc ular suspensio n, kit PHARMACY ADMINIST ERED 07/17 completed Not Available Not Available Not Available Fluzone High-Dose 2018- (PF) 180 mcg/0.5 mL intramusc ular syringe TO BE ADMINIST ERED BY [employer] FOR IMMUNIZA TION 06/02 completed Not Available [...] Body weight Body temperature Heart rate Systolic And Diastolic Provider Name and Address Organization Details Last Updated DateTime 5 185.42 cm 36.9 kg/m2 216222. 86 g 97.6 [degF] 78 /min 120/80 mm[Hg] ABIODUN Vinson [facility] [employer] [facility] 5 11:35:01 Date Recorded Heart rate Heart rate Respiratory rate Provider Name and Address Organization Details Last Updated DateTime 09/15/2024 79 /min 79 /min 14 /min Jerald Hebert MD [address] [facility], [facility] [address], [place], [address], [facility] [employer] [facility] 09/15/2024 13:01:24 Date Recorded Body height Body mass index (BMI) Body weight Body temperature Oxygen saturation Systolic And Diastolic Provider Name and Address Organization Details Last Updated DateTime 5 185.42 cm 36.8 kg/m2 233187. 27 g 98 [degF] 98 % 118/82 mm[Hg] Erin Smart MA [facility] [employer] [facility] 12:37:14 Date Recorded Body height Body mass index (BMI) Body weight Body temperature Heart rate Oxygen saturation Pain severity - 0-10 verbal numeric rating [Score] - Reported Systolic And Diastolic Provider Name and Address Organization Details Last Updated DateTime 5 185.42 cm 36.7 kg/m2 804891. 68 g 98 [degF] 70 /min 96 % 2 118/72 mm[Hg] Aliyah Palacios MA [facility] [employer] [facility] 11:22:38 Date Recorded Body height Body mass index (BMI) Body weight Body temperature Heart rate Oxygen saturation Pain severity - 0-10 verbal numeric rating [Score] - Reported Systolic And Diastolic Provider Name and Address Organization Details Last Updated DateTime 5 185.42 cm 35.6 kg/m2 042979. 94 g 98.2 [degF] 74 /min 94 % 0 118/74 mm[Hg] Aliyah Palacios MA [facility] [employer] [facility] 10:50:53 Social History Question Answer Notes LastModified by Organization Details LastModified Time Tobacco Smoking Status Former Smoker quit 1-5yrs ago Antony cowan, [facility] [employer] [facility] 05/26/2023 11:49:36 Do You Have An Advance Directive? No Given Today [email or web address] Information not available 02/02/2024 How Many Years Have You Consumed Alcohol? 50 Information not available 02/02/2024 Do You Wear A Helmet When Biking? No Does Not Bike. Information not available 02/02/2024 Are You Blind Or Do You Have Difficulty Seeing? No [email or web address] Information not available 05/26/2023 What Is Your Level Of Caffeine Consumption? Occasional [id number] Information not available 07/10/2022 How Much Tobacco Do You Chew? None [id number] Information not available 07/10/2022 In The 14 Days Before Symptom Onset, Have You Had Close Contact With A Laboratory-conf irmed COVID-19 While That Case Was Ill? No [email or web address] Information not available 05/26/2023 In The 14 Days Before Symptom Onset, Have You Had Close Contact With A Person Who Is Under Investigation For COVID-19 While That Person Was Ill? No [email or web address] Information not available 05/26/2023 Are You Deaf Or Do You Have Serious Difficulty Hearing? No [email or web address] Information not available 05/26/2023 What Type Of Diet Are You Following? REGULAR [id number] [id number] Information not available 07/10/2022 Which Illicit Or Recreational Drugs Have You Used? Recreational Marijuana [email or web address] Information not available 05/26/2023 What Is The Highest Grade Or Level Of School You Have Completed Or The Highest Degree You Have Received? [id number] [email or web address] Information not available 02/02/2024 Do You Have An Electrostatic Air Filter? No Information not available 05/26/2023 How Many Days Of Moderate To Strenuous Exercise, Like A Brisk Walk, Did You Do In The Last 7 Days? 0 Information not available 02/02/2024 Have There Been Any Changes To Your Family Or Social Situation? Yes Patient's In 2023 [email or web address] Information not available 02/02/2024 What Is The Fluoride Status Of Your Home? Unknown [email or web address] Information not available 05/26/2023 When Did You Quit Smoking? 1-5yearssincelastc igarette [email or web address] Information not available 05/26/2023 Are There Any Guns Present In Your Home? No [email or web address] Information not available 05/26/2023 Do You Have A Humidifier? No Information not available 05/26/2023 How Many Years Have You Used Illicit Or Recreational Drugs? 5 [email or web address] Information not available 02/02/2024 Do You Use Insect Repellent Routinely? No Information not available 05/26/2023 Where Do You Live? SingleLevelHouse W/ Basement [email or web address] Information not available 05/26/2023 Presence Of Domestic Violence No Information not available 01/06/2023 Guns Present In The Home? No Information not available 01/06/2023 Are You Able To Care For Yourself? Yes Information not available 01/06/2023 Are You Blind Or Do Yo Have Difficulty Seeing? Yes Cataracts [email or web address] Information not available 02/02/2024 Are You Deaf Or Do You Have Serious Difficulty Hearing? No Information not available 01/06/2023 General Stress Level? Moderate Information not available 01/06/2023 Live Alone Of With Others? Alone Information not available 02/02/2024 Do You Have A Medical Power Of Junior Analyst? No [email or web address] Information not available 05/26/2023 Do You Have Moisture Problems In Your Home? No [email or web address] Information not available 05/26/2023 What Was The Date Of Your Most Recent Tobacco Screening? 09/15/2024 [email or web address] Information not available 09/15/2024 How Many Children Do You Have? 0 Information not available 02/02/2024 Have You Ever Been Counseled For Unhealthy Alcohol Use? No [email or web address] Information not available 02/02/2024 Do You Have Any Pets? Yes Dog [email or web address] Information not available 02/02/2024 What Is Your Relationship Status? [email or web address] Information not available 02/02/2024 Do You Use Your Seat Belt Or Car Seat Routinely? Yes [email or web address] Information not available 05/26/2023 Are You Sexually Active? No [email or web address] Information not available 02/02/2024 Do You Have Smoke And Carbon Monoxide Detectors In Your Home? Yes [email or web address] Information not available 05/26/2023 At What Age Did You Start Smoking Tobacco? 16 [email or web address] Information not available 05/26/2023 Are You Passively Exposed To Smoke? No [email or web address] Information not available 05/26/2023 Are There Any Smokers In Your House? No [email or web address] Information not available 05/26/2023 What Types Of Sporting Activities Do You Participate In? None [email or web address] Information not available 02/02/2024 Do You Use Sunscreen Routinely? No [email or web address] Information not available 05/26/2023 Has Tobacco Cessation Counseling Been Provided? No [email or web address] Information not available 05/26/2023 Have You Recently Traveled Abroad? No [email or web address] Information not available 05/26/2023 Have You Used IV Drugs? No [email or web address] Information not available 05/26/2023 Do You Have Difficulty Walking Or Climbing Stairs? No [email or web address] Information not available 05/26/2023 Do You Have Any Dietary Restrictions? No [email or web address] Information not available 05/26/2023 How Many Days In The Past Year Have You Consumed 5 Or More Drinks? 0 [email or web address] Information not available 02/02/2024 How Many Years Have You Used E-cigarettes Or Vape? 5 [email or web address] Information not available 05/26/2023 Sex: Male Functional Status Question Answer Note LastModified by Organizat ion Details LastModified Time Do you or have you ever used smokeless tobacco? Never used smokeless tobacco [id number] Information not available 07/10/2022 Are you currently employed? No Information not available 12/16/2023 Have you been exposed to chemicals or toxins? Worked at the [employer] Information not available 07/31/2023 Do you have transportation difficulties? No [email or web address] Information not available 05/26/2023 Are you able to care for yourself independently? Yes [email or web address] Information not available 05/26/2023 Do you have difficulty dressing, bathing, grooming, or toileting? No Information not available 05/26/2023 Do you or have you ever used e-cigarettes or vape? Former user of electronic cigarettes [email or web address] Information not available 05/26/2023 What is your exercise level? None [id number] Information not available 07/10/2022 Do you use any illicit or recreational drugs? Yes Information not available 05/26/2023 Do you or have you ever used any other forms of tobacco or nicotine? Yes [email or web address] Information not available 05/26/2023 What is your level of alcohol consumption? Occasional couple times a year [id number] Information not available 07/10/2022 Are you able to walk independently without assistance or assistive devices? YESASSIST uses cane as needed [email or web address] Information not available 02/02/2024 Do you have difficulty doing errands alone? No [email or web address] Information not available 05/26/2023 What is your occupation? retired Information not available 05/26/2023 Mental Status Question Answer Note LastModified by Organizat ion Details LastModified Time Do you feel stressed (tense, restless, nervous, or anxious, or unable to sleep at night)? [id number] [email or web address] Information not available 05/26/2023 Do you have difficulty concentrating, remembering or making decisions? No [email or web address] Information no t available 05/26/2023 Family History Relationship Description Onset Age of this Age Resolved Age Notes LastModified by Organization Details LastModified Time Father Heart disease [id number] Not available 07/10/2022 01:01:42 Mother Heart disease [id number].697 [id number] Not available 07/10/2022 01:01:42 Mother Hypertensive disorder [id number] [id number] Not available 07/10/2022 01:01:42 Brother Diabetes mellitus [id number].279 [id number] Not available 07/10/2022 01:01:42 Brother Coronary artery bypass grafts x 2 [email or web address] Not available 10:37:04 Medical History Condition Response ARTHRITIS Y CARDIAC ARRHYTHMIA Y USE OF BLOOD THINNERS Y COPD Y HYPERTENSION Y Immunizations Vaccine Type Date Status Note Provider Nam e and Address Organization Details Recorded Time RSV, recombinant, protein subunit RSVpreF, adjuvant reconstituted, 0.5 mL, PF 3 completed ABIODUN Vinson [place] - [place] [employer] [facility] 07/07/2023 10:26:29 COVID-19, mRNA, LNP-S, PF, padmini-sucrose, 30 mcg/0.3 mL 3 completed Amrita Nicholson, RMA null, [facility] 07/07/2023 10:26:44 Influenza, adjuvanted, quadrivalent, PF 3 completed Amrita Aquino RMA null, [facility] 07/07/2023 10:27:12 zoster recombinant 9 completed Amrita Aquino RMA null, [facility] 06/23/2024 11:31:57 zoster recombinant 0 completed Amrita Aquino RMA null, [facility] 06/23/2024 11:31:57 Influenza, high-dose, quadrivalent, PF 2 completed Amrita Aquino RMA null, [facility] 06/23/2024 11:31:57 Influenza, high-dose, quadrivalent, PF 0 completed Amrita Aquino RMA null, [facility] 06/23/2024 11:31:57 COVID-19, mRNA, LNP-S, PF, 100 mcg/0.5mL dose or 50 mcg/0.25mL dose 1 completed [facility] 11:31:58 COVID-19 vaccine, vector-nr, rS-Ad26, PF, 0.5 mL 1 completed [facility] 06/23/2024 11:31:58 COVID-19, mRNA, LNP-S, bivalent, PF, 50 mcg/0.5 mL or 25mcg/0.25 mL dose 2 completed Amrita Aquino RMA null, [facility] 06/23/2024 11:31:58 Influenza, high-dose, trivalent, PF 7 completed Amrita Aquino RMA null, [facility] 06/23/2024 11:31:58 COVID-19, mRNA, LNP-S, PF, 50 mcg/0.5 mL 4 completed Not Available [facility] 01/24/2025 10:38:08 COVID-19, mRNA, LNP-S, bivalent, PF, 50 mcg/0.5 mL or 25mcg/0.25 mL dose 2 completed Not Available [facility] 07/10/2022 01:33:38 Influenza, high-dose, quadrivalent, PF 2 completed Not Available [facility] 07/10/2022 01:33:38 COVID-19, mRNA, LNP-S, PF, 100 mcg/0.5mL dose or 50 mcg/0.25mL dose 2 completed Amrita Aquino RMA null, [place] [employer] [facility] [employer] [facility] 06/23/2024 11:31:57 SARS-COV-2 (COVID-19) vaccine, UNSPECIFIED 1 completed Not Available [facility] 07/10/2022 01:33:39 Influenza, high-dose, trivalent, PF 9 completed MAXIM VinsonA chapo, [facility] [employer] [facility] 06/23/2024 11:31:58 COVID-19, mRNA, LNP-S, PF, 100 mcg/0.5mL dose or 50 mcg/0.25mL dose 2 completed Amrita Aquino RMA null, [employer] [facility] [employer] [facility] 06/23/2024 11:31:58 Influenza, high-dose, trivalent, PF 0 completed Amrita Aquino RMA chapo, [facility] [employer] [facility] 06/23/2024 11:31:58 pneumococcal polysaccharide PPV23 5 completed Not Available [facility] 07/10/2022 01:33:39 Influenza, high-dose, quadrivalent, PF 1 completed Not Available [facility] 07/10/2022 01:33:40 Pneumococcal conjugate PCV 13 0 completed MAXIM VinsonA chapo, [place] [employer] [facility] [employer] [facility] 06/23/2024 11:31:58 Influenza, high-dose, trivalent, PF 8 completed Not Available [facility] 07/10/2022 01:33:40 Influenza, high-dose, trivalent, PF 7 completed Not Available [facility] 07/10/2022 01:33:40 Tdap 7 completed Not Available [facility] 07/10/2022 01:33:40 Influenza, high-dose, trivalent, PF 4 completed Jose Burch MD [address] [facility], [facility] [address], [place], [address], [facility] [employer] [facility] 03/22/2024 14:03:02 Past Encounters Encounter ID Performer Location Encounter Start Date Encounter Closed Date Diagnosis/Indication Diagnosis SNOMED-CT Code Diagnosis ICD10 Code Diagnosis IMO Codes Diagnosis Note [id number] Jose booth MD [facility] Internal Med [facility] [address] [place] [address] 07/17/2020 00:00:00 07/18/2020 18:28:11 [id number] Christina Durham, [facility] [place] [address] [place] [address] 07/26/2020 00:00:00 07/26/2020 13:58:52 [id number] Jesus Casas MD [facility] Ortho [place] [address] [place] [address] 07/31/2020 00:00:00 07/31/2020 16:33:20 [id number] Jesus Cassa MD [facility] Orth[facility] [place] [address] [place] [address] 09/18/2020 00:00:00 09/18/2020 15:49:30 [id number] [facility] [place] [address] [place] [address] 11/15/2020 00:00:00 11/15/2020 15:10:34 [id number] MD BLOSSOM [facility] Internal Med [place] [address] [place] [address] [place] [address] 11/22/2020 00:00:00 11/22/2020 15:05:52 [id number] [facility] [place] [address] [place] [address] 01/16/2021 00:00:00 01/16/2021 12:55:51 [id number] Jose booth MD [facility] Internal Med [place] cra[place] [address] [facility] [place] [address] 03/19/2021 00:00:00 03/19/2021 17:32:37 [id number] [facility] [place] [address] [place] [address] 05/08/2021 00:00:00 05/08/2021 11:57:22 [id number] [facility] [place] [address] [place] [address] 07/09/2021 00:00:00 07/09/2021 13:04:37 [id number] Jose booth MD [facility] Internal [facility] [place] [address] [facility] [place] [address] 08/15/2021 00:00:00 08/15/2021 12:00:30 [id number] [facility] [place] [address] [place] [address] 10/09/2021 00:00:00 10/09/2021 10:51:13 [id number] Jose booth MD [facility] Internal [facility] [place] [address] [place] [address] [place] [address] 12/24/2021 00:00:00 12/24/2021 12:15:54 [id number] Christina Durham [facility] [place] [address] [place] [address] 04/10/2022 00:00:00 04/10/2022 13:54:20 [id number] Jose booth MD [facility] Internal Med [facility] [address] [place] [address] [place] [address] 04/29/2022 00:00:00 04/29/2022 12:03:37 [id number] Jose booth MD [facility] Internal Med [facility] [address] [place] [address] [place] [address] 08/26/2022 10:25:27 08/26/2022 11:04:49 Screening - NAD [id number] Z13.9 C-scope: Dr Bray 03/27/18, follow up in 7 years Get yearly flu shotUTD tdap 03/17/17Ca n do Pneumovax #13 02/28/2020 Can do shingles vaccineS/p COVID 19 JJ vaccine as per his history RTC in 4 monthswith labsER if any symptoms worsen,he did verbalize his understand ing of the above Hyperlipidemia 53284642 E78.5 On atorvastat in 20mg daily, get labs Hyperglycemia 76286686 R 73.9 Get A1C level On jardiance [...] Dr Brooks Chronic ob structive pulmonary disease 19846958 J44.9 On incruseOff symbicortO n singulairO n requipOn proventil PRNOn CPAP Christina Durham [employer] 04/10/2022 next 09/02/2022 LDCT 05/16/2022 Obstructiv e sleep apnea syndrome 64159916 G47.33 Sees Christina Durham [employer] 09/02/2022 Benign pro static 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 709626102 N40.[address] Mir last OV 04/02/2022 On myrbetriqO n testostero ne given by Dr Mir On terazosin 5mg daily Obesity 716206145 E66.9 Diet and exercise Thrombocyt openic disorder 453352377 D69.6 PLT WNL 08/21/2022 Hyperbilirubinemia 71311 006 E80.6 US liver 12/28/2021 : Neg Liver enzy mes level above reference range 700970833 R74.01 Get hepatitis panel/GGT [id number] Christina Durham, [facility] [place] [address] [place] [address] 09/02/2022 10:57:36 09/02/2022 11:30:32 Candidiasis of mouth 42632984 B37.0 New aerochambe r providedRi ne and spit after useNystati n Asthma-chr onic obstructive pulmonary disease overlap syndrome [id number] 0955849 J44.9 CAT 16PFT 05/30/2021 Ratio 66%FEV1 76%TLC 101%, RV 140%DLCO 91% adjusted for alveolar volume.Aph a 1 MM normalIGGs normalCont inue ICS/LABA/L AMA - stable on Incruse and symbicort 160New aerochambe r provided todayAware of reportable signs and symptoms.R TC in 6 months, PRN for concerns Obstructiv e sleep apnea syndrome 48550851 G47.33 New PAP set up 07/01/22Do wnload [...] at rest Periodic l imb movement disorder 120029143 G47.61 Remains on Ropinirole 1 mg po 2-3 hours prior to bedGood clinical benefitDen ies restless sleep Ex-smoker 7853358 Z87.89 1 Quit 2017CT chest 05/2022 with no nodule or massRepeat due 05/2023 [id number] Jose booth MD [facility] Internal Med [place] cra[place] [address] [facility] y , [place] [address] 01/06/2023 10:52:22 01/06/2023 11:31:23 Screening - NAD 212675096 Z13.9 C-scope: Dr Bray 03/27/18, follow up in 7 years Get yearly flu shotUTD tdap 03/17/17Ca n do Pneumovax #13 02/28/2020 , #23 05/12/2019 Can do shingles vaccineS/p COVID 19 JJ vaccine as per his history RTC in 4 monthswith labsER if any symptoms worsen,he did verbalize his understand ing of the above Hyperlipidemia 16138829 E78.5 On atorvastat in 20mg daily, get labs Hyperglycemia 70312361 R 73.9 Get A1C level On jardiance [...] last 09/18/2022 Chronic ob structive pulmonary disease 17383370 J44.9 On incruseOff symbicortO n singulairO n requipOn proventil PRNOn CPAP Christina Durham [employer] next 03/03/2023 LDCT 05/16/2022 Obstructiv e sleep apnea syndrome 72030571 G47.33 Sees Christina Durham [employer] 09/02/2022 , next apt 03/03/2023 Benign pro static 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 795656593 N40.[address] Mir last OV 04/02/2022 On myrbetriqO n testostero ne given by Dr Mir On terazosin 5mg daily Obesity 816478718 E66.9 Diet and exercise Thrombocyt openic disorder 825241575 D69.6 Repeat the CBC, mildly lowMay need to see hematology Hyperbilirubinemia 90850 006 E80.6 US liver 12/28/2021 : Neg Liver enzy mes level above reference range 898753650 R74.01 Hepatitis panel/GGT: Neg Proteinuria 32444316 R80 .[address] Giancarlo SANCHEZ Screening for malignant neoplasm of prostate 888079761 Z12.5 Adult heal th examination 267889666 Z00.00 Screening for disorder 145786751 Z13.9 Multiple skin tags 06432 7009 L91.8 Small located on the R cheek and another on the mid pubic area, refer to Dr Barker [id number] Sal toro MD [facility] General Surgery [address] [place] [address] 01/30/2023 11:19:38 01/30/2023 11:49:57 Skin lesion 50960753 L98.9 Face, abdominal, knee [id number] Sal toro MD [facility] General Surgery [address] [place] [address] 02/11/2023 11:42:03 02/11/2023 14:29:33 Skin lesion 88939381 L98.9 Face, abdominal, knee [id number] Sal toro MD [facility] General Surgery [address] [place] [address] 02/18/2023 11:42:49 02/18/2023 17:01:22 Skin lesion 48850130 L98.9 Face, abdominal, knee Removal of sutures done 4459180685 24455 Z48.02 [id number] Christina Durham, [facility] Pulmonolo gy [place] [address] [place] [address] 03/03/2023 09:25:02 03/03/2023 12:20:43 Asthma-chronic obstructive pulmonary disease overlap syndrome 8437332959 8715412 J44.9 PFT 05/30/2021 Ratio 66%FEV1 76%TLC 101%, RV 140%DLCO 91% adjusted for alveolar volume.Rep eat suggested next yearApha 1 MM normalIGGs normalCont inue ICS/LABA/L AMA - stable on Incruse and symbicort 160Aware of reportable signs and symptoms.A dvised vaccines Asthma 589739567 J45.90 9 Montelukas t Obstructiv e sleep apnea syndrome 36972936 G47.33 New PAP set up 07/01/22Go od [...] to bedtime.Do wnload at next OV Ex-smoker 9635167 Z87.89 1 Quit 2017CT chest 05/2022 with no nodule or massRepeat due 05/2023 - ordered by [facility] [id number] Jesus Casas MD [facility] Ortho [place] [address] [place] [address] 04/25/2023 11:06:06 04/25/2023 12:20:12 History of left total knee replacement 0279523599 565091 Z96.206 [id number] Jose booth MD [facility] Internal Med [facility] [address] [facility] [place] [facility] [place] [address] 05/26/2023 11:47:44 05/26/2023 12:15:20 Screening - NAD 307748324 Z13.9 C-scope: Dr Bray 03/27/18, follow up in 7 years Get yearly flu shotUTD tdap 03/17/17Ca n do Pneumovax #13 02/28/2020 , #23 05/12/2019 Can do shingles vaccineS/p COVID 19 JJ vaccine as per his historyCan do RSV vaccine RTC in 4 monthswith labsER if any symptoms worsen,he did verbalize his understand ing of the above Hyperlipidemia 88914874 E78.5 On atorvastat in 20mg daily, get labs Hyperglycemia 03872641 R 73.9 Get A1C level On jardiance [...] last 09/18/2022 Chronic ob structive pulmonary disease 61924440 J44.9 On incruseOff symbicortO n singulairO n requipOn proventil PRNOn CPAP Christina Durham [employer] next 03/03/2023 LDCT 05/16/[address] Hebert 05/26/2023 Obstructiv e sleep apnea syndrome 70225239 G47.33 Seen Christina Durham NP 09/02/2022 Benign pro static 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 528827358 N40.[address] Mir last OV 04/02/2022 On myrbetriqO n testostero ne given by Dr Mir On terazosin 5mg daily Obesity 919301897 E66.9 Diet and exercise Thrombocyt openic disorder 635429104 D69.6 Repeat the CBC, mildly lowMay need to see hematology Hyperbilirubinemia 80980 006 E80.6 US liver 12/28/2021 : Neg Liver enzy mes level above reference range 997736201 R74.01 Hepatitis panel/GGT: Neg Proteinuria 92185009 R80 .[address] Giancarlo SANCHEZ Screening for malignant neoplasm of prostate 545348126 Z12.5 Multiple skin tags 13311 7009 L91.8 Small located on the R cheek and another on the mid pubic area, refer to Dr Mj Barker 02/18/2023 History of left total knee replacement 7112704468 553084 Z96.652 Sumit MALDONADO 04/25/2023 , next Dr Casas 07/25/2023 Moderate r ecurrent major depression 19437594 F33.1 is on hospice and he is feeling more depressed, not suicidal or homicidal, would like to try zoloft, all side effects explained to himDecline s psychiatry referralSt art on zoloft 25mg daily [id number] Jose booth MD [facility] Internal Med [facility] cra[facility] [address] [facility] [place] [place] [address] 07/07/2023 10:19:25 07/07/2023 10:55:39 Screening - NAD 010797131 Z13.9 C-scope: Dr Bray 03/27/18, follow up in 7 years Get yearly flu shotUTD tdap 03/17/17Ca n do Pneumovax #13 02/28/2020 , #23 05/12/2019 Can do shingles vaccineS/p COVID 19 JJ vaccine as per his historyCan do RSV vaccine RTC in 4 monthswith labsER if any symptoms worsen,he did verbalize his understand ing of the above Hyperlipidemia 57706281 E78.5 On atorvastat in 20mg daily, get labs Hyperglycemia 25196256 R 73.9 Get A1C level On jardiance [...] last 09/18/2022 Chronic ob structive pulmonary disease 51716752 J44.9 On incruseOff symbicortO n singulairO n requipOn proventil PRNOn CPAP Christina Durham [employer] next 03/03/2023 LDCT 05/16/2022 LDCT 07/03/2023 : 3mm noduleDr Emilee next apt 07/31/2023 Obstructiv e sleep apnea syndrome 66251825 G47.33 Seen Christina Durham [employer] 09/02/2022 Dr Hebert 07/31/2023 Benign pro static 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 806609281 N40.[address] Mir last OV 04/02/2022 On myrbetriqO n testostero ne given by Dr Mir On terazosin 5mg daily Obesity 826759362 E66.9 Diet and exercise Thrombocyt openic disorder 340945429 D69.6 Repeat the CBC, mildly lowMay need to see hematology Hyperbilirubinemia 57181 006 E80.6 US liver 12/28/2021 : Neg Liver enzy mes level above reference range 705927159 R74.01 Hepatitis panel/GGT: Neg Proteinuria 87272998 R80 .[address] Aguilar IJ Multiple skin tags 39051 7001 L91.8 Small located on the R cheek and another on the mid pubic area, refer to Dr Mj Barker 02/18/2023 History of left total knee replacement 5345768413 033435 Z96.652 Sumit MALDONADO 04/25/2023 , next Dr Casas 07/25/2023 Moderate r ecurrent major depression 83452649 F33.1 was on hospice and has since and he is feeling more depressed, not suicidal or homicidal all side effects explained to himDecline s psychiatry referralOn zoloft 25mg daily, will increase to 50mg daily Hypothyroidism 97524225 E03.9 Get repeat TSH/FT4 and US thyroid done [id number] Jesus Casas MD [facility] [place] [address] [place] [address] 07/25/2023 09:50:25 07/25/2023 10:49:31 Osteoarthritis of right knee joint 9272689999 22310 M17.11 [id number] Jerald Hebert MD S_[address] [address] 07/31/2023 11:24:46 08/01/2023 08:58:08 Periodic limb movement disorder 372942910 G47.61 D50.8 E83.42 Obstructiv e sleep apnea syndrome 83240191 G47.33 Mild chron ic obstructive pulmonary disease 837190812 J44.9 [id number] Jerald Hebert MD S_[address] [address] 09/15/2023 09:45:14 09/16/2023 08:24:15 Periodic limb movement disorder 632319321 G47.61 D50.8 E83.42 Obstructiv e sleep apnea syndrome 77322889 G47.33 Mild chron ic obstructive pulmonary disease 232996902 J44.9 Iron deficiency 94206399 E61.1 [id number] Jose booth MD [facility] Internal Med Meagan craig [address] [facility] [place] [address] 11/10/2023 10:44:00 11/10/2023 11:24:47 Screening - NAD 847107459 Z13.9 C-scope: Dr Bray 03/27/18, follow up in 7 years Get yearly flu shotUTD tdap 03/17/17Ca n do Pneumovax #13 02/28/2020 , #23 05/12/2019 Can do shingles vaccineS/p COVID 19 JJ vaccine as per his historyCan do RSV vaccine RTC in 4 monthswith labsER if any symptoms worsen,he did verbalize his understand ing of the above Hyperlipidemia 46297719 E78.5 On atorvastat in 20mg daily, get labs Hyperglycemia 32719502 R 73.9 Get A1C level On jardiance [...] last 10/09/2023 Chronic ob structive pulmonary disease 32008371 J44.9 On incruseOff symbicortO n singulairO n requipOn proventil PRNOn CPAP Christina Durham [employer] next 03/03/2023 LDCT 05/16/2022 LDCT 07/03/2023 : 3mm noduleDr Hebert next apt 12/16/2023 Obstructiv e sleep apnea syndrome 02139481 G47.33 Seen Christina Durham [employer] 09/02/2022 Dr Hebert Benign pro static 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 303251252 N40.[address] Mir last OV 04/02/2022 On myrbetriqO n testostero ne given by Dr Mir On terazosin 5mg daily Obesity 303096924 E66.9 Diet and exercise Thrombocyt openic disorder 878204604 D69.6 Repeat the CBC, mildly lowMay need to see hematology Hyperbilirubinemia 49040 006 E80.6 US liver 12/28/2021 : Neg Liver enzy mes level above reference range 850612901 R74.01 Hepatitis panel/GGT: Neg Proteinuria 16070213 R80 .9 Dr Giancarlo SANCHEZ 08/12/2023 Multiple skin tags 39013 7009 L91.8 Small located on the R cheek and another on the mid pubic area, refer to Dr Mj Barker 02/18/2023 History of left total knee replacement 7735928847 298797 Z96.652 Sumit MALDONADO 04/25/2023 , Dr Casas/René MALDONADO 07/25/2023 Moderate r ecurrent major depression 90850425 F33.1 was on hospice and has since passed awayNot suicidal or homicidal all side effects explained to himDecline s psychiatry referralOn zoloft 50mg daily Hypothyroidism 78427212 E03.9 Get repeat TSH/FT4 and US thyroid done Pain of ear 388146158 H9 2.09 Dr Hamilton Ryan ENT 03/20/2023 [id number] Jerald Hebert MD S[facility] Pulmonolo gy [address] [address] 12/16/2023 10:49:20 12/17/2023 08:26:27 Periodic limb movement disorder 490810710 G47.61 Obstructiv e sleep apnea syndrome 87093912 G47.33 Mild chron ic obstructive pulmonary disease 406434907 J44.9 Iron deficiency 45280411 E61.1 [id number] Jose booth MD [facility] Internal Med [place] [address] [place] [address] , [facility] [place] [address] 02/02/2024 10:29:27 02/02/2024 11:54:27 Screening - NAD 136734618 Z13.9 C-scope: Dr Bray 03/27/18, follow up in 7 years Get yearly flu shotUTD tdap 03/17/17Ca n do Pneumovax #13 02/28/2020 , #23 05/12/2019 Can do shingles vaccineS/p COVID 19 JJ vaccine as per his historyCan do RSV vaccine RTC in 4 monthswith labsER if any symptoms worsenhe did verbalize his understand ing of the above Hyperlipidemia 50195675 E78.5 On atorvastat in 20mg daily, get labs Hyperglycemia 71178392 R 73.9 Get A1C level On jardiance [...] sotalolOn mag Keep apt with [facility] Dr Brooks Chronic ob structive pulmonary disease 41519163 J44.9 On incruseOff symbicortO n singulairO n requipOn proventil PRNOn CPAP Christina Durham [employer] next 03/03/2023 LDCT 05/16/2022 LDCT 07/03/2023 : 3mm noduleDr Hebert next apt 03/17/2024 Obstructiv e sleep apnea syndrome 04146969 G47.33 Seen Christina Durham [employer] 09/02/2022 Dr Hebert 03/17/2024 next apt Benign pro static 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 374953942 N40.[address] Mir last OV 04/02/2022 On myrbetriqO n testostero ne given by Dr Mir On terazosin 5mg daily Obesity 833350761 E66.9 Diet and exercise Thrombocyt openic disorder 962708332 D69.6 Repeat the CBC, mildly lowMay need to see hematology Hyperbilirubinemia 45680 006 E80.6 US liver 12/28/2021 : Neg Liver enzy mes level above reference range 075716917 R74.01 Hepatitis panel/GGT: Neg Proteinuria 69259761 R80 .9 Dr Giancarlo SANCHEZ 08/12/2023 Multiple skin tags 96908 7009 L91.8 Small located on the R cheek and another on the mid pubic area, refer to Dr Mj Barker 02/18/2023 History of left total knee replacement 5960228667 527516 Z96.652 Sumit MALDONADO 04/25/2023 , Dr Casas/René MALDONADO 07/25/2023 Moderate r ecurrent major depression 10391487 F33.1 was on hospice and has since passed awayNot suicidal or homicidal all side effects explained to himDecline s psychiatry referralOn zoloft 50mg daily Hypothyroidism 71144549 E03.9 Get repeat TSH/FT4US thyroid 07/09/2023 Pain of ear 532232829 H9 2.09 Dr Hamilton Ryan ENT 03/20/2023 Adult heal th examination 846001510 Z00.00 Screening for disorder 086320929 Z13.9 Acute otitis media 08347 03 H66.92 OV 02/02/2024 :On steroid and z-pack, given by the , getting better, will finish the antibiotic , notify if not better [id number] Jerald Hebert MD [facility] [address] [address] 03/18/2024 10:09:15 05/10/2024 09:28:36 Periodic limb movement disorder 621265416 G47.61 Obstructiv e sleep apnea syndrome 33752942 G47.33 Mild chron ic obstructive pulmonary disease 044891781 J44.9 Iron deficiency 26867747 E61.1 [id number] Jose booth MD [facility] [address] [place] [address] 03/22/2024 09:52:37 03/22/2024 10:49:12 Screening - NAD 555643151 Z13.9 C-scope: Dr Bray 03/27/18, follow up in 7 years Get yearly flu shotUTD tdap 03/17/17Ca n do Pneumovax #13 02/28/2020 , #23 05/12/2019 Can do shingles vaccineS/p COVID 19 JJ vaccine as per his historyCan do RSV vaccine RTC in 3 monthswith labsER if any symptoms worsenhe did verbalize his understand ing of the above Hyperlipidemia 10879296 E78.5 On atorvastat in 20mg daily, get labs Hyperglycemia 69839126 R 73.9 Get A1C level On jardiance 10mg dailyMore diet and exercise is needed Atrial fibrillation 4943 6004 I48.91 S/p d/c from hospitalS/ p stent by Dr Zuñiga On ASAOn amlodipine 10mg dailyOff brilintaOn plavixOn coreg 25mg bidOn eliquisNot on hydralazin Tiana isosorbide ER 30mg bidOn losartan 100mg dailyOn sotalolOn mag Keep apt with [facility] Dr Brooks Chronic ob structive pulmonary disease 85255499 J44.9 On incruseOff symbicortO n singulairO n requipOn proventil PRNOn CPAP Christina Durham [employer] next 03/03/2023 LDCT 05/16/2022 LDCT 07/03/2023 : 3mm noduleDr Emilee next apt 06/17/2023 Obstructiv e sleep apnea syndrome 03745220 G47.33 Seen Christina Durham [employer] 09/02/2022 Dr Hebert Benign pro static 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 788468006 N40.[address] Mir last OV 04/02/2022 On myrbetriqO n testostero ne given by Dr Mir On terazosin 5mg daily Obesity 133237382 E66.9 Diet and exercise Thrombocyt openic disorder 088818967 D69.6 Repeat the CBC, mildly lowMay need to see hematology Hyperbilirubinemia 98160 006 E80.6 US liver 12/28/2021 : Neg Liver enzy mes level above reference range 194600924 R74.01 Hepatitis panel/GGT: Neg Proteinuria 60479197 R80 .9 Dr Giancarlo SANCHEZ 08/12/2023 Multiple skin tags 40502 7009 L91.8 Small located on the R cheek and another on the mid pubic area, refer to Dr Mj Barker 02/18/2023 History of left total knee replacement [id number] 328334 Z96.652 Sumit MALDONADO 04/25/2023 , Dr Casas/René MALDONADO 07/25/2023 Moderate r ecurrent major depression 38524942 F33.1 was on hospice and has since passed awayNot suicidal or homicidal all side effects explained to himDecline s psychiatry referralOn zoloft 50mg daily Hypothyroidism 41671924 E03.9 Get repeat TSH/FT4US thyroid 07/09/2023 Can start on unithroid low dose, does have a.fib, will also discuss with cardiology Acute sinusitis 29964462 J01.90 Right sided facial tenderness Also has R upper gum tenderness Is seeing ENT and dentistWil l start on augmentinN otify if not better, ER if worse Administra tion of influenza vaccine 22943952 Z23 [id number] Jerald Hebert MD [facility] Pulmonolo gy [address] [place] [address] 06/17/2024 10:46:01 06/17/2024 12:59:50 Periodic limb movement disorder 130405178 G47.61 Obstructiv e sleep apnea syndrome 24598631 G47.33 Mild chron ic obstructive pulmonary disease 663789335 J44.9 Iron deficiency 76922708 E61.1 Solitary n odule of lung 281636008 R91.1 Chronic ob structive pulmonary disease 28459040 J44.9 [id number] Jose booth MD [facility] [address] [facility] [place] [address] 06/23/2024 11:25:30 06/23/2024 12:04:46 Screening - NAD 544357684 Z13.9 C-scope: Dr Bray 03/27/18, follow up in 7 years Get yearly flu shotUTD tdap 03/17/17Ca n do Pneumovax #13 02/28/2020 , #23 05/12/2019 Can do shingles vaccineS/p COVID 19 JJ vaccine as per his historyCan do RSV vaccine RTC in 3 monthswith labsER if any symptoms worsenhe did verbalize his understand ing of the above Hyperlipidemia 86085501 E78.5 On atorvastat in 20mg daily, get labs Hyperglycemia 81896362 R 73.9 Get A1C level On jardiance 10mg dailyMore diet and exercise is needed Atrial fibrillation 4943 6004 I48.91 S/p d/c from hospitalS/ p stent by Dr Zuñiga On ASAOn amlodipine 10mg dailyOff brilintaOn plavixOn coreg 25mg bidOn eliquisNot on hydralazin Tiana isosorbide ER 30mg bidOn losartan 100mg dailyOn sotalolOn mag Keep apt with HV Dr Brooks Chronic ob structive pulmonary disease 21141429 J44.9 On incruseOff symbicortO n singulairO n requipOn proventil PRNOn CPAP Christina Durham [employer] next 03/03/2023 LDCT 05/16/2022 LDCT 07/03/2023 : 3mm noduleDr Emilee next apt 09/15/2024 Obstructiv e sleep apnea syndrome 05047033 G47.33 Seen Christina Durham [employer] 09/02/2022 Dr Hebert Benign pro static 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 020359877 N40.[address] Mir last OV 04/02/2022 On myrbetriqO n testostero ne given by Dr Mir On terazosin 5mg daily Obesity 627669195 E66.9 Diet and exercise Thrombocyt openic disorder 273441067 D69.6 Repeat the CBC, mildly lowMay need to see hematology Hyperbilirubinemia 80368 006 E80.6 US liver 12/28/2021 : Neg Liver enzy mes level above reference range 803765252 R74.01 Hepatitis panel/GGT: Neg Proteinuria 01261387 R80 .9 Dr Giancarlo SANCHEZ 08/12/2023 Multiple skin tags 94778 7009 L91.8 Small located on the R cheek and another on the mid pubic area, refer to Dr Mj Barker 02/18/2023 History of left total knee replacement [id number] 917007 Z96.652 Sumit MALDONADO 04/25/2023 , Dr Casas/René MALDONADO 07/25/2023 Moderate r ecurrent major depression 61962632 F33.1 was on hospice and has since passed awayNot suicidal or homicidal all side effects explained to himDecline s psychiatry referralOn zoloft 50mg daily Hypothyroidism 02089756 E03.9 Get repeat TSH/FT4US thyroid 07/09/2023 On unithroid low dose, does have a.fib, will also discuss with cardiology Eruption 883200343 R21 Rash itchy noted on the ish dorsal forearms and the upper back and upper chest, in the past states was treated with clobetasol , will renew, notify if not better, then will have to see dermatolog y [id number] Jerald Hebert MD [facility] [address] [address] 09/15/2024 12:24:04 09/17/2024 08:30:46 Periodic limb movement disorder 417506357 G47.61 Obstructiv e sleep apnea syndrome 57473965 G47.33 Mild chron ic obstructive pulmonary disease 386180901 J44.9 Iron deficiency 29770186 E61.1 [id number] Jose booth MD [facility] Mindy craig [address] [facility] [place] [address] 09/22/2024 10:46:44 09/22/2024 11:59:36 Screening - NAD 568434877 Z13.9 C-scope: Dr Bray 03/27/18, follow up in 7 years Get yearly flu shotUTD tdap 03/17/17Ca n do Pneumovax #13 02/28/2020 , #23 05/12/2019 Can do shingles vaccineS/p COVID 19 JJ vaccine as per his historyCan do RSV vaccine RTC in 3 monthswith labsER if any symptoms worsenhe did verbalize his understand ing of the above Hyperlipidemia 34804848 E78.5 On atorvastat in 20mg daily, get labs Hyperglycemia 68862192 R 73.9 Get A1C level On jardiance 10mg dailyMore diet and exercise is needed Atrial fibrillation 4943 6004 I48.91 S/p d/c from hospitalS/ p stent by Dr Zuñiga On ASAOn amlodipine 10mg dailyOff brilintaOf f plavixOn coreg 25mg bidOn eliquisNot on hydralazin Tiana isosorbide ER 30mg bidOn losartan 100mg dailyOn sotalolOn mag Keep apt with [facility] Dr Brooks Chronic ob structive pulmonary disease 65658566 J44.9 On incruseOff symbicortO n singulairO n requipOn proventil PRNOn CPAP Christina Durham [employer] next 03/03/2023 LDCT 05/16/2022 LDCT 07/03/2023 : 3mm Rae Hebert next apt 09/14/2025 Obstructiv e sleep apnea syndrome 92866192 G47.33 Seen Christina Durham [employer] 09/02/2022 Dr Hebert Benign pro static 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 744022076 N40.[address] Mir last OV 04/02/2022 On myrbetriqO n testostero ne given by Dr Mir On terazosin 5mg daily Obesity 661199119 E66.9 Diet and exercise Thrombocyt openic disorder 433401857 D69.6 Repeat the CBC, mildly lowMay need to see hematology Hyperbilirubinemia 47482 006 E80.6 US liver 12/28/2021 : Neg Liver enzy mes level above reference range 423328165 R74.01 Hepatitis panel/GGT: Neg Proteinuria 14421777 R80 .9 Dr Aguilar IJ 08/12/2023 Multiple skin tags 72478 7009 L91.8 Small located on the R cheek and another on the mid pubic area, refer to Dr Mj Barker 02/18/2023 History of left total knee replacement 5712980101 050960 Z96.652 Sumit MALDONADO 04/25/2023 , Dr Casas/René MALDONADO 07/25/2023 Moderate r ecurrent major depression 79107614 F33.1 was on hospice and has since passed awayNot suicidal or homicidal all side effects explained to himDecline s psychiatry referralOn zoloft 50mg daily Hypothyroidism 05026251 E03.9 Get repeat TSH/FT4US thyroid 07/09/2023 On unithroid low dose, does have a.fib, will also discuss with cardiology Eruption 173501932 R21 Rash itchy noted on the ish dorsal forearms and the upper back and upper chest, in the past states was treated with clobetasol , will renew, notify if not better, then will have to see dermatolog y OV 09/23/2023 :Does well on the clobetasol , renew [id number] Jose booth MD [facility] Mindy craig [address] [facility] [facility] [place] [address] 01/24/2025 10:36:13 01/24/2025 11:19:18 Screening - NAD 874080827 Z13.9 C-scope: Dr Bray 03/27/18, follow up in 7 years Get yearly flu shotUTD tdap 03/17/17Ca n do Pneumovax #13 02/28/2020 , #23 05/12/2019 Can do shingles vaccineS/p COVID 19 JJ vaccine as per his historyCan do RSV vaccine RTC in 3 monthswith labsER if any symptoms worsenhe did verbalize his understand ing of the above Hyperlipidemia 84696347 E78.5 On atorvastat in 20mg daily, get labs Hyperglycemia 49448108 R 73.9 Get A1C level On jardiance 10mg dailyMore diet and exercise is needed Atrial fibrillation 4943 6004 I48.91 S/p d/c from hospitalS/ p stent by Dr Zuñiga On ASAOn amlodipine 10mg dailyOff brilintaOf f plavixOn coreg 25mg bidOn eliquisNot on hydralazin Tiana isosorbide ER 30mg bidOn losartan 100mg dailyOn sotalolOn mag Keep apt with [facility] Dr Brooks, last OV 10/09/2023 Chronic ob structive pulmonary disease 98001590 J44.9 On incruseOff symbicortO n singulairO n requipOn proventil PRNOn CPAP Christina Durham [employer] next 03/03/2023 LDCT 05/16/2022 LDCT 07/03/2023 : 3mm noduleDr Emilee next apt 09/14/2025 Obstructiv e sleep apnea syndrome 32347347 G47.33 Seen Christina Durham [employer] 09/02/2022 Dr Hebert Benign pro static 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 112111360 N40.[address] Mir last OV 04/13/2024 , f/u in 6 monthsOn myrbetriqO n testostero ne given by Dr Mir On terazosin 5mg daily Obesity 527689352 E66.9 Diet and exercise Thrombocyt openic disorder 010564938 D69.6 Repeat the CBC, mildly lowDr Saurav 06/10/2024 Hyperbilirubinemia 55774 006 E80.6 US liver 12/28/2021 : Neg Liver enzy mes level above reference range 767957590 R74.01 Hepatitis panel/GGT: Neg Proteinuria 32500792 R80 .9 Dr Aguilar IJ 08/12/2023 Multiple skin tags 09811 7009 L91.8 Small located on the R cheek and another on the mid pubic area, refer to Dr Mj Barker 02/18/2023 History of left total knee replacement [id number] 763189 Z96.652 Sumit MALDONADO 04/25/2023 , Dr Casas/René MALDONADO 07/25/2023 Moderate r ecurrent major depression 68103244 F33.1 was on hospice and has since passed awayNot suicidal or homicidal all side effects explained to himDecline s psychiatry referralOn zoloft 50mg daily Hypothyroidism 02992483 E03.9 Get repeat TSH/FT4US thyroid 07/09/2023 On unithroid low dose, does have a.fib, will also discuss with cardiology Eruption 962760920 R21 Rash itchy noted on the ish dorsal forearms and the upper back and upper chest, in the past states was treated with clobetasol , will renew, notify if not better, then will have to see dermatolog y OV 09/23/2023 :Does well on the clobetasol , renew Screening for malignant neoplasm of prostate 182560719 Z12.5 960105 Respirator y tract infection 984302641 J98.8 41782 Get tested for flu/strep and COVID 19Get on augmentin 875mg po bid for 7 daysRest, isolate and ER if worse Addendum: 01/24/2025 :COVID 19 neg, case sent Health Concerns Section Related Observation LastModified by Organization Detai ls LastModified Time None Recorded Concern Status LastModified by Organization Details LastModified Time None Recorded Advance Directives Directive N: Given today Payers Insurance Date Sequence Insurance Name Policy Number Policy Adler Covered Member ID Adler Member ID Guarantor Name 01/21/2025 1 [employer] (MEDICARE REPLACEMENT /ADVANTAGE - PPO) [id number] 1 Julian Patrick [id number] Julian Patrick Notes Date Note Type Note Provider Name and Address Organization Details Recorded Time 06/23/2024 text/html Here to establish careLast PMD Dr Andinoast Hx:COPDHTNHLDOSABPHHyp ogonadismReviewed social family and surgical historyHere to establish care, discuss above and get some labsHe has an apt with the urologist and is to get his testosterone level and PSAHe also to see his 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 Dr Brooks OV 09/15/17:Here for his 6 [...] the labs on 06/10/2024 Jose Burch MD [address] [place] [address], [id number], [facility] [employer] 06/23/2024 17:01:15 09/15/2024 text/html Primary care/Referring provider: Jose Burch MD; David Mg MD Patient is here to go over his COPD management. Initial development of shortness of breath: 2016Duration of shortness of breath: 9 yearsCondition of shortness of breath: stableTiming of shortness of breath: noneFrequency: up to 2 times a dayLimits activities: yesAggravating factors: walking, climbing stairsAlleviating factors: rest Modified [employer] [place] (mMRC) Dyspnea Scale - Grade 2Grade 0 [...] am breathless when dressing . Treatment history: Montelukast 10 mg daily 2608-1127 Albuterol HFA as needed since 2015, uses up to 2 x a weekSymbicort HFA 80/4.5 mcg 2 puffs BID reyna HFA 160/4.5 mcg 2 puffs BID since 2020Incruse Ellipta 1 inhalation daily since 2020 Other symptoms:Drooling: noDysarthria: noNeck pain: noOdynophagia: noDysphagia: noWeak mastication: noFacial weakness: noNasal speech: noProtruding tongue: noProductive cough: grayishWheezing: noChest tightness: yesOrthopnea: noFrequent throat clearing or swallowing: noPalpitations: noHeartburn: noEdema: no Environmental exposures:Nicotine smoke: 1 ppd 3996-9388 = 46 pack yearsPaint: noDye: noDust mites: yesMold: noDamp basement: noWood burning stove: noAnimal dander: dogCockroaches: noPollen: yesArsenic: noAsbestos: noBeryllium: noCadmium: noChromium: noCoal smoke: noDiesel fumes: noNickel: noSilica: noSoot: no During the [facility] sleep study on 02/13/05 AHI = 73. PLMI = 15 and he is on iron supplements. At home since 06/17/24, the patient uses a [employer] AirSense 11 [...] no chance of dozing. 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 Dr Brooks OV 09/15/17:Here for his 6 [...] he did do the labs on 06/10/2024 OV 09/22/2024: Here for his f/u apt, he is doing very well and he has done the labs Murtuza Bahrainwala, MD [address], [place], [address], [place] [facility] [place] [employer] [facility] 09/22/2024 13:48:05 01/24/2025 text/html Here to establish careLast PMD Dr Armendariz Hx:COPDHTNHLDOSABPHHyp ogonadismReviewed social family and surgical historyHere to establish care, discuss above and get some labsHe has an apt with the urologist and is to get his testosterone level and PSAHe also to see his 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 Dr Brooks OV 09/15/17:Here for his 6 [...] the knee replaced, he has seen Dr Augusto for this in the past OV 07/17/2020:Here for his routine aptHe feels wellHe did do the labs on 07/11/2020 OV 03/19/2021:Here for his routine aptHe feels wellS/p d[facility] s/p stent insertionHe did do [...] he did do the labs on 06/10/2024 OV 09/22/2024: Here for his f/u apt, he is doing very well and he has done the labs OV 01/24/2025: Here for his f/u apt, he is also now c/o respiratory symptoms of fevers, cough, and 'spots on back of throat'No chest pain or SOB, no wheezingStates that last week on he was a his dentist's office and may have had the infected contracted thru that office Jose Burch MD [address] [place] [address], [facility] [address], [place], [address], [place] [facility] 01/24/2025 14:18:12
--- OUTSIDE RECORDS SUMMARY | 2025-04-13 15:04 | XMS_ITS | Clinical Summary ---
Author Organization [facility] Address [address] [place] [address] Care Team Providers Care Fabric Designer Name Role Phone Efraín Burch MD Primary Care Provider Source Comments [facility],non-owned Affiliates and Associated Physician Practices is amultiple site organization consisting of ambulatory clinics and hospital sitesin [place] and [place]. This disclosure is being madepursuant to the Care Everywhere program and may not contain all information available regarding this patient. Last updated 18.[facility] [employer] Social History Tobacco Use Types Packs/Day Years Used Date Smoking Tobacco: Never Assessed Sex and Gender Information Value Date Recorded Sex Assigned at Not on file Legal Sex Male 2:39 PM CDT Gender Identity Not on file Sexual Orientation [...] 2000 ZOSTER VACCINE (1 of 2) 2000 DEPRESSION SCREENING 05/12/2024 COVID-19 VACCINE (1 - 2024-2 6 season) 2025 INFLUENZA VACCINE (#1) 2025 9, 03/25/2018, 03/17/2017 Respiratory Syncytial Virus (RSV) Vaccine Pt: or [...] complete this topic MENINGOCOCCAL (Group B) VACCINE SHARED DECISION-MAKING Aged Out No longer eligible based on patient's age to complete this topic MENINGOCOCCAL GROUPS A/C/Y/W VACCINE Aged Out No longer eligible b ased on patient's age to complete this topic [place] [address] [employer] Care Teams Fabric Designer Relationship Specialty Start Date End Date fEraín Burch MD [address] [address] PCP - General Internal Medicine 11/19/19
--- OUTSIDE RECORDS SUMMARY | 2025-04-13 15:04 | XMS_ITS | Clinical Summary ---
Author Organization [facility] Anna Chirinos Address [address] [place] [address] Care Team Providers Care Pay Station Department Manager Name Role Phone Unavailable Primary Care Provider Unavailabl e Allergies No known active allergies Medications a lipoic uhqt-kwuhcl-dbf berine 125 mg-95 mcg- 250 mg Capsule Take 1 Capsule by mouth daily. Active albuterol sulfate HFA 90 mcg/actuation aerosol inhaler Take 2 Puffs by inhalation see administration instructions. 03/28/20 24 Active testosterone (AndroGeL) 20.25 mg/1.25 gram (1.62 %) Gel in Metered-dose Pump Apply 12.5 mg to affected area daily. Active multivitamin-mi u-crox-AQ-vit K (Bariatric Multivitamins) 45 mg iron- 800 [...] extended release 24 hr 12/28/19 22 Active HYDROcodone-christophe taminophen (NORCO) 7.5-325 mg Tablet TAKE 1 TABLET BY MOUTH 1 HOUR BEFORE PROCEDURE, THEN 1 TABLET EVERY 6 HOURS NEEDED FOR 7 DAYS 05/25/19 25 Active HYDROcodone-christophe taminophen (NORCO) 5-325 mg tablet 06/09/19 25 Active ferrous sulfate 325 mg (65 mg iron) tablet ferrous sulfate 325 mg (65 mg iron) tablet Active Jardiance 10 mg tablet Take 10 mg by mouth daily. Active diazePAM (VALIUM) 5 mg tablet TAKE 5 TABLETS BY MOUTH 1 HOUR BEFORE PROCEDURE, THEN EVERY 6 HOURS NEEDED 05/25/19 25 Active clopidogreL (PLAVIX) 75 mg Tablet take 1 tablet once daily 04/02/20 24 Active carvediloL (COREG) 25 mg tablet 2 times daily. 02/29/20 23 Active budesonide-form oteroL (SYMBICORT) 80-4.5 mcg/actuation HFA Aerosol Inhaler Take 2 Puffs by inhalation 2 times daily. Active Breyna 160-4.5 mcg/actuation HFA Aerosol Inhaler USE 2 INHALATIONS ORALLY TWICE DAILY Active budesonide-form oteroL (SYMBICORT) 80-4.5 mcg/actuation HFA Aerosol Inhaler budesonide-formot sera 80-4.5 mcg/actuation HFA aerosol inhaler Active atorvastatin (LIPITOR) 20 mg tablet atorvastatin 20 mg tablet 04/30/20 24 Active amLODIPine (NORVASC) 10 mg tablet 1 tablet Orally Once a day for 90 08/08/19 24 Active BERBERINE CHLORIDE ORAL BERBERINE COMPLEX CAPSULE Active apixaban (Eliquis) 5 mg tablet Take 5 mg by mouth 2 times daily. 03/24/20 25 Active Eliquis 5 mg tablet Take 5 mg by mouth 2 times daily. 06/04/19 25 025 Discontinu ed(Alterna te therapy prescribed ) Active Problems No known active problems Encounters Date Type Department Care Team Description 04/13/2025 2:15 PM ROOM SERVICE [facility]LL[facility] Office Visit [facility] Oncology and Hematology - [place] [address] [address] [place] [address] David Mg MD Other secondary thrombocytopenia (Primary Dx) 03/01/2025 External Device Data STL ABSTRACTION Provider, Abstract 02/15/2025 External Device Data STL ABSTRACTION Provider, Abstract 01/25/2025 External Device Data ST[facility] ABSTRACTION Provider, Abstract 01/18/2025 External Device Data STL ABSTRACTION Provider, Abstract from Last 3 Months Family History Medical [...] on file Legal Sex Male 10:28 AM ROOM SERVICE [facility]LL[facility] Gender Identity Not on file Sexual Orientation Not on file Last Filed Vital Signs Vital Sign Reading Time Taken Comments Blood Pressure 123/79 04/13/2025 2:07 PM ROOM SERVICE [facility]LLH[facility] Pulse 70 04/13/2025 2:07 PM ROOM SERVICE [facility]LLH[facility] Temperature 37.2 C (98.9 F) 04/13/2025 2:07 PM ROOM SERVICE [facility]LLH[facility] Respiratory Rate 14 04/13/2025 2:07 PM ROOM SERVICE [facility]LLH[facility] Oxygen Saturation 98% 04/13/2025 2:07 PM ROOM SERVICE BELLHOP Inhaled Oxygen Concentration - - Weight 130.7 kg (288 lb 3.2 oz) 04/13/2025 2:07 PM ROOM SERVICE BELLHOP Height 185.4 cm (6' 1) 06/10/2024 3:42 PM ROOM SERVICE BELLHOP Body Mass Index 38.02 06/10/2024 3:42 PM ROOM SERVICE [facility]LLHOP Plan of Treatment Upcoming Encounters Date Type Department Care Team (Late st Contact Info) Description 10/12/2025 11:00 AM CDT Office Visit [facility] Oncology and Hematology - [place] [address] [place] [address] David Mg MD [address] [facility] [address] [place] [address] Health Maintenance Due Date Last Done Comments COLORECTAL SCREENING 08/17/1995 Colorectal Cancer Screening 08/17/1995 FIT-DNA Q 3 years 08/17/1995 FIT/FOBT Q 1 year 08/17/1995 Flex Sig/CT Colonography Q 5 years 08/17/1995 RSV VACCINE (60+ or ) (1 - Risk 50-74 years 1-dose series) 2000 Medicare [place]vant[place] ([place]) Preventative Visit/Annual Wellness Visit 05/12/2024 02/02/2024, 01/06/2023 INFLUENZA VACCINE (#1) 2024 , 03/27/2023, 02/28/2022, Additional history exists COVID-19 Vaccine (2024-2 6 season) 2025 03/12/2024, 03/27/2023, 02/28/2022, Additional history exists PNEUMOCOCCAL VACCINE 50+ YEA RS (3 of 3 - PCV20 or PCV21) 02/27/2025 02/28/2020, 05/12/2014 DTAP/TDAP/TD VACCINES (2 - T d or Tdap) 03/17/2027 03/17/2017 ZOSTER VACCINE Completed 03/17/2020, 03/12/2019 Insurance [employer] PPO [facility]
--- OUTSIDE RECORDS SUMMARY | 2025-04-13 15:04 | XMS_ITS | Clinical Summary ---
Author Organization [facility] Address [address] [place] [id number] Care Team Providers Care Pin Attacher Name Role Phone Martin Brooks MD Unavailable [phone] Gonzalez Alvarado Primary Care Provider [phone] Allergies No known active allergies Medications Eliquis [...] hours as needed 6 Active a lipoic pstm-kertfi-uxjf erine 125 mg-95 mcg- 250 mg capsule [...] (02/28/2021): Added automatically from request for surgery [id number] SOB (shortness of breath) 02/28/2021 Overview (02/28/2021): Added automatically from request for surgery [id number] Surgical History Surgery Date Site/Laterality Comments CARDIAC PACEMAKER PLACEMENT Dual Chamber [employer] CARDIAC CATHETERIZATION CARDIAC ELECTROPHYSIOLOGY STUDY AND ABLATION CARDIOVERSION UMBILICAL HERNIA REPAIR TOTAL KNEE ARTHROPLASTY 05/12/2020 - 05/11/2021 Left TONSILLECTOMY BRONCHOSCOPY histoplasmosis Medical History Medical History Date Comments Arrhythmia A Fib post ablat ion SSS (sick sinus syndrome) (HCC) post Dual Chamber Pacemaker Hypertension Sleep [...] on file Legal Sex Male 10:55 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 Gender Identity Not on file Sexual Orientation Not on file Last Filed Vital Signs Vital Sign Reading Time Taken Comments Blood Pressure 138/89 03/06/2021 12:13 PM CDT Pulse 79 03/06/2021 12:13 PM CDT Temperature 36.9 C (98.5 F) 03/06/2021 12:13 PM CDT Respiratory Rate 18 03/06/2021 12:13 PM CDT Oxygen Saturation 96% 03/06/2021 12:13 PM CDT Inhaled Oxygen Concentration - - Weight 131.5 kg (290 lb) 03/05/2021 10:10 AM CDT Height 185.4 cm (6' 1) 03/05/2021 10:10 AM CDT Body Mass Index 38.26 03/05/2021 10:10 AM CDT Plan of Treatment Not on file Medical Devices Implanted Type Area Needle Loom Operator Device Identifier Shelf Expiration Date Model / Serial / Lot [employer] X [id number] Resolute Josr 3mm 2.1-2.7fr 8mm 140cm Rapid Exchange Radiopaque 1 - [id number] Implanted:Qty: 1 on 03/05/2021 by Shine Zuñiga MD at [facility] [employer] 04/12/2022 [id number] / / Insurance AETNA MEDICARE AETNA MEDICARE Advance Directives For more information, please contact: [phone] * Full Code (Latest Code Status on File) Date Activated Date Inactivated Comments 03/05/2021 6:31 PM 03/06/2021 5:58 PM * Full Code Date Activated Date Inactivated Comments 03/05/2021 2:41 PM 03/05/2021 6:31 PM Care Teams Pin Attacher Relationship Specialty Start Date End Date Gonzalez Alvarado: [phone] [id number] [id number] PCP - General 03/19/21 Martin Brooks MD Consulting Physician Cardiology 03/06/21
[2025-04-13 16:31] LABS: Alanine Aminotransferase 36 U/L (6-50); Albumin Level 4.1 g/dL (3.5-5.1); Alkaline Phosphatase 70 U/L (38-126); Anion Gap 3 mmol/L (4-12); Aspartate Amino Transferase 48 U/L (17-59); Bilirubin,Total 1.2 mg/dL (0.2-1.3); Blood Urea Nitrogen 18 mg/dL (9-20); Calcium 9.1 mg/dL (8.4-10.2); Carbon Dioxide 27 mmol/L (22-30); Chloride 107 mmol/L (98-107); Estimated Glomerular Filt Rate > 60; Glucose 82 mg/dL (65-110); Potassium 3.9 mmol/L (3.4-5.0); Sodium 137 mmol/L (137-145); Total Protein 6.9 g/dL (6.3-8.2)
== END 2025-04-13 13:50 | disposition home or self-care (01) ==
LOC: ANHLAB 13:50
PROVIDERS: PCP Internal Medicine; Visit Provider Internal Medicine Hematology & Oncology
DX: D69.59 Other secondary thrombocytopenia (principal)
CPT/HCPCS: 36415; 80047; 80053; 85025